=== PATIENT | male | born 1945 | race Caucasian/White ===

== ENCOUNTER → 2023-06-05 14:20 | Outpatient (REF) | payer OTHER, SELFPAY ==
[2023-06-05 16:27] LABS: PSA, Total - Diagnostic 0.14 ng/ml (0.0-4.0)
[2023-06-05 16:28] LABS: Testosterone, Total 5.6 ng/dl (72-623)
== END ==
LOC: REG 14:20
PROVIDERS: ATTENDING PHYSICIAN Radiology Radiation Oncology; FAMILY PHYSICIAN Internal Medicine
DX: C61 Malignant neoplasm of prostate (principal)
CPT/HCPCS: 36415; 84153; 84403

== ENCOUNTER → 2023-06-15 10:54 | Outpatient (REF) | payer OTHER, SELFPAY ==
[2023-06-15 12:05] LABS: % Basophils 0.9 % (0-2); % Eosinophils 5.9 % (0-6); % Immature Granulocytes 0.5 % (0-0.5); % Lymphocytes 8.5 % (20.5-51.1); % Monocytes 7.7 % (1.7-9.3); % Neutrophils 76.5 % (42.2-75.2); Absolute Basophils 0.1 10^3/uL (0-0.2); Absolute Eosinophils 0.5 10^3/uL (0-0.7); Absolute Lymphocytes 0.7 10^3/uL (1.2-3.4); Absolute Monocytes 0.7 10^3/uL (0.1-0.6); Absolute Neutrophils 6.5 10^3/uL (1.4-6.5); Hematocrit 37.1 % (39.0-52.0); Hemoglobin 12.5 g/dL (13.0-18.0); Mean Corp Hgb Conc. 33.7 g/dL (33.0-37.0); Mean Corpuscular Hgb 32.8 pg (27.0-31.0); Mean Corpuscular Volume 97.4 fL (80.0-94.0); Mean Platelet Volume 9.4 fL (7.4-10.4); Nucleated Red Blood Cells % 0 % (-); Platelet Count 207 10^3/uL (130-400); Red Blood Cell Count 3.81 10^6/uL (4.70-6.10); Red Cell Dist. Width 12.4 % (11.5-14.5); White Blood Cell Count 8.5 10^3/uL (4.8-10.8)
[2023-06-15 12:34] LABS: ALT (SGPT) 22 U/L (0-50); AST (SGOT) 25 U/L (17-59); Albumin 3.8 g/dl (3.5-5.0); Alkaline Phosphatase 54 U/L (38-126); Blood Urea Nitrogen 23 mg/dl (9-20); C-Reactive Protein < 5.00 mg/L (0.0-10.00); Calcium 9.4 mg/dl (8.4-10.2); Carbon Dioxide 29 mmol/L (22-30); Chloride 103 mmol/L (98-107); Glucose 101 mg/dl (70-99); HDL Cholesterol 42 mg/dl; LDL Cholesterol, Calculated 109 mg/dl; Potassium 4.2 mmol/L (3.5-5.1); Sodium 138 mmol/L (135-145); Total Bilirubin 0.6 mg/dl (0.2-1.3); Total Cholesterol 181 mg/dl (50-199); Total Protein 6.4 g/dl (6.3-8.2); Triglyceride 150 mg/dl (10-149); Very Low Density Lipoprotein 30 mg/dl (0-30); eGFR > 60.00
[2023-06-15 13:04] LABS: TSH 0.55 uIU/ml (0.47-4.68)
[2023-06-15 13:33] LABS: Erythrocyte Sed Rate 8 mm/hour (0-20)
[2023-06-15 13:55] LABS: Folate 19.6 ng/ml (2.76-20); Vitamin B12 508 pg/ml (239-931)
== END ==
LOC: REG 10:54
PROVIDERS: ATTENDING PHYSICIAN Internal Medicine
DX: R53.83 Other fatigue (principal); I10 Essential (primary) hypertension
CPT/HCPCS: 36415; 80053; 80061; 82607; 82746; 84443; 85025; 85652; 86140

== ENCOUNTER 2023-09-04 13:25 | Emergency (ER) | payer OTHER, SELFPAY ==
[2023-09-04 13:28] VITALS: BP 142/70
[2023-09-04 13:51] LABS: % Basophils 0.6 % (0-2); % Eosinophils 3.9 % (0-6); % Immature Granulocytes 0.5 % (0-0.5); % Lymphocytes 3.5 % (20.5-51.1); % Monocytes 10.4 % (1.7-9.3); % Neutrophils 81.1 % (42.2-75.2); Absolute Basophils 0.1 10^3/uL (0-0.2); Absolute Eosinophils 0.3 10^3/uL (0-0.7); Absolute Lymphocytes 0.3 10^3/uL (1.2-3.4); Absolute Monocytes 0.8 10^3/uL (0.1-0.6); Absolute Neutrophils 6.5 10^3/uL (1.4-6.5); Hematocrit 34.5 % (39.0-52.0); Hemoglobin 11.9 g/dL (13.0-18.0); Mean Corp Hgb Conc. 34.5 g/dL (33.0-37.0); Mean Corpuscular Hgb 33.4 pg (27.0-31.0); Mean Corpuscular Volume 96.9 fL (80.0-94.0); Mean Platelet Volume 8.6 fL (7.4-10.4); Nucleated Red Blood Cells % 0 % (-); Platelet Count 188 10^3/uL (130-400); Red Blood Cell Count 3.56 10^6/uL (4.70-6.10); Red Cell Dist. Width 12.9 % (11.5-14.5)
[2023-09-04 14:17] LABS: ALT (SGPT) 14 U/L (0-50); AST (SGOT) 25 U/L (17-59); Albumin 3.9 g/dl (3.5-5.0); Alkaline Phosphatase 47 U/L (38-126); Blood Urea Nitrogen 16 mg/dl (9-20); Calcium 9.1 mg/dl (8.4-10.2); Carbon Dioxide 22 mmol/L (22-30); Chloride 106 mmol/L (98-107); Glucose 104 mg/dl (70-99); Potassium 3.7 mmol/L (3.5-5.1); Sodium 136 mmol/L (135-145); Total Bilirubin 0.7 mg/dl (0.2-1.3); Total Protein 6.2 g/dl (6.3-8.2); eGFR > 60.00
[2023-09-04 17:49] VITALS: BP 161/56; BMI 20.5
[2023-09-04 18:00] VITALS: BP 174/66
[2023-09-04] MEDS: NSS 250 IV (18:14)
[2023-09-04 18:36] LABS: Troponin I < 0.012 ng/ml
--- NOTE | 2023-09-04 18:41 | ED.GENMED ---
History of Present Illness
General
Chief Complaint: Chest Problem
Source: patient and family
Exam Limitations: none
Time Seen by Provider: 09/04/23 17:47
Travel History
Have you had any contact with someone who has COVID-19?: No
Do you have any symptoms of coronavirus? Fever > 100 degrees, chills, cough, shortness of breath, sore throat, loss of taste or smell, muscle aches, or headache?: No
History of Present Illness
History of Present Illness:
78-year-old male complaining of heart pounding. Has been going on for days. Also episodes of irregular heartbeat. No syncope no chest pain no shortness of breath. Ongoing diarrhea with prostate radiation.
Past History
Past History
ED Past Medical History: CAD, CVA, GERD, HTN, Hypercholesterolemia, [place], Hypothyroidism, Other (angina/pressure, prostatic hypertropy, emphysema), Other (PNA, spontaneous pneumothorax blebs, arthritis, spinal stenosis) and Other (peripheral arterial
disease in lower extremities)
ED Past Surgical History: Cardiac (stenting times 2) and Other (thyroidectomy)
Social History
Tobacco: Former smoker
Alcohol: Occasional
Drug: None
Living: with family
Family History
Family History: Other (Skin cancer)
Review of Systems
Review of Systems
All Other Systems: Not applicable
Constitutional: Denies fever
Respiratory: Denies trouble breathing
Cardiac: Denies chest pain or syncope
Phy Exam
Physical Exam
Physical Exam:
GENERAL: Alert and oriented in no apparent distress
EYE: Orbits normal.
NECK: Supple
CARDIAC: Regular rate and rhythm without any obvious murmurs.
LUNGS: Clear breath sounds,normal
ABDOMEN: Soft, without focal tenderness or distention
NEUROLOGICAL: Alert and oriented , grossly non-focal
SKIN: Warm and dry, no rash or lesion, no discoloration, skin intact.
MUSCULOSKELETAL: No edema,no deformity.Good color
PSYCH: Normal and appropriate interaction.
Course
Orders/Labs/Results
Orders:
Orders
09/04/23 13:34
Electrocardiogram (*1) Urgent
Reason for Study: Palpitations
EKG- Treatment ONCE
09/04/23 13:42
Type+Screen Urgent
CMP [Comprehensive Metabolic Panel] Urgent
Complete Blood Count/With Diff Urgent
09/04/23 18:01
0.9% Sodium Chloride 250 ml [Nss] 250 ml IV BOLUS
CXR2 [CR Chest - 2 Views ] Urgent
Comment:
Reason For Exam: Palpitations/heart racing
09/04/23 18:02
Troponin I Urgent
Abnormal Lab Results
09/04/23
13:42
RBC 3.56 L 10^6/uL
(4.70-6.10)
Hgb 11.9 L g/dL
(13.0-18.0)
Hct 34.5 L %
(39.0-52.0)
MCV 96.9 H fL
(80.0-94.0)
MCH 33.4 H pg
(27.0-31.0)
Absolute Lymphs (auto) 0.3 L 10^3/uL
(1.2-3.4)
Absolute Monos (auto) 0.8 H 10^3/uL
(0.1-0.6)
Neutrophils % 81.1 H %
(42.2-75.2)
Lymphocytes % 3.5 L %
(20.5-51.1)
Monocytes % 10.4 H %
(1.7-9.3)
Glucose 104 H mg/dl
(70-99)
Total Protein 6.2 L g/dl
(6.3-8.2)
09/04/23 13:42
09/04/23 13:42
Vital Signs
Initial and Last Documented VS:
Initial Vital Signs
Temp Pulse Resp BP Pulse Ox
97.8 F 80 18 142/70 97
09/04/23 13:28 09/04/23 13:28 09/04/23 13:28 09/04/23 13:28 09/04/23 13:28
Last Documented Vital Signs
Temp Pulse Resp BP Pulse Ox
98.8 F 83 18 161/56 98
09/04/23 17:49 09/04/23 17:49 09/04/23 17:49 09/04/23 17:49 09/04/23 17:49
MDM/Problems Addressed
Differential Diagnosis Includes:
Patient not describing racing heartbeat or arrhythmia like symptoms more pounding. States his heart rate will go up into the 80s. No syncope no chest pain no shortness of breath. Highly doubt pulmonary emboli. No infectious issues clinically.
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
*Radiology
Radiology exam reviewed: preliminary read by ED provider (Negative)
*Pulse Oximetry
Patient hypoxic: no
*EKG
Interpreted by ED Provider?: Yes
Interpretation: normal
Comparison EKG: no changes
Heart Rate: 80
Rate: normal
Rhythm: sinus
Soldier: normal axis
Interval: normal interval
QRS Pattern: normal QRS
Ischemia: no ischemia
*Tourist Home Keeper Interpretation
Rate: normal
Interpretation: normal
Heart Rate: 80
Rhythm: sinus
*Critical Care Note
Total Time (30-74mins, 75-104mins- exclusive of procedures): Not Applicable
Data Reviewed
Review of Other/Old Records Reveals: Labs, Records and Testing
Update Note
Update Note:
Patient is describing more than sensation been racing heart rate or irregular heart rate. He has no chest pain or shortness of breath. He has no leg pain or leg swelling. He is nontoxic with stable vital signs at rest. I suspect his pounding
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 No other serious explanation found clinically or by testing. Charged to follow-up
ED Attending Note
-
Portions of this chart may have been created with voice recognition software.� Occasional wrong word or��sound alike� substitutions may have occurred due to the inherent limitations of voice recognition software.
Discharge Plan
Departure
Patient Disposition: Home (Routine Discharge)
Date of Disposition: 09/04/23
Time of Disposition: 19:45
Patient with high blood pressure during this ER visit?: Yes
Discharge Problem:
Pounding sensation/palpitations, Radiation induced diarrhea
Instructions: Palpitations ED, Acute Diarrhea, BLOOD PRESSURE
Prescriptions:
No Action
carvedilol phosphate 20 MG capsule, ER multiphase 24 hr
20 mg PO DAILY
lifitegrast [Xiidra] 1 EACH dropperette
1 drp BOTH EYES BID
nitroglycerin 0.4 MG tablet, sublingual
0.4 mg sublingual [id number] PRN (Reason: chest pain) Qty: 25 3RF
acetaminophen [Tylenol Extra Strength] 500 MG tablet
500 mg PO TID
Patient Comments:
WITH 650MG
lorazepam 0.5 MG tablet
0.5 mg PO HSPRN PRN (Reason: sleep)
Patient Comments:
04/06/2020: per pdmp last filled 04/02/2019, 60 tabs for 30 days from [facility]
C,E,zinc,copper [id number] 1 CAP capsule
1 cap PO DAILY@1200
valsartan 80 MG tablet
80 mg PO QPM
levothyroxine 88 MCG tablet
88 mcg PO DAILY
calcium carbonate 600 MG tablet
600 mg PO QPM
cholecalciferol (vitamin D3) 1,000 UNITS tablet
1,800 units PO QPM
L.acidoph, carly,B. lactis 1 EACH capsule
1 ea PO DAILY@1200
aspirin 81 MG tablet,delayed release (DR/EC)
81 mg PO DAILY
acetaminophen [Tylenol Arthritis] 650 MG tablet extended release
650 mg PO TID
Patient Comments:
WITH 500MG
pantoprazole 40 MG tablet,delayed release (DR/EC)
40 mg PO DAILY@1200
furosemide 20 MG tablet
20 mg PO DAILY
clopidogrel 75 MG tablet
75 mg PO QPM
ferrous sulfate [FeroSul] 325 MG tablet
325 mg PO HS 0RF
clopidogrel 75 MG tablet
75 mg PO DAILY Qty: 20 0RF
Referrals:
Christopher Cramer, DO [Family Provider] - Follow up in 2-3 days
Interventions
Interventions:
*Risk Screen - Suicide Last Done: 09/04/23 17:49
*General Assessment Last Done: 09/04/23 17:49
*Neglect/Abuse Screening Last Done: 09/04/23 17:49
ED- Fall Risk Assessment Last Done: 09/04/23 17:49
*ED COVID-19 Vaccine History Last Done: 09/04/23 13:28
ED- Cardiac Assessment Last Done: 09/04/23 17:49
ED- Pulmonary Assessment Last Done: 09/04/23 17:49
Discharge Date and Time
Print Language: TAJIK
== END 2023-09-04 20:18 | disposition home or self-care (01) ==
LOC: EMR 13:25
PROVIDERS: Emergency Medicine; EMERGENCY PHYSICIAN Emergency Medicine; FAMILY PHYSICIAN Internal Medicine
DX: R00.2 Palpitations (principal); K52.0 Gastroenteritis and colitis due to radiation; W88.0XXA Exposure to X-rays, initial encounter; I25.10 Atherosclerotic heart disease of native coronary artery without angina pectoris; I10 Essential (primary) hypertension; K21.9 Gastro-esophageal reflux disease without esophagitis; E78.00 Pure hypercholesterolemia, unspecified; E03.9 Hypothyroidism, unspecified; I25.2 Old myocardial infarction; M48.00 Spinal stenosis, site unspecified; I73.9 Peripheral vascular disease, unspecified; J43.9 Emphysema, unspecified; Z86.73 Personal history of transient ischemic attack (TIA), and cerebral infarction without residual deficits; Z87.891 Personal history of nicotine dependence; Z95.5 Presence of coronary angioplasty implant and graft
CPT/HCPCS: 99283; 71046; 80053; 84484; 85025; 86850; 86900; 86901; 93005

== ENCOUNTER 2023-09-23 15:05 | Emergency (ER) | payer OTHER, SELFPAY ==
[2023-09-23 15:08] VITALS: BP 151/66
--- NOTE | 2023-09-23 17:14 | ED.GENMED ---
History of Present Illness
<Magnolia Vitale PA-C - Last Filed: 09/23/23 20:06>
General
Chief Complaint: Blood Pressure Problem
Source: patient
Exam Limitations: none
Time Seen by Provider: 09/23/23 16:21
Nursing documentation reviewed up to this point in time: agreed with
Travel History
Have you had any contact with someone who has COVID-19?: No
Do you have any symptoms of coronavirus? Fever > 100 degrees, chills, cough, shortness of breath, sore throat, loss of taste or smell, muscle aches, or headache?: No
History of Present Illness
History of Present Illness:
This is a 78 y/o male with a PMH of CAD, HTN, prostate cancer presenting emergency department today with concerns of elevated blood pressure pressure and urinary burning/retention. Patient states that he checks his blood pressure once a day usually
every day or multiple times a day. Patient states that he will go through phases of checking it and then not checking it. Patient states that he was recently told to up his dose frequency of Flomax and patient was concerned this would decrease his
blood pressure and he was concerned that this would cause him to . Because of this year, patient has been checking his blood pressure much more than usual, and he noticed that has been elevated recently. His baseline blood pressure systolically
runs in the 130s to 150s, and he noticed that he got one blood pressure reading that systolically was 200. Patient denies any chest pain, shortness of breath, headaches, abdominal pain, nausea, vomiting. Patient denies any lower extremity swelling
or edema. Patient states that his current urinary symptoms are expected from his recent radiation procedures, and he is working with his oncologist and urologist to find right medications to help his symptoms currently.
Past History
<Magnolia Vitale PA-C - Last Filed: 09/23/23 20:06>
Past History
ED Past Medical History: CAD, CVA, GERD, HTN, Hypercholesterolemia, [place], Hypothyroidism, Other (angina/pressure, prostatic hypertropy, emphysema), Other (PNA, spontaneous pneumothorax blebs, arthritis, spinal stenosis) and Other (peripheral arterial
disease in lower extremities)
ED Past Surgical History: Cardiac (stenting times 2) and Other (thyroidectomy)
Social History
Tobacco: Former smoker
Alcohol: Occasional
Drug: None
Living: with family
Family History
Family History: Other (Skin cancer)
Review of Systems
<Magnolia Vitale PA-C - Last Filed: 09/23/23 20:06>
Review of Systems
All Other Systems: ROS reviewed and negative except as documented in HPI and ROS
Phy Exam
<Magnolia Vitale PA-C - Last Filed: 09/23/23 20:06>
Physical Exam
Physical Exam:
General: Patient is well appearing and in no acute distress; non-toxic
Skin: Warm and dry, no rashes or lesions
Head: Normocephalic, atraumatic
Eyes: Sclera non-icteric. EOMs intact. PERRLA.
Cardiac: Regular rate and rhythm, no murmurs
Peripheral Vascular: No lower extremity swelling or edema
Pulm: Normal respiratory effort, no wheezes, rales,
Abdomen: No abdominal tenderness to palpation
Neuro: CN II-XII intact, no focal neurologic deficits.
Psychiatric: Appropriate mood and affect.
Course
<Magnolia Vitale PA-C - Last Filed: 09/23/23 20:06>
Orders/Labs/Results
Orders:
Orders
09/23/23 16:21
Bladder Scan- Treatment ONCE
09/23/23 17:44
Electrocardiogram (*1) Urgent
Reason for Study: Tachycardia
EKG- Treatment ONCE
Urinalysis Reflex To Culture Urgent
Date Specimen was Collected: 09/23/23
Time Specimen was Collected: 17:41
Vital Signs
Initial and Last Documented VS:
Initial Vital Signs
Temp Pulse Resp BP Pulse Ox
98.3 F 100 16 151/66 96
09/23/23 15:08 09/23/23 15:08 09/23/23 15:08 09/23/23 15:08 09/23/23 15:08
Last Documented Vital Signs
Temp Pulse Resp BP Pulse Ox
98.5 F 99 20 151/65 97
09/23/23 18:50 09/23/23 18:50 09/23/23 18:50 09/23/23 18:50 09/23/23 18:50
<Acosta Martinez DO - Last Filed: 09/23/23 18:11>
Orders/Labs/Results
Orders:
Orders
09/23/23 16:21
Bladder Scan- Treatment ONCE
09/23/23 17:44
Electrocardiogram (*1) Urgent
Reason for Study: Tachycardia
EKG- Treatment ONCE
Urinalysis Reflex To Culture Urgent
Date Specimen was Collected: 09/23/23
Time Specimen was Collected: 17:41
Vital Signs
Initial and Last Documented VS:
Initial Vital Signs
Temp Pulse Resp BP Pulse Ox
98.3 F 100 16 151/66 96
09/23/23 15:08 09/23/23 15:08 09/23/23 15:08 09/23/23 15:08 09/23/23 15:08
Last Documented Vital Signs
Temp Pulse Resp BP Pulse Ox
98.5 F 99 20 151/65 97
09/23/23 18:50 09/23/23 18:50 09/23/23 18:50 09/23/23 18:50 09/23/23 18:50
<Magnolia Vitale PA-C - Last Filed: 09/23/23 20:06>
MDM/Problems Addressed
Differential Diagnosis Includes:
ddx include essential hypertension, white coat syndrome, acute urinary retention, ACS
MDM/Problems Addressed:
Urinary retention, urinary burning, high blood pressure
Chronic conditions affecting care:
Prostate cancer, hypertension, coronary artery
Acute Exacerbation and/or Progression of Chronic Illness:
Prostate cancer
<Magnolia Vitale PA-C - Last Filed: 09/23/23 20:06>
*Critical Care Note
Total Time (30-74mins, 75-104mins- exclusive of procedures): Not Applicable
<Magnolia Vitale PA-C - Last Filed: 09/23/23 20:06>
Patient Management
Escalation/DeEscalation of care consider admission/obs:
This is a 78 y/o male with a PMH of CAD, HTN, prostate cancer presenting emergency department today with concerns of elevated blood pressure pressure and urinary burning/retention. Patient states that he checks his blood pressure once a day usually
every day or multiple times a day. Patient states that he will go through phases of checking it and then not checking it. Patient states that he was recently told to up his dose frequency of Flomax and patient was concerned this would decrease his
blood pressure and he was concerned that this would cause him to . Because of this year, patient has been checking his blood pressure much more than usual.
While here in the emergency department, patient's blood pressure has been at his baseline without intervention. Patient has no evidence of urinary tract infection on his urinalysis. Advised patient to continue his current blood pressure regimen,
follow-up with his urologist and oncologist for his persistent urinary symptoms. No indication for further testing at this time.
ED Attending Note
<Magnolia Vitale PA-C - Last Filed: 09/23/23 20:06>
-
Portions of this chart may have been created with voice recognition software.� Occasional wrong word or��sound alike� substitutions may have occurred due to the inherent limitations of voice recognition software.
<Acosta Martinez DO - Last Filed: 09/23/23 18:11>
ED Attending Note
Patient seen and examined by attending physician: Yes
I performed the substantive portion of visit, reviewed & personally made and approve the management plan that is documented in note by myself or ADEN.: Yes
ED Attending Note:
I have seen and evaluated the patient with a [id number] encounter. I have spoken to the advance practicer provider and involved in the medical history, the physical exam, medical decision making.
Evaluation and management service: agree unless noted differently below.
Results interpretation: agree unless noted differently below.
Focused HPI: 78-year-old male presenting for evaluation of high blood pressure. Patient recently underwent prostate radiation and is having urinary issues. His urologist and oncologist are following him. They want him to start taking 2 Flomax in
the morning and 2 Flomax in the evening. Patient has been having increasing blood pressure. The on-call court monitor told him to take his normal Diovan at night and another dose in the morning moving forward. Patient is worried this could
decrease his blood pressure so he has not started this regimen yet
Physical exam: Sitting bed comfortably. No acute distress. Heart regular rate and rhythm
Medical Decision Making: We discussed following the recommendations that his court monitor put forth. His blood pressure is improving without intervention here. Urinalysis negative for infection
Discharge Plan
Departure
Patient Disposition: Home (Routine Discharge)
Date of Disposition: 09/23/23
Time of Disposition: 18:09
Patient with high blood pressure during this ER visit?: Yes
Condition: Good
Discharge Problem:
Hypertension
Instructions: High Blood Pressure (DC), BLOOD PRESSURE
Prescriptions:
New
tamsulosin [Flomax] 0.4 mg capsule
0.4 mg PO BID Qty: 30 0RF
No Action
carvedilol phosphate 20 MG capsule, ER multiphase 24 hr
20 mg PO DAILY
lifitegrast [Xiidra] 1 EACH dropperette
1 drp BOTH EYES BID
nitroglycerin 0.4 MG tablet, sublingual
0.4 mg sublingual [id number] PRN (Reason: chest pain) Qty: 25 3RF
acetaminophen [Tylenol Extra Strength] 500 MG tablet
500 mg PO TID
Patient Comments:
WITH 650MG
lorazepam 0.5 MG tablet
0.5 mg PO HSPRN PRN (Reason: sleep)
Patient Comments:
04/06/2020: per pdmp last filled 04/02/2019, 60 tabs for [facility] days from [facility] [place] [facility]
C,E,zinc,copper [id number] 1 CAP capsule
1 cap PO DAILY@1200
valsartan 80 MG tablet
80 mg PO QPM
levothyroxine 88 MCG tablet
88 mcg PO DAILY
calcium carbonate 600 MG tablet
600 mg PO QPM
cholecalciferol (vitamin D3) 1,000 UNITS tablet
1,800 units PO QPM
L.acidoph, paracasei,B. lactis 1 EACH capsule
1 ea PO DAILY@1200
aspirin 81 MG tablet,delayed release (DR/EC)
81 mg PO DAILY
acetaminophen [Tylenol Arthritis] 650 MG tablet extended release
650 mg PO TID
Patient Comments:
WITH 500MG
pantoprazole 40 MG tablet,delayed release (DR/EC)
40 mg PO DAILY@1200
furosemide 20 MG tablet
20 mg PO DAILY
clopidogrel 75 MG tablet
75 mg PO QPM
ferrous sulfate [FeroSul] 325 MG tablet
325 mg PO HS 0RF
clopidogrel 75 MG tablet
75 mg PO DAILY Qty: 20 0RF
Referrals:
Christopher Cramer DO [Family Provider] -
Activity Restrictions/Additional Instructions:
Please follow up with your urologist and oncologist.
Please continue to monitor your symptoms.
Please return to the emergency department should you experience chest pain, shortness of breath, abdominal pain, syncopal episodes, intractable vomiting, or any other concerning signs or symptoms.
Interventions
Interventions:
*Risk Screen - Suicide Last Done: 09/23/23 15:08
*General Assessment Last Done: 09/23/23 15:08
*Neglect/Abuse Screening Last Done: 09/23/23 15:08
*Nursing Disposition Last Done: 09/23/23 18:54
ED- Cardiac Assessment Last Done: 09/23/23 16:41
ED- Neurological Assessment Last Done: 09/23/23 16:41
ED- Pulmonary Assessment Last Done: 09/23/23 16:41
Discharge Date and Time
Discharge Date/Time: 09/23/23 18:56
Print Language: ESTONIAN
[2023-09-23 17:51] LABS: Urine Albumin Negative (Neg - Trace); Urine Bilirubin Negative (Negative); Urine Character Clear (Clear); Urine Color Straw; Urine Glucose Negative (Negative); Urine Ketone Negative (Negative); Urine Leukocyte Negative (Negative); Urine Nitrite Negative (Negative); Urine Occult Blood Negative (Negative); Urine Urobilinogen Negative (Neg - 1+)
[2023-09-23 18:50] VITALS: BP 151/65
== END 2023-09-23 18:56 | disposition home or self-care (01) ==
LOC: EMR 15:05
PROVIDERS: Physician Assistant; EMERGENCY PHYSICIAN Student in an Organized Health Care Education/Training Program; FAMILY PHYSICIAN Internal Medicine
DX: I10 Essential (primary) hypertension (principal); R30.9 Painful micturition, unspecified; I25.10 Atherosclerotic heart disease of native coronary artery without angina pectoris; Z87.891 Personal history of nicotine dependence
CPT/HCPCS: 99283; 51798; 81003; 93005

== ENCOUNTER → 2023-10-03 11:47 | Outpatient (REF) | payer OTHER, SELFPAY ==
[2023-10-03 13:54] LABS: Urine Albumin Trace (Neg - Trace); Urine Bilirubin Negative (Negative); Urine Character Clear (Clear); Urine Color Yellow; Urine Glucose Negative (Negative); Urine Ketone Negative (Negative); Urine Leukocyte Negative (Negative); Urine Nitrite Negative (Negative); Urine Occult Blood Negative (Negative); Urine Urobilinogen Negative (Neg - 1+)
== END ==
LOC: REG 11:47
PROVIDERS: ATTENDING PHYSICIAN Nurse Practitioner Family; FAMILY PHYSICIAN Internal Medicine
DX: R35.0 Frequency of micturition (principal)
CPT/HCPCS: 81003

== ENCOUNTER → 2023-11-15 12:45 | Outpatient (REF) | payer OTHER, SELFPAY | LOC: RAD 12:45 | PROVIDERS: ATTENDING PHYSICIAN Surgery Vascular Surgery; FAMILY PHYSICIAN Internal Medicine | DX: I73.9 Peripheral vascular disease, unspecified (principal); I65.23 Occlusion and stenosis of bilateral carotid arteries | CPT/HCPCS: 93880; 93922; 93925 ==

== ENCOUNTER → 2023-11-21 08:59 | Outpatient (REF) | payer OTHER, SELFPAY ==
[2023-11-21 09:57] LABS: % Basophils 1.1 % (0-2); % Eosinophils 5.3 % (0-6); % Immature Granulocytes 0.5 % (0-0.5); % Monocytes 9.1 % (1.7-9.3); Absolute Basophils 0.1 10^3/uL (0-0.2); Absolute Eosinophils 0.4 10^3/uL (0-0.7); Absolute Lymphocytes 0.4 10^3/uL (1.2-3.4); Absolute Monocytes 0.7 10^3/uL (0.1-0.6); Absolute Neutrophils 5.8 10^3/uL (1.4-6.5); Hematocrit 34.1 % (39.0-52.0); Hemoglobin 11.6 g/dL (13.0-18.0); Mean Platelet Volume 9.3 fL (7.4-10.4); Nucleated Red Blood Cells % 0 % (-); Platelet Count 217 10^3/uL (130-400); Red Blood Cell Count 3.41 10^6/uL (4.70-6.10); Red Cell Dist. Width 12.1 % (11.5-14.5); White Blood Cell Count 7.4 10^3/uL (4.8-10.8)
[2023-11-21 10:24] LABS: Glycohemoglobin (HgbA1c) 5.4 % (4.0-5.6)
[2023-11-21 10:34] LABS: Urine Albumin Negative (Neg - Trace); Urine Bilirubin Negative (Negative); Urine Character Clear (Clear); Urine Color Yellow; Urine Glucose Negative (Negative); Urine Ketone Negative (Negative); Urine Leukocyte Negative (Negative); Urine Nitrite Negative (Negative); Urine Occult Blood Negative (Negative); Urine Specific Gravity 1.015 (<1.030); Urine Urobilinogen Negative (Neg - 1+)
[2023-11-21 11:12] LABS: Albumin 4.1 g/dl (3.5-5.0); Blood Urea Nitrogen 28 mg/dl (9-20); Carbon Dioxide 28 mmol/L (22-30); Total Bilirubin 0.6 mg/dl (0.2-1.3); Total Protein 6.1 g/dl (6.3-8.2)
[2023-11-21 11:25] LABS: ALT (SGPT) 13 U/L (0-50); AST (SGOT) 21 U/L (17-59); Alkaline Phosphatase 50 U/L (38-126); Calcium 9.3 mg/dl (8.4-10.2); Chloride 103 mmol/L (98-107); Glucose 100 mg/dl (70-99); HDL Cholesterol 42 mg/dl; LDL Cholesterol, Calculated 107 mg/dl; Potassium 4.2 mmol/L (3.5-5.1); Sodium 136 mmol/L (135-145); Total Cholesterol 186 mg/dl (50-199); Triglyceride 185 mg/dl (10-149); Very Low Density Lipoprotein 37 mg/dl (0-30); eGFR > 60.00
[2023-11-21 11:37] LABS: TSH 0.37 uIU/ml (0.47-4.68)
== END ==
LOC: REG 08:59
PROVIDERS: ATTENDING PHYSICIAN Internal Medicine
DX: N52.9 Male erectile dysfunction, unspecified (principal); I10 Essential (primary) hypertension; E78.2 Mixed hyperlipidemia; Z86.73 Personal history of transient ischemic attack (TIA), and cerebral infarction without residual deficits; R23.8 Other skin changes; R00.2 Palpitations
CPT/HCPCS: 36415; 80053; 80061; 81003; 83036; 84443; 85025

== ENCOUNTER → 2023-11-28 12:29 | Outpatient (REF) | payer OTHER, SELFPAY ==
[2023-11-28 13:12] LABS: % Basophils 0.8 % (0-2); % Eosinophils 4.9 % (0-6); % Immature Granulocytes 0.4 % (0-0.5); % Lymphocytes 5.2 % (20.5-51.1); % Monocytes 8.8 % (1.7-9.3); % Neutrophils 79.9 % (42.2-75.2); Absolute Basophils 0.1 10^3/uL (0-0.2); Absolute Eosinophils 0.4 10^3/uL (0-0.7); Absolute Lymphocytes 0.4 10^3/uL (1.2-3.4); Absolute Monocytes 0.7 10^3/uL (0.1-0.6); Absolute Neutrophils 6.2 10^3/uL (1.4-6.5); Hematocrit 34.7 % (39.0-52.0); Hemoglobin 11.9 g/dL (13.0-18.0); Mean Corp Hgb Conc. 34.3 g/dL (33.0-37.0); Mean Corpuscular Hgb 34.2 pg (27.0-31.0); Mean Corpuscular Volume 99.7 fL (80.0-94.0); Mean Platelet Volume 9.1 fL (7.4-10.4); Nucleated Red Blood Cells % 0 % (-); Platelet Count 227 10^3/uL (130-400); Red Blood Cell Count 3.48 10^6/uL (4.70-6.10); Red Cell Dist. Width 12.3 % (11.5-14.5); White Blood Cell Count 7.7 10^3/uL (4.8-10.8)
[2023-11-28 14:34] LABS: PSA, Total - Diagnostic < 0.06 ng/ml (0.0-4.0)
[2023-11-28 14:53] LABS: Vitamin B12 314 pg/ml (239-931)
[2023-11-28 15:48] LABS: Testosterone, Total < 4.9 ng/dl (72-623)
[2023-11-29 14:36] LABS: Lyme Antibody Screen, EIA Negative (Negative)
== END ==
LOC: REG 12:29
PROVIDERS: ATTENDING PHYSICIAN Nurse Practitioner Family; FAMILY PHYSICIAN Internal Medicine; REFERRING PHYSICIAN Radiology Radiation Oncology
DX: C61 Malignant neoplasm of prostate (principal); S50.862A Insect bite (nonvenomous) of left forearm, initial encounter; W57.XXXA Bitten or stung by nonvenomous insect and other nonvenomous arthropods, initial encounter; R53.83 Other fatigue
CPT/HCPCS: 36415; 82607; 84153; 84403; 85025; 86618

== ENCOUNTER 2024-01-06 23:48 | Inpatient (IN) | payer OTHER, SELFPAY ==
[2024-01-06 20:15] VITALS: BMI 19.2
[2024-01-06 20:21] VITALS: BP 161/66
[2024-01-06 20:38] VITALS: BP 153/60
[2024-01-06 20:49] LABS: % Basophils 1.1 % (0-2); % Eosinophils 5.2 % (0-6); % Immature Granulocytes 0.4 % (0-0.5); % Lymphocytes 7.2 % (20.5-51.1); % Monocytes 13.5 % (1.7-9.3); % Neutrophils 72.6 % (42.2-75.2); Absolute Basophils 0.1 10^3/uL (0-0.2); Absolute Eosinophils 0.4 10^3/uL (0-0.7); Absolute Lymphocytes 0.5 10^3/uL (1.2-3.4); Absolute Neutrophils 5.4 10^3/uL (1.4-6.5); Hematocrit 34.5 % (39.0-52.0); Hemoglobin 11.9 g/dL (13.0-18.0); Mean Corp Hgb Conc. 34.5 g/dL (33.0-37.0); Mean Corpuscular Hgb 33.2 pg (27.0-31.0); Mean Corpuscular Volume 96.4 fL (80.0-94.0); Mean Platelet Volume 9.3 fL (7.4-10.4); Nucleated Red Blood Cells % 0 % (-); Platelet Count 230 10^3/uL (130-400); Red Blood Cell Count 3.58 10^6/uL (4.70-6.10); Red Cell Dist. Width 12.2 % (11.5-14.5); White Blood Cell Count 7.5 10^3/uL (4.8-10.8)
[2024-01-06 21:00] VITALS: BP 151/60
[2024-01-06 21:02] LABS: ALT (SGPT) 38 U/L (0-50); AST (SGOT) 33 U/L (17-59); Albumin 4.5 g/dl (3.5-5.0); Alkaline Phosphatase 56 U/L (38-126); Blood Urea Nitrogen 22 mg/dl (9-20); Calcium 9.5 mg/dl (8.4-10.2); Carbon Dioxide 22 mmol/L (22-30); Chloride 104 mmol/L (98-107); Estimated Creatinine Clearance 42 ml/min; Glucose 103 mg/dl (70-99); Potassium 4.1 mmol/L (3.5-5.1); Sodium 140 mmol/L (135-145); Total Bilirubin 0.5 mg/dl (0.2-1.3); Total Protein 6.5 g/dl (6.3-8.2); eGFR > 60.00
[2024-01-06 21:13] LABS: Troponin I < 0.012 ng/ml
[2024-01-06 22:00] VITALS: BP 160/57
--- NOTE | 2024-01-06 22:35 | ED.GENMED ---
History of Present Illness
General
Chief Complaint: Chest Pain
Time Seen by Provider: 01/06/24 21:04
History of Present Illness
History of Present Illness:
78-year-old male with history of NV and CAD with 6 stents on Plavix, hypertension, history of prostate cancer coming into the emergency department for chest pain. Patient reports prior to arrival he was at home and started to have a discomfort in
the middle of his chest near his throat. He checked his blood pressure, noted that it was elevated. Reports similar symptoms in the past with his cardiac events. Last cardiac event was in 2018. He took 2 nitroglycerin prior to arrival and
reports that his pain has now resolved. Last time he took nitroglycerin was in 2018. Denies any associated shortness of breath. Denies any fever or cough. Denies abdominal pain or GI symptoms. Denies any lower extremity swelling. Denies
additional acute medical complaints
Past History
Past History
ED Past Medical History: CAD, CVA, GERD, HTN, Hypercholesterolemia, NV, Hypothyroidism, Other (angina/pressure, prostatic hypertropy, emphysema), Other (PNA, spontaneous pneumothorax blebs, arthritis, spinal stenosis) and Other (peripheral arterial
disease in lower extremities)
ED Past Surgical History: Cardiac (stenting times 2) and Other (thyroidectomy)
Social History
Tobacco: Former smoker
Alcohol: Occasional
Drug: None
Living: with family
Family History
Family History: Other (Skin cancer)
Phy Exam
Physical Exam
Physical Exam:
General: Well-appearing, no clinical signs of dehydration, nontoxic and in no acute distress
HEENT: protecting airway
Neck: appears supple
CV: Normal heart rate, regular rhythm, no evidence of cyanosis
Resp: No accessory muscle use, no increased work of breathing, lungs clear to auscultation bilaterally
Abd: Soft and non-distended, no tenderness to palpation, normal bowel sounds
Extremities: No deformities, no swelling, no erythema
Neuro: alert, no focal neurologic deficit
: deferred
Rectal: deferred
Psych: Normal affect
Skin: Intact
Scores
Heart Score for Chest Pain Patients
STEMI patient?: No
History: Highly Suspicious
ECG: Normal
Age: >/= 65 years
Risk Factors: >/= 3 Risk Factors or History of CAD
Troponin: </= Normal Limit
Heart Score for Chest Pain Patients: 6
Heart Score Risk: 20.3% MACE over next 6 weeks
Course
Orders/Labs/Results
Orders:
Orders
01/06/24 20:16
Electrocardiogram (*1) Urgent
Reason for Study: Chest Pain
EKG- Treatment ONCE
01/06/24 20:40
Complete Blood Count/With Diff Urgent
Comprehensive Metabolic Panel Urgent
Troponin I Urgent
01/06/24 21:39
Aspirin Chewable [Low Strength Aspirin] 324 mg PO NOW STA
Pharmacy Request to Place See Dose Instructions PO NOW STA
Discontinue all Active Warfarin orders?: Yes
01/06/24 21:[address] Non Medication Order As Directed
Physician Order: PTT 6 hours after initial start of Heparin infusion
01/06/24 21:45
Heparin 51408 Units/250 ml 25,000 units in 250 ml IV PER PROTOCOL
Weight to be used for heparin protocol in kilograms (kg):: 57.4
Protocol:: Cardiac Tx/Acute Coronary
PTT Goal Range to be used:: PTT 73 to 111 seconds
Order type:: Initial
INITIAL Infusion Dose (UNITS/KG/hr) & then follow protocol:: 12 units/kg/hr
Infusion Dose in UNITS/hr & then follow protocol (UNITS/hr):: 700
INFUSION RATE in mL/hr & then follow protocol (mL/hr):: 7
PTT less than or equal to 64 seconds:: Increase rate by 200 units/hr (+ 2 mL/hr)
PTT 64.1 to 72.9 seconds:: Increase rate by 100 units/hr (+ 1 mL/hr)
PTT 73 to 111 seconds:: Target Range. No change in rate.
PTT 111.1 to 130.9 seconds:: Decrease rate by 100 units/hr (- 1 mL/hr)
PTT 131 to 199.9 seconds:: HOLD for 1 hr. Then decrease rate by 200 units/hr (- 2 mL/hr)
PTT greater than or equal to 200 seconds:: HOLD for 2 hrs & Notify Provider. Then decrease by 200 units/hr (-
2 mL/hr)
Lab follow-up:: Each change, PTT q6h until 2 consecutive are therapeutic. Then PTT
daily.
01/06/24 22:[address] See Dose Instructions IV DIRECTED
01/06/24 22:26
PTT Urgent
Comment: Obtain baseline before beginning heparin infusion if not already collected
Abnormal Lab Results
01/06/24
20:40
RBC 3.58 L 10^6/uL
(4.70-6.10)
Hgb 11.9 L g/dL
(13.0-18.0)
Hct 34.5 L %
(39.0-52.0)
MCV 96.4 H fL
(80.0-94.0)
MCH 33.2 H pg
(27.0-31.0)
Absolute Lymphs (auto) 0.5 L 10^3/uL
(1.2-3.4)
Absolute Monos (auto) 1.0 H 10^3/uL
(0.1-0.6)
Lymphocytes % 7.2 L %
(20.5-51.1)
Monocytes % 13.5 H %
(1.7-9.3)
BUN 22 H mg/dl
(9-20)
Glucose 103 H mg/dl
(70-99)
01/06/24 20:40
01/06/24 20:40
Vital Signs
Initial and Last Documented VS:
Initial Vital Signs
Temp Pulse Resp BP Pulse Ox
98.4 F 74 16 161/66 96
01/06/24 20:21 01/06/24 20:21 01/06/24 20:21 01/06/24 20:21 01/06/24 20:21
Last Documented Vital Signs
Temp Pulse Resp BP Pulse Ox
98.4 F 74 16 161/66 96
01/06/24 20:21 01/06/24 20:21 01/06/24 20:21 01/06/24 20:21 01/06/24 20:21
MDM/Problems Addressed
MDM/Problems Addressed:
78-year-old male with history of CAD and NV with 6 stents presenting for chest pain. Patient took nitro prior to arrival with resolution of pain. Vital signs significant for hypertension.
On exam patient is well-appearing, no acute distress or discomfort. EKG obtained, no STEMI criteria. However patient story is very concerning for unstable angina particularly given his risk factors. Plan for laboratory analysis including troponin.
21:40 - Troponin undetectable. In discussion with cardiology, advising aspirin, heparin drip, potential catheterization tomorrow.
*EKG
Interpreted by ED Provider?: Yes
EKG Intrepretation Date: 01/06/24
EKG Intrepretation Time: 22:45
Interpretation: normal
Comparison EKG: no changes (09/23/23)
Heart Rate: 71
Rate: normal
Rhythm: sinus
Yulan: normal axis
Interval: normal interval
QRS Pattern: normal QRS
Ischemia: no ischemia
*Critical Care Note
Total Time (30-74mins, 75-104mins- exclusive of procedures): Not Applicable
ED Attending Note
-
Portions of this chart may have been created with voice recognition software.� Occasional wrong word or��sound alike� substitutions may have occurred due to the inherent limitations of voice recognition software.
Discharge Plan
Departure
Patient Disposition: Admit
Date of Disposition: 01/06/24
Time of Disposition: 22:34
Presentation/result/management discussed w/ accepting MD/DO: Hospitalist
Patient with high blood pressure during this ER visit?: Yes
Discharge Problem:
Unstable angina, Chest pain
Prescriptions:
No Action
carvedilol phosphate 20 MG capsule, ER multiphase 24 hr
20 mg PO DAILY
lifitegrast [Xiidra] 1 EACH dropperette
1 drp BOTH EYES BID
nitroglycerin 0.4 MG tablet, sublingual
0.4 mg sublingual [id number] PRN (Reason: chest pain) Qty: 25 3RF
acetaminophen [Tylenol Extra Strength] 500 MG tablet
500 mg PO TID
Patient Comments:
WITH 650MG
lorazepam 0.5 MG tablet
0.5 mg PO HSPRN PRN (Reason: sleep)
Patient Comments:
04/06/2020: per pdmp last filled 04/02/2019, 60 tabs for 30 days from [facility]
C,E,zinc,copper [id number] 1 CAP capsule
1 cap PO DAILY@1200
valsartan 80 MG tablet
80 mg PO QPM
levothyroxine 88 MCG tablet
88 mcg PO DAILY
calcium carbonate 600 MG tablet
600 mg PO QPM
cholecalciferol (vitamin D3) 1,000 UNITS tablet
1,800 units PO QPM
L.acidoph, paracasei,B. lactis 1 EACH capsule
1 ea PO DAILY@1200
aspirin 81 MG tablet,delayed release (DR/EC)
81 mg PO DAILY
acetaminophen [Tylenol Arthritis] 650 MG tablet extended release
650 mg PO TID
Patient Comments:
WITH 500MG
pantoprazole 40 MG tablet,delayed release (DR/EC)
40 mg PO DAILY@1200
furosemide 20 MG tablet
20 mg PO DAILY
clopidogrel 75 MG tablet
75 mg PO QPM
ferrous sulfate [FeroSul] 325 MG tablet
325 mg PO HS 0RF
clopidogrel 75 MG tablet
75 mg PO DAILY Qty: 20 0RF
tamsulosin [Flomax] 0.4 mg capsule
0.4 mg PO BID Qty: 30 0RF
Referrals:
Christopher Cramer DO [Family Provider] -
Interventions
Interventions:
ED- Fall Risk Assessment Last Done: 01/06/24 20:48
ED- Cardiac Assessment Last Done: 01/06/24 20:48
Discharge Date and Time
Print Language: PAP[place]
[2024-01-06 22:43] LABS: APTT 27.3 Sec (23.4-35.0)
--- NOTE | 2024-01-06 22:44 | HPS.HSE ---
Addendum entered and electronically signed by Too Gregory DO 01/07/24 00:15:
Patient seen and examined independently. Agree with findings and plan as set forth by RADHA Benjamin.
Patient is a 78y M with PMH significant for ASCVD, hypertension, benign thyroid mass and prostate cancer s/p XRT who presents to ED complaining of chest pain / throat pain. Patient states that he developed pain in the lower throat this evening.
He initially stated that discomfort started after taking his Diovan pill, but later states that pain occurred independent of any swallowing. Patient states that the throat discomfort is similar to previous MIs he has had in the past. He took tow
NTG tabs at home and presented to the ED for evaluation. By the time he arrived, his discomfort had resolved.
Patient notes recent issues with elevated BP (was > 200 systolic at home this evening) and with swallowing difficulty. Has remote history of swallow dysfunction and notes that he was evaluated at [facility] a few years ago.
He was supposed to have speech therapy following this evaluation, but he did not follow up.
He had prior removal of a benign thyroid mass in the past in hopes that this would improve his swallow issues.
Patient denies any shortness of breath, diaphoresis, nausea or other associated symptoms this evening.
In the ED he is resting comfortably with no pain at present. EKG is unremarkable. Troponin is undetectable x 1 set thus far.
Ass:
Atypical Chest Pain - ? Odynophagia v Angina
ASCVD (Prior ID, CVA - chronic L facial droop)
Benign Hypertension
GERD / Swallow Dysfunction
Benign Thyroid Mass s/p Excision
Hypothyroidism
Prostate Cancer s/p XRT
COPD without Acute Exacerbation
Anxiety / Depression
Plan:
Admit for further evaluation and treatment.
IV heparin overnight given similarity of current symptoms to prior MIs.
Continue to follow troponin - undetectable thus far.
Cardiology evaluation for additional recommendations / ? cath.
Symptoms seem suspicious for GI origin, esophageal spasm, etc given concurrent swallowing issues.
GI evaluation.
Follow for any new / recurrent symptoms.
Continue BP med regimen and adjust as needed.
Continue Flomax / leuprolide.
Original Note:
Family Physician
-
Family Physician: Christopher Cramer
Chief Complaint
-
Laryngeal pain, odynophagia, dysphagia
History of Present Illness
78-year-old male complaining of laryngeal pain while getting up at 2 AM walking back and forth to his bathroom to void after changing his Lasix dose to 8 PM per his urologist request. This occurred 4 days ago. This evening he reports driving back
from his daughter's house to his home around 6 PM when he was due to take his Diovan and Flomax. He reports laryngeal pain after swallowing Diovan due to elevated blood pressure of 203/96. He took 2 nitroglycerin which resolved his pain. He
states he has been having swallowing issues for the past 5 months difficulty with swallowing his small Lasix pill, soft pretzels, pieces of small soft peas and carrots and microwavable chicken pot pie. He states he has not discussed this with any
of his providers. He denies fever, headache, sore throat, chills, shortness breath, cough, abdominal pain, nausea, vomiting, diarrhea, urinary symptoms. He has past medical history of CAD/ID/6 cardiac stents, HTN, HLD, CVA, emphysema, ex-smoker,
spontaneous pneumothorax, GERD, BPH, prostate cancer, thyroidectomy secondary to benign thyroid growth, anxiety, depression, neuropathy.
Medical History
Past Medical History
Past Medical History: Reports Other
Additional Past Medical History:
CAD, cardiac stents x 6 last in 2017 LAD and circumflex
HTN
HLD
Emphysema
Ex-smoker
Spontaneous pneumothorax
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
GERD
BPH
Prostate cancer
Thyroidectomy secondary to benign thyroid growth
Precancerous cells to mouth removal 2007 follows with ENT
Anxiety
Depression
Neuropathy
Past Surgical History: Reports Other
Additional Past Surgical History:
Thyroidectomy secondary to benign thyroid nodule
Angioplasty times 06/04/1998
Cardiac stents 1998, 2009, 2016 2017
09/26/2016 cardiac stents to LAD and circumflex
Social History
Tobacco: Former Smoker (24-year 1/4 pack/day stopped 2012)
Alcohol: None
Drug: None
Personal: Single
Living: Alone
Employment: Retired
Family History
Family History: Not pertinent
Allergies / Home Medications
Allergies reflects when Allergies were last updated in [email or web address].
Home Medications with original date entered in [email or web address]
Allergy/Medication List:
Allergies
Allergy/AdvReac Type Severity Reaction Status Date / Time
simvastatin [From Zocor] Allergy muscle Verified 01/06/24 20:24
cramps
lorazepam [From Ativan] AdvReac 'MAKES ME Verified 01/06/24 20:24
GO CRAZY'
Home Medications
lifitegrast 5 % eye drops in a dropperette (Xiidra) 1 drp BOTH EYES BID Eye condition 09/26/16
nitroglycerin 0.4 mg sublingual tablet 0.4 mg sublingual [id number] PRN chest pain #25 tabs 09/30/16
acetaminophen 500 mg tablet (Tylenol Extra Strength) 500 mg PO TID Pain 02/09/17
lorazepam 0.5 mg tablet 0.5 mg PO HSPRN PRN sleep 02/09/17
levothyroxine 88 mcg tablet 88 mcg PO DAILY Thyroid 03/27/17
L.acidoph, paracasei,B. lactis 10 billion cell capsule 1 ea PO DAILY@1200 Supplement 08/15/17
cholecalciferol (vitamin D3) 25 mcg (1,000 unit) tablet 2,000 units PO QPM Supplement 08/15/17
acetaminophen 650 mg tablet,extended release (Tylenol Arthritis) 650 mg PO TID Pain 03/22/20
furosemide 20 mg tablet 20 mg PO DAILY Fluid retention/Swelling 03/22/20
pantoprazole 40 mg tablet,delayed release 40 mg PO DAILY@1200 Gastrointestinal issue 03/22/20
clopidogrel 75 mg tablet 75 mg PO QPM Blood clot prevention/tx 04/06/20
ferrous sulfate 325 mg (65 mg iron) tablet (FeroSul) 325 mg PO HS 04/08/20
clopidogrel 75 mg tablet 75 mg PO DAILY #20 tabs 07/19/20
tamsulosin 0.4 mg capsule (Flomax) 0.4 mg PO BID #30 caps 09/23/23
ICaps AREDS2 01/06/24
Kenalog 01/06/24
carvedilol phosphate 20 mg capsule,[id number] multiphase (Coreg CR) 20 mg PO DAILY 01/06/24
clobetasol 0.05 % scalp solution 0.05 topical PRN unk 01/06/24
clobetasol 0.05 % shampoo 0.05 topical PRN k 01/06/24
escitalopram oxalate 5 mg tablet (Lexapro) 5 mg PO DAILY 01/06/24
ferrous sulfate 325 mg (65 mg iron) tablet 325 mg PO DAILY 01/06/24
fluocinonide 0.05 % topical solution 1 applic topical BID PRN unk 01/06/24
furosemide 20 mg tablet (Lasix) 20 mg PO DAILY 01/06/24
leuprolide (3 month) 22.5 mg (3 month) subcutaneous syringe (Eligard) 22.5 mg SC [id number] 01/06/24
valsartan 80 mg tablet (Diovan) 80 mg PO DAILY 01/06/24
vibegron 75 mg tablet (Gemtesa) 75 mg PO DAILY 01/06/24
Review of Systems
-
History Source: Patient and Family (Son at bedside)
A 12 point ROS was completed and negative except as noted: Yes
Constitutional: Denies Fever or Chills
EENT: Reports Other (Prior laryngeal pain relieved with nitroglycerin, odynophagia, dysphagia); Denies Sore Throat or Runny Nose
Respiratory: Denies Cough or Trouble Breathing
Cardiac: Denies Chest Pain, Diaphoresis, Palpitations or Syncope
Abdomen/GI: Denies Abdominal Pain, Nausea, Vomiting, Diarrhea, Constipated, Bloody Stools or Black Stools
: Denies Dysuria, Frequency, Flank Pain, Incontinence, Difficulty Voiding, Urgency or Bleeding
Musculoskeletal: Denies Joint Pain or Edema
Skin: Denies Itching or Rash
Neurological: Denies Dizzy, Headache or Weakness
Endocrine: Reports No Symptoms
Hematologic/Lymphatic: Reports No Symptoms
Psych: Reports Calm
Physical Exam
Vital Signs
Vital Signs
Temp Pulse Resp BP Pulse Ox
98.4 F 74 16 161/66 96
01/06/24 20:21 01/06/24 20:21 01/06/24 20:21 01/06/24 20:21 01/06/24 20:21
Physical Exam
General: Comfortable and Conversant; No Pain, Fever or Chills
HEENT: NormoCephalic, Anicteric, Moist mucous membranes, PERRLA, [place] Conjunctivae, No Ptosis and Neck Nontender; No Pharyngeal Erythema
Respiratory: Clear; No Wheezes, Rales or Rhonchi
Cardiac: S1/S2 and Regular Rhythm; No Murmur, Rub, Gallop or Peripheral Edema
Breast: Deferred by me
GI: Soft, Non Tender, Non Distended, Normal Bowel Sounds and No Hepatosplenomegaly
Rectal: Deferred by Provider
Genito-urinary: Deferred by me
Musculoskeletal: No Clubbing, No Cyanosis and No Edema
Skin: Warm and Dry; No Rash or Jaundice
Neuro: AO x 3, No Motor Deficits, No Sensory Deficits and Facial Droop (Chronic right corner of mouth droop since prior CVAs per son at bedside); No Slurred Speech, Tremors or Sedated
Laboratory Results
-
01/06/24 20:40
01/06/24 20:40
Laboratory Results
Total Bilirubin 0.5 mg/dl (0.2-1.3) 01/06/24 20:40
AST 33 U/L (17-59) 01/06/24 20:40
ALT 38 U/L (0-50) 01/06/24 20:40
Alkaline Phosphatase 56 U/L (38-126) 01/06/24 20:40
Troponin I < 0.012 ng/ml 01/06/24 20:40
Impression/Plan
-
Impression/plan:
Admit to telemetry
#Chest pain concern for ACS
#CAD cardiac stents x 6 most recent 2017 to LAD and CX
-Trend troponins, patiently currently chest pain(laryngeal pain) free post to nitro prior to arrival
-IV heparin drip
-Aspirin 324 mg now then 81 mg daily
-Consult CBC cardiology�Dr. Tammy aware
-Continue Coreg CR 20 mg daily
-Continue Plavix 75 mg daily
EKG: NSR 71 bpm, QTc 402 MS no significant change from September 2023
2D echo 03/15/2023: EF 55 to 60%, small focal area of apical hypokinesis. Mild to moderate aortic regurg
#Odynophagia/dysphagia
-Symptoms x 5 months
-Episode tonight at 6 PM relieved with 2 sublingual nitroglycerin
-Patient reports has been choking having difficulty swallowing small Lasix pill and PEs small soft carrots and microwavable chicken pot pie x 5 months
-Consult GI
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
#Reports has been monitored by ENT in 2013
-Patient follows with ENT
#HTN Benign
-
Continue Coreg CR 20 mg daily
Continue Diovan 80 mg daily at 6 PM
-Hold Lasix 20 mg at 8 PM due to possible cath in a.m.
#HLD
-Check lipid profile
-No reported meds
#Emphysema-no exacerbation
#Ic-nvyisp-dosnazuib uses nicotine lozenges
#Spontaneous pneumothorax hx
#GERD
-Continue PPI
#BPH
#Prostate cancer hx Dx June 2023 with 40 radiation treatments from June to August 2023
[facility]
-Patient on leuprolide 22.5 mg subcu every 3 months
-Continue Flomax 0.4 mg twice daily, Gemtesa 75 mg daily
#Thyroidectomy secondary to benign thyroid growth
-Continue levothyroxine 88 mcg p.o. daily
#Anxiety/depression
-Continue Lexapro 5 mg daily
#Neuropathy
#Insomnia
Continue lorazepam 0.5 mg at bedtime as needed
DVT prophylaxis
IV heparin drip
Full code
[2024-01-06] MEDS: LOW STRENGTH ASPIRIN 324 MG PO (22:55)
[2024-01-06] MEDS: HEPARIN 25000 UNITS/250 ML IV (22:58)
[2024-01-06 23:00] VITALS: BP 179/64
[2024-01-06 23:55] VITALS: BP 171/76
[2024-01-07] VITALS (13 sets, daily range): BP systolic 107–170; BP diastolic 56–79; BMI 19.0
--- NOTE | 2024-01-07 01:28 | PTCARENOTE ---
Received pt from ED @ 0100. Pt AAOx3, VSS, ambulatory in room. Pt denies any chest pain at this time. Heparin gtt infusing. Oriented to room, call bolden and plan of care.
[2024-01-07 01:36] LABS: Troponin I < 0.012 ng/ml
[2024-01-07] MEDS: FLOMAX 0.4 MG PO ×3 (01:44→20:40)
[2024-01-07] MEDS: TYLENOL 650 MG PO ×2 (01:45→17:27)
[2024-01-07] MEDS: ATIVAN 0.5 MG PO ×2 (01:45→22:31)
[2024-01-07 06:13] LABS: % Basophils 1.2 % (0-2); % Eosinophils 6.5 % (0-6); % Immature Granulocytes 0.3 % (0-0.5); % Lymphocytes 11.4 % (20.5-51.1); % Monocytes 11.1 % (1.7-9.3); % Neutrophils 69.5 % (42.2-75.2); Absolute Basophils 0.1 10^3/uL (0-0.2); Absolute Eosinophils 0.5 10^3/uL (0-0.7); Absolute Lymphocytes 0.8 10^3/uL (1.2-3.4); Absolute Monocytes 0.8 10^3/uL (0.1-0.6); Absolute Neutrophils 4.8 10^3/uL (1.4-6.5); Hematocrit 33.4 % (39.0-52.0); Hemoglobin 11.4 g/dL (13.0-18.0); Mean Corp Hgb Conc. 34.1 g/dL (33.0-37.0); Mean Corpuscular Volume 96.8 fL (80.0-94.0); Mean Platelet Volume 9.4 fL (7.4-10.4); Nucleated Red Blood Cells % 0 % (-); Platelet Count 188 10^3/uL (130-400); Red Blood Cell Count 3.45 10^6/uL (4.70-6.10); Red Cell Dist. Width 12.3 % (11.5-14.5); White Blood Cell Count 6.9 10^3/uL (4.8-10.8)
[2024-01-07 06:29] LABS: APTT 62.7 Sec (23.4-35.0)
[2024-01-07 06:39] LABS: Troponin I < 0.012 ng/ml
[2024-01-07 07:27] LABS: ALT (SGPT) 32 U/L (0-50); AST (SGOT) 29 U/L (17-59); Albumin 3.8 g/dl (3.5-5.0); Alkaline Phosphatase 49 U/L (38-126); Blood Urea Nitrogen 22 mg/dl (9-20); Calcium 9.3 mg/dl (8.4-10.2); Chloride 106 mmol/L (98-107); Estimated Creatinine Clearance 41 ml/min; Glucose 100 mg/dl (70-99); HDL Cholesterol 46 mg/dl; LDL Cholesterol, Calculated 90 mg/dl; Potassium 3.7 mmol/L (3.5-5.1); Sodium 141 mmol/L (135-145); Total Bilirubin 0.6 mg/dl (0.2-1.3); Total Cholesterol 161 mg/dl (50-199); Total Protein 5.8 g/dl (6.3-8.2); Triglyceride 125 mg/dl (10-149); Very Low Density Lipoprotein 25 mg/dl (0-30); eGFR > 60.00
--- NOTE | 2024-01-07 07:57 | CON.GI ---
Addendum entered and electronically signed by Bala Sharp DO 01/07/24 11:13:
I saw and examined the patient.
The PRIMARY CARE NURSE PRACTITIONER's note was reviewed and I agree with the note.
Comment: Mr Brito is a 78 y.o male with an extensive medical history as outlined below including HTN, HLD, obstructive CAD (s/p prior stenting), ischemic cardiomyopathy (resolved), carotid artery stenosis, and prostate cancer (s/p XRT and on
hormonal therapy) who presented to the ED with anterior throat discomfort and chest pain. Patient states his symptoms were similar to previous discomfort which was very similar in the past due to his prior MIs. Took Nitro at home with complete
relief of symptoms but given his prior CAD history he came to the ED for evaluation. Additionally, had chest palpitations but no SOB, lightheadedness or other radiating symptoms. He does endorse intermittent dysphagia to pills which has been a long
standing issue over the past several years but denies any acute worsening symptoms. Notes difficulty with his medication (Diovan) which he was able to get down after sips of water. No other worsening reflux, heartburn, globus sensation,
nausea/vomiting or other odynophagia. He does note difficulty with vacuum drier tender foods (including dry/hard meats and bread) but is able to get this down after several sips of water. Reports this has been a chronic, longstanding issue. Denies any prior hx of
food impactions or other worsening reflux. He takes once daily Pantoprazole without other breakthrough symptoms. Last EGD several years ago (unable to recall results of this) in 2012 or 2013. Additionally, notes prior evaluation at [facility] where he was
advised to f/u with speech therapy but never evaluated formally in the past. Etiology appears most suspicious for acute on chronic intermittent dysphagia (pill-induced ?) however given his chest pain which is atypical for reflux and especially given
his extensive cardiac history ACS should be rule out (currently on IV heparin gtt). Agree with Cardiology consultation given concern for possible ACS. Serial troponins remain (-) and without acute ST-elevations. There were discussions about a
potential cardiac catheterization on admission and defer further work-up from a GI standpoint until evaluated by Cardiology. For now, would continue IV PPI if there is an esophageal component to this and defer further imaging at this time pending
Cardiac evaluation. If Cardiac w/u is unremarkable, would consider UGIS / esophagram along with CORPORATE GENERAL MANAGER consultation for his acute on chronic dysphagia.
Recommendations:
- Remains NPO on IV heparin gtt for possible cath
- Okay to continue plavix from GI standpoint
- Trend Hgb with serial CBC
- IV PPI 40 mg BiD
- Cardiology consulted, appreciate recs
- If Cardiac work-up is unremarkable, would consider barium esophagram this admission along with CORPORATE GENERAL MANAGER consult
- No plans for EGD at this time
- Avoidance of all NSAIDs
- Rest of care as outlined below
GI team will continue to follow while inpatient.
Thank you for allowing me to participate in the care of this patient. Please do not hesitate to call for any further questions.
-
Original Note:
Consultation
-
Date/Time Consultation Requested: 01/06/24 4730
Date/Time Consultation Performed: 01/07/24 3278
Requesting Provider: RADHA Benjamin
Performing Provider: Dr. Tejada/RADHA Adams
Reason for Consultation: odynophagia/dysphagia
Medical History
Chief Complaint / HPI
Chief Complaint: Chest pain
History of Present Illness:
78-year-old male with past medical history of CAD, CVA, GERD, hypertension, hyperlipidemia, benign thyroid mass, prostate cancer status post XRT, LA, hypothyroidism, pneumonia, spontaneous pneumothorax, arthritis, spinal stenosis, peripheral artery
disease in lower extremities who presents to the emergency room with chest pain/throat pain, asked to evaluate for the same. The patient states that yesterday he was having episodes of his 'heart pounding' off and on throughout the day. He states
he took his blood pressure and it was significantly elevated greater than 200. He states that his heart would start pounding in his chest but then would go back to normal. He did develop a discomfort at the top of his chest but below his throat
that he could not describe completely. He states it did not feel like acid reflux but it did not feel like a crushing pain either. He took a nitro and this went away. He states this also took down his blood pressure and his symptoms resolved.
Because this was reminiscent of his prior heart issues he came to the emergency room for further evaluation. Currently he is on a heparin drip and awaiting cardiology evaluation. His troponins are negative x 3. He has had no further chest pain
overnight. He remains n.p.o. at this time. Separate of this issue the patient states he has been having intermittent episodes swallowing pills. He states that if he takes a Tylenol or some other small pills he will have to take extra water to get
them down. He can also have a slow sensation with swallowing meats and bread. He states he is also lost some weight which he attributed to prostate cancer treatments. He does have a history of a thyroidectomy in the past. He never had any issues
of forced regurgitation. He denies any fevers, chills, nausea, vomiting, melena, hematochezia, odynophagia, early satiety. His last endoscopy and colonoscopy were in 2016 and 2014. He does have a history of gastroesophageal reflux and takes
pantoprazole daily with no breakthrough symptoms. His daughter says that he has had some increase belching recently however he does not notice this symptom. WBC 6.9, hemoglobin 11.4, hematocrit 33.4, platelets 188, MCV 96.8, MCH 33.0, sodium 141,
potassium 3.7, BUN 22, creatinine 1.2, glucose 100, total bilirubin 0.6, AST 29, ALT 32, alk phos 49, troponins less than 0.012 x 3, albumin 3.8
Past Medical History
Past Medical History: CAD, Cancer (Prostate status post XRT), CVA, GERD, HTN, Hypercholesterolemia and Other (Benign thyroid mass, pneumonia, spontaneous pneumothorax, arthritis, spinal stenosis, peripheral artery disease, anxiety, depression)
Past Surgical History: Cardiac (Cardiac stent) and Other (Thyroidectomy)
Social History
Tobacco: Former Smoker
Alcohol: Occasional
Drug: None
Living: With Family
Family History
Family History: Other (No family history gastrointestinal malignancy, IBD)
Allergies / Home Medications
Allergy/AdvReac Type Severity Reaction Status Date / Time
simvastatin [From Zocor] Allergy muscle Verified 01/06/24 20:24
cramps
lorazepam [From Ativan] AdvReac 'MAKES ME Verified 01/06/24 20:24
GO CRAZY'
�Medication �Instructions �Recorded
lifitegrast 5 % eye drops in a 1 drp BOTH EYES BID Eye condition 09/26/16
dropperette (Xiidra)
nitroglycerin 0.4 mg sublingual 0.4 mg sublingual [id number] PRN 09/30/16
tablet chest pain #25 tabs
acetaminophen 500 mg tablet 500 mg PO TID Pain 02/09/17
(Tylenol Extra Strength)
lorazepam 0.5 mg tablet 0.5 mg PO HSPRN PRN sleep 02/09/17
levothyroxine 88 mcg tablet 88 mcg PO DAILY Thyroid 03/27/17
L.acidoph, paracasei,B. lactis 10 1 ea PO DAILY@1200 Supplement 08/15/17
billion cell capsule
cholecalciferol (vitamin D3) 25 2,000 units PO QPM Supplement 08/15/17
mcg (1,000 unit) tablet
acetaminophen 650 mg 650 mg PO TID Pain 03/22/20
tablet,extended release (Tylenol
Arthritis)
furosemide 20 mg tablet 20 mg PO DAILY Fluid 03/22/20
retention/Swelling
pantoprazole 40 mg tablet,delayed 40 mg PO DAILY@1200 03/22/20
release Gastrointestinal issue
clopidogrel 75 mg tablet 75 mg PO QPM Blood clot 04/06/20
prevention/tx
ferrous sulfate 325 mg (65 mg 325 mg PO HS 04/08/20
iron) tablet (FeroSul)
clopidogrel 75 mg tablet 75 mg PO DAILY #20 tabs 07/19/20
tamsulosin 0.4 mg capsule (Flomax) 0.4 mg PO BID #30 caps 09/23/23
ICaps AREDS2 2XD 01/06/24
Kenalog 01/06/24
carvedilol phosphate 20 mg 20 mg PO DAILY 01/06/24
capsule,[id number] multiphase
(Coreg CR)
clobetasol 0.05 % scalp solution 0.05 topical PRN unk 01/06/24
clobetasol 0.05 % shampoo 0.05 topical PRN k 01/06/24
escitalopram oxalate 5 mg tablet 5 mg PO DAILY 01/06/24
(Lexapro)
ferrous sulfate 325 mg (65 mg 325 mg PO DAILY 01/06/24
iron) tablet
fluocinonide 0.05 % topical 1 applic topical BID PRN k 01/06/24
solution
furosemide 20 mg tablet (Lasix) 20 mg PO DAILY 01/06/24
leuprolide (3 month) 22.5 mg (3 22.5 mg SC [id number] 01/06/24
month) subcutaneous syringe
(Eligard)
valsartan 80 mg tablet (Diovan) 80 mg PO DAILY 01/06/24
vibegron 75 mg tablet (Gemtesa) 75 mg PO DAILY 01/06/24
Review of Systems
-
All other systems: A 12 pt ROS was Negative except as stated above in HPI
Vital Signs
Temp Pulse Resp BP Pulse Ox
97.7 F 73 18 107/69 97
01/07/24 03:15 01/07/24 03:15 01/07/24 03:15 01/07/24 03:15 01/07/24 03:15
Physical Exam
Exam
General: No Apparent Distress
HEENT: Anicteric
Respiratory: Clear
Cardiac: Regular Rhythm
GI: Soft, Non Tender, Non Distended and Normal Bowel Sounds
Musculoskeletal: No Edema
Skin: Warm
Neuro: AO x 3
Psych: Calm
Results
WBC 6.9 10^3/uL (4.8-10.8) 01/07/24 06:02
Hgb 11.4 g/dL (13.0-18.0) L 01/07/24 06:02
Hct 33.4 % (39.0-52.0) L 01/07/24 06:02
MCV 96.8 fL (80.0-94.0) H 01/07/24 06:02
Plt Count 188 10^3/uL (130-400) 01/07/24 06:02
Absolute Neuts (auto) 4.8 10^3/uL (1.4-6.5) 01/07/24 06:02
APTT 62.7 Sec (23.4-35.0) H 01/07/24 06:02
Sodium 141 mmol/L (135-145) 01/07/24 06:02
Potassium 3.7 mmol/L (3.5-5.1) 01/07/24 06:02
Chloride 106 mmol/L (98-107) 01/07/24 06:02
Carbon Dioxide 22 mmol/L (22-30) 01/06/24 20:40
BUN 22 mg/dl (9-20) H 01/07/24 06:02
Creatinine 1.2 mg/dL (0.7-1.3) 01/07/24 06:02
Calcium 9.3 mg/dl (8.4-10.2) 01/07/24 06:02
Total Bilirubin 0.6 mg/dl (0.2-1.3) 01/07/24 06:02
AST 29 U/L (17-59) 01/07/24 06:02
ALT 32 U/L (0-50) 01/07/24 06:02
Alkaline Phosphatase 49 U/L (38-126) 01/07/24 06:02
Diagnostic Image Results:
Chest x-ray: (Pending)
Prior GI Procedures:
EGD: 10/05/2015 ([facility]) - Normal esophagus. Biopsied.
- Z-line regular, 40 cm from the incisors.
- Normal stomach. Biopsied. (neg H Pylori)
- Normal examined duodenum. Biopsied. (neg celiac)
Colonoscopy: 10/21/2014 ([facility]) - One 4 mm polyp in the rectum. Biopsied.
- Mild diverticulosis in the sigmoid colon. (Hyperplastic)
- The examined portion of the ileum was normal.
Assessment / Plan
-
78-year-old male with past medical history of CAD, CVA, GERD, hypertension, hyperlipidemia, benign thyroid mass, prostate cancer status post XRT, LA, hypothyroidism, pneumonia, spontaneous pneumothorax, arthritis, spinal stenosis, peripheral artery
disease in lower extremities who presents to the emergency room with chest pain/throat pain, asked to evaluate for the same. Patient presented with symptoms of heart 'pounding' on and off throughout the day yesterday. With elevated blood pressure.
He developed a discomfort at the top of his chest but below his throat that was relieved with nitro. He states this did not feel like acid reflux but did not feel like a crushing pain either. Since pains were reminiscent of cardiac discomfort in
the past he came to the emergency room. Patient was placed on a nitro drip with no further discomfort. Patient has had intermittent separate issues of difficulty swallowing pills. Both with initiation of swallow of pills also with sensation of
pills like Tylenol getting stuck in his esophagus requiring a second swallow water. He has never required forced regurgitation of food or pills. He has been recommended to have outpatient evaluation in the past after thyroidectomy. Patient
currently on a heparin drip and awaiting cardiac evaluation. He also has weight loss which he attributes to prostate cancer treatments. Also anemia which is new in the past year, macrocytic. No drop in hemoglobin since starting heparin drip. No
signs of active bleeding. He is on Plavix at home as well as pantoprazole.
Impression:
Chest pain
Dysphagia, intermittent-> without need for forced regurgitation
GERD
Anemia
Plan:
-Await Cardiology consultation
-Continue Pantoprazole
-Once patient no longer NPO then CORPORATE GENERAL MANAGER eval
-Recommend barium esophagram to look for spasm/tertiary contractions/strictures
-Patient on Plavix and would not want to hold just yet for EGD unless necessary.
-Check iron studies, B12, folate
-Further recommendations to be forthcoming.
-
-
Thank you for consultation and allowing me to participate in the patient's care. Please call the electronic news gathering editor GI physician during the after hours with any questions or concerns.
--- NOTE | 2024-01-07 08:13 | CON.CAR ---
Addendum entered and electronically signed by Davidson Puente MD 01/07/24 10:57:
I saw and examined the patient.
The CORK CUTTER's note was reviewed and I agree with the note.
Comment: 8-year-old male (known to Dr. Puente, his primary supply chain associate), with coronary artery disease, recovered ischemic cardiomyopathy, hypertension, dyslipidemia with statin intolerance, carotid artery stenosis, anxiety, prostate cancer (s/p
XRT, on hormonal therapy), TIA and former smoker with possible COPD who presented to the emergency department with a chief complaint of throat discomfort.
His throat pain has been anginal equivalent in past and he had an abnormal stress 1 year ago.
- Coronary angiography today
Original Note:
Consultation
Consultation Request
Date/Time Consultation Requested: 01/06/2024 23:00
Date/Time Consultation Performed: 01/07/2024 08:00
Requesting Provider: RADHA Benjamin
Performing Provider: RADHA Yeh for Dr. Puente
Reason for Consultation: Concern for ACS
Medical History
-
Chief Complaint: Throat pain
History of Present Illness:
Jairon Brito is a 78-year-old male (known to Dr. Puente, his primary supply chain associate), with coronary artery disease, recovered ischemic cardiomyopathy, hypertension, dyslipidemia with statin intolerance, carotid artery stenosis, anxiety, prostate
cancer (s/p XRT, on hormonal therapy), TIA and former smoker with possible COPD who presented to the emergency department with a chief complaint of throat discomfort. On Sunday evening, he woke up at 2:00 in the morning to use the bathroom. He
woke up startled and had to hurry to bathroom. At that time he had anterior upper chest/throat discomfort. It felt tight. He did not want to take a nitroglycerin due to 'what time it was' so he laid in bed and fell asleep. Yesterday, he drove
something to his daughter's house, approximately 1 mile from his home. After he arrived back to his home, he was very aware of palpitations in his chest. He checked his blood pressure. Systolic was found to be 200 mmHg. He took his blood
pressure medication. He felt like it got stuck in his throat. He reports worsening dysphagia over the last 6 months particularly with tablets and dry foods. He took a sublingual nitroglycerin. It did not completely resolve his throat discomfort.
He took a second sublingual nitroglycerin. His blood pressure improved to 140 mmHg and his throat discomfort resolved. He presented to the emergency department. His troponin was less than 0.012 on three lab draws. He is not having any throat
discomfort.
Past Medical History
Past Medical History: CAD, Cancer (prostate cancer), HTN, Hypercholesterolemia and Other (BPH)
Social History
Tobacco: Former Smoker
Alcohol: None
Drug: None
Living: Alone
Employment: Retired
Family History
Family History: Reviewed & Not Pertinent
Allergies / Home Medications
Allergy/AdvReac Type Severity Reaction Status Date / Time
simvastatin [From Zocor] Allergy muscle Verified 01/06/24 20:24
cramps
lorazepam [From Ativan] AdvReac 'MAKES ME Verified 01/06/24 20:24
GO CRAZY'
�Medication �Instructions �Recorded �Confirmed �Type
lifitegrast 5 % eye drops in a 1 drp BOTH EYES BID Eye condition 09/26/16 01/06/24 History
dropperette (Xiidra)
nitroglycerin 0.4 mg sublingual 0.4 mg sublingual [id number] PRN 09/30/16 01/06/24 Rx
tablet chest pain #25 tabs
acetaminophen 500 mg tablet 500 mg PO TID Pain 02/09/17 01/06/24 History
(Tylenol Extra Strength)
lorazepam 0.5 mg tablet 0.5 mg PO HSPRN PRN sleep 02/09/17 01/06/24 History
levothyroxine 88 mcg tablet 88 mcg PO DAILY Thyroid 03/27/17 01/06/24 History
L.acidoph, paracasei,B. lactis 10 1 ea PO DAILY@1200 Supplement 08/15/17 01/07/24 History
billion cell capsule
cholecalciferol (vitamin D3) 25 2,000 units PO QPM Supplement 08/15/17 01/07/24 History
mcg (1,000 unit) tablet
acetaminophen 650 mg 650 mg PO TID Pain 03/22/20 01/06/24 History
tablet,extended release (Tylenol
Arthritis)
furosemide 20 mg tablet 20 mg PO DAILY Fluid 03/22/20 01/06/24 History
retention/Swelling
pantoprazole 40 mg tablet,delayed 40 mg PO DAILY@1200 03/22/20 01/06/24 History
release Gastrointestinal issue
clopidogrel 75 mg tablet 75 mg PO QPM Blood clot 04/06/20 01/06/24 History
prevention/tx
ferrous sulfate 325 mg (65 mg 325 mg PO HS 04/08/20 01/06/24 Rx
iron) tablet (FeroSul)
clopidogrel 75 mg tablet 75 mg PO DAILY #20 tabs 07/19/20 01/06/24 Rx
tamsulosin 0.4 mg capsule (Flomax) 0.4 mg PO BID #30 caps 09/23/23 01/06/24 Rx
ICaps AREDS2 2XD 01/06/24 History
Kenalog 01/06/24 History
carvedilol phosphate 20 mg 20 mg PO DAILY 01/06/24 01/06/24 History
capsule,[id number] multiphase
(Coreg CR)
clobetasol 0.05 % scalp solution 0.05 topical PRN unk 01/06/24 History
clobetasol 0.05 % shampoo 0.05 topical PRN unk 01/06/24 History
escitalopram oxalate 5 mg tablet 5 mg PO DAILY 01/06/24 01/06/24 History
(Lexapro)
ferrous sulfate 325 mg (65 mg 325 mg PO DAILY 01/06/24 01/06/24 History
iron) tablet
fluocinonide 0.05 % topical 1 applic topical BID PRN unk 01/06/24 01/06/24 History
solution
furosemide 20 mg tablet (Lasix) 20 mg PO DAILY 01/06/24 01/06/24 History
leuprolide (3 month) 22.5 mg (3 22.5 mg SC [id number] 01/06/24 01/06/24 History
month) subcutaneous syringe
(Eligard)
valsartan 80 mg tablet (Diovan) 80 mg PO DAILY 01/06/24 01/06/24 History
vibegron 75 mg tablet (Gemtesa) 75 mg PO DAILY 01/06/24 01/06/24 History
Review of Systems
-
History Source: Patient
All other systems: Negative unless noted
Constitutional: No Symptoms
EENT: No Symptoms
Respiratory: No Symptoms
Cardiac: No Symptoms
Abdomen/GI: Other (Dysphagia)
: Frequency
Musculoskeletal: No Symptoms
Skin: No Symptoms
Neurological: No Symptoms
Endocrine: No Symptoms
Hematologic/Lymphatic: No Symptoms
Physical Exam
Vital Signs
Temp Pulse Resp BP Pulse Ox
97.7 F 73 18 107/69 97
01/07/24 03:15 01/07/24 03:15 01/07/24 03:15 01/07/24 03:15 01/07/24 03:15
Lab Results
01/07/24 06:02
01/07/24 06:02
Troponin I < 0.012 ng/ml 01/07/24 06:02
Physical Exam
General: Well Developed, Well Nourished, No Apparent Distress and Comfortable
HEENT: Normocephalic, Anicteric and Moist Mucous Membranes
Respiratory: Clear and Non Labored Respirations
Cardiac: S1/S2 and Regular Rhythm; Negative Peripheral Edema
Breast: Deferred by me
GI: Soft, Non Tender, Non Distended and Normal Bowel Sounds
Rectal: Deferred by Provider
Genito-urinary: No Costovertebral Tender
Musculoskeletal: No Clubbing, No Cyanosis and No Edema
Skin: Warm and Dry
Neuro: AO x 3
Hematologic/Lymphatic: No Lymphadenopathy
Psych: Calm
Impression / Plan
-
BACKGROUND: 78M with CAD, ICM (recovered), HTN, HLD, carotid artery stenosis, anxiety, and former smoker with possible COPD who presented with anterior throat discomfort.
Medical Office Worker: Dr. Puente
Throat discomfort
-Troponin < 0.012 x 3
-EKG stable
-Discomfort similar to prior anginal symptoms however with worsening dysphagia
Dysphagia, GI eval
CAD
-Anterior AL 09/2016 -> LAD PCI
-mCx PCI 08/15/2017 with chronically occluded codominant RCA
-He was just approved last week for Leqvio
Carotid artery stenosis
-Greater than 70% R internal carotid artery stenosis
-50-69% L internal carotid artery stenosis
HTN, elevated last evening, improved
ICM, recovered
Mild to moderate aortic regurgitation
Prior TIA (07/2022, [facility]), no residual deficits, on clopidogrel
HLD, statin intolerant, reports intolerance to PCSK9, just approved last week for Leqvio
PAD, R external iliac artery stenosis
Prostate cancer, completed XRT at [facility], planned for 18 months of hormonal therapy, following with Dr. Kay
Data Reviewed
-
EKG: Report Reviewed by me (Sinus rhythm, 71 bpm)
Medical Tests (Nuc Med, Echo etc): Report Reviewed by me (Prior echo and cardiac catheterization as above)
Labs: Labs Reviewed by me
Old Records: Reviewed
[2024-01-07] MEDS: TYLENOL 500 MG PO ×2 (08:29→22:31)
[2024-01-07 08:30] LABS: Carbon Dioxide 19 mmol/L (22-30)
[2024-01-07] MEDS: PLAVIX 75 MG PO (08:30)
[2024-01-07] MEDS: SYNTHROID 88 MCG PO (08:31)
[2024-01-07] MEDS: LEXAPRO PO (08:33)
--- NOTE | 2024-01-07 09:15 | W.PN.HOSP.TC ---
Today's Communication/Plan
-
See bold
Assessment / Plan
Assessment / Plan
HPI: 78y M with PMH significant for ASCVD, hypertension, benign thyroid mass and prostate cancer s/p XRT who presents to ED complaining of chest pain / throat pain. Patient states that he developed pain in the lower throat this evening. He
initially stated that discomfort started after taking his Diovan pill, but later states that pain occurred independent of any swallowing. Patient states that the throat discomfort is similar to previous MIs he has had in the past. He took tow NTG
tabs at home and presented to the ED for evaluation. By the time he arrived, his discomfort had resolved.
Patient notes recent issues with elevated BP (was > 200 systolic at home this evening) and with swallowing difficulty. Has remote history of swallow dysfunction and notes that he was evaluated at [facility] a few years ago.
He was supposed to have speech therapy following this evaluation, but he did not follow up.
He had prior removal of a benign thyroid mass in the past in hopes that this would improve his swallow issues.
#Neck pain as anginal equivalent
Troponins negative
Appreciate cardiology input, for cardiac catheterization today
Continue Plavix
#Odynophagia/dysphagia
Appreciate GI input, recommend barium swallow if cardiac workup negative
Continue PPI twice daily
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
#Reports has been monitored by ENT in 2013
-Patient follows with ENT
#HTN Benign
Continue Coreg CR 20 mg daily
Continue Diovan 80 mg daily at 6 PM
-Hold Lasix 20 mg
#HLD
-No reported meds
-LDL 90
#Emphysema-no exacerbation
#Hv-couyza-nwlgmidcv uses nicotine lozenges
#Spontaneous pneumothorax hx
Nicotine replacement as needed
#GERD
-Continue PPI
#BPH
#Prostate cancer hx Dx June 2023 with 40 radiation treatments from June to August 2023
[facility]
-Patient on leuprolide 22.5 mg subcu every 3 months
-Continue Flomax 0.4 mg twice daily, Gemtesa 75 mg daily
#Thyroidectomy secondary to benign thyroid growth
-Continue levothyroxine 88 mcg p.o. daily
#Anxiety/depression
-Continue Lexapro 5 mg daily
#Neuropathy
#Insomnia
Continue lorazepam 0.5 mg at bedtime as needed
DVT prophylaxis -IV heparin drip
Full code
Updated sister at bedside 01/06
Total time spent to see the patient on the floor, examine the patient, review data and lab results, discuss treatment plan with patient, nursing staff around 50 minutes.
Physical Exam
General: No acute distress
HEENT: Normocephalic, Atraumatic, EOMI, MMM
Respiratory: Clear to Auscultation bilaterally
Cardiac: Normal S1/S2, Regular Rate and Rhythm
GI: Soft, Nontender, Nondistended, Normal Bowel Sounds
Extremities: No Clubbing, Cyanosis, or Edema
Neuro: Nonfocal/Grossly Intact
Psych: Calm, Cooperative
Derm: No Visible lesions
Anticipated Discharge: 24 - 48 hours
Subjective/Interval History
-
Date of Service: January 07, 2024
Patient denies chest pain. His throat pain is resolved. No fever, no vomiting.
Objective Data
-
Labs:
Laboratory Results
01/06/24 01/07/24 01/07/24
22:26 06:02 12:30
WBC 6.9
Hgb 11.4 L
Hct 33.4 L
Plt Count 188
APTT 27.3 62.7 H Pending
Sodium 141
Potassium 3.7
Chloride 106
Carbon Dioxide 19 L
BUN 22 H
Creatinine 1.2
Glucose 100 H
Calcium 9.3
Total Bilirubin 0.6
AST 29
ALT 32
Alkaline Phosphatase 49
Vital Signs:
Vital Signs
Temp Pulse Resp BP Pulse Ox
98.1 F 95 16 135/71 96
01/07/24 07:30 01/07/24 07:30 01/07/24 07:30 01/07/24 07:30 01/07/24 07:30
I&O
01/06/24 01/07/24 01/08/24
06:59 06:59 06:59
Intake Total 100 / 100
Balance 100 / 100
--- NOTE | 2024-01-07 10:25 | CM ---
Patient seen bedside.
IA completed.
Patient lives alone in a 2 story home with 1 step to enter.
Bedroom 2nd floor.
patient with reports of upper leg weakness with stairs and would benefit from PT eval.
Patient has not had VN in the past, no hx skilled/acute rehab.
Patient drives.
PT eval (P).
PCP: Dr Guerrero
Pharmacy: [facility]
Plan;l home with possible VN needs.
--- NOTE | 2024-01-07 10:50 | PTOTSP ---
Patient admitted due to issues with chest pain and/or swallowing. Therapist spoke with the patient, who noted he is independent and has had no changes in his physical functioning. Patient agreeable to PT signing off and is aware our services are
available if needed. PT will sign off at this time.
[2024-01-07] MEDS: PROTONIX 40 MG PO (12:17)
[2024-01-07] MEDS: NON-FORMULARY ITEM 1 UNIT PO ×3 (12:17→22:34)
[2024-01-07 12:52] LABS: APTT 82.6 Sec (23.4-35.0)
[2024-01-07 16:23] LABS: ACT-LR - POC 339 Seconds (116-155)
--- NOTE | 2024-01-07 16:56 | ITS.CL.CATH ---
Consulting Psychologist - Catheterization
Cardiac Catheterization
Procedure Report:
CARDIAC CATHETERIZATION REPORT
Date of Procedure: CARDIAC CATHETERIZATION REPORT
Date of Procedure: 01/07/24
Referring: Dr. Davidson Puente MD
INDICATION: anginal chest pain
PROCEDURE:
1. Left heart catheterization
2. Coronary angiography
ACCESS:
6 Gabonese right radial artery
CATHETERS:
1. 6 [place]onese JR4
2. 6 [place]onese JL3.5
HEMODYNAMIC DATA
LV 173/5 (EDP 15) mmHg
AO 175/72 (mean 113) mmHg
CORONARY ANGIOGRAPHY
Dominance: co dominant
LM: short without focal stenosis
LAD: gives rise to two small caliber diagonal branches and wraps around the apex. There are prior stents in the ostial LAD (appears to be two layers). There is mild ISR in the ostial LAD that is slightly progressed from prior cath in 2018 and
otherwise mild luminal irregularities.
LCx: gives rise to a moderate caliber marginal branch and several LPL branches. There are prior stents in the proximal, mid, and distal LCx. There is mild ISR in the existing proximal stent. There is mild ostial stenosis in the marginal branch.
There is a focal 50% stenosis in the mid-distal LCx between prior stents that has progressed form cath in 2018.
RCA: co-dominant vessel that is ostially occluded and filled via L-R collaterals.
Closure Device: TR band
Radiation (mGy): 251.70
DAP (cm2.Gy): 15.7841
Fluoroscopy time (minutes): 9.8
CONCLUSIONS
1. Multi-vessel coronary artery disease in a co-dominant system. No culprit lesion to explain presentation.
2. Mildly elevated LVEDP and systemic hypertension. No aortic stenosis.
RECOMMENDATIONS:
1. Expectant management after cardiac catheterization via right approach.
2. Aggressive secondary prevention of CAD with goal LDL<55.
3. SAPT with Plavix.
4. Aggressive medical management of anginal chest pain with titration of multi-agent anti-anginal regimen.
Copy to: Davidson Puente MD
Signed: Mohan London MD, PhD
[2024-01-07] MEDS: DIOVAN 80 MG PO (17:32)
--- NOTE | 2024-01-07 17:45 | PTCARENOTE ---
Pt arrived to floor at 1655 with technology lab teacher nurses. PT's RT hand noted to be quite purple/red compared to LT hand. 2 TR bands noted on RT wrist area. Weak radial pulse noted. analytical lab analyst nurse removed approx 2ML of air from distal TR band. RT wrist site
noted with ecchymosis under band. Will continue to monitor.
[2024-01-07] MEDS: TYLENOL PO (18:06)
[2024-01-07] MEDS: VITAMIN D3 (cholecalciferol) 50 MCG PO (18:16)
[2024-01-07] MEDS: COREG 12.5 MG PO (20:39)
[2024-01-07 21:47] LABS: APTT 46.7 Sec (23.4-35.0)
--- NOTE | 2024-01-07 22:41 | W.PN.UPDATE ---
Update Note
Progress Note Update
Cardiology Update Note:
Called by Nurse to assess above pt asking to be seen by a Physician prior to removal of his TR Band
-Pt noted to have TR band x 2 applied to right radial site
-Ecchymosis and swelling noted distal and proximal to application of TR Band, including to the dorsum of hand. Also noted were blisters around the TR Band and a small skin tear
-TR band was removed by me, hemostasis had been achieved
-Area was sterilely cleaned with pressure dressing applied, will keep dressing on overnight until tomorrow morning, Nurse and pt made aware
[2024-01-08 03:40] VITALS: BP 151/64
[2024-01-08 07:00] VITALS: BP 128/47
[2024-01-08] MEDS: NORVASC 2.5 MG PO (07:11)
[2024-01-08] MEDS: PLAVIX 75 MG PO (07:11)
[2024-01-08] MEDS: COREG 12.5 MG PO ×2 (07:11→19:59)
[2024-01-08] MEDS: DETROL LA 4 MG PO (07:11)
[2024-01-08] MEDS: SYNTHROID 88 MCG PO (07:11)
[2024-01-08] MEDS: LEXAPRO 5 MG PO (07:11)
[2024-01-08] MEDS: FLOMAX 0.4 MG PO ×2 (07:11→19:59)
[2024-01-08] MEDS: TYLENOL 500 MG PO ×3 (07:12→21:50)
[2024-01-08 07:20] LABS: Hematocrit 31.1 % (39.0-52.0); Hemoglobin 10.5 g/dL (13.0-18.0); Mean Corp Hgb Conc. 33.8 g/dL (33.0-37.0); Mean Corpuscular Hgb 32.9 pg (27.0-31.0); Mean Corpuscular Volume 97.5 fL (80.0-94.0); Mean Platelet Volume 9.4 fL (7.4-10.4); Platelet Count 178 10^3/uL (130-400); Red Blood Cell Count 3.19 10^6/uL (4.70-6.10); Red Cell Dist. Width 12.2 % (11.5-14.5); White Blood Cell Count 6.3 10^3/uL (4.8-10.8)
--- NOTE | 2024-01-08 07:31 | W.PN.HOSP.TC ---
Today's Communication/Plan
-
For barium swallow tomorrow
Assessment / Plan
Assessment / Plan
HPI: 78y M with PMH significant for ASCVD, hypertension, benign thyroid mass and prostate cancer s/p XRT who presents to ED complaining of chest pain / throat pain. Patient states that he developed pain in the lower throat this evening. He
initially stated that discomfort started after taking his Diovan pill, but later states that pain occurred independent of any swallowing. Patient states that the throat discomfort is similar to previous MIs he has had in the past. He took tow NTG
tabs at home and presented to the ED for evaluation. By the time he arrived, his discomfort had resolved.
Patient notes recent issues with elevated BP (was > 200 systolic at home this evening) and with swallowing difficulty. Has remote history of swallow dysfunction and notes that he was evaluated at [facility] a few years ago.
He was supposed to have speech therapy following this evaluation, but he did not follow up.
He had prior removal of a benign thyroid mass in the past in hopes that this would improve his swallow issues.
#Neck pain as anginal equivalent
Troponins negative
Appreciate cardiology input, 01/06 cardiac catheterization shows stable multivessel coronary artery disease
Cardiology recommends medical management, continue Plavix, valsartan, cardiology increased Coreg
#Odynophagia/dysphagia
Appreciate GI input, recommend barium swallow
Continue PPI twice daily
Cleared by speech pathology for regular diet with thin liquids
For possible VSE
#Posterior neck pain
Continue Tylenol
Add tramadol and oxy as needed
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
#Reports has been monitored by ENT in 2013
-Patient follows with ENT
#HTN Benign
Continue Coreg CR 20 mg daily
Continue Diovan 80 mg daily at 6 PM
Resume Lasix 20 mg
#HLD
-No reported meds
-LDL 90
#Emphysema-no exacerbation
#Rf-ozrkkv-pbyyibisn uses nicotine lozenges
#Spontaneous pneumothorax hx
Nicotine replacement as needed
#GERD
-Continue PPI
#BPH
#Prostate cancer hx Dx June 2023 with 40 radiation treatments from June to August 2023
[facility] [place]
-Patient on leuprolide 22.5 mg subcu every 3 months
-Continue Flomax 0.4 mg twice daily, Gemtesa 75 mg daily
#Thyroidectomy secondary to benign thyroid growth
-Continue levothyroxine 88 mcg p.o. daily
#Anxiety/depression
-Continue Lexapro 5 mg daily
#Neuropathy
#Insomnia
Continue lorazepam 0.5 mg at bedtime as needed
DVT prophylaxis -IV heparin drip
Full code
Updated sister at bedside 01/06
Total time spent to see the patient on the floor, examine the patient, review data and lab results, discuss treatment plan with patient, nursing staff around 40 minutes.
Physical Exam
General: No acute distress
HEENT: Normocephalic, Atraumatic, EOMI, MMM
Respiratory: Clear to Auscultation bilaterally
Cardiac: Normal S1/S2, Regular Rate and Rhythm
GI: Soft, Nontender, Nondistended, Normal Bowel Sounds
Extremities: No Clubbing, Cyanosis, or Edema
Neuro: Nonfocal/Grossly Intact
Anticipated Discharge: 24 - 48 hours
Subjective/Interval History
-
Date of Service: January 08, 2024
Patient complains of posterior neck pain. No anterior neck pain. No chest pain. No fever, no vomiting.
Objective Data
-
Labs:
Laboratory Results
01/07/24 01/08/24
21:30 06:10
WBC 6.3
Hgb 10.5 L
Hct 31.1 L
Plt Count 178
APTT 46.7 H
Sodium Pending
Potassium Pending
Chloride Pending
Carbon Dioxide Pending
BUN Pending
Creatinine Pending
Glucose Pending
Calcium Pending
Vital Signs:
Vital Signs
Temp Pulse Resp BP Pulse Ox
97.7 F 73 16 151/64 96
01/08/24 03:40 01/08/24 03:40 01/08/24 03:40 01/08/24 03:40 01/08/24 03:40
I&O
01/07/24 01/08/24 01/09/24
06:59 06:59 06:59
Intake Total 400 / 400
Output Total 125 / 125
Balance 275 / 275
[2024-01-08 07:43] LABS: Blood Urea Nitrogen 23 mg/dl (9-20); Calcium 9.1 mg/dl (8.4-10.2); Carbon Dioxide 23 mmol/L (22-30); Chloride 103 mmol/L (98-107); Estimated Creatinine Clearance 41 ml/min; Glucose 94 mg/dl (70-99); Iron 48 ug/dl (49-181); Sodium 138 mmol/L (135-145); eGFR > 60.00
[2024-01-08 07:53] LABS: Percent Saturation 23 % (20-50); Total Iron Binding Capacity 203 ug/dl (261-462)
--- NOTE | 2024-01-08 08:11 | W.PN.GI.CBS2 ---
Today's Communication / Plan
-
Unremarkable cardiac cath yesterday evening. Recommend barium esophagram and MOTION GRAPHICS ARTIST consult. See rest of recommendations as outlined in A/P.
Assessment / Plan
-
Mr Brito is a 78 y.o male with an extensive medical history as outlined below including HTN, HLD, obstructive CAD (s/p prior stenting), ischemic cardiomyopathy (resolved), carotid artery stenosis, and prostate cancer (s/p XRT and on hormonal
therapy) who presented to the ED with anterior throat discomfort and chest pain. Patient states his symptoms were similar to previous discomfort which was very similar in the past due to his prior MIs. Took Nitro at home with complete relief of
symptoms but given his prior CAD history he came to the ED for evaluation. Additionally, had chest palpitations but no SOB, lightheadedness or other radiating symptoms. He does endorse intermittent dysphagia to pills which has been a long standing
issue over the past several years but denies any acute worsening symptoms. Notes difficulty with his medication (Diovan) which he was able to get down after sips of water. No other worsening reflux, heartburn, globus sensation, nausea/vomiting or
other odynophagia. He does note difficulty with port drier foods (including dry/hard meats and bread) but is able to get this down after several sips of water. Reports this has been a chronic, longstanding issue. Denies any prior hx of food impactions or
other worsening reflux. He takes once daily Pantoprazole without other breakthrough symptoms. Last EGD several years ago (unable to recall results of this) in 2012 or 2013. Additionally, notes prior evaluation at [facility] where he was advised to f/u
with speech therapy but never evaluated formally in the past. Etiology appears most suspicious for acute on chronic intermittent dysphagia (pill-induced ?) however given his chest pain which is atypical for reflux and especially given his extensive
cardiac history ACS should be rule out (currently on IV heparin gtt).
S/p cardiac catheterization 01/07/24: multivessel disease in a co-dominant system, no culprit lesion identified
#Intermittent, Chronic Dysphagia
#Pill-induced Dysphagia
#Hx of GERD
#Chest Pain w/ #Multivessel CAD
Recommendations:
- NPO pending barium esophagram
- Empiric PPI 40 mg BiD
- Okay to continue plavix as no plans for EGD this admission as patient is not interested in pursuing any further procedures (wants to go home)
- Ordered double contrast Barium Esophagram while inpatient for further evaluation
- Recommend MOTION GRAPHICS ARTIST consultation if possible oropharyngeal component to contributing to his dysphagia as well. He was previously advised to undergo MOTION GRAPHICS ARTIST eval at [facility] as an outpatient
- Avoidance of all NSAIDs
- Will need outpatient GI follow-up with his primary GI
- Rest of care per primary team
Discussed with primary internal medicine team this AM.
GI team will continue to follow while inpatient.
Subjective
Subjective
Date of Service: January 08, 2024
- S/p cardiac catheterization 01/07/24: multivessel disease in a co-dominant system, no culprit lesion identified
- Otherwise, no acute events overnight
Feeling better this AM, anxious and wants to go home. Reports having chicken parmesan for dinner last evening, had mild difficulty where he points in to this throat / upper esophagus where he felt food pass but did not get stuck. No other globus
sensation or reflux/heartburn. Denies any other recurrent chest pain or other nausea/vomiting.
Objective
Data Reviewed
Laboratory Data:
Laboratory Results
01/08/24 06:10
01/08/24 06:10
Laboratory Results
APTT 46.7 Sec (23.4-35.0) H 01/07/24 21:30
Total Bilirubin 0.6 mg/dl (0.2-1.3) 01/07/24 06:02
AST 29 U/L (17-59) 01/07/24 06:02
ALT 32 U/L (0-50) 01/07/24 06:02
Alkaline Phosphatase 49 U/L (38-126) 01/07/24 06:02
Vital Signs and I&O:
Vital Signs
Temp Pulse Resp BP Pulse Ox
97.7 F 73 16 151/64 96
01/08/24 03:40 01/08/24 03:40 01/08/24 03:40 01/08/24 03:40 01/08/24 03:40
I&O
01/07/24 01/08/24 01/09/24
06:59 06:59 06:59
Intake Total 400 / 400
Output Total 125 / 125
Balance 275 / 275
Physical Exam
Physical Exam
HEENT: Anicteric and Moist mucous membranes
Cardiology: Normal Sinus Rhythm
Pulmonary: Other (Normal work of breathing on room air)
GI: Soft, Non Distended and Non Tender
Extremities: No Edema
Neuro: Non Focal
[2024-01-08 08:49] LABS: Folate 13.6 ng/ml (2.76-20); Vitamin B12 371 pg/ml (239-931)
--- NOTE | 2024-01-08 09:31 | W.PN.CD ---
Addendum entered and electronically signed by Davidson Puente MD 01/08/24 13:03:
I saw and examined the patient.
The HEAT TREAT FURNACE OPERATOR's note was reviewed and I agree with the note.
Comment: 78M with CAD, ICM (recovered), HTN, HLD, carotid artery stenosis, anxiety, and former smoker with possible COPD who presented with anterior throat discomfort.
- TRAVON wrap to wrist/arm
- GI workup of throat discomfort
- no new cardiac meds at this time
Original Note:
Today's Communication / Plan
-
TRAVON wrap to right wrist/arm
Impression / Plan
-
BACKGROUND: 78M with CAD, ICM (recovered), HTN, HLD, carotid artery stenosis, anxiety, and former smoker with possible COPD who presented with anterior throat discomfort.
Rapid Outsole Stitcher: Dr. Puente
Throat discomfort
-Troponin < 0.012 x 3
-EKG stable
-Discomfort similar to prior anginal symptoms -> [facility] with stable disease
S/P cardiac catheterization
-Right radial site with ecchymosis
-Cap refill < 3 seconds on all digits
-Palpable radial pulse
-No loss in sensation
-Compression with TRAVON wrap
Dysphagia, GI eval
CAD
-Anterior PR 09/2016 -> LAD PCI
-mCx PCI 08/15/2017 with chronically occluded codominant RCA
-He was just approved last week for Leqvio
Carotid artery stenosis
-Greater than 70% R internal carotid artery stenosis
-50-69% L internal carotid artery stenosis
HTN
ICM, recovered
Mild to moderate aortic regurgitation
Prior TIA (07/2022, [facility]), no residual deficits, on clopidogrel
HLD, statin intolerant, reports intolerance to PCSK9, just approved last week for Leqvio
PAD, R external iliac artery stenosis
Prostate cancer, completed XRT at [facility], planned for 18 months of hormonal therapy, following with Dr. Kay
Physical Exam
Vital Signs/Labs
Vital Signs
Temp Pulse Resp BP Pulse Ox
98.0 F 61 18 128/47 95
01/08/24 07:00 01/08/24 07:00 01/08/24 07:00 01/08/24 07:00 01/08/24 07:00
01/07/24 01/08/24 01/09/24
06:59 06:59 06:59
Actual Weight 56.563 kg
01/08/24 06:10
01/08/24 06:10
APTT 46.7 Sec (23.4-35.0) H 01/07/24 21:30
Triglycerides 125 mg/dl (10-149) 01/07/24 06:02
LDL Cholesterol, Calc 90 mg/dl 01/07/24 06:02
VLDL Cholesterol, Calc 25 mg/dl (0-30) 01/07/24 06:02
HDL Cholesterol 46 mg/dl 01/07/24 06:02
LAB Results
01/06/24 01/07/24 01/07/24
20:40 01:02 06:02
Troponin I < 0.012 < 0.012 < 0.012
Physical Exam
Constitutional: No acute distress and Comfortable
EENT: Anicteric and Moist mucous membranes
Cardiovascular: Rhythm & rate is regular, Pedal edema is absent, S1S2 is normal and Murmur/rub/gallop absent
Respiratory: Respiratory effort normal and Lungs clear to auscul.
GI: Soft, Distention absent, Flat, Non tender and Normal bowel sounds
Neuro/Psych: AO x 3
Other: Skin (warm and dry )
Data Reviewed
-
Date of Service: January 08, 2024
Labs: Labs Reviewed by me
[2024-01-08] MEDS: NON-FORMULARY ITEM 1 UNIT PO ×3 (09:49→20:00)
[2024-01-08] MEDS: TYLENOL 650 MG PO (09:49)
[2024-01-08 11:00] VITALS: BP 119/41
[2024-01-08] MEDS: PROTONIX 40 MG PO (11:22)
--- NOTE | 2024-01-08 11:50 | PTOTSP ---
Dysphagia Evaluation
Patient presents with functional oral stage and unspecified pharyngeal and/or esophageal dysphagia signs. Further objective swallowing assessment warranted via video swallow study. GI following for esophageal dysphagia with plan for esophagram.
Recommend:
1. Regular, Thin Liquids
2. Medications - 1 at a time with water or whole in puree
3. Upright to 90 degrees, pick soft/moist foods, alternate sips/bites, remain upright for 30 minutes after PO intake
4. Oral care 2-3x daily
5. Video swallow study
[2024-01-08 15:00] VITALS: BP 117/74
[2024-01-08] MEDS: DIOVAN 80 MG PO (17:20)
[2024-01-08] MEDS: NON-FORMULARY ITEM BOTH EYES (17:20)
[2024-01-08] MEDS: VITAMIN D3 (cholecalciferol) 50 MCG PO (17:21)
[2024-01-08 19:15] VITALS: BP 143/60
[2024-01-08] MEDS: NON-FORMULARY ITEM 1 APPLIC BOTH EYES (19:59)
[2024-01-08] MEDS: ATIVAN 0.5 MG PO (21:50)
[2024-01-08 23:06] VITALS: BP 153/64
[2024-01-09 03:10] VITALS: BP 128/53
[2024-01-09 07:25] VITALS: BP 124/50
--- NOTE | 2024-01-09 07:59 | W.PN.CD ---
Today's Communication / Plan
-
- Possible discharge home today.
- Ecchymosis will resolve in 4-6 weeks.
- Can remove the wrap bandage and place a routine bandage for discharge.
Impression / Plan
-
BACKGROUND: 78M with CAD, ICM (recovered), HTN, HLD, carotid artery stenosis, anxiety, and former smoker with possible COPD who presented with anterior throat discomfort.
Field Administrator: Dr. Puente
Throat discomfort
-Troponin < 0.012 x 3
-EKG stable
-Discomfort similar to prior anginal symptoms -> [facility] with stable disease
S/P cardiac catheterization
-Right radial site with ecchymosis
-Cap refill < 3 seconds on all digits
-Palpable radial pulse
-No loss in sensation
-Compression with TRAVON wrap - redressed.
-possible extension of the ecchymosis but the radial site looks normal without any ongoing bleeding.
Dysphagia, GI eval
CAD
-Anterior CT 09/2016 -> LAD PCI
-mCx PCI 08/15/2017 with chronically occluded codominant RCA
-He was just approved last week for Leqvio
Carotid artery stenosis
-Greater than 70% R internal carotid artery stenosis
-50-69% L internal carotid artery stenosis
HTN
ICM, recovered
Mild to moderate aortic regurgitation
Prior TIA (07/2022, [facility]), no residual deficits, on clopidogrel
HLD, statin intolerant, reports intolerance to PCSK9, just approved last week for Leqvio
PAD, R external iliac artery stenosis
Prostate cancer, completed XRT at [facility]], planned for 18 months of hormonal therapy, following with Dr. Kay
Physical Exam
Vital Signs/Labs
Vital Signs
Temp Pulse Resp BP Pulse Ox
97.7 F 67 18 128/53 95
01/09/24 03:10 01/09/24 03:10 01/09/24 03:10 01/09/24 03:10 01/09/24 03:10
01/08/24 06:10
APTT 46.7 Sec (23.4-35.0) H 01/07/24 21:30
Triglycerides 125 mg/dl (10-149) 01/07/24 06:02
LDL Cholesterol, Calc 90 mg/dl 01/07/24 06:02
VLDL Cholesterol, Calc 25 mg/dl (0-30) 01/07/24 06:02
HDL Cholesterol 46 mg/dl 01/07/24 06:02
LAB Results
01/06/24 01/07/24 01/07/24
20:40 01:02 06:02
Troponin I < 0.012 < 0.012 < 0.012
Physical Exam
Constitutional: No acute distress and Comfortable
EENT: Anicteric and Moist mucous membranes
Cardiovascular: Rhythm & rate is regular, Pedal edema is absent and JVD pressure is normal
Respiratory: Respiratory effort normal, Lungs clear to auscul. and Rhonchi Absent
GI: Soft, Non tender and Normal bowel sounds
Neuro/Psych: Alert, Oriented and AO x 3
Data Reviewed
-
Date of Service: January 09, 2024
Medical Decision Making: Reviewed Test Results and Independent Historian Assessment
EKG: Tracing Personally Visualized and interpreted
Echo: Report Reviewed by me
Medical Tests (PFT, Pathology etc): Image Personally Visualized and interpreted
Labs: Labs Reviewed by me
Old Records: Reviewed
--- NOTE | 2024-01-09 08:19 | W.PN.GI.CBS2 ---
Today's Communication / Plan
-
For barium esophagram today, will f/u results. Agree with HAND CANDY CUTTER video swallow eval as well. See rest of recommendations as outlined below.
Assessment / Plan
-
Mr Brito is a 78 y.o male with an extensive medical history as outlined below including HTN, HLD, obstructive CAD (s/p prior stenting), ischemic cardiomyopathy (resolved), carotid artery stenosis, and prostate cancer (s/p XRT and on hormonal
therapy) who presented to the ED with anterior throat discomfort and chest pain. Patient states his symptoms were similar to previous discomfort which was very similar in the past due to his prior MIs. Took Nitro at home with complete relief of
symptoms but given his prior CAD history he came to the ED for evaluation. Additionally, had chest palpitations but no SOB, lightheadedness or other radiating symptoms. He does endorse intermittent dysphagia to pills which has been a long standing
issue over the past several years but denies any acute worsening symptoms. Notes difficulty with his medication (Diovan) which he was able to get down after sips of water. No other worsening reflux, heartburn, globus sensation, nausea/vomiting or
other odynophagia. He does note difficulty with pulp drier firer foods (including dry/hard meats and bread) but is able to get this down after several sips of water. Reports this has been a chronic, longstanding issue. Denies any prior hx of food impactions or
other worsening reflux. He takes once daily Pantoprazole without other breakthrough symptoms. Last EGD several years ago (unable to recall results of this) in 2012 or 2013. Additionally, notes prior evaluation at [facility] where he was advised to f/u
with speech therapy but never evaluated formally in the past. Etiology appears most suspicious for acute on chronic intermittent dysphagia (pill-induced ?) however given his chest pain which is atypical for reflux and especially given his extensive
cardiac history ACS should be rule out (currently on IV heparin gtt).
S/p cardiac catheterization 01/07/24: multivessel disease in a co-dominant system, no culprit lesion identified
#Intermittent, Chronic Dysphagia
#Pill-induced Dysphagia
#Throat Discomfort
#Hx of GERD
#Chest Pain w/ #Multivessel CAD
Recommendations:
- NPO pending barium esophagram
- Empiric PPI 40 mg BiD
- Okay to continue plavix as no plans for EGD this admission
- Ordered double contrast Barium Esophagram while inpatient for further evaluation, will f/u results later today
- HAND CANDY CUTTER consulted, considering video swallow study for further evaluation as likely an oropharyngeal component to this as well
- Avoidance of all NSAIDs
- Will arrange outpatient GI f/u after discharge
- Rest of care per primary team
GI team will continue to follow while inpatient.
Subjective
Subjective
Date of Service: January 09, 2024
- No acute events overnight
Resting comfortably, denies any further throat discomfort or dysphagia. Ate salmon for dinner without difficulty. No nausea or vomiting, chest pain or SOB. NPO for planned esophagram today.
Objective
Data Reviewed
Laboratory Data:
Laboratory Results
01/08/24 06:10
Laboratory Results
APTT 46.7 Sec (23.4-35.0) H 01/07/24 21:30
Total Bilirubin 0.6 mg/dl (0.2-1.3) 01/07/24 06:02
AST 29 U/L (17-59) 01/07/24 06:02
ALT 32 U/L (0-50) 01/07/24 06:02
Alkaline Phosphatase 49 U/L (38-126) 01/07/24 06:02
Vital Signs and I&O:
Vital Signs
Temp Pulse Resp BP Pulse Ox
97.7 F 67 18 128/53 95
01/09/24 03:10 01/09/24 03:10 01/09/24 03:10 01/09/24 03:10 01/09/24 03:10
I&O
01/08/24 01/09/24 01/10/24
06:59 06:59 06:59
Intake Total 400 / 400 1440 / 1440
Output Total 125 / 125
Balance 275 / 275 1440 / 1440
Physical Exam
Physical Exam
HEENT: Anicteric and Moist mucous membranes
Cardiology: Normal Sinus Rhythm
Pulmonary: Other (Normal WOB on room air)
GI: Soft, Non Distended, Flat and Non Tender
Extremities: No Edema and Warm
Neuro: Non Focal
[2024-01-09 08:42] LABS: Blood Urea Nitrogen 24 mg/dl (9-20); Carbon Dioxide 22 mmol/L (22-30); Chloride 104 mmol/L (98-107); Estimated Creatinine Clearance 41 ml/min; Glucose 100 mg/dl (70-99); Sodium 138 mmol/L (135-145); eGFR > 60.00
[2024-01-09] MEDS: DETROL LA 4 MG PO (10:26)
[2024-01-09] MEDS: NORVASC 2.5 MG PO (10:26)
[2024-01-09] MEDS: FLOMAX 0.4 MG PO ×2 (10:26→19:34)
[2024-01-09] MEDS: COREG 12.5 MG PO ×2 (10:26→19:33)
[2024-01-09] MEDS: NON-FORMULARY ITEM 1 APPLIC BOTH EYES ×2 (10:27→19:34)
[2024-01-09] MEDS: PLAVIX 75 MG PO (10:27)
[2024-01-09] MEDS: LEXAPRO 5 MG PO (10:27)
[2024-01-09] MEDS: TYLENOL 500 MG PO ×3 (10:27→21:52)
[2024-01-09] MEDS: SYNTHROID 88 MCG PO (10:27)
[2024-01-09] MEDS: NON-FORMULARY ITEM 1 UNIT PO ×4 (10:28→21:54)
[2024-01-09] MEDS: PROTONIX 40 MG PO (11:34)
[2024-01-09] MEDS: TYLENOL 650 MG PO ×2 (11:38→22:56)
[2024-01-09 11:39] VITALS: BP 123/47
--- NOTE | 2024-01-09 12:41 | PTOTSP ---
Video Swallow Study
Summary: Patient presents with functional oral stage and severe pharyngeal dysphagia. Patient had episodes of deep laryngeal penetration with thin and mildly thick liquids and aspiration of residue from prior barium contrast (from esophagram
completed prior to video swallow study) vs residue from current study.
Patient has not had any known respiratory complications from aspiration and indicated he wished to continue to eat/drink understanding risks/complications after education. See patient care note.
Recommend:
1. IDDSI Level 5 Minced/Moist, Thin liquids understanding risks/complications of aspiration
2. Medications - 1 at a time with sips of water; crush large pills
3. Strategies: upright to 90 degrees, small single sips/bites, multiple swallows and/or liquid washes to help clear pharyngeal residue, intermittent cough/swallow to try and clear penetration/aspiration
4. Oral care 3x daily to reduce risk for complications from aspiration
5. Dysphagia therapy warranted at the acute care level and after discharge from acute care. Goals include education, pharyngeal strengthening, and respiratory strength training to target cough strength.
--- NOTE | 2024-01-09 12:56 | W.PN.UPDATE ---
Update Note
Progress Note Update
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 All consistent with oropharyngeal dysphagia with evidence of aspiration on barium swallow. Otherwise, esophagus was normal without any stricture, mass, inflammatory changes or evidence of
abnormal motility. Recommend ongoing f/u with speech therapy as an outpatient. May decrease PPI to his once daily home dose.
Discussed with primary internal medicine team. GI team will sign-off. Please call back with any questions or concerns.
--- NOTE | 2024-01-09 13:12 | CM ---
Patient seen bedside.
ST recommending skilled services.
Outpatient therapy discussed with patient and he would like to f/u closer to home.
[facility] outpatient speech therapy number provided for patient [phone].
Plan: home with outpatient speech therapy.
--- NOTE | 2024-01-09 15:03 | W.PN.HOSP.TC ---
Today's Communication/Plan
-
Trial of minced diet
Monitor today, discharge tomorrow if tolerating
Assessment / Plan
Assessment / Plan
HPI: 78y M with PMH significant for ASCVD, hypertension, benign thyroid mass and prostate cancer s/p XRT who presents to ED complaining of chest pain / throat pain. Patient states that he developed pain in the lower throat this evening. He
initially stated that discomfort started after taking his Diovan pill, but later states that pain occurred independent of any swallowing. Patient states that the throat discomfort is similar to previous MIs he has had in the past. He took tow NTG
tabs at home and presented to the ED for evaluation. By the time he arrived, his discomfort had resolved.
Patient notes recent issues with elevated BP (was > 200 systolic at home this evening) and with swallowing difficulty. Has remote history of swallow dysfunction and notes that he was evaluated at [facility] a few years ago.
He was supposed to have speech therapy following this evaluation, but he did not follow up.
He had prior removal of a benign thyroid mass in the past in hopes that this would improve his swallow issues.
#Neck pain as anginal equivalent
Troponins negative
Appreciate cardiology input, 01/06 cardiac catheterization shows stable multivessel coronary artery disease
Cardiology recommends medical management, continue Plavix, valsartan, cardiology increased Coreg
#Odynophagia/dysphagia
Appreciate GI input, esophagram and VSE shows aspiration
Speech pathologist recommends minced diet with thin liquids
Discussed the risks of aspiration, patient understands and wishes to proceed
GI signed off, patient will need outpatient dysphagia therapy
#Posterior neck pain
Continue Tylenol
Add tramadol and oxy as needed
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
#Reports has been monitored by ENT in 2013
-Patient follows with ENT
#HTN Benign
Continue Coreg CR 20 mg daily
Continue Diovan 80 mg daily at 6 PM
Resume Lasix 20 mg
#HLD
-No reported meds
-LDL 90
#Emphysema-no exacerbation
#Yz-nibldd-gtjrkxwmr uses nicotine lozenges
#Spontaneous pneumothorax hx
Nicotine replacement as needed
#GERD
-Continue PPI
#BPH
#Prostate cancer hx Dx June 2023 with 40 radiation treatments from June to August 2023
[place] [facility]
-Patient on leuprolide 22.5 mg subcu every 3 months
-Continue Flomax 0.4 mg twice daily, Gemtesa 75 mg daily
#Thyroidectomy secondary to benign thyroid growth
-Continue levothyroxine 88 mcg p.o. daily
#Anxiety/depression
-Continue Lexapro 5 mg daily
#Neuropathy
#Insomnia
Continue lorazepam 0.5 mg at bedtime as needed
DVT prophylaxis -subcu Lovenox
Full code
Updated sister at bedside 01/06
Total time spent to see the patient on the floor, examine the patient, review data and lab results, discuss treatment plan with patient, nursing staff around 50 minutes.
Physical Exam
General: No acute distress
HEENT: Normocephalic, Atraumatic, EOMI, MMM
Respiratory: Clear to Auscultation bilaterally
Cardiac: Normal S1/S2, Regular Rate and Rhythm
GI: Soft, Nontender, Nondistended, Normal Bowel Sounds
Extremities: No Clubbing, Cyanosis, or Edema
Neuro: Nonfocal/Grossly Intact
Anticipated Discharge: Within 24 hours
Subjective/Interval History
-
Date of Service: January 09, 2024
Patient denies anterior neck pain currently. No fever, no vomiting.
Objective Data
-
Labs:
Laboratory Results
01/09/24
07:47
Sodium 138
Potassium 4.0
Chloride 104
Carbon Dioxide 22
BUN 24 H
Creatinine 1.2
Glucose 100 H
Calcium 9.0
Vital Signs:
Vital Signs
Temp Pulse Resp BP Pulse Ox
97.9 F 63 14 124/50 96
01/09/24 07:25 01/09/24 07:25 01/09/24 07:25 01/09/24 07:25 01/09/24 07:25
I&O
01/08/24 01/09/24 01/10/24
06:59 06:59 06:59
Intake Total 400 / 400 1440 / 1440
Output Total 125 / 125
Balance 275 / 275 1440 / 1440
[2024-01-09] MEDS: LASIX 20 MG PO (15:15)
[2024-01-09 15:30] VITALS: BP 131/58
[2024-01-09] MEDS: VITAMIN D3 (cholecalciferol) 50 MCG PO (17:12)
[2024-01-09] MEDS: DIOVAN 80 MG PO (17:12)
[2024-01-09] MEDS: MILK OF MAGNESIA 30 ML PO (17:20)
--- NOTE | 2024-01-09 18:20 | PTCARENOTE ---
Pt c/o feeling bloated nad 'constipated' from barium ingested this am for esophagram. Milk of Magnesia 30ml ordered and given.
[2024-01-09] MEDS: ATIVAN 0.5 MG PO (21:52)
[2024-01-09 22:51] VITALS: BP 121/52
[2024-01-10 06:33] LABS: Hematocrit 29.6 % (39.0-52.0); Hemoglobin 10.1 g/dL (13.0-18.0); Mean Corp Hgb Conc. 34.1 g/dL (33.0-37.0); Mean Corpuscular Hgb 33.1 pg (27.0-31.0); Mean Platelet Volume 9.2 fL (7.4-10.4); Platelet Count 181 10^3/uL (130-400); Red Blood Cell Count 3.05 10^6/uL (4.70-6.10); Red Cell Dist. Width 12.3 % (11.5-14.5); White Blood Cell Count 6.3 10^3/uL (4.8-10.8)
[2024-01-10 07:00] VITALS: BP 134/53
[2024-01-10 07:09] LABS: Blood Urea Nitrogen 20 mg/dl (9-20); Calcium 9.1 mg/dl (8.4-10.2); Carbon Dioxide 28 mmol/L (22-30); Chloride 102 mmol/L (98-107); Estimated Creatinine Clearance 45 ml/min; Glucose 103 mg/dl (70-99); Potassium 4.1 mmol/L (3.5-5.1); Sodium 138 mmol/L (135-145); eGFR > 60.00
[2024-01-10] MEDS: NON-FORMULARY ITEM 1 APPLIC BOTH EYES ×2 (07:42→20:15)
[2024-01-10] MEDS: TYLENOL 500 MG PO ×3 (07:42→21:17)
[2024-01-10] MEDS: LEXAPRO 5 MG PO (07:42)
[2024-01-10] MEDS: COREG 12.5 MG PO ×2 (07:42→20:15)
[2024-01-10] MEDS: DETROL LA 4 MG PO (07:43)
[2024-01-10] MEDS: LASIX 20 MG PO (07:43)
[2024-01-10] MEDS: NORVASC 2.5 MG PO (07:43)
[2024-01-10] MEDS: SYNTHROID 88 MCG PO (07:43)
[2024-01-10] MEDS: PLAVIX 75 MG PO (07:43)
[2024-01-10] MEDS: FLOMAX 0.4 MG PO ×2 (07:43→20:15)
--- NOTE | 2024-01-10 08:41 | W.PN.HOSP.TC ---
Today's Communication/Plan
-
discharge tomorrow
Assessment / Plan
Assessment / Plan
HPI: 78y M with PMH significant for ASCVD, hypertension, benign thyroid mass and prostate cancer s/p XRT who presents to ED complaining of chest pain / throat pain. Patient states that he developed pain in the lower throat this evening. He
initially stated that discomfort started after taking his Diovan pill, but later states that pain occurred independent of any swallowing. Patient states that the throat discomfort is similar to previous MIs he has had in the past. He took tow NTG
tabs at home and presented to the ED for evaluation. By the time he arrived, his discomfort had resolved.
Patient notes recent issues with elevated BP (was > 200 systolic at home this evening) and with swallowing difficulty. Has remote history of swallow dysfunction and notes that he was evaluated at [facility] a few years ago.
He was supposed to have speech therapy following this evaluation, but he did not follow up.
He had prior removal of a benign thyroid mass in the past in hopes that this would improve his swallow issues.
#Neck pain as anginal equivalent
Troponins negative
Appreciate cardiology input, 01/06 cardiac catheterization shows stable multivessel coronary artery disease
Cardiology recommends medical management, continue Plavix, valsartan, Coreg (all home meds)
Right radial site with ecchymosis, continue compression with Denny wrap
#Odynophagia/dysphagia
Appreciate GI input, esophagram and VSE shows aspiration
Speech pathologist recommends minced diet with thin liquids
Discussed the risks of aspiration, patient understands and wishes to proceed
GI signed off, patient will need outpatient dysphagia therapy
Updated son, discussed patient's need for help with meal preps as he lives alone
#Posterior neck pain
Continue Tylenol
Added tramadol and oxy as needed
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
#Reports has been monitored by ENT in 2013
-Patient follows with ENT
#HTN Benign
Continue Coreg CR 20 mg daily
Continue Diovan 80 mg daily at 6 PM
Resume Lasix 20 mg
#HLD
-No reported meds
-LDL 90
#Emphysema-no exacerbation
#Yr-bqdman-jrxmjxjke uses nicotine lozenges
#Spontaneous pneumothorax hx
Nicotine replacement as needed
#GERD
-Continue PPI
#BPH
#Prostate cancer hx Dx June 2023 with 40 radiation treatments from June to August 2023
[facility]
-Patient on leuprolide 22.5 mg subcu every 3 months
-Continue Flomax 0.4 mg twice daily, Gemtesa 75 mg daily
#Thyroidectomy secondary to benign thyroid growth
-Continue levothyroxine 88 mcg p.o. daily
#Anxiety/depression
-Continue Lexapro 5 mg daily
#Neuropathy
#Insomnia
Continue lorazepam 0.5 mg at bedtime as needed
DVT prophylaxis -subcu Lovenox
Full code
Updated sister at bedside 01/06
Updated son on phone 01/09
Total time spent to see the patient on the floor, examine the patient, review data and lab results, discuss treatment plan with patient, nursing staff around 53 minutes.
Physical Exam
General: No acute distress
HEENT: Normocephalic, Atraumatic, EOMI, MMM
Respiratory: Clear to Auscultation bilaterally
Cardiac: Normal S1/S2, Regular Rate and Rhythm
GI: Soft, Nontender, Nondistended, Normal Bowel Sounds
Extremities: No Clubbing, Cyanosis, or Edema
Right wrist dressed
Neuro: Nonfocal/Grossly Intact
Anticipated Discharge: Within 24 hours
Subjective/Interval History
-
Date of Service: January 09, 2024
Objective Data
-
Labs:
Laboratory Results
01/09/24
07:47
Sodium 138
Potassium 4.0
Chloride 104
Carbon Dioxide 22
BUN 24 H
Creatinine 1.2
Glucose 100 H
Calcium 9.0
Vital Signs:
Vital Signs
Temp Pulse Resp BP Pulse Ox
97.8 F 65 16 123/47 94
01/09/24 11:39 01/09/24 11:39 01/09/24 11:39 01/09/24 11:39 01/09/24 11:39
I&O
01/08/24 01/09/24 01/10/24
06:59 06:59 06:59
Intake Total 400 / 400 1440 / 1440
Output Total 125 / 125
Balance 275 / 275 1440 / 1440
[2024-01-10 11:00] VITALS: BP 138/69
[2024-01-10] MEDS: PROTONIX 40 MG PO (12:23)
[2024-01-10] MEDS: TYLENOL 650 MG PO ×2 (12:23→20:16)
[2024-01-10] MEDS: NON-FORMULARY ITEM 1 UNIT PO ×3 (12:24→21:18)
--- NOTE | 2024-01-10 14:57 | CM ---
Pt seen at bedside. CM discussed meals on wheels. Pt was informed that they do not cater to special diets.
CM encouraged pt to explore additional meal delivery companies. Pt was provided resource, [employer], that can accommodate his diet.
Pt was encouraged to ask OP for additional resources/support.
Plan: Home with OP speech therapy
[2024-01-10 15:00] VITALS: BP 124/44
[2024-01-10] MEDS: VITAMIN D3 (cholecalciferol) 50 MCG PO (17:41)
[2024-01-10] MEDS: DIOVAN 80 MG PO (17:42)
[2024-01-10] MEDS: ATIVAN 0.5 MG PO (21:17)
[2024-01-10 23:02] VITALS: BP 148/54
[2024-01-11 07:00] VITALS: BP 137/51
[2024-01-11] MEDS: NON-FORMULARY ITEM 1 APPLIC BOTH EYES (07:42)
[2024-01-11] MEDS: LEXAPRO 5 MG PO (07:43)
[2024-01-11] MEDS: PLAVIX 75 MG PO (07:43)
[2024-01-11] MEDS: TYLENOL 500 MG PO (07:43)
[2024-01-11] MEDS: DETROL LA 4 MG PO (07:43)
[2024-01-11] MEDS: NORVASC 2.5 MG PO (07:43)
[2024-01-11] MEDS: SYNTHROID 88 MCG PO (07:43)
[2024-01-11] MEDS: COREG 12.5 MG PO (07:43)
[2024-01-11] MEDS: FLOMAX 0.4 MG PO (07:44)
[2024-01-11] MEDS: LASIX 20 MG PO (07:44)
--- NOTE | 2024-01-11 09:00 | W.PN.HOSP.TC ---
Today's Communication/Plan
-
Discharge today
Assessment / Plan
Assessment / Plan
HPI: 78y M with PMH significant for ASCVD, hypertension, benign thyroid mass and prostate cancer s/p XRT who presents to ED complaining of chest pain / throat pain. Patient states that he developed pain in the lower throat this evening. He
initially stated that discomfort started after taking his Diovan pill, but later states that pain occurred independent of any swallowing. Patient states that the throat discomfort is similar to previous MIs he has had in the past. He took tow NTG
tabs at home and presented to the ED for evaluation. By the time he arrived, his discomfort had resolved.
Patient notes recent issues with elevated BP (was > 200 systolic at home this evening) and with swallowing difficulty. Has remote history of swallow dysfunction and notes that he was evaluated at [facility] a few years ago.
He was supposed to have speech therapy following this evaluation, but he did not follow up.
He had prior removal of a benign thyroid mass in the past in hopes that this would improve his swallow issues.
#Neck pain as anginal equivalent
Troponins negative
Appreciate cardiology input, 01/06 cardiac catheterization shows stable multivessel coronary artery disease
Cardiology recommends medical management, continue Plavix, valsartan, Coreg (all home meds)
Right radial site with ecchymosis, continue compression with Denny wrap
Ecchymosis may take weeks to resolve
#Odynophagia/dysphagia
Appreciate GI input, esophagram and VSE shows aspiration
Speech pathologist recommends minced diet with thin liquids
Discussed the risks of aspiration, patient understands and wishes to proceed
GI signed off, patient will need outpatient dysphagia therapy - Rx provided
Updated son, discussed patient's need for help with meal preps as he lives alone
#Posterior neck pain
Continue Tylenol
Added tramadol and oxy as needed
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
#Reports has been monitored by ENT in 2013
-Patient follows with ENT
#HTN Benign
Continue Coreg CR 20 mg daily
Continue Diovan 80 mg daily at 6 PM
Resumed Lasix 20 mg, cardiology added amlodipine 2.5 mg daily
#HLD
-No reported meds
-LDL 90
#Emphysema-no exacerbation
#Jk-kfmsuu-zxutzysph uses nicotine lozenges
#Spontaneous pneumothorax hx
Nicotine replacement as needed
#GERD
-Continue PPI
#BPH
#Prostate cancer hx Dx June 2023 with 40 radiation treatments from June to August 2023
[place] [facility] [place]
-Patient on leuprolide 22.5 mg subcu every 3 months
-Continue Flomax 0.4 mg twice daily, Gemtesa 75 mg daily
#Thyroidectomy secondary to benign thyroid growth
-Continue levothyroxine 88 mcg p.o. daily
#Anxiety/depression
-Continue Lexapro 5 mg daily
#Neuropathy
#Insomnia
Continue lorazepam 0.5 mg at bedtime as needed
DVT prophylaxis -subcu Lovenox
Full code
Updated sister at bedside 01/06
Updated son on phone 01/09
Physical Exam
General: No acute distress
HEENT: Normocephalic, Atraumatic, EOMI, MMM
Respiratory: Clear to Auscultation bilaterally
Cardiac: Normal S1/S2, Regular Rate and Rhythm
GI: Soft, Nontender, Nondistended, Normal Bowel Sounds
Extremities: No Clubbing, Cyanosis, or Edema
Right wrist dressed
Neuro: Nonfocal/Grossly Intact
Anticipated Discharge: Today
Subjective/Interval History
-
Date of Service: January 11, 2024
Patient is tolerating his modified diet. No fever, no vomiting.
Objective Data
-
Vital Signs:
Vital Signs
Temp Pulse Resp BP Pulse Ox
97.4 F 59 16 137/51 94
01/11/24 07:00 01/11/24 07:00 01/11/24 07:00 01/11/24 07:00 01/11/24 07:00
I&O
01/10/24 01/11/24 01/12/24
06:59 06:59 06:59
Intake Total 810 / 810
Balance 810 / 810
[2024-01-11] MEDS: TYLENOL 650 MG PO (09:59)
--- NOTE | 2024-01-11 10:40 | CM ---
Addendum entered by Dianna Jade 01/11/24 11:35:
Script for OP speech therapy provided to nurse, Jigar, to put in d/c paperwork
Pt's son is a tinter photograph and can assist with meal prep in respect to minced and moist diet.
Original Note:
Pt seen at bedside. Pt is due to d/c home today. He states he wants to see cardio before he leaves.
Pt's daughter will transport home no later than 3:30 pm. IMM reviewed and signed.
CM reviewed d/c re OP speech therapy and resource provided yesterday for meal delivery with respect to his diet.
Pt states he will discuss with his daughters to assist with dinner in accordance with his diet.
Plan: Home with OP speech therapy at [place]
--- NOTE | 2024-01-11 11:20 | W.DCSUMMARY ---
Discharge Summary
Discharge Data
Date of Admission: 01/06/24
Date of Discharge: 01/11/24
-
Pending Results: No
Hospital Course
Discharge diagnosis:
Dysphagia with aspiration
Odynophagia
Neck pain
Prostate cancer status post radiation
History of precancerous cells in the mouth
Coronary artery disease
Benign essential hypertension
Gastroesophageal reflux disease
Emphysema
Former smoker
Anxiety/depression
Insomnia
Consults: Cardiology, GI
Procedures: Cardiac catheterization
CONCLUSIONS
1. Multi-vessel coronary artery disease in a co-dominant system. No culprit lesion to explain presentation.
2. Mildly elevated LVEDP and systemic hypertension. No aortic stenosis.
RECOMMENDATIONS:
1. Expectant management after cardiac catheterization via right approach.
2. Aggressive secondary prevention of CAD with goal LDL<55.
3. SAPT with Plavix.
4. Aggressive medical management of anginal chest pain with titration of multi-agent anti-anginal regimen.
Hospital course:
78-year-old male with a past medical history of prostate cancer status post radiation, precancerous cells in the mouth, coronary artery disease, hypertension, and gastroesophageal reflux disease presented with neck pain. Patient had neck pain in
the past which was considered an anginal equivalent for him. He was seen in conjunction with cardiology, and underwent cardiac catheterization, results are above. Patient's neck pain is not due to his heart this time. Cardiology recommends
continuing his home Coreg, valsartan, Plavix. Cardiology started him on amlodipine 2.5 mg daily. He was approved last week for Leqvio.
Patient was seen in conjunction with GI and speech pathology. VSE and barium esophagram shows aspiration. Patient has oropharyngeal dysphagia with aspiration. Speech pathology recommends a minced/moist diet. He tolerated his modified diet. He
was provided dietary education. His family was informed for his need of help with preparing his meals, as he lives alone.
Patient is medically stable for discharge. He needs to continue outpatient dysphagia therapy, prescription has been provided. He needs to follow-up with his primary care doctor in 1 week, and cardiology in the office as scheduled.
Disposition: Home self-care
Discharge planning: Required 49 minutes
Discharge Plan
-
Patient Disposition: Home (Routine Discharge)
Discharge Diagnosis/Procedures: Dysphagia with aspiration, neck/throat pain, precancerous cells in mouth, prostate cancer, status post cardiac catheterization
Condition: Fair
Diet: 2 Gram Sodium
Additional Diets: Minced/moist diet
Activity: As tolerated
Driving Restrictions: As prior to admission
Other Services: ST
Activity Restrictions/Additional Instructions:
It is very important that you continue dysphagia therapy outpatient. Prescription provided.
Adhere to a minced/moist diet. Handout was provided.
Cardiology recommends you take amlodipine 2.5 mg daily for your blood pressure.
Follow-up with your primary care doctor in 1 week, and cardiology as scheduled.
Stand Alone Forms: DC Instructions- Cath/EP Lab
Referrals:
Argentina Pro CRNP [Specified Professional Personl] - 01/28/24 11:20 am (cardiology followup appointment)
Christopher Cramer DO [Family Provider] - in one week
Prescriptions:
New
amlodipine 2.5 mg Tablet
2.5 mg PO DAILY Qty: 30 0RF
Continued
Xiidra 1 EACH dropperette
1 drp BOTH EYES BID
nitroglycerin 0.4 MG tablet, sublingual
0.4 mg sublingual [id number] PRN (Reason: chest pain) Qty: 25 3RF
acetaminophen [Tylenol Extra Strength] 500 MG tablet
500 mg PO TID
Patient Comments:
WITH 650MG
lorazepam 0.5 MG tablet
0.5 mg PO HSPRN PRN (Reason: sleep)
Patient Comments:
04/06/2020: per pdmp last filled 04/02/2019, 60 tabs for 30 days from [facility]
levothyroxine 88 MCG tablet
88 mcg PO DAILY
cholecalciferol (vitamin D3) 1,000 UNITS tablet
2,000 units PO QPM
L.acidoph, paracasei,B. lactis 1 EACH capsule
1 ea PO DAILY@1200
acetaminophen [Tylenol Arthritis] 650 MG tablet extended release
650 mg PO TID
Patient Comments:
WITH 500MG
pantoprazole 40 MG tablet,delayed release (DR/EC)
40 mg PO DAILY@1200
furosemide 20 MG tablet
20 mg PO DAILY
clopidogrel 75 MG tablet
75 mg PO DAILY Qty: 20 0RF
tamsulosin [Flomax] 0.4 mg capsule
0.4 mg PO BID Qty: 30 0RF
valsartan [Diovan] 80 mg Tablet
80 mg PO QPM
ferrous sulfate 325 mg (65 mg iron) Tablet
325 mg PO DAILY
fluocinonide 0.05 % Solution
1 applic TOPICAL BID PRN (Reason: unk)
Eligard (3 month) 22.5 mg Syringe
22.5 mg SC [id number]
escitalopram oxalate [Lexapro] 5 mg Tablet
5 mg PO DAILY
clobetasol 0.05 % Shampoo
0.05 TOPICAL PRN (Reason: unk)
carvedilol phosphate [Coreg CR] 20 mg Capsule, Er Multiphase 24 Hr
20 mg PO DAILY
Gemtesa 75 mg Tablet
75 mg PO DAILY
ICaps AREDS2
2XD
Kenalog
Rx Instructions:
injection, dosage unk
Discharge Orders:
Discharge Patient (As Directed); Ordered 01/11/24
Ordered By: Tyrone Doran
Discharge Date and Time
Discharge Date/Time: 01/11/24 17:17
Print Language: BELIZEAN
[2024-01-11] MEDS: PROTONIX 40 MG PO (12:45)
[2024-01-11] MEDS: NON-FORMULARY ITEM 1 UNIT PO (13:40)
[2024-01-11 15:15] VITALS: BP 129/49
== END 2024-01-11 17:17 | disposition home or self-care (01) | DRG 287 ==
LOC: 4 WEST ACU 23:48
PROVIDERS: Clinical Nurse Specialist Family Health; Emergency Medicine; Internal Medicine; Nurse Practitioner; Urology; ADMITTING PHYSICIAN Hospitalist; ATTENDING PHYSICIAN Family Medicine; EMERGENCY PHYSICIAN Student in an Organized Health Care Education/Training Program; FAMILY PHYSICIAN Internal Medicine; OTHER PHYSICIAN Internal Medicine Cardiovascular Disease; OTHER PHYSICIAN Student in an Organized Health Care Education/Training Program
PROC: 4A023N7 Measurement of Cardiac Sampling and Pressure, Left Heart, Percutaneous Approach (ICD-10-PCS; 2024-01-07)
PROC: B211YZZ Fluoroscopy of Multiple Coronary Arteries using Other Contrast (ICD-10-PCS; 2024-01-07)
DX: I25.110 Atherosclerotic heart disease of native coronary artery with unstable angina pectoris (principal); I10 Essential (primary) hypertension; I25.2 Old myocardial infarction; E78.00 Pure hypercholesterolemia, unspecified; E89.0 Postprocedural hypothyroidism; D64.9 Anemia, unspecified; J43.9 Emphysema, unspecified; K21.9 Gastro-esophageal reflux disease without esophagitis; F41.9 Anxiety disorder, unspecified; F32.A Depression, unspecified; G62.9 Polyneuropathy, unspecified; I73.9 Peripheral vascular disease, unspecified; I65.23 Occlusion and stenosis of bilateral carotid arteries; R13.12 Dysphagia, oropharyngeal phase; N40.0 Benign prostatic hyperplasia without lower urinary tract symptoms; Z86.73 Personal history of transient ischemic attack (TIA), and cerebral infarction without residual deficits; Z95.5 Presence of coronary angioplasty implant and graft; Z92.3 Personal history of irradiation; Z87.891 Personal history of nicotine dependence; Z85.46 Personal history of malignant neoplasm of prostate; Z88.8 Allergy status to other drugs, medicaments and biological substances; Z79.02 Long term (current) use of antithrombotics/antiplatelets; Z79.890 Hormone replacement therapy; Z79.899 Other long term (current) drug therapy
CPT/HCPCS: 71046; 74221; 74230; 80048; 80053; 80061; 82607; 82728; 82746; 83540; 83550; 84484; 85025; 85027; 85730; 92526; 92610; 92611; 93005; 93458; 93799; 96374; 99285; C1769; C1894; Q9967

== ENCOUNTER → 2024-03-04 12:52 | Outpatient (REF) | payer OTHER, SELFPAY | LOC: RAD 12:52 | PROVIDERS: ATTENDING PHYSICIAN Surgery Vascular Surgery; FAMILY PHYSICIAN Internal Medicine | DX: I73.9 Peripheral vascular disease, unspecified (principal) | CPT/HCPCS: 93922 ==

== ENCOUNTER → 2024-05-19 10:57 | Outpatient (REF) | payer OTHER, SELFPAY ==
[2024-05-19 19:15] LABS: PSA, Total - Diagnostic < 0.06 ng/ml (0.0-4.0)
[2024-05-19 19:17] LABS: Testosterone, Total < 4.9 ng/dl (72-623)
== END ==
LOC: REG 10:57
PROVIDERS: ATTENDING PHYSICIAN Radiology Radiation Oncology; FAMILY PHYSICIAN Internal Medicine
DX: C61 Malignant neoplasm of prostate (principal)
CPT/HCPCS: 36415; 84153; 84403

== ENCOUNTER → 2024-06-12 10:07 | Outpatient (REF) | payer OTHER, SELFPAY ==
[2024-06-12 11:00] LABS: % Basophils 0.8 % (0-2); % Eosinophils 2.5 % (0-6); % Immature Granulocytes 0.4 % (0-0.5); % Lymphocytes 4.6 % (20.5-51.1); % Monocytes 9.6 % (1.7-9.3); % Neutrophils 82.1 % (42.2-75.2); Absolute Basophils 0.1 10^3/uL (0-0.2); Absolute Eosinophils 0.2 10^3/uL (0-0.7); Absolute Lymphocytes 0.4 10^3/uL (1.2-3.4); Absolute Monocytes 0.7 10^3/uL (0.1-0.6); Absolute Neutrophils 6.3 10^3/uL (1.4-6.5); Hematocrit 35.4 % (39.0-52.0); Hemoglobin 11.9 g/dL (13.0-18.0); Mean Corp Hgb Conc. 33.6 g/dL (33.0-37.0); Mean Corpuscular Hgb 34.1 pg (27.0-31.0); Mean Corpuscular Volume 101.4 fL (80.0-94.0); Mean Platelet Volume 8.7 fL (7.4-10.4); Nucleated Red Blood Cells % 0 % (-); Platelet Count 247 10^3/uL (130-400); Red Blood Cell Count 3.49 10^6/uL (4.70-6.10); Red Cell Dist. Width 12.9 % (11.5-14.5); White Blood Cell Count 7.7 10^3/uL (4.8-10.8)
[2024-06-12 11:13] LABS: Urine Albumin 1+ (Neg - Trace); Urine Bilirubin Negative (Negative); Urine Character Clear (Clear); Urine Color Yellow; Urine Glucose Negative (Negative); Urine Ketone Negative (Negative); Urine Leukocyte Negative (Negative); Urine Nitrite Negative (Negative); Urine Occult Blood Negative (Negative); Urine Urobilinogen Negative (Neg - 1+)
[2024-06-12 11:28] LABS: ALT (SGPT) 24 U/L (0-50); AST (SGOT) 22 U/L (17-59); Albumin 4.3 g/dl (3.5-5.0); Alkaline Phosphatase 56 U/L (38-126); Blood Urea Nitrogen 20 mg/dl (9-20); Calcium 9.3 mg/dl (8.4-10.2); Carbon Dioxide 26 mmol/L (22-30); Chloride 93 mmol/L (98-107); Glucose 100 mg/dl (70-99); HDL Cholesterol 56 mg/dl; LDL Cholesterol, Calculated 75 mg/dl; Potassium 4.6 mmol/L (3.5-5.1); Sodium 127 mmol/L (135-145); Total Bilirubin 0.9 mg/dl (0.2-1.3); Total Cholesterol 160 mg/dl (50-199); Total Protein 6.5 g/dl (6.3-8.2); Triglyceride 149 mg/dl (10-149); Very Low Density Lipoprotein 29 mg/dl (0-30); eGFR > 60.00
[2024-06-12 11:51] LABS: TSH 0.47 uIU/ml (0.47-4.68)
[2024-06-12 12:38] LABS: Urine Amorphous Seen; Urine Squamous Cell 0-2 /LPF (Few)
[2024-06-12 12:41] LABS: Urine Red Blood Cell 0-2 /HPF (0-2); Urine White Cell 0-2 /HPF (0-5)
== END ==
LOC: REG 10:07
PROVIDERS: ATTENDING PHYSICIAN Internal Medicine
DX: I25.5 Ischemic cardiomyopathy (principal); I10 Essential (primary) hypertension; E78.2 Mixed hyperlipidemia; F41.1 Generalized anxiety disorder
CPT/HCPCS: 36415; 80053; 80061; 81003; 81015; 84443; 85025

== ENCOUNTER → 2024-06-18 10:11 | Outpatient (REF) | payer OTHER, SELFPAY ==
[2024-06-18 11:16] LABS: Blood Urea Nitrogen 20 mg/dl (9-20); Calcium 9.3 mg/dl (8.4-10.2); Carbon Dioxide 26 mmol/L (22-30); Chloride 100 mmol/L (98-107); Glucose 101 mg/dl (70-99); Potassium 4.8 mmol/L (3.5-5.1); Sodium 132 mmol/L (135-145); eGFR > 60.00
== END ==
LOC: REG 10:11
PROVIDERS: ATTENDING PHYSICIAN Internal Medicine
DX: E87.1 Hypo-osmolality and hyponatremia (principal)
CPT/HCPCS: 36415; 80048

== ENCOUNTER → 2024-08-01 08:49 | Outpatient (REF) | payer OTHER, SELFPAY ==
[2024-08-01 12:12] LABS: ALT (SGPT) 21 U/L (0-50); AST (SGOT) 21 U/L (17-59); Albumin 4.3 g/dl (3.5-5.0); Alkaline Phosphatase 54 U/L (38-126); Blood Urea Nitrogen 22 mg/dl (9-20); Calcium 9.4 mg/dl (8.4-10.2); Carbon Dioxide 27 mmol/L (22-30); Chloride 102 mmol/L (98-107); Glucose 101 mg/dl (70-99); Potassium 4.8 mmol/L (3.5-5.1); Sodium 139 mmol/L (135-145); Total Bilirubin 0.7 mg/dl (0.2-1.3); eGFR > 60.00
== END ==
LOC: REG 08:49
PROVIDERS: ATTENDING PHYSICIAN Internal Medicine
DX: I10 Essential (primary) hypertension (principal); E87.1 Hypo-osmolality and hyponatremia
CPT/HCPCS: 36415; 80053

== ENCOUNTER → 2024-08-27 08:31 | Outpatient (REF) | payer OTHER, SELFPAY ==
[2024-08-27 09:58] LABS: % Basophils 1.1 % (0-2); % Immature Granulocytes 0.4 % (0-0.5); % Lymphocytes 4.7 % (20.5-51.1); % Monocytes 9.6 % (1.7-9.3); % Neutrophils 77.2 % (42.2-75.2); Absolute Basophils 0.1 10^3/uL (0-0.2); Absolute Eosinophils 0.5 10^3/uL (0-0.7); Absolute Lymphocytes 0.4 10^3/uL (1.2-3.4); Absolute Monocytes 0.7 10^3/uL (0.1-0.6); Absolute Neutrophils 5.9 10^3/uL (1.4-6.5); Hematocrit 35.1 % (39.0-52.0); Hemoglobin 11.8 g/dL (13.0-18.0); Mean Corp Hgb Conc. 33.6 g/dL (33.0-37.0); Mean Corpuscular Hgb 34.5 pg (27.0-31.0); Mean Corpuscular Volume 102.6 fL (80.0-94.0); Mean Platelet Volume 9.2 fL (7.4-10.4); Nucleated Red Blood Cells % 0 % (-); Platelet Count 212 10^3/uL (130-400); Red Blood Cell Count 3.42 10^6/uL (4.70-6.10); Red Cell Dist. Width 12.7 % (11.5-14.5); White Blood Cell Count 7.6 10^3/uL (4.8-10.8)
[2024-08-27 10:20] LABS: ALT (SGPT) 20 U/L (0-50); AST (SGOT) 21 U/L (17-59); Alkaline Phosphatase 42 U/L (38-126); Blood Urea Nitrogen 20 mg/dl (9-20); Calcium 9.3 mg/dl (8.4-10.2); Carbon Dioxide 28 mmol/L (22-30); Chloride 102 mmol/L (98-107); Glucose 102 mg/dl (70-99); Potassium 4.8 mmol/L (3.5-5.1); Sodium 135 mmol/L (135-145); Total Bilirubin 0.8 mg/dl (0.2-1.3); Total Protein 6.2 g/dl (6.3-8.2); eGFR > 60.00
[2024-08-27 10:24] LABS: Urine Albumin 1+ (Neg - Trace); Urine Bilirubin Negative (Negative); Urine Character Clear (Clear); Urine Color Yellow; Urine Glucose Negative (Negative); Urine Ketone Negative (Negative); Urine Leukocyte Negative (Negative); Urine Nitrite Negative (Negative); Urine Occult Blood Negative (Negative); Urine Urobilinogen Negative (Neg - 1+)
[2024-08-27 10:29] LABS: NT-proBNP 1690 pg/ml
[2024-08-27 10:50] LABS: TSH Reflex To Free T4 5.42 uIU/ml (0.47-4.68)
[2024-08-27 11:35] LABS: Urine Squamous Cell 0-2 /LPF (Few)
[2024-08-27 11:39] LABS: Urine Bacteria Few (Negative); Urine Red Blood Cell 0-2 /HPF (0-2); Urine White Cell 0-2 /HPF (0-5)
== END ==
LOC: REG 08:31
PROVIDERS: ATTENDING PHYSICIAN Nurse Practitioner Family
DX: R53.83 Other fatigue (principal); F32.A Depression, unspecified; R63.4 Abnormal weight loss; J43.9 Emphysema, unspecified; C61 Malignant neoplasm of prostate; R00.2 Palpitations
CPT/HCPCS: 36415; 71046; 80053; 81003; 81015; 83880; 84439; 84443; 85025

== ENCOUNTER → 2024-09-04 10:15 | Outpatient (REF) | payer OTHER, SELFPAY ==
[2024-09-04 11:33] LABS: C-Reactive Protein < 5.00 mg/L (0.0-10.00)
[2024-09-04 11:38] LABS: Erythrocyte Sed Rate 17 mm/hour (0-20)
== END ==
LOC: REG 10:15
PROVIDERS: ATTENDING PHYSICIAN Nurse Practitioner Family; OTHER PHYSICIAN Internal Medicine Cardiovascular Disease
DX: R53.83 Other fatigue (principal)
CPT/HCPCS: 36415; 85652; 86140; 93005

== ENCOUNTER → 2024-09-11 12:50 | Outpatient (REF) | payer OTHER, SELFPAY ==
[2024-09-11 14:08] LABS: % Basophils 0.8 % (0-2); % Immature Granulocytes 0.5 % (0-0.5); % Lymphocytes 4.2 % (20.5-51.1); % Monocytes 8.3 % (1.7-9.3); % Neutrophils 79.2 % (42.2-75.2); Absolute Basophils 0.1 10^3/uL (0-0.2); Absolute Eosinophils 0.6 10^3/uL (0-0.7); Absolute Lymphocytes 0.4 10^3/uL (1.2-3.4); Absolute Monocytes 0.7 10^3/uL (0.1-0.6); Hematocrit 35.4 % (39.0-52.0); Mean Corp Hgb Conc. 33.9 g/dL (33.0-37.0); Mean Corpuscular Hgb 34.6 pg (27.0-31.0); Mean Platelet Volume 9.1 fL (7.4-10.4); Nucleated Red Blood Cells % 0 % (-); Platelet Count 227 10^3/uL (130-400); Red Blood Cell Count 3.47 10^6/uL (4.70-6.10); Red Cell Dist. Width 12.9 % (11.5-14.5); White Blood Cell Count 8.8 10^3/uL (4.8-10.8)
[2024-09-11 15:32] LABS: Iron 79 ug/dl (49-181)
[2024-09-11 15:41] LABS: Percent Saturation 30 % (20-50); Total Iron Binding Capacity 256 ug/dl (261-462)
[2024-09-11 20:11] LABS: CEA 4.38 ng/ml
== END ==
LOC: REG 12:50
PROVIDERS: ATTENDING PHYSICIAN Nurse Practitioner Family; FAMILY PHYSICIAN Internal Medicine
DX: R63.4 Abnormal weight loss (principal); R19.5 Other fecal abnormalities
CPT/HCPCS: 36415; 82378; 82728; 83540; 83550; 85025

== ENCOUNTER → 2024-11-03 11:32 | Outpatient (REF) | payer OTHER, SELFPAY ==
[2024-11-03 12:18] LABS: Hematocrit 33.0 % (39.0-52.0); Hemoglobin 11.0 g/dL (13.0-18.0); Mean Corp Hgb Conc. 33.3 g/dL (33.0-37.0); Mean Corpuscular Volume 103.4 fL (80.0-94.0); Nucleated Red Blood Cells % 0 % (-); Platelet Count 188 10^3/uL (130-400); Red Cell Dist. Width 12.8 % (11.5-14.5)
[2024-11-03 12:39] LABS: ALT (SGPT) 18 U/L (0-50); AST (SGOT) 21 U/L (17-59); Albumin 4.3 g/dl (3.5-5.0); Alkaline Phosphatase 39 U/L (38-126); Blood Urea Nitrogen 21 mg/dl (9-20); Calcium 9.2 mg/dl (8.4-10.2); Carbon Dioxide 26 mmol/L (22-30); Chloride 100 mmol/L (98-107); Glucose 102 mg/dl (70-99); Potassium 4.6 mmol/L (3.5-5.1); Sodium 133 mmol/L (135-145); Total Protein 6.3 g/dl (6.3-8.2); eGFR > 60.00
== END ==
LOC: REG 11:32
PROVIDERS: ATTENDING PHYSICIAN Internal Medicine
DX: I25.118 Atherosclerotic heart disease of native coronary artery with other forms of angina pectoris (principal)
CPT/HCPCS: 36415; 80053; 85025

== ENCOUNTER → 2024-11-19 11:11 | Outpatient (REF) | payer OTHER, SELFPAY ==
[2024-11-19 13:09] LABS: PSA, Total - Diagnostic < 0.06 ng/ml (0.0-4.0)
== END ==
LOC: REG 11:11
PROVIDERS: ATTENDING PHYSICIAN Radiology Radiation Oncology; FAMILY PHYSICIAN Internal Medicine; OTHER PHYSICIAN Specialist
DX: C61 Malignant neoplasm of prostate (principal)
CPT/HCPCS: 36415; 84153; 84270; 84402; 84403

== ENCOUNTER → 2024-12-13 11:08 | Outpatient (REF) | payer OTHER, SELFPAY ==
[2024-12-13 12:23] LABS: Hematocrit 29.2 % (39.0-52.0); Hemoglobin 9.8 g/dL (13.0-18.0); Mean Corp Hgb Conc. 33.6 g/dL (33.0-37.0); Mean Corpuscular Volume 103.5 fL (80.0-94.0); Platelet Count 183 10^3/uL (130-400); Red Cell Dist. Width 12.8 % (11.5-14.5)
== END ==
LOC: REG 11:08
PROVIDERS: ATTENDING PHYSICIAN Student in an Organized Health Care Education/Training Program; FAMILY PHYSICIAN Internal Medicine
DX: K62.5 Hemorrhage of anus and rectum (principal); D53.9 Nutritional anemia, unspecified
CPT/HCPCS: 36415; 85027

== ENCOUNTER 2025-01-21 23:26 | Inpatient (IN) | payer OTHER, SELFPAY ==
[2025-01-21 17:17] VITALS: BP 128/61
[2025-01-21 17:58] LABS: Hematocrit 29.9 % (39.0-52.0); Hemoglobin 10.0 g/dL (13.0-18.0); Mean Corp Hgb Conc. 33.4 g/dL (33.0-37.0); Mean Corpuscular Volume 103.8 fL (80.0-94.0); Nucleated Red Blood Cells % 0 % (-); Platelet Count 225 10^3/uL (130-400); Red Cell Dist. Width 12.9 % (11.5-14.5)
[2025-01-21 18:12] LABS: ALT (SGPT) 17 U/L (0-50); AST (SGOT) 22 U/L (17-59); Albumin 4.4 g/dl (3.5-5.0); Alkaline Phosphatase 37 U/L (38-126); Blood Urea Nitrogen 24 mg/dl (9-20); Calcium 9.2 mg/dl (8.4-10.2); Carbon Dioxide 28 mmol/L (22-30); Chloride 99 mmol/L (98-107); Glucose 102 mg/dl (70-99); Potassium 4.6 mmol/L (3.5-5.1); Sodium 132 mmol/L (135-145); Total Protein 6.5 g/dl (6.3-8.2); eGFR > 60.00
[2025-01-21 18:20] LABS: Troponin I 0.020 ng/ml
[2025-01-21 20:53] VITALS: BP 171/59
[2025-01-21 20:55] VITALS: BP 170/59
[2025-01-21 21:00] VITALS: BP 162/61
[2025-01-21 21:04] VITALS: BMI 16.5
--- NOTE | 2025-01-21 21:28 | ED.GENMED ---
History of Present Illness
General
Chief Complaint: Chest Pain
Source: patient, records and family
Exam Limitations: none
Time Seen by Provider: 01/21/25 20:52
Nursing documentation reviewed up to this point in time: agreed with
History of Present Illness
History of Present Illness:
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
blockers as opposed to surgery due to him having CAD and a prior stroke
Has had 3 heart attacks, diuretic has been decreased due to low sodium,
Has been having exertional chest pain for few months, relieved with nitroglycerin admitted a few years ago with chest pain had a cath no stents were placed he tells me this chest pain recently similar to his anginal chest pain
He has had intermittent rectal bleeding, family states he is afraid to go undergo anesthesia for colonoscopy
Additionally says shortness of breath, he had a screening low-dose chest CT told that he may have COPD is yet to have PFTs not on any inhalers
Lastly he has had about a 20 pound weight loss
Family request that he be admitted to have all these things evaluated as it is difficult for him to see specialists
Past History
Past History
ED Past Medical History: CAD, CVA, GERD, HTN, Hypercholesterolemia, NE, Hypothyroidism, Other (angina/pressure, prostatic hypertropy, emphysema), Other (PNA, spontaneous pneumothorax blebs, arthritis, spinal stenosis) and Other (peripheral arterial
disease in lower extremities)
ED Past Surgical History: Cardiac (stenting times 2) and Other (thyroidectomy)
Social History
Tobacco: Former smoker
Alcohol: Occasional
Drug: None
Personal:
Living: alone
Employment: Retired
Family History
Family History: Other (Skin cancer)
Review of Systems
Review of Systems
All Other Systems: Not applicable
Constitutional: Reports weight loss and fatigue; Denies fever
EENT: Reports no symptoms
Respiratory: Reports trouble breathing
Cardiac: Reports chest pain
ABD/GI: Reports no symptoms
: Reports no symptoms
Musculoskeletal: Reports no symptoms
Skin: Reports no symptoms
Neurological: Reports weakness
Endocrine: Reports no symptoms
Hematologic/Lymphatic: Reports no symptoms
Psychiatric: Reports no symptoms
Phy Exam
Physical Exam
Physical Exam:
Physical Exam
General: no apparent distress, not acutely ill
Neck: No jaw
Heart: s1/s2 regular rate and rhythm, no murmur. equal radial pulses.
Lungs: no acute respiratory distress. clear bilaterally
Abdomen: Nontender
Neuro: alert and oriented. no focal neurological deficits
Skin: no rash
Psychiatric: well kept. interactive and cooperative
Extremities: no edema.
Scores
Heart Score for Chest Pain Patients
STEMI patient?: No
History: Moderately Suspicious
ECG: Nonspecific Repolarization
Age: >/= 65 years
Risk Factors: >/= 3 Risk Factors or History of CAD
Troponin: </= Normal Limit
Heart Score for Chest Pain Patients: 6
Heart Score Risk: 20.3% MACE over next 6 weeks
Course
Orders/Labs/Results
Orders:
Orders
01/21/25 17:03
Electrocardiogram (*1) Urgent
Reason for Study: Chest Pain
EKG- Treatment ONCE
01/21/25 17:35
Complete Blood Count/With Diff Urgent
Comprehensive Metabolic Panel Urgent
NT-proBNP Urgent
Comment: ADD ON
Troponin I Urgent
01/21/25 21:19
CR Chest - 2 Views Urgent
Comment:
Reason For Exam: sob
01/21/25 21:27
Add On- LAB Urgent
Tests Added?: pBNP
01/21/25 21:51
Troponin I Urgent
01/21/25 23:06
Admit/Transfer Patient As Directed
Co-Sign Provider:
Level of Care: Inpatient admission
Assign to:: Telemetry
Physician / Group: codi
Diagnosis: chest pain
Reason for Telemetry: Arrhythmia
Date to Stop Telemetry: 01/24/25
Time to Stop Telemetry: 11:00
Reason for Hospitalization: chest pain
Expected length of stay greater than two midnights?: Yes
ELOS- Estimated Length of Stay in days: 2
I certify the patient meets the requirements for IP care: Yes
01/21/25 23:07
PRN Pain Medication Management As Directed
May give lesser potent ordered pain med per pt: Yes
preference::
Protocol:: Medication orders for pain may be administered in a
manner that supports deferring to patient preference
when the pt is:
- Requesting an ordered lesser potent pain medication.
Least to most potent pain medications are defined
as: acetaminophen < NSAID < tramadol < opioids
(morphine, oxycodone, hydromorphone).
- Requesting a lesser dose of the same medication IF
ORDERED.
- Requesting a less intrusive route of administration
if both routes are prescribed by the provider (PO <
IV).
01/21/25 23:08
Code Status As Directed
Resuscitation Status: Full Code
01/24/25 11:00
DC Protocol for Telemetry ONCE
Abnormal Lab Results
01/21/25 01/21/25
17:35 21:51
RBC 2.88 L 10^6/uL
(4.70-6.10)
Hgb 10.0 L g/dL
(13.0-18.0)
Hct 29.9 L %
(39.0-52.0)
MCV 103.8 H fL
(80.0-94.0)
MCH 34.7 H pg
(27.0-31.0)
Absolute Lymphs (auto) 0.4 L 10^3/uL
(1.2-3.4)
Absolute Monos (auto) 0.8 H 10^3/uL
(0.1-0.6)
Neutrophils % 76.6 H %
(42.2-75.2)
Lymphocytes % 5.5 L %
(20.5-51.1)
Monocytes % 12.2 H %
(1.7-9.3)
Sodium 132 L mmol/L
(135-145)
BUN 24 H mg/dl
(9-20)
Glucose 102 H mg/dl
(70-99)
Alkaline Phosphatase 37 L U/L
(38-126)
Troponin I 0.046 H* D ng/ml
01/21/25 17:35
01/21/25 17:35
Vital Signs
Initial and Last Documented VS:
Initial Vital Signs
Temp Pulse Resp BP Pulse Ox
98.9 F 85 18 128/61 99
01/21/25 17:17 01/21/25 17:17 01/21/25 17:17 01/21/25 17:17 01/21/25 17:17
Last Documented Vital Signs
Temp Pulse Resp BP Pulse Ox
98.9 F 67 16 162/61 100
01/21/25 17:17 01/21/25 21:45 01/21/25 21:45 01/21/25 21:00 01/21/25 21:45
*Pulse Oximetry
SaO2: 100
Oxygen Mode of Delivery: Room air
Patient hypoxic: no
*EKG
Interpreted by ED Provider?: Yes
Interpretation: abnormal
Heart Rate: 78
Rate: normal
Rhythm: sinus
Ischemia: non-specific ST changes
*Supervisor [employer] Interpretation
Rate: normal
Interpretation: normal
Heart Rate: 78
Rhythm: sinus and other (Lead placement versus change in anterior forces Q waves)
*Critical Care Note
Total Time (30-74mins, 75-104mins- exclusive of procedures): Not Applicable
Data Reviewed
Review of Other/Old Records Reveals: Labs and Discharge Summary
Source: patient
Update Note
Update Note:
10:30 PM troponins trending up, proBNP chest x-ray noted
ED Attending Note
-
Portions of this chart may have been created with voice recognition software.� Occasional wrong word or��sound alike� substitutions may have occurred due to the inherent limitations of voice recognition software.
Discharge Plan
Departure
Patient Disposition: Admit
Date of Disposition: 01/21/25
Time of Disposition: 22:28
Admit to: Telemetry
Presentation/result/management discussed w/ accepting MD/DO: Hospitalist
Patient with high blood pressure during this ER visit?: No
Condition: Good
Discharge Problem:
Acute coronary syndrome
Interventions
Interventions:
*Risk Screen - Suicide Last Done: 01/21/25 17:17
*General Assessment Last Done: 01/21/25 17:17
*ED- Fall Risk Assessment Last Done: 01/21/25 17:17
*ED COVID-19 Vaccine History Last Done: 01/21/25 17:17
*ED Influenza Vaccine History Last Done: 01/21/25 17:17
ED- Cardiac Assessment Last Done: 01/21/25 21:05
[2025-01-21 22:08] VITALS: BP 163/59
[2025-01-21 22:24] LABS: Troponin I 0.046 ng/ml
[2025-01-21 23:00] VITALS: BP 159/59
--- NOTE | 2025-01-21 23:14 | HPS.HSE ---
Family Physician
-
Family Physician: Christopher Cramer
Chief Complaint
-
chest pain
History of Present Illness
79-year-old male past medical history of triple-vessel CAD, PAD, hypertension, benign thyroid mass status post thyroidectomy, prostate cancer status post radiation, odynophagia/dysphagia, precancerous cells in mouth in 2007, hypertension,
hyperlipidemia, COPD, former smoker, history of spontaneous pneumothorax, GERD, BPH, anxiety/depression, neuropathy, insomnia, presenting for multiple complaints.
His main symptom is exertional chest pressure started sometime over the past 2 weeks. It occurred when he showered yesterday and today. Pain does not radiate anywhere. He also has exertional dyspnea ongoing for few weeks. Denies any cough or
fever. He was admitted in 2019 and had cardiac catheterization which showed multivessel coronary artery disease recommended to be managed medically. He has been having shortness of breath and he had screening low-dose chest CT and told that he may
have COPD but has not had PFTs done yet.
He has chronic dysphagia and has been on pur�ed diet for the past year. He has been getting bored of the food and therefore has lost 25 pounds in the past year.
He recently has been having intermittent rectal bleeding described as bright red mixed in with the stool as well as outside of the stool. 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 Sharp a few months ago who states that he did not have hemorrhoids.
Recommended colonoscopy but patient was afraid due to his comorbidities and difficulties with bowel prep in the past when he had colonoscopy 10 years ago.
He has also been having pain in his lower extremity described as cramping whenever he walks. This has been ongoing for the past several months. He previously saw vascular Dr. Rock and had arterial imaging over a year ago. He has chronic numbness
of the big toes.
He has not been able to see specialists because he was being treated with monotherapy for prostate cancer which he completed.
He does not smoke or drink alcohol.
Medical History
Past Medical History
Past Medical History: Reports Other ( triple-vessel CAD, PAD, hypertension, benign thyroid mass status post thyroidectomy, prostate cancer status post radiation, odynophagia/dysphagia, precancerous cells in mouth in 2008, hypertension,
hyperlipidemia, COPD, former smoker, history of spontaneous pneumothorax, GERD, BPH, anxiety/depressi)
Past Surgical History: Reports Other (thyroidcectomy)
Social History
Tobacco: Former Smoker
Alcohol: None
Drug: None
Family History
Family History: Not pertinent
Allergies / Home Medications
Allergies reflects when Allergies were last updated in [employer].
Home Medications with original date entered in [employer]
Allergy/Medication List:
Allergies
Allergy/AdvReac Type Severity Reaction Status Date / Time
lorazepam (From Ativan) Allergy 'MAKES ME Verified 01/21/25 17:17
GO CRAZY'
simvastatin (From Zocor) Allergy muscle Verified 01/21/25 17:17
cramps
triamcinolone (From Kenalog) Allergy Unknown Verified 01/21/25 17:21
Home Medications
lifitegrast 5 % eye drops in a dropperette (Xiidra) 1 drp BOTH EYES BID Eye condition 09/26/16
nitroglycerin 0.4 mg sublingual tablet 0.4 mg sublingual [id number] PRN chest pain #25 tabs 09/30/16
acetaminophen 500 mg tablet (Tylenol Extra Strength) 500 mg PO TID Pain 02/09/17
lorazepam 0.5 mg tablet 0.5 mg PO HSPRN PRN sleep 02/09/17
levothyroxine 88 mcg tablet 88 mcg PO DAILY Thyroid 03/27/17
L.acidoph,paracasei,B.animalis 10 billion cell capsule 1 ea PO DAILY@1200 Supplement 08/15/17
cholecalciferol (vitamin D3) 25 mcg (1,000 unit) tablet 2,000 units PO QPM Supplement 08/15/17
acetaminophen 650 mg tablet,extended release (Tylenol Arthritis) 650 mg PO TID Pain 03/22/20
furosemide 20 mg tablet 20 mg PO DAILY Fluid retention/Swelling 03/22/20
pantoprazole 40 mg tablet,delayed release 40 mg PO DAILY@1200 Gastrointestinal issue 03/22/20
clopidogrel 75 mg tablet 75 mg PO DAILY #20 tabs 07/19/20
tamsulosin 0.4 mg capsule (Flomax) 0.4 mg PO BID #30 caps 09/23/23
ICaps AREDS2 2XD Eye Condition 01/06/24
Kenalog Skin Issues 01/06/24
carvedilol phosphate 20 mg capsule,[id number] multiphase (Coreg CR) 20 mg PO DAILY Heart Failure 01/06/24
clobetasol 0.05 % shampoo 0.05 topical PRN unk 01/06/24
escitalopram oxalate 5 mg tablet (Lexapro) 5 mg PO DAILY Depression 01/06/24
ferrous sulfate 325 mg (65 mg iron) tablet 325 mg PO DAILY Supplement 01/06/24
fluocinonide 0.05 % topical solution 1 applic topical BID PRN unk 01/06/24
leuprolide acetate (3 month) 22.5 mg (3 month) subcutaneous syringe (Eligard) 22.5 mg SC [id number] Hormonal Agent 01/06/24
valsartan 80 mg tablet (Diovan) 80 mg PO QPM Blood Pressure 01/06/24
vibegron 75 mg tablet (Gemtesa) 75 mg PO DAILY Urinary Issue 01/06/24
amlodipine 2.5 mg tablet 2.5 mg PO DAILY #30 tabs 01/11/24
Review of Systems
-
History Source: Patient
A 12 point ROS was completed and negative except as noted: Yes
Constitutional: Reports No Symptoms
EENT: Reports No Symptoms
Respiratory: Reports See HPI
Cardiac: Reports See HPI
Abdomen/GI: Reports See HPI
: Reports No Symptoms
Musculoskeletal: Reports No Symptoms
Skin: Reports No Symptoms
Neurological: Reports No Symptoms
Endocrine: Reports No Symptoms
Hematologic/Lymphatic: Reports No Symptoms
Psych: Reports No Symptoms
Physical Exam
Vital Signs
Vital Signs
Temp Pulse Resp BP Pulse Ox
98.9 F 67 16 162/61 100
01/21/25 17:17 01/21/25 21:45 01/21/25 21:45 01/21/25 21:00 01/21/25 21:45
Physical Exam
General: Well Developed, Well Nourished and No Apparent Distress
HEENT: NormoCephalic, Moist mucous membranes and Atraumatic
Respiratory: Clear
Cardiac: S1/S2 and Regular Rhythm; No Murmur or Rub
GI: Soft, Non Tender, Non Distended and Normal Bowel Sounds; No Organomegaly
Rectal: Deferred by Provider
Musculoskeletal: No Clubbing, No Cyanosis and No Edema
Skin: No Rash
Neuro: Nonfocal/grossly intact
Laboratory Results
-
01/21/25 17:35
01/21/25 17:35
Laboratory Results
Total Bilirubin 0.5 mg/dl (0.2-1.3) 01/21/25 17:35
AST 22 U/L (17-59) 01/21/25 17:35
ALT 17 U/L (0-50) 01/21/25 17:35
Alkaline Phosphatase 37 U/L (38-126) L 01/21/25 17:35
Troponin I 0.046 ng/ml H* D 01/21/25 21:51
Data Reviewed
-
Lab Data: Labs Reviewed by me
Old Records: Reviewed
Impression/Plan
-
IMPRESSION:
PLAN:
# Exertional chest pain concerning for ACS
# History of triple-vessel CAD with multiple MIs
- EKG shows normal sinus rhythm without any significant ischemic changes
-Cardiac BNP 2600
-Chest x-ray pending does not appear to show pulmonary edema, report pending
- Troponin 0.002 increased to 0.046
- Trend troponins
-Nitroglycerin sublingual as needed for pain
-Continue Coreg
-Continue Plavix
-start Heparin drip if recurrent pain or significantly rising troponin
- Cardiology consulted
# Exertional dyspnea secondary to ACS versus underlying COPD
- Outpatient follow-up with pulmonary for PFT
# Intermittent rectal bleeding/weight loss concerning for radiation proctitis versus underlying GI malignancy
-Hemoglobin has been stable
- GI consulted as patient does need eventual colonoscopy which patient cannot arrange as outpatient
# Peripheral arterial disease
- Pulses intact bilaterally
- Check RUTH
- Outpatient follow-up with vascular
Mild to moderate aortic regurgitation
- Continue Lasix
Chronic macrocytic anemia
- Hemoglobin stable at 10
- Check Hemoccult, iron studies, B12
Essential hypertension
- Continue amlodipine
- Continue valsartan
History of thyroid mass status post thyroidectomy
- Continue levothyroxine
Prostate cancer status post radiation
BPH
- Continue tamsulosin
History of odynophagia/dysphagia
History of precancerous cells in mouth in 2007
Hyperlipidemia
Former smoker
History of spontaneous pneumothorax
GERD
- Continue Protonix
Anxiety/depression
- Continue Lexapro
- Continue Ativan
Neuropathy
Insomnia
Full code
DVT prophylaxis�SCDs
Regular diet
[2025-01-22] VITALS (8 sets, daily range): BP systolic 119–163; BP diastolic 52–59; BMI 17.4
[2025-01-22 02:35] LABS: Troponin I 0.036 ng/ml
--- NOTE | 2025-01-22 04:05 | PTCARENOTE ---
Received patient from ED. SR on the monitor, HR in the 60s. No chest pain at this time. VSS on room air. Alert and oriented. Admission assessment completed. Oriented pt to room and plan of care, pt verbalized understanding. No complaints from pt at
this time, call bolden within reach.
[2025-01-22 04:41] LABS: Hematocrit 26.8 % (39.0-52.0); Hemoglobin 9.1 g/dL (13.0-18.0); Mean Corp Hgb Conc. 34.0 g/dL (33.0-37.0); Mean Corpuscular Volume 102.7 fL (80.0-94.0); Nucleated Red Blood Cells % 0 % (-); Platelet Count 175 10^3/uL (130-400); Red Cell Dist. Width 12.6 % (11.5-14.5)
[2025-01-22 04:43] LABS: ALT (SGPT) 16 U/L (0-50); AST (SGOT) 19 U/L (17-59); Albumin 3.8 g/dl (3.5-5.0); Alkaline Phosphatase 47 U/L (38-126); Blood Urea Nitrogen 19 mg/dl (9-20); Calcium 8.9 mg/dl (8.4-10.2); Carbon Dioxide 25 mmol/L (22-30); Chloride 101 mmol/L (98-107); Estimated Creatinine Clearance 47 ml/min; Glucose 95 mg/dl (70-99); Potassium 3.6 mmol/L (3.5-5.1); Sodium 131 mmol/L (135-145); Total Protein 5.8 g/dl (6.3-8.2); eGFR > 60.00
[2025-01-22] MEDS: TYLENOL 1000 MG PO ×3 (06:11→20:09)
[2025-01-22] MEDS: SYNTHROID 88 MCG PO (06:12)
--- NOTE | 2025-01-22 08:37 | CON.GI ---
Addendum entered and electronically signed by Christa Silva MD 01/22/25 15:04:
I saw and examined the patient.
The ROOFING SUBCONTRACTOR or PA's note was reviewed and I agree with the note.
Comment:
This patient is a 78-year-old man with a history of coronary disease, coronary artery stenosis, TIAs and prostate cancer with a history of radiation. He was seen in the office for rectal bleeding and weight loss. CAT scan and eventual scope was
the plan. He is in the hospital because of acute chest pain with an elevation of troponin. Currently does not have chest pain and only complains of constipation. he does have some weight loss
abd: soft, nontender
impression:
hx of rectal bleeding
weight loss
chest pain
plan:
-CT scan ordered for evaluation for underlying malignancy.
- follow hgb
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
- miralax for constipation
Addendum entered and electronically signed by RADHA Garcia 01/22/25 12:11:
reviewed with cardiology. No plan for intervention for now. Will proceed with CT for wt loss. If neg will review timing for colon as will need Plavix wash out. Ok for ASA and Plavix hold per cards if needed to proceed.
Original Note:
Consultation
-
Date/Time Consultation Requested: 01/22/25 0200
Date/Time Consultation Performed: 01/22/25 0830
Requesting Provider: Grace Wan MD
Performing Provider: RADHA Foley, Christa Silva MD
Reason for Consultation: rectal bleeding
Medical History
Chief Complaint / HPI
History of Present Illness:
Pt is a 78 y.o male with an extensive medical history including HTN, HLD, obstructive CAD (s/p prior stenting, on plavix), ischemic cardiomyopathy, PAD, carotid artery stenosis, hx of TIAs (on plavix), possible COPD, oropharyngeal dysphagia with
previous aspiration and prostate cancer (s/p XRT finished 2023 and on hormonal therapy) with recent evaluation in GI office with Dr. Sharp for rectal bleeding and wt loss. He was recommended CT and colonoscopy but was hesitant to proceed with both
due to concern for incontinence with CT contrast and concern for complication with colonoscopy. He was also noted with macrocytic anemia and recommended PCP follow up which he has also not completed. He admits to severe fatigue and depression and
and difficulty with completing work up as outpatient. He now presents with exertional chest pain with rise in troponin with BMP 2600 . Noted over several months for cardiology evaluation.
From GI standpoint he has hx dysphagia diagnosed on prior admission. He was recommended pureed diet last year by speech and never had follow up to advance diet. he admits to 25 lbs wt loss over last few months( about 9 kg since 2023 in
chart). He admits to GERD with belching, diffuse and left sided abdominal pain at time and constipation. He was using glycerine suppositories several times per week then stopped per his oncologist several months ago. He has tried miralax and
prune juice with too loose stools and then began with rectal bleeding. He will see red and dark red stool. Last �EGD (weight loss) 01/05/2016- Impression:�Normal esophagus, biopsied. Z-line regular at 40 cm from the incisors. Normal stomach,
biopsied. Normal examined duodenum, biopsied. Path: mild chronic gastritis with reactive gastropathy, (-) H pylori. Normal duodenal mucosa, esophageal biopsies with benign esophageal type squamous mucosa showing minimal non-specific chronic
inflammation without eosinophils
Colonoscopy (screening, good prep) 10/21/2014- Impression:�One 4 mm polyp in the rectum, removed (path w/ HPP). Mild diverticulosis in sigmoid colon. Normal examined ileum. The examination was otherwise normal. Repeat colonoscopy based on review of
path results.
Past Medical History
Past Medical History: CAD, Cancer (prostate CA with XRT and hormonal therapy ), COPD (possible COPD), CVA (prior TIA), HTN, Hypercholesterolemia, Hypothyroidism, Psychiatric (depression/anxiety, claudication, chest pain syndrome, ischemic optic
neuropathy) and Other (BPH, spinal stenosis , orophyngeal dysphagia with prior aspiration )
Past Surgical History: Cardiac (stenting) and Other (thryoidectomy)
Social History
Tobacco: Former Smoker
Alcohol: None
Drug: None
Living: Alone
Employment: Retired
Family History
Family History: Other (daughter with crohns )
Allergies / Home Medications
Allergy/AdvReac Type Severity Reaction Status Date / Time
lorazepam (From Ativan) Allergy 'MAKES ME Verified 01/21/25 17:17
GO CRAZY'
simvastatin (From Zocor) Allergy muscle Verified 01/21/25 17:17
cramps
triamcinolone (From Kenalog) Allergy Unknown Verified 01/21/25 17:21
�Medication �Instructions �Recorded
lifitegrast 5 % eye drops in a 1 drp BOTH EYES BID Eye condition 09/26/16
dropperette (Xiidra)
nitroglycerin 0.4 mg sublingual 0.4 mg sublingual [id number] PRN 09/30/16
tablet chest pain #25 tabs
lorazepam 0.5 mg tablet 0.5 mg PO 2XD PRN sleep 02/09/17
levothyroxine 88 mcg tablet 88 mcg PO DAILY Thyroid 03/27/17
cholecalciferol (vitamin D3) 25 2,000 units PO QPM Supplement 08/15/17
mcg (1,000 unit) tablet
acetaminophen 650 mg 1,300 mg PO TID Pain 03/22/20
tablet,extended release (Tylenol
Arthritis)
furosemide 20 mg tablet 20 mg PO QMWF Fluid 03/22/20
retention/Swelling
pantoprazole 40 mg tablet,delayed 40 mg PO DAILY@1200 03/22/20
release Gastrointestinal issue
clopidogrel 75 mg tablet 75 mg PO DAILY #20 tabs 07/19/20
tamsulosin 0.4 mg capsule (Flomax) 0.4 mg PO BID #30 caps 09/23/23
ICaps AREDS2 2XD Eye Condition 01/06/24
carvedilol phosphate 20 mg 20 mg PO DAILY Heart Failure 01/06/24
capsule,[id number] multiphase
(Coreg CR)
ferrous sulfate 325 mg (65 mg 325 mg PO DAILY Supplement 01/06/24
iron) tablet
valsartan 80 mg tablet (Diovan) 80 mg PO QPM Blood Pressure 01/06/24
amlodipine 2.5 mg tablet 2.5 mg PO DAILY #30 tabs 01/11/24
simethicone 125 mg tablet 125 mg PO DAILY 01/22/25
Review of Systems
-
History Source: Patient
Constitutional: Reports Weight Loss and Fatigue
EENT: Reports No Symptoms
Respiratory: Reports Trouble Breathing (with exertion )
Cardiac: Reports Chest Pain
Abdomen/GI: Reports Abdominal Pain, Diarrhea, Constipated and Bloody Stools (with some dark red stools)
: Reports Difficulty Voiding
Musculoskeletal: Reports Joint Pain
Skin: Reports No Symptoms
Neurological: Reports Weakness
Endocrine: Reports No Symptoms
Hematologic/Lymphatic: Reports Bleeding
Vital Signs
Temp Pulse Resp BP Pulse Ox
97.9 F 71 16 145/56 97
01/22/25 07:30 01/22/25 07:30 01/22/25 07:30 01/22/25 07:18 01/22/25 07:30
Physical Exam
Exam
General: Other (thin appearing )
HEENT: Normocephalic and Anicteric
Respiratory: Clear
Cardiac: Regular Rhythm
GI: Soft, Non Tender and Non Distended
Musculoskeletal: No Clubbing and No Cyanosis
Skin: Warm and Dry
Neuro: Awake, Alert and AO x 3
Psych: Calm
Results
WBC 6.1 10^3/uL (4.8-10.8) 01/22/25 03:32
Hgb 9.1 g/dL (13.0-18.0) L 01/22/25 03:32
Hct 26.8 % (39.0-52.0) L 01/22/25 03:32
MCV 102.7 fL (80.0-94.0) H 01/22/25 03:32
Plt Count 175 10^3/uL (130-400) D 01/22/25 03:32
Absolute Neuts (auto) 4.5 10^3/uL (1.4-6.5) 01/22/25 03:32
Sodium 131 mmol/L (135-145) L 01/22/25 03:32
Potassium 3.6 mmol/L (3.5-5.1) 01/22/25 03:32
Chloride 101 mmol/L (98-107) 01/22/25 03:32
Carbon Dioxide 25 mmol/L (22-30) 01/22/25 03:32
BUN 19 mg/dl (9-20) 01/22/25 03:32
Creatinine 1.0 mg/dL (0.7-1.3) 01/22/25 03:32
Calcium 8.9 mg/dl (8.4-10.2) 01/22/25 03:32
Total Bilirubin 0.6 mg/dl (0.2-1.3) 01/22/25 03:32
AST 19 U/L (17-59) 01/22/25 03:32
ALT 16 U/L (0-50) 01/22/25 03:32
Alkaline Phosphatase 47 U/L (38-126) 01/22/25 03:32
Diagnostic Image Results:
Pertinent Prior GI Records / Data Review:
Double Contrast Barium Esophagram (Dysphagia) 01/09/2024- Impression:
1). There is moderate-large volume aspirated barium to below the level of the radha. This initially did not precipitate a spontaneous cough and did not clear with a directed cough.
2).A 1/2 inch barium pill initially stuck in the right side of the vallecula and cleared only after multiple swallows of both barium and water with a directed chin tuck.
Subsequently, the thoracic esophagus was evaluated using double contrast technique demonstrating the esophagus to be normal in architecture and motility. There is no evidence of stricture, web, neoplasm, diverticulum, ulceration or inflammatory
change. The pill subsequently pass normally through the thoracic esophagus without significant delay.
Reviewed recent [employer] evaluation along with barium esophagram. All consistent with oropharyngeal dysphagia with evidence of aspiration on barium swallow. Otherwise, esophagus was normal without any stricture, mass, inflammatory changes or evidence of
abnormal motility. Recommend ongoing f/u with speech therapy as an outpatient.
�
EGD (weight loss) 01/05/2016- Impression:�Normal esophagus, biopsied. Z-line regular at 40 cm from the incisors. Normal stomach, biopsied. Normal examined duodenum, biopsied. Path: mild chronic gastritis with reactive gastropathy, (-) H pylori.
Normal duodenal mucosa, esophageal biopsies with benign esophageal type squamous mucosa showing minimal non-specific chronic inflammation without eosinophils
Colonoscopy (screening, good prep) 10/21/2014- Impression:�One 4 mm polyp in the rectum, removed (path w/ HPP). Mild diverticulosis in sigmoid colon. Normal examined ileum. The examination was otherwise normal. Repeat colonoscopy based on review of
path results
�
Assessment / Plan
-
Pt is a 78 y.o male with an extensive medical history including HTN, HLD, obstructive CAD (s/p prior stenting, on plavix), ischemic cardiomyopathy, PAD, carotid artery stenosis, hx of TIAs (on plavix), possible COPD, oropharyngeal dysphagia with
previous aspiration and prostate cancer (s/p XRT finished 2023 and on hormonal therapy) with recent evaluation in GI office with Dr. Sharp for rectal bleeding and wt loss. He was recommended CT and colonoscopy but was hesitant to proceed with both
due to concern for incontinence with CT contrast and concern for complication with colonoscopy. He was also noted with macrocytic anemia and recommended PCP follow up which he has also not completed. He admits to severe fatigue and depression and
and difficulty with completing work up as outpatient. He now presents with exertional chest pain with rise in troponin with BMP 2600 . Noted over several months for cardiology evaluation.
From GI standpoint he has hx dysphagia diagnosed on prior admission. He was recommended pureed diet last year by speech and never had follow up to advance diet. he admits to 25 lbs wt loss over last few months( about 4 kg since 2023 in
chart). He admits to GERD with belching, diffuse and left sided abdominal pain at time and constipation. He was using glycerine suppositories several times per week then stopped per his oncologist several months ago. He has tried miralax and
prune juice with too loose stools and then began with rectal bleeding. He will see red and dark red stool. Last �EGD (weight loss) 01/05/2016- Impression:�Normal esophagus, biopsied. Z-line regular at 40 cm from the incisors. Normal stomach,
biopsied. Normal examined duodenum, biopsied. Path: mild chronic gastritis with reactive gastropathy, (-) H pylori. Normal duodenal mucosa, esophageal biopsies with benign esophageal type squamous mucosa showing minimal non-specific chronic
inflammation without eosinophils
Colonoscopy (screening, good prep) 10/21/2014- Impression:�One 4 mm polyp in the rectum, removed (path w/ HPP). Mild diverticulosis in sigmoid colon. Normal examined ileum. The examination was otherwise normal. Repeat colonoscopy based on review of
path results.
-chest pain on admission with elevated trop and concern for ACS
-painless rectal bleeding
-prostate CA with prior XRT and hormonal therapy
-change in bowel habits
-oropharyngeal dysphagia
-macrocytic anemia
-wt loss - unintentional
other med problems:
HTN, HLD, obstructive CAD (s/p prior stenting, on plavix), ischemic cardiomyopathy, PAD, carotid artery stenosis, hx of TIAs (on plavix), possible COPD, depression
PLAN:
etiology of bleeding related to radiation proctitis vs other
pt also with chronic dysphagia, anemia and change on bowel pattern
await cardiology input with concern for chest pain an ACS
if no plan for current cardiac intervention would proceed with CT Chest/abd/pelvis with wt loss
then will need to review for EGD/colon with dysphagia and rectal bleeding -- currently remains on Plavix -- inpatient vs outpatient (pt report difficulty with prep and OP scheduling)
add iron studies, B12, folate
when diet advance speech eval with hx dysphagia and no follow up and dietary eval
trend hbg
OP follow with trace bird for prostate CA
-
-
Thank you for consultation and allowing me to participate in the patient's care. Please call the library circulation department chief GI physician during the after hours with any questions or concerns.
--- NOTE | 2025-01-22 08:40 | CON.CAR ---
Addendum entered and electronically signed by Teo Nichols MD 01/22/25 15:22:
I saw and evaluated the patient, and I provided the substantive portion of the medical decision making.
I reviewed and agree with the note by Silvia Coleman and it accurately reflects our care.
I personally performed the medical decision making of the this encounter and my assessment and plan is below:
79-year-old gentleman patient of Dr. eL's with a history of CAD status post remote PCI in 2017 and 2018 with a recent catheterization last year showing a chronically occluded dominant RCA, hypertension, CAD S, prior TIA managed on Plavix,
likely COPD, statin intolerance, PCSK9 intolerance, PAD, recovered cardiomyopathy and most recently prostate cancer with a history of radiation presented for evaluation of chest pain. Patient has reported chest pain since the summer. It has been
present with exertion. He thought it was slightly worse Sunday and took a nitroglycerin. With this, it completely resolved. He has not had any rest pain. Additionally, he has noted a 25 pound weight loss over the last year with complaints of
dysphagia. Most importantly, he has been having rectal bleeding and is under the care of GI. We are asked to comment on his chest pain. Currently, he has no complaint. Initial labs show a troponin of 0.046 that already down trended to 0.036.
EKG showed sinus rhythm with poor R wave progression no significant changes. Labs are concerning for hemoglobin of 9.1, on exam he is pleasant in no apparent distress with a regular rate and rhythm with a normal S1-S2 no murmur rubs gallops were
appreciated. Lungs were clear to auscultation bilaterally. No lower extremity edema noted.
last echo 03/15/23 ef 55-60% apical hk. mild to mod ar.
Cath 01/06/2024 multivessel CAD with codominant system, codominant RCA vessel that is ostially occluded filling with [id number] collaterals.
Assessment:
Chest pain, finding consistent with chronic stable angina likely worsened with GI bleeding in a patient with a known occluded RCA. He has not had any unstable symptoms. Would treat GI bleeding and increase OMT and reassess. No indication for
cardiac catheterization especially with GI bleeding concerns. Will add Imdur. Will update echo.
GI bleeding: GI to consult. Okay to transition to aspirin from clopidogrel if needed prior to any investigation. Ultimately would transition back to clopidogrel given history of TIA/PAD.
Hypertension: Chronic, continue to titrate medications as needed. Plenty of room for Imdur.
Hyperlipidemia: Intolerant to statin and PCSK9 inhibitor. Can consider inclisiran as an outpatient.
Mild to moderate AR: On echo will reevaluate with an echo.
Will follow
Original Note:
Consultation
Consultation Request
Date/Time Consultation Requested: 01/22/25207
Date/Time Consultation Performed: 01/22/25840
Requesting Provider: Dr. Wan
Performing Provider: Silvia GARCIA for Dr. Nichols
Reason for Consultation: chest discomfort
Medical History
-
Chief Complaint: chest discomfort
History of Present Illness:
79 y/o male (patient of Dr. Puente) with CAD (PCI to LAD 2017 and mid circ PCI 2018 with chronically occluded dominant RCA), hypertension, carotid artery disease, hx TIA, suspected COPD, dyslipidemia with intolerance to statin and PCSK9I, right
iliac artery stenosis, recovered ICM, and prostate cancer with hx radiation. He is here for evaluation of chest discomfort, which has been present with exertion since early summer, but since Sunday he noted was worse. Yesterday, he took a nitro
because it was more painful than usual. It is a tightness across his chest that he notes particularly with stairs. It goes away with rest, but because it was more painful yesterday, he took a nitro and it went away completely within 2 minutes. It
feels like his previous angina, except that that was more specific to his throat region. He has SOB in the AM prior to getting up. He reports about 25 lb weight loss in the past year, which he attributed to his cancer treatments and dysphagia.
However, he has also been having rectal bleeding and recently saw GI as OP for this. GI consulted here as well. He has no CP at rest and is in no distress at the time of my assessment. Troponin is minimally abnormal. EKG is stable. HGB is decreased
from yesterday.
Past Medical History
Past Medical History: CAD, Cancer, COPD, HTN, Hypercholesterolemia and Other (as above)
Social History
Tobacco: Former Smoker
Family History
Family History: Reviewed & Not Pertinent
Allergies / Home Medications
Allergy/AdvReac Type Severity Reaction Status Date / Time
lorazepam (From Ativan) Allergy 'MAKES ME Verified 01/21/25 17:17
GO CRAZY'
simvastatin (From Zocor) Allergy muscle Verified 01/21/25 17:17
cramps
triamcinolone (From Kenalog) Allergy Unknown Verified 01/21/25 17:21
�Medication �Instructions �Recorded �Confirmed �Type
lifitegrast 5 % eye drops in a 1 drp BOTH EYES BID Eye condition 09/26/16 01/22/25 History
dropperette (Xiidra)
nitroglycerin 0.4 mg sublingual 0.4 mg sublingual [id number] PRN 09/30/16 01/22/25 Rx
tablet chest pain #25 tabs
lorazepam 0.5 mg tablet 0.5 mg PO 2XD PRN sleep 02/09/17 01/22/25 History
levothyroxine 88 mcg tablet 88 mcg PO DAILY Thyroid 03/27/17 01/22/25 History
cholecalciferol (vitamin D3) 25 2,000 units PO QPM Supplement 08/15/17 01/22/25 History
mcg (1,000 unit) tablet
acetaminophen 650 mg 1,300 mg PO TID Pain 03/22/20 01/22/25 History
tablet,extended release (Tylenol
Arthritis)
furosemide 20 mg tablet 20 mg PO QMWF Fluid 03/22/20 01/22/25 History
retention/Swelling
pantoprazole 40 mg tablet,delayed 40 mg PO DAILY@1200 03/22/20 01/22/25 History
release Gastrointestinal issue
clopidogrel 75 mg tablet 75 mg PO DAILY #20 tabs 07/19/20 01/22/25 Rx
tamsulosin 0.4 mg capsule (Flomax) 0.4 mg PO BID #30 caps 09/23/23 01/22/25 Rx
ICaps AREDS2 2XD Eye Condition 01/06/24 History
carvedilol phosphate 20 mg 20 mg PO DAILY Heart Failure 01/06/24 01/22/25 History
capsule,[id number] multiphase
(Coreg CR)
ferrous sulfate 325 mg (65 mg 325 mg PO DAILY Supplement 01/06/24 01/22/25 History
iron) tablet
valsartan 80 mg tablet (Diovan) 80 mg PO QPM Blood Pressure 01/06/24 01/22/25 History
amlodipine 2.5 mg tablet 2.5 mg PO DAILY #30 tabs 01/11/24 01/22/25 Rx
simethicone 125 mg tablet 125 mg PO DAILY 01/22/25 01/22/25 History
Review of Systems
-
History Source: Patient
All other systems: Negative unless noted (as above)
Respiratory: Trouble Breathing
Cardiac: Chest Pain
Abdomen/GI: Other (rectal bleeding)
: Bleeding
Physical Exam
Vital Signs
Temp Pulse Resp BP Pulse Ox
97.9 F 71 16 145/56 97
01/22/25 07:30 01/22/25 07:30 01/22/25 07:30 01/22/25 07:18 01/22/25 07:30
Lab Results
01/22/25 03:32
01/22/25 03:32
Troponin I Cancelled 01/22/25 07:31
Foi-W-Jhseoymwhzm Pept Cancelled 01/21/25 21:19
Physical Exam
General: No Apparent Distress
HEENT: Normocephalic and Anicteric
Respiratory: Clear and Non Labored Respirations
Cardiac: Regular Rhythm
Musculoskeletal: No Edema
Skin: Warm and Dry
Neuro: AO x 3
Psych: Calm
Impression / Plan
-
Chest discomfort: currently CP free
-It is still only noted with exertion, but has become more intense. He has known significant CAD (as detailed below). Can intensify antianginal regimen and monitor.
-would check echo
Abnormal troponin:
-suspect acute, non-ischemic myocardial injury in setting of anemia.
-checking echo
CAD with hx stenting:
-Cardiac cath 01/07/24: LAD: gives rise to two small caliber diagonal branches and wraps around the apex. There are prior stents in the ostial LAD (appears to be two layers). There is mild ISR in the ostial LAD that is slightly progressed from prior
cath in 2018 and otherwise mild luminal irregularities. LCx: gives rise to a moderate caliber marginal branch and several LPL branches. There are prior stents in the proximal, mid, and distal LCx. There is mild ISR in the existing proximal stent.
There is mild ostial stenosis in the marginal branch. There is a focal 50% stenosis in the mid-distal LCx between prior stents that has progressed form cath in 2018. RCA: co-dominant vessel that is ostially occluded and filled via L-R collaterals.
-if needs to be off Plavix for GI procedure, can switch to aspirin during that time
-continue amlodipine and Coreg
-per previous notes, statin intolerant and PCSK9i intolerant
Rectal bleeding/anemia:
-GI is on the case- planning for CT scan and likely eventual colonoscopy
-if hemoglobin continues to drop, may benefit from PRBC transfusion with his known CAD
Resolved ICM:
-Echo 03/15/23: Normal left ventricular size, wall thickness and systolic function. LV ejection fraction is 55-60%. Possible small/focal area of apical hypokinesis. Mild to moderate aortic regurgitation.
-update echo
PAD: follows with vascular
-on plavix
Hx TIA:
-on plavix as noted
HTN:
-monitor with med adjustments
Data Reviewed
-
EKG: Tracing Personally Visualized and interpreted (NSR 64 BPM)
Radiology: Report Reviewed by me (Hyperinflated lungs compatible with COPD/emphysema. The lungs appear radiographically clear.)
Medical Tests (Nuc Med, Echo etc): Report Reviewed by me (echo and cath as noted)
Labs: Labs Reviewed by me
[2025-01-22] MEDS: MYLICON 120 MG PO (09:24)
[2025-01-22] MEDS: COREG 6.25 MG PO ×2 (09:24→20:09)
[2025-01-22] MEDS: FLOMAX 0.4 MG PO ×2 (09:25→20:09)
[2025-01-22] MEDS: PLAVIX 75 MG PO (09:25)
[2025-01-22] MEDS: NORVASC 2.5 MG PO (09:25)
[2025-01-22] MEDS: LASIX PO (09:36)
[2025-01-22 10:00] LABS: Iron 42 ug/dl (49-181)
[2025-01-22 10:10] LABS: Total Iron Binding Capacity 256 ug/dl (261-462)
[2025-01-22 10:37] LABS: Ferritin 132.0 ng/ml (17.9-464.0)
--- NOTE | 2025-01-22 10:56 | PTCARENOTE ---
I assessed the patient's skin during the Prevalence study. His BL heels and sacrum were blanchable red. I applied foam dressings to said areas and encouraged the patient to frequently turn to prevent pressure wounds.
[2025-01-22 11:08] LABS: Folate > 20.0 ng/ml (2.76-20); Vitamin B12 479 pg/ml (239-931)
--- NOTE | 2025-01-22 11:09 | CM ---
Chart reviewed. Patient is independent of ADLS, lives alone in a 2 [address], 1 [facility], 0 DME. Plan is for the patient to return home. CM to follow
--- NOTE | 2025-01-22 11:23 | W.PN.HOSP.TC ---
Today's Communication/Plan
-
medical management for now
trend HGB
PT/OT
does need a lot of work but GI issues chronic
Assessment / Plan
Assessment / Plan
pt is a 79 year old male
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
nitrates? Imdur?--cont coreg, plavix--proBNP 2600--check ECHO--reviewed EKG--no acute changes
Exertional dyspnea secondary to acute coronary syndrome versus underlying COPD (most likely--lungs very hyperinflated on CXR)--not hypoxic--consider pulm consult--BUT needs outpt followup--says he put that off
Intermittent rectal bleeding/weight loss concerning for radiation proctitis versus underlying GI malignancy--Hemoglobin has been stable-- GI consulted as patient does need eventual colonoscopy can be done as an outpt but pt admits he has put off
follow up
Peripheral arterial disease-- Outpatient follow-up with vascular
Mild to moderate aortic regurgitation- Continue Lasix--check ECHO
anemia--likely chronic disease pt pt is c/o rectal bleeding intermittently--trend HGB
Essential hypertension- Continue amlodipine- Continue valsartan
History of thyroid mass status post thyroidectomy- Continue levothyroxine
BPH with Prostate cancer status post radiation- Continue tamsulosin
History of odynophagia/dysphagia
History of precancerous cells in mouth in 2007
Hyperlipidemia--does not appear to be on statin med
History of spontaneous pneumothorax
GERD- Continue Protonix
Anxiety/depression- Continue Lexapro- Continue Ativan
DVT proph
code status--Full code
Anticipated Discharge: > 48 hours
Subjective/Interval History
-
Date of Service: January 22, 2025
pt c/o chest tightness with exertion, nonradiating also with rectal bleeding, dysphagia etc
Objective Data
-
Labs:
Laboratory Results
01/22/25
03:32
WBC 6.1
Hgb 9.1 L
Hct 26.8 L
Plt Count 175 D
Sodium 131 L
Potassium 3.6
Chloride 101
Carbon Dioxide 25
BUN 19
Creatinine 1.0
Glucose 95
Calcium 8.9
Total Bilirubin 0.6
AST 19
ALT 16
Alkaline Phosphatase 47
Vital Signs:
max temp for 24 hours
01/21/25
17:17
Temp 98.9 F
Vital Signs
Temp Pulse Resp BP Pulse Ox
97.9 F 71 16 145/56 97
01/22/25 07:30 01/22/25 07:30 01/22/25 07:30 01/22/25 07:18 01/22/25 07:30
Review of Systems
-
All other systems: Reviewed and negative
Constitutional: Reports Weight Loss
Cardiac: Reports Chest Pain
Abdomen/GI: Reports Bloody Stools and Other (dysphagia)
Physical Exam
-
General: Appears Chronically Ill and Cachectic
HEENT: Normocephalic and Atraumatic
Respiratory: Decreased Breath Sounds (all lung beltran)
Cardiac: Regular Rhythm and S1/S2; Negative Murmur
GI: Soft, Nontender, Nondistended and Normal Bowel Sounds
Musculoskeletal: No Clubbing, No Cyanosis and No Edema
Neuro: Awake
Psych: Calm
[2025-01-22] MEDS: OMNIPAQUE 960 ML PO (12:40)
[2025-01-22] MEDS: PROTONIX 40 MG PO (12:55)
[2025-01-22] MEDS: IMDUR (EXTENDED RELEASE) 30 MG PO (13:00)
--- NOTE | 2025-01-22 13:18 | PTCARENOTE ---
Assumed care of the pt @ 0700. Pt is AAOx3 SB/SR on the monitor vss denies cp. POC discussed with pt verbalized understanding. Pt is NPO for CT Scan of the abd. Call bolden within reach.
--- NOTE | 2025-01-22 14:41 | PN.CDI ---
CDI
- -
CDI:
Physician Documentation Request
Admit Date: 01/21/25 23:26
Dear Doctor Chelle,
Please review the following and provide your response in the progress notes.
Clinical Indicators:
Laboratory Tests
01/21/25 01/22/25
17:35 03:32
Sodium 132 L 131 L
Based on the above, please clarify in the progress notes, the appropriate diagnosis, if significant, that supports the above abnormalities and additional evaluation, monitoring and/or treatment rendered:
Hyponatremia
Abnormal lab value, clinically insignificant
Other(please specify)
Use of terms such as suspected, likely, concern for, or probable (associated with a specific diagnosis that is being evaluated, monitored, or treated as if it exists) are acceptable and can be coded in the inpatient setting, when documented at the
time of discharge.
Thank you,
Rafia Delacruz RN BSN CCDS
CDI Specialist
Please contact via tiger text
Please use your independent medical judgment in providing your response.
[2025-01-22] MEDS: ATIVAN 0.5 MG PO ×2 (16:05→20:09)
[2025-01-22] MEDS: DIOVAN 80 MG PO (17:07)
[2025-01-22] MEDS: NON-FORMULARY ITEM 2 MG BUCCAL (20:12)
[2025-01-22] MEDS: REFRESH EYE DROPS (PF) 1 DROPS OPHTH (20:29)
[2025-01-22] MEDS: NON-FORMULARY ITEM 1 DROP BOTH EYES (20:29)
[2025-01-23 03:35] VITALS: BP 134/59; BMI 17.5
[2025-01-23 04:12] LABS: Hematocrit 26.3 % (39.0-52.0); Hemoglobin 9.2 g/dL (13.0-18.0); Mean Corp Hgb Conc. 35.0 g/dL (33.0-37.0); Mean Corpuscular Volume 100.8 fL (80.0-94.0); Platelet Count 186 10^3/uL (130-400); Red Cell Dist. Width 12.6 % (11.5-14.5)
[2025-01-23 04:30] LABS: ALT (SGPT) 16 U/L (0-50); AST (SGOT) 23 U/L (17-59); Albumin 3.7 g/dl (3.5-5.0); Alkaline Phosphatase 41 U/L (38-126); Blood Urea Nitrogen 18 mg/dl (9-20); Calcium 8.8 mg/dl (8.4-10.2); Carbon Dioxide 22 mmol/L (22-30); Chloride 98 mmol/L (98-107); Estimated Creatinine Clearance 45 ml/min; Glucose 90 mg/dl (70-99); Magnesium 2.1 mg/dl (1.6-2.3); Potassium 4.4 mmol/L (3.5-5.1); Sodium 127 mmol/L (135-145); Total Protein 5.6 g/dl (6.3-8.2); eGFR > 60.00
--- NOTE | 2025-01-23 05:40 | PTCARENOTE ---
Pt NSR on monitor, VSS. Pt denies any pain or discomfort. Independent in the room. Call bolden within reach
[2025-01-23] MEDS: SYNTHROID 88 MCG PO (06:42)
[2025-01-23] MEDS: MYLICON 120 MG PO (07:44)
[2025-01-23] MEDS: PLAVIX 75 MG PO (07:45)
[2025-01-23] MEDS: NORVASC 2.5 MG PO (07:45)
[2025-01-23] MEDS: FEOSOL 325 MG PO (07:46)
[2025-01-23] MEDS: COREG 6.25 MG PO (07:46)
[2025-01-23] MEDS: IMDUR (EXTENDED RELEASE) 30 MG PO (07:46)
[2025-01-23 07:47] VITALS: BP 147/57
[2025-01-23] MEDS: FLOMAX 0.4 MG PO ×2 (07:50→20:00)
--- NOTE | 2025-01-23 07:57 | W.PN.CD ---
Today's Communication / Plan
-
Increase coreg to 12.5 mg bid
Imdur increase to 60 mg
If Hgb < 9 consider pRBCs
Impression / Plan
-
Chest discomfort: currently CP free
-It is still only noted with exertion, but has become more intense. He has known significant CAD (as detailed below). Can intensify antianginal regimen and monitor.
-would check echo
Abnormal troponin:
-suspect acute, non-ischemic myocardial injury in setting of anemia.
-checking echo
CAD with hx stenting:
-Cardiac cath 01/07/24: LAD: gives rise to two small caliber diagonal branches and wraps around the apex. There are prior stents in the ostial LAD (appears to be two layers). There is mild ISR in the ostial LAD that is slightly progressed from prior
cath in 2018 and otherwise mild luminal irregularities. LCx: gives rise to a moderate caliber marginal branch and several LPL branches. There are prior stents in the proximal, mid, and distal LCx. There is mild ISR in the existing proximal stent.
There is mild ostial stenosis in the marginal branch. There is a focal 50% stenosis in the mid-distal LCx between prior stents that has progressed form cath in 2018. RCA: co-dominant vessel that is ostially occluded and filled via L-R collaterals.
-if needs to be off Plavix for GI procedure, can switch to aspirin during that time
-continue amlodipine; increase coreg to 12.5 mg bid
-per previous notes, statin intolerant and PCSK9i intolerant
Rectal bleeding/anemia:
-GI is on the case- planning for CT scan and likely eventual colonoscopy
-if hemoglobin continues to drop, may benefit from PRBC transfusion with his known CAD
- if Hgb drops below 9 would recommend a unit of pRBCs
HFrEF EF ~45% ICM:
-echo below
- increase coreg to 12.5 mg bid
- pricing [id number] and Entresto
- on valsartan
- consider MRA likely as outpt
PAD: follows with vascular
-on plavix
Hx TIA:
-on plavix as noted
HTN:
-monitor with med adjustments
Echo Jan 2025: SUMMARY
1. Left ventricular ejection fraction is mildly reduced with an ejection fraction of 45 % by Travis's biplane method of discs. Global hypokinesis.
2. Right ventricular size and systolic function are within normal limits.
3. Stage I diastolic dysfunction suggestive of abnormal relaxation.
4. Mild to moderate aortic regurgitation.
5. Compared to the prior study on 03/15/2023, LVEF has decreased from 55 to 60% with apical hypokinesis to 45% with global hypokinesis.
Physical Exam
Vital Signs/Labs
Vital Signs
Temp Pulse Resp BP Pulse Ox
97.6 F 79 17 134/59 97
01/23/25 03:33 01/23/25 03:35 01/23/25 03:33 01/23/25 03:35 01/23/25 03:35
01/22/25 01/23/25 01/24/25
06:59 06:59 06:59
Actual Weight 114 lb 10.246 oz 115 lb 4.828 oz
01/23/25 03:37
01/23/25 03:37
Magnesium 2.1 mg/dl (1.6-2.3) 01/23/25 03:37
01/21/25 01/21/25
17:35 21:19
[id number]-V-[id number] Pept 2600 Cancelled
LAB Results
01/21/25 01/21/25 01/22/25
17:35 21:51 01:37
Troponin I 0.020 0.046 H* D 0.036 H*
01/22/25 01/22/25
07:31 13:31
Troponin I Cancelled Cancelled
Physical Exam
Constitutional: No acute distress
EENT: Anicteric
Cardiovascular: Rhythm & rate is regular and Pedal edema is absent
Respiratory: Respiratory effort normal and Lungs clear to auscul.
GI: Soft
Neuro/Psych: AO x 3
Data Reviewed
-
Date of Service: January 23, 2025
EKG: Tracing Personally Visualized and interpreted (sr)
Echo: Report Reviewed by me
Labs: Labs Reviewed by me
[2025-01-23] MEDS: LASIX 20 MG PO (08:00)
[2025-01-23] MEDS: NON-FORMULARY ITEM 1 DROP BOTH EYES ×2 (08:01→20:01)
[2025-01-23] MEDS: REFRESH EYE DROPS (PF) 1 DROPS OPHTH ×2 (09:25→20:01)
--- NOTE | 2025-01-23 09:32 | CM ---
Pricing on Entresto 24/26 mg bid and 49/51 mg bid is not covered under the brand name, the generic Sacubritril/Valsartan is covered at a $0 copay
Farxiga and Jardiance are both covered at a $0 copay
Patient has [employer] PP ID# [id number]
--- NOTE | 2025-01-23 09:46 | CON.HOSP ---
Addendum entered and electronically signed by Jermaine Collins MD 01/23/25 13:59:
I agree with the resident's note with the following addition
This is a 79-year-old gentleman with coronary disease on antiplatelet agents, hypertension on a multidrug regimen which is typically stable as well as hypothyroidism controlled with Synthroid. He presented with exertional chest pressure and dyspnea
over several weeks. There is also report of bloody stools. He says that hyponatremia was noticed recently on blood work and as a result his daily Lasix was reduced to 3 times weekly. On admission his creatinine was normal at 1.0 but sodium was
noted to be 132. Over the course of this hospitalization had dropped to 127 and we are asked to assist with management of the hyponatremia
Patient is awake alert oriented and in no distress. Mood and affect were pleasant, insight and judgment were good. Pupils are equal round and reactive to light, extraocular movements are intact, sclera were anicteric. Hearing was normal, ears and
nose are intact. Oropharynx was clear. Neck was supple with trachea midline and no thyromegaly. Heart was regular rate and rhythm without rubs. There was a 3 out of 6 systolic murmur at the base. Lower extremities without edema. Lungs were clear
to auscultation bilaterally and with normal excursion. Abdomen was soft, nontender, with normal active bowel sounds, and no hepatosplenomegaly. There was an abdominal bruit. Skin was without rash and with normal turgor.
Labs and order labs were reviewed in the system.
Chest x-ray on January 21, 2025 by my reading shows hyperinflation consistent with COPD
CT of the chest abdomen and pelvis with IV contrast on January 22, 2025 shows no renal abnormalities, no hydronephrosis or mass
Echocardiogram on 01/22/2025 shows ejection fraction 45% with moderate AR
EKG on 01/21/2025 by my read shows normal sinus rhythm with anterior Q
IMPRESSION:
Stable angina
Exertional dysnea
Lower GI bleed
Hyponatremia
COPD
CAD
PAD
Macrocytic anemia
radiation proctitis
Essential hypertension
Abdominal bruit
PLAN:
Check urine Na, Osm, creatinine
I suspect that he will benefit from increase of oral Lasix back to daily dosing at least
check renal artery doppler
follow BMP
Original Note:
Consultation
-
Date/Time Consultation Requested: 01/23/2025, 07:19
Date/Time Consultation Performed: 01/23/2025, 09:00
Requesting Provider: Rafia Corbett MD
Performing Provider: Jermaine Collins MD
Reason for Consultation: Hyponatremia
Family Physician
-
Family Physician: Christopher Cramer
Chief Complaint
-
Exertional chest pain and dyspnea
History of Present Illness
79 val old male with history of triple vessel CAD managed medically, PAD, hx of TIAs, BPH, anx/depression, hx of spontaneous pneumothorax, radiation proctitis who presents with intermittent exertional chest pressure and dyspnea over the past few
weeks.
He also complains of intermittent blood in stool, and crampy pain in lower extremities and ;is known to vascular surgery Dr Rock. He denies any history of kidney disease. A few months ago, he had hyponatremia on outpatient labs and PCP reduced
lasix dosing from 20mg daily to MWF schedule.
On arrival to [facility], vitals were stable, hgb 10.0, sodium 132, cr 1.0, proBNP 2600
Nephrology has been consulted to assess/treat worsening hyponatremia.
Medical History
Past Medical History
Past Medical History: Reports CAD (triple vessel), Cancer (prostate cancer s/p radiation and hormone therapy), COPD, GERD, HTN, Hypercholesterolemia, Psychiatric (anxiety/depression) and Other (PAD, hx of TIA, dysphagia, hx of precancerous oral
lesion, former smoker, hx of spontaneous pneumothorax, BPH, radiation proctitis)
Past Surgical History: Reports Other (thyroidectomy)
Social History
Tobacco: Former Smoker
Alcohol: None
Drug: None
Family History
Family History: Reviewed & Not Pertinent
Allergies / Home Medications
Allergies reflects when Allergies were last updated in [facility].
Home Medications with original date entered in [facility]
Allergy/Medication List:
Allergies
Allergy/AdvReac Type Severity Reaction Status Date / Time
lorazepam (From Ativan) Allergy 'MAKES ME Verified 01/21/25 17:17
GO CRAZY'
simvastatin (From Zocor) Allergy muscle Verified 01/21/25 17:17
cramps
triamcinolone (From Kenalog) Allergy palpitation Verified 01/22/25 16:23
s
Home Medications
lifitegrast 5 % eye drops in a dropperette (Xiidra) 1 drp BOTH EYES BID Eye condition 09/26/16
nitroglycerin 0.4 mg sublingual tablet 0.4 mg sublingual [id number] PRN chest pain #25 tabs 09/30/16
lorazepam 0.5 mg tablet 0.5 mg PO 2XD PRN sleep 02/09/17
levothyroxine 88 mcg tablet 88 mcg PO DAILY Thyroid 03/27/17
cholecalciferol (vitamin D3) 25 mcg (1,000 unit) tablet 2,000 units PO QPM Supplement 08/15/17
acetaminophen 650 mg tablet,extended release (Tylenol Arthritis) 1,300 mg PO TID Pain 03/22/20
furosemide 20 mg tablet 20 mg PO QMWF Fluid retention/Swelling 03/22/20
pantoprazole 40 mg tablet,delayed release 40 mg PO DAILY@1200 Gastrointestinal issue 03/22/20
clopidogrel 75 mg tablet 75 mg PO DAILY #20 tabs 07/19/20
tamsulosin 0.4 mg capsule (Flomax) 0.4 mg PO BID #30 caps 09/23/23
ICaps AREDS2 2XD Eye Condition 01/06/24
carvedilol phosphate 20 mg capsule,[id number] multiphase (Coreg CR) 20 mg PO DAILY Heart Failure 01/06/24
ferrous sulfate 325 mg (65 mg iron) tablet 325 mg PO DAILY Supplement 01/06/24
valsartan 80 mg tablet (Diovan) 80 mg PO QPM Blood Pressure 01/06/24
amlodipine 2.5 mg tablet 2.5 mg PO DAILY #30 tabs 01/11/24
nicotine (polacrilex) 2 mg buccal lozenge (Nicorette) 2 mg buccal Q4H PRN To quit smoking 01/22/25
simethicone 125 mg tablet 125 mg PO DAILY 01/22/25
Review of Systems
-
Constitutional: Reports Fatigue
Respiratory: Denies Trouble Breathing
Cardiac: Denies Chest Pain
Abdomen/GI: Reports Bloody Stools; Denies Nausea
: Reports Other (reduced urine output)
Physical Exam
Vital Signs
Vital Signs
Temp Pulse Resp BP Pulse Ox
97.5 F 79 20 134/59 97
01/23/25 08:05 01/23/25 03:35 01/23/25 08:05 01/23/25 03:35 01/23/25 08:05
Physical Exam
General: No Apparent Distress and Other (appears chronically ill)
HEENT: Normocephalic, Anicteric and Moist Mucous Membranes
Respiratory: Clear and Non Labored Respirations; Negative Wheezes, Rales or Rhonchi
Cardiac: S1/S2, Regular Rhythm, Murmur, Carotid Pulses (bruits bilaterally) and Other (left renal artery bruit)
GI: Soft, Non Tender, Non Distended and Normal Bowel Sounds
Musculoskeletal: No Clubbing, No Cyanosis and No Edema
Skin: Warm and Dry
Neuro: Awake, Alert and Oriented
Psych: Calm
Laboratory Results
-
Laboratory Results
01/23/25 03:37
01/23/25 03:37
Total Bilirubin 0.8 mg/dl (0.2-1.3) 01/23/25 03:37
AST 23 U/L (17-59) 01/23/25 03:37
ALT 16 U/L (0-50) 01/23/25 03:37
Alkaline Phosphatase 41 U/L (38-126) 01/23/25 03:37
Troponin I Cancelled 01/22/25 13:31
Impression / Plan
-
IMPRESSION:
Stable angina
Exertional dysnea
Lower GI bleed
Hyponatremia
COPD
CAD
PAD
Macrocytic anemia
radiation proctitis
Essential hypertension
PLAN:
- Check urine Na, Osm, creatinine
- Given renal artery bruit, check renal artery doppler
- follow BMP
- Continue amlodipine, valsartan
[2025-01-23 11:09] VITALS: BP 116/50
[2025-01-23] MEDS: NON-FORMULARY ITEM 2 MG BUCCAL ×3 (11:25→20:44)
[2025-01-23] MEDS: PROTONIX 40 MG PO (11:28)
--- NOTE | 2025-01-23 11:31 | CM ---
Chart reviewed. Patient was lying in bed, daughter at bedside. Patient is independent of ADLS, lives alone in a [address], 1 [address], 0 DME. Patient is not current with VN, but is interested. Referral sent to [facility]. Plan is for the patient to return
home with [facility]. CM to follow
--- NOTE | 2025-01-23 13:50 | W.PN.HOSP.TC ---
Addendum entered and electronically signed by Brandon Saleh MD 01/23/25 17:04:
Stable angina with known history of triple-vessel CAD
Likely multifactorial with known history of CAD along with acute on chronic microcytic anemia with associated rectal bleeding
Cardiology increased Coreg to 12.5 mg twice daily
Cardiology started Imdur
Cardiology also states can hold Plavix and start aspirin if plans for scope by GI
Transfuse if hemoglobin less than 9 per cardiology
Hyponatremia, euvolemic
Check urine sodium awesome creatinine
Renal artery Doppler
Follow BMP
Per nephrology increase oral Lasix to daily
HFrEF, compensated, 45%, NYHA class II-IV
Increase Coreg
SGLT2 inhibitor and Entresto
Valsartan
Consider MRA as an outpatient
Hypertension
Continue antihypertensive
PAD
Holding Plavix, start aspirin for scope by GI
Follow-up outpatient vascular surgery
Depression�MDD
Prescribed Lexapro by PCP however did not take it as he was concerned it would interact with Plavix
Will need continued outpatient follow-up
Likely would benefit from psychotherapy with psychiatry as outpatient
Daughter at bedside and fully updated
I personally reviewed and evaluated this patient with the resident. I agree with above unless if otherwise stated below.
I personally reviewed labs and imaging business consultant notes case management note
Original Note:
Today's Communication/Plan
-
Check urine sodium, osmolality, creatinine
Check renal artery Doppler
Transfuse blood if hemoglobin less than 9
Continue to monitor CBC and BMP
Assessment / Plan
Assessment / Plan
pt is a 79 year old male, with past medical history of coronary artery disease, history of triple-vessel disease, s/p PCI in 2017 and 2018, currently on medical therapy. Prior history of TIA managed on Plavix, likely COPD, history of statin and
PCSK9 intolerance, history of prostate cancer, s/p radiation, peripheral arterial disease presented with chest pain
Exertional chest pain in setting of chronic stable angina/anemia
Has an extensive cardiac history including triple-vessel disease, multiple MIs
Cards recommendations appreciated-currently being managed with medical therapy, Coreg dose was increased to 12.5 mg twice daily, remains on Plavix, losartan and Imdur
troponin 0.02, 0.046, 0.036, proBNP 2600
Echocardiogram-left ventricular ejection fraction 45% with global hypokinesis, normal right ventricular size and function, stage I diastolic dysfunction, mild to moderate MR, left ventricular ejection fraction has decreased as compared to echo of
03/08
Exertional dyspnea COPD/ACS
Chest [id number] lungs with emphysematous changes
Outpatient follow-up with pulmonology
Currently breathing on room air, maintaining sats
Intermittent rectal bleeding/weight loss concerning for radiation proctitis versus underlying GI malignancy
Hemoglobin has been stable
GI recommendations appreciated-CT abdomen does not reveal any mass- colonoscopy on outpatient basis
Hyponatremia
Nephrology recommendations appreciated-check urine sodium and creatinine and osmolality
Renal artery bruit-check renal artery Doppler
Continue to monitor
Mild depression
Appears upset about his condition
Denies any suicidal/homicidal thoughts
Other stable medical conditions
Peripheral arterial disease-- Outpatient follow-up with vascular
Mild to moderate aortic regurgitation- Continue Lasix--check ECHO
anemia--likely chronic disease pt pt is c/o rectal bleeding intermittently--trend HGB
Essential hypertension- Continue amlodipine- Continue valsartan
History of thyroid mass status post thyroidectomy- Continue levothyroxine
BPH with Prostate cancer status post radiation- Continue tamsulosin
History of odynophagia/dysphagia
History of precancerous cells in mouth in 2007
Hyperlipidemia--does not appear to be on statin med
History of spontaneous pneumothorax
GERD- Continue Protonix
Anxiety/depression- Continue Lexapro- Continue Ativan
DVT proph
code status--Full code
Anticipated Discharge: 24 - 48 hours
Subjective/Interval History
-
Date of Service: January 23, 2025
Patient seen and examined at bedside
Reports having rectal bleeding bright red in color
Feels very tired and weak and depressed about his condition
No further chest pain
Objective Data
-
Labs:
Laboratory Results
01/23/25
03:37
WBC 8.4
Hgb 9.2 L
Hct 26.3 L
Plt Count 186
Sodium 127 L
Potassium 4.4
Chloride 98
Carbon Dioxide 22
BUN 18
Creatinine 1.0
Glucose 90
Calcium 8.8
Total Bilirubin 0.8
AST 23
ALT 16
Alkaline Phosphatase 41
Vital Signs:
Vital Signs
Temp Pulse Resp BP Pulse Ox
98.2 F 71 20 116/50 96
01/23/25 11:09 01/23/25 11:15 01/23/25 11:09 01/23/25 11:09 01/23/25 11:09
I&O
01/22/25 01/23/25 01/24/25
06:59 06:59 06:59
Intake Total 200 / 200
Balance 200 / 200
Review of Systems
-
All other systems: Reviewed and negative
Physical Exam
-
General: No Apparent Distress, Comfortable and Conversant
HEENT: Moist Mucous Membranes, Anicteric and [place] Conjunctivae
Respiratory: Clear to Auscultation and Non Labored Respirations
Cardiac: Regular Rhythm and S1/S2; Negative Murmur or Rub
GI: Soft, Nontender and Normal Bowel Sounds
Musculoskeletal: No Clubbing, No Cyanosis and No Edema
Skin: Warm and Dry
Neuro: Awake, AO x 3 and Nonfocal/Grossly Intact
Psych: Calm
--- NOTE | 2025-01-23 14:13 | W.PN.GI.CBS2 ---
Today's Communication / Plan
-
continue to monitor Hb
If rectal bleeding persists will recommend holding Plavix/colonoscopy next week after Plavix washout
Assessment / Plan
-
Pt is a 78 y.o male with an extensive medical history including HTN, HLD, obstructive CAD (s/p prior stenting, on plavix), ischemic cardiomyopathy, PAD, carotid artery stenosis, hx of TIAs (on plavix), possible COPD, oropharyngeal dysphagia with
previous aspiration and prostate cancer (s/p XRT finished 2023 and on hormonal therapy) with recent evaluation in GI office with Dr. Sharp for rectal bleeding and wt loss. He was recommended CT and colonoscopy but was hesitant to proceed with both
due to concern for incontinence with CT contrast and concern for complication with colonoscopy. He was also noted with macrocytic anemia and recommended PCP follow up which he has also not completed. He admits to severe fatigue and depression and
and difficulty with completing work up as outpatient. He now presents with exertional chest pain with rise in troponin with BMP 2600 . Noted over several months for cardiology evaluation.
From GI standpoint he has hx dysphagia diagnosed on prior admission. He was recommended pureed diet last year by speech and never had follow up to advance diet. he admits to 25 lbs wt loss over last few months( about 4 kg since 2023 in
chart). He admits to GERD with belching, diffuse and left sided abdominal pain at time and constipation. He was using glycerine suppositories several times per week then stopped per his oncologist several months ago. He has tried miralax and
prune juice with too loose stools and then began with rectal bleeding. He will see red and dark red stool. Last �EGD (weight loss) 01/05/2016- Impression:�Normal esophagus, biopsied. Z-line regular at 40 cm from the incisors. Normal stomach,
biopsied. Normal examined duodenum, biopsied. Path: mild chronic gastritis with reactive gastropathy, (-) H pylori. Normal duodenal mucosa, esophageal biopsies with benign esophageal type squamous mucosa showing minimal non-specific chronic
inflammation without eosinophils
Colonoscopy (screening, good prep) 10/21/2014- Impression:�One 4 mm polyp in the rectum, removed (path w/ HPP). Mild diverticulosis in sigmoid colon. Normal examined ileum. The examination was otherwise normal. Repeat colonoscopy based on review of
path results.
-chest pain on admission with elevated trop and concern for ACS
-painless rectal bleeding
-prostate CA with prior XRT and hormonal therapy
-change in bowel habits
-oropharyngeal dysphagia
-macrocytic anemia
-wt loss - unintentional
other med problems:
HTN, HLD, obstructive CAD (s/p prior stenting, on plavix), ischemic cardiomyopathy, PAD, carotid artery stenosis, hx of TIAs (on plavix), possible COPD, depression
PLAN:
CT abdomen/pelvis/chest 01/22/2025�no significant abnormality identified
Patient continues to have rectal bleeding. Hb this a.m. was 9.2�relatively stable. Patient continues to take Plavix as per nursing
Would recommend holding Plavix if patient continues to have rectal bleeding - if ok with cardiology / medical team
If rectal bleeding persists will plan on colonoscopy after Plavix washout next week
Total Time Spent with Patient (in minutes): 35
Subjective
Subjective
Date of Service: January 23, 2025
Patient noticed to have rectal bleeding-2 episodes this a.m. as per nursing
Objective
Data Reviewed
Laboratory Data:
Laboratory Results
01/23/25 03:37
01/23/25 03:37
Laboratory Results
Magnesium 2.1 mg/dl (1.6-2.3) 01/23/25 03:37
Total Bilirubin 0.8 mg/dl (0.2-1.3) 01/23/25 03:37
AST 23 U/L (17-59) 01/23/25 03:37
ALT 16 U/L (0-50) 01/23/25 03:37
Alkaline Phosphatase 41 U/L (38-126) 01/23/25 03:37
Vital Signs and I&O:
Vital Signs
Temp Pulse Resp BP Pulse Ox
98.2 F 71 20 116/50 96
01/23/25 11:09 01/23/25 11:15 01/23/25 11:09 01/23/25 11:09 01/23/25 11:09
I&O
01/22/25 01/23/25 01/24/25
06:59 06:59 06:59
Intake Total 200 / 200
Balance 200 / 200
Physical Exam
Physical Exam
GI: Soft, Non Distended and Non Tender
[2025-01-23] MEDS: TYLENOL 1000 MG PO ×2 (14:40→22:31)
[2025-01-23 15:18] VITALS: BP 137/69
[2025-01-23] MEDS: DIOVAN 80 MG PO (17:20)
--- NOTE | 2025-01-23 18:00 | PTCARENOTE ---
Pt received this am with no c/o of any pain or sob. OOB independently to the BR, gait steady. Pt had 2 stools today, 1 in the toilet, small soft and bloody. The second stool was collected in the hat and was greenish, soft and hem positive. GI
notified of stool. Plavix on hold. Pt denies any abd pain.
[2025-01-23 18:31] VITALS: BP 142/58
[2025-01-23] MEDS: COREG 12.5 MG PO (19:59)
[2025-01-23] MEDS: ATIVAN 0.5 MG PO (20:00)
[2025-01-23] MEDS: NON-FORMULARY ITEM 1 UNIT PO (20:00)
[2025-01-23 22:30] VITALS: BP 109/48
[2025-01-24] VITALS (9 sets, daily range): BP systolic 100–138; BP diastolic 38–67; BMI 17.4
[2025-01-24 05:05] LABS: Blood Urea Nitrogen 31 mg/dl (9-20); Calcium 8.3 mg/dl (8.4-10.2); Carbon Dioxide 26 mmol/L (22-30); Chloride 96 mmol/L (98-107); Estimated Creatinine Clearance 38 ml/min; Glucose 92 mg/dl (70-99); Potassium 4.2 mmol/L (3.5-5.1); Sodium 127 mmol/L (135-145); eGFR > 60.00
[2025-01-24] MEDS: SYNTHROID 88 MCG PO (07:25)
[2025-01-24] MEDS: TYLENOL 1000 MG PO ×3 (07:45→21:13)
[2025-01-24] MEDS: IMDUR (EXTENDED RELEASE) 60 MG PO (07:46)
[2025-01-24] MEDS: MYLICON 120 MG PO (07:47)
[2025-01-24] MEDS: FLOMAX 0.4 MG PO ×2 (07:48→19:52)
[2025-01-24] MEDS: COREG 12.5 MG PO ×2 (07:49→19:52)
[2025-01-24] MEDS: NORVASC 2.5 MG PO (07:49)
[2025-01-24] MEDS: ASPIRIN 325 MG PO (07:52)
[2025-01-24] MEDS: FEOSOL 325 MG PO (07:53)
[2025-01-24] MEDS: NON-FORMULARY ITEM 1 UNIT PO ×2 (07:55→19:52)
[2025-01-24] MEDS: NON-FORMULARY ITEM 1 DROP BOTH EYES ×2 (08:43→19:52)
[2025-01-24] MEDS: REFRESH EYE DROPS (PF) 1 DROPS OPHTH ×2 (08:48→19:58)
--- NOTE | 2025-01-24 08:53 | W.PN.HOSP.TC ---
Today's Communication/Plan
-
plavix to asa--consider scope as outpt
no further chest pain--cont Imdur
Assessment / Plan
Assessment / Plan
pt is a 79 year old male, with past medical history of coronary artery disease, history of triple-vessel disease, s/p PCI in 2017 and 2018, currently on medical therapy. Prior history of TIA managed on Plavix, likely COPD, history of statin and
PCSK9 intolerance, history of prostate cancer, s/p radiation, peripheral arterial disease presented with chest pain
Exertional chest pain in setting of chronic stable angina/anemia (Has an extensive cardiac history including triple-vessel disease, multiple MIs)-apprec cards--medical management--coreg dose increased--Imdur added--plavix on hold and substitued for
asa in case GI procedures needed--Echocardiogram-left ventricular ejection fraction 45% with global hypokinesis, normal right ventricular size and function, stage I diastolic dysfunction, mild to moderate MR, left ventricular ejection fraction has
decreased as compared to echo of 03/08
Exertional dyspnea COPD/ACS--Chest [id number]-[id number] lungs with emphysematous changes--Outpatient follow-up with pulmonology
Intermittent rectal bleeding/weight loss concerning for radiation proctitis versus underlying GI malignancy--CT scan unremarkable--will need colonoscopy--plavix changed to asa--can likely do as outpt?--Hemoglobin has been stable
Hyponatremia--apprec renal--urine sodium, creatinine and osmolality resulted--no serum osmolality checked--likely volume overload with cut back in lasix dosing as outpt--consider restarting on daily basis
Essential hypertension- Continue amlodipine- Continue valsartan--Renal artery bruit--renal artery Doppler with left renal artery stenosis of 60-99%, right 0-59%--will defer next steps to renal
Mild depression--Appears upset about his condition--Denies any suicidal/homicidal thoughts--lexapro/ativan as directed
Peripheral arterial disease-- Outpatient follow-up with vascular
Mild to moderate aortic regurgitation- Continue Lasix--ECHO with decreased EF to 45% and global hypokinesis
anemia--likely chronic disease pt pt is c/o rectal bleeding intermittently--trend HGB
History of thyroid mass status post thyroidectomy- Continue levothyroxine
BPH with Prostate cancer status post radiation--Continue tamsulosin
History of odynophagia/dysphagia
History of precancerous cells in mouth in 2007
Hyperlipidemia--does not appear to be on statin
History of spontaneous pneumothorax
GERD- Continue Protonix
DVT proph
code status--Full code
Anticipated Discharge: 24 - 48 hours
Subjective/Interval History
-
Date of Service: January 24, 2025
pt feeling weak and tired
Objective Data
-
Labs:
Laboratory Results
01/24/25
04:15
Sodium 127 L
Potassium 4.2
Chloride 96 L
Carbon Dioxide 26
BUN 31 H
Creatinine 1.2
Glucose 92
Calcium 8.3 L
Vital Signs:
max temp for 24 hours
01/23/25
22:30
Temp 98.8 F
Vital Signs
Temp Pulse Resp BP Pulse Ox
97.4 F 82 18 124/47 96
01/24/25 08:27 01/24/25 06:45 01/24/25 08:27 01/24/25 04:09 01/24/25 08:27
I&O
01/23/25 01/24/25 01/25/25
06:59 06:59 06:59
Intake Total 200 / 200 200 / 200
Balance 200 / 200 200 / 200
Review of Systems
-
All other systems: Reviewed and negative
Physical Exam
-
General: Appears Chronically Ill and Cachectic
HEENT: Normocephalic and Atraumatic
Respiratory: Clear to Auscultation; Negative Wheezes or Rhonchi
Cardiac: Regular Rhythm and S1/S2; Negative Murmur
GI: Nontender, Nondistended and Normal Bowel Sounds
Musculoskeletal: No Clubbing, No Cyanosis and No Edema
Psych: Depressed (very flat affect--appears depressed to me)
[2025-01-24] MEDS: NON-FORMULARY ITEM 2 MG BUCCAL ×3 (11:02→19:54)
--- NOTE | 2025-01-24 11:25 | W.PN.CD ---
Today's Communication / Plan
-
angina improved, HTN stable
continue current medicaitons
op addition of GDMT once rectal bleeding and hyponatremia resolved
continue aspirin, transition back to clopidogrel when ok with GI
I will sign off
Impression / Plan
-
Chest discomfort: currently CP free
-It is still only noted with exertion, but has become more intense. He has known significant CAD (as detailed below).
-Improved with intensification of antianginals.
Abnormal troponin:
-suspect acute, non-ischemic myocardial injury in setting of anemia.
-echo with lower ef, but global not regional to suggest ischemic etiology
CAD with hx stenting:
-Cardiac cath 01/07/24: LAD: gives rise to two small caliber diagonal branches and wraps around the apex. There are prior stents in the ostial LAD (appears to be two layers). There is mild ISR in the ostial LAD that is slightly progressed from prior
cath in 2018 and otherwise mild luminal irregularities. LCx: gives rise to a moderate caliber marginal branch and several LPL branches. There are prior stents in the proximal, mid, and distal LCx. There is mild ISR in the existing proximal stent.
There is mild ostial stenosis in the marginal branch. There is a focal 50% stenosis in the mid-distal LCx between prior stents that has progressed form cath in 2018. RCA: co-dominant vessel that is ostially occluded and filled via L-R collaterals.
-given ongoing bleeding, transitioned plavix to aspirin in prep for probably cscope
-continue amlodipine; increase coreg to 12.5 mg bid, increased IMDUR
-per previous notes, statin intolerant and PCSK9i intolerant
Rectal bleeding/anemia:
-GI is on the case
-if hemoglobin continues to drop, may benefit from PRBC transfusion with his known CAD
- if Hgb drops below 9 would recommend a unit of pRBCs
HFrEF EF ~45% ICM:
-echo below
- increase coreg to 12.5 mg bid
- pricing sglt2i and Entresto--bother $0 given hyponatremia would consider as op.
- on valsartan
- consider MRA likely as outpt
PAD: follows with vascular
-on plavix
Hx TIA:
-on plavix as noted
HTN:
-monitor with med adjustments
Echo Jan 2025: SUMMARY
1. Left ventricular ejection fraction is mildly reduced with an ejection fraction of 45 % by Travis's biplane method of discs. Global hypokinesis.
2. Right ventricular size and systolic function are within normal limits.
3. Stage I diastolic dysfunction suggestive of abnormal relaxation.
4. Mild to moderate aortic regurgitation.
5. Compared to the prior study on 03/15/2023, LVEF has decreased from 55 to 60% with apical hypokinesis to 45% with global hypokinesis.
Physical Exam
Vital Signs/Labs
Vital Signs
Temp Pulse Resp BP Pulse Ox
97.4 F 82 18 124/47 96
01/24/25 08:27 01/24/25 06:45 01/24/25 08:27 01/24/25 04:09 01/24/25 08:27
01/23/25 01/24/25 01/25/25
06:59 06:59 06:59
Actual Weight 115 lb 4.828 oz 114 lb 3.191 oz
01/23/25 03:37
01/24/25 04:15
Magnesium 2.1 mg/dl (1.6-2.3) 01/23/25 03:37
01/21/25 01/21/25
17:35 21:19
Ucs-Y-Shlryfmetcg Pept 2600 Cancelled
LAB Results
01/21/25 01/21/25 01/22/25
17:35 21:51 01:37
Troponin I 0.020 0.046 H* D 0.036 H*
01/22/25 01/22/25
07:31 13:31
Troponin I Cancelled Cancelled
Physical Exam
Constitutional: No acute distress
Cardiovascular: Rhythm & rate is regular, Pedal edema is absent, JVD pressure is normal and Systolic murmur present (william)
Respiratory: Respiratory effort normal, Lungs clear to auscul., Wheeze Absent, Crackles Absent and Rhonchi Absent
Neuro/Psych: AO x 3
Data Reviewed
-
Date of Service: January 24, 2025
Medical Decision Making: Review of Case with other Provider (Dr Corbett continue current medications, will sign off )
EKG: Other (pSVT overnight, brief )
[2025-01-24] MEDS: PROTONIX 40 MG PO (12:11)
--- NOTE | 2025-01-24 12:32 | W.PN.NEPH.PH ---
Today's Communication / Plan
-
increase lasix
Assessment/Plan
-
IMPRESSION:
Stable angina
Exertional dysnea
Lower GI bleed
Hyponatremia
COPD
CAD
PAD
Macrocytic anemia
radiation proctitis
Essential hypertension
Abdominal bruit-left JEROMY
PLAN:
increase lasix to daily
follow BMP
follow Left JEROMY conservatively given symmetric sizes and normal Cr and stable BP, normal K
-
-
Date of Service: January 24, 2025
CC / HPI / ROS
-
Chief Complaint:
hyponatremia
History of Present Illness:
Na stable at 127
BP stable
hgb stable 9.2
Review of Systems:
no CP/SOB
Labs
-
Labs:
WBC 8.4 10^3/uL (4.8-10.8) 01/23/25 03:37
RBC 2.61 10^6/uL (4.70-6.10) L 01/23/25 03:37
Hgb 9.2 g/dL (13.0-18.0) L 01/23/25 03:37
Hct 26.3 % (39.0-52.0) L 01/23/25 03:37
Plt Count 186 10^3/uL (130-400) 01/23/25 03:37
Sodium 127 mmol/L (135-145) L 01/24/25 04:15
Potassium 4.2 mmol/L (3.5-5.1) 01/24/25 04:15
Chloride 96 mmol/L (98-107) L 01/24/25 04:15
Carbon Dioxide 26 mmol/L (22-30) 01/24/25 04:15
BUN 31 mg/dl (9-20) H 01/24/25 04:15
Creatinine 1.2 mg/dL (0.7-1.3) 01/24/25 04:15
eGFR > 60.00 01/24/25 04:15
Glucose 92 mg/dl (70-99) 01/24/25 04:15
Calcium 8.3 mg/dl (8.4-10.2) L 01/24/25 04:15
Rui-S-Lzditwavvfm Pept Cancelled 01/21/25 21:19
Albumin 3.7 g/dl (3.5-5.0) 01/23/25 03:37
Physical Exam
-
Vital Signs:
Vital Signs
Temp Pulse Resp BP Pulse Ox
97.6 F 67 16 124/47 94
01/24/25 12:11 01/24/25 12:11 01/24/25 12:11 01/24/25 04:09 01/24/25 12:11
--- NOTE | 2025-01-24 13:46 | W.PN.GI.CBS2 ---
Today's Communication / Plan
-
continue monitor H/H
colonoscopy after plavix wash out next week -outpatient was inpatient depends on clinical course
Assessment / Plan
-
Pt is a 78 y.o male with an extensive medical history including HTN, HLD, obstructive CAD (s/p prior stenting, on plavix), ischemic cardiomyopathy, PAD, carotid artery stenosis, hx of TIAs (on plavix), possible COPD, oropharyngeal dysphagia with
previous aspiration and prostate cancer (s/p XRT finished 2023 and on hormonal therapy) with recent evaluation in GI office with Dr. Sharp for rectal bleeding and wt loss. He was recommended CT and colonoscopy but was hesitant to proceed with both
due to concern for incontinence with CT contrast and concern for complication with colonoscopy. He was also noted with macrocytic anemia and recommended PCP follow up which he has also not completed. He admits to severe fatigue and depression and
and difficulty with completing work up as outpatient. He now presents with exertional chest pain with rise in troponin with BMP 2600 . Noted over several months for cardiology evaluation.
From GI standpoint he has hx dysphagia diagnosed on prior admission. He was recommended pureed diet last year by speech and never had follow up to advance diet. he admits to 25 lbs wt loss over last few months( about 4 kg since 2023 in
chart). He admits to GERD with belching, diffuse and left sided abdominal pain at time and constipation. He was using glycerine suppositories several times per week then stopped per his oncologist several months ago. He has tried miralax and
prune juice with too loose stools and then began with rectal bleeding. He will see red and dark red stool. Last �EGD (weight loss) 01/05/2016- Impression:�Normal esophagus, biopsied. Z-line regular at 40 cm from the incisors. Normal stomach,
biopsied. Normal examined duodenum, biopsied. Path: mild chronic gastritis with reactive gastropathy, (-) H pylori. Normal duodenal mucosa, esophageal biopsies with benign esophageal type squamous mucosa showing minimal non-specific chronic
inflammation without eosinophils
Colonoscopy (screening, good prep) 10/21/2014- Impression:�One 4 mm polyp in the rectum, removed (path w/ HPP). Mild diverticulosis in sigmoid colon. Normal examined ileum. The examination was otherwise normal. Repeat colonoscopy based on review of
path results.
-chest pain on admission with elevated trop and concern for ACS
-painless rectal bleeding
-prostate CA with prior XRT and hormonal therapy
-change in bowel habits
-oropharyngeal dysphagia
-macrocytic anemia
-wt loss - unintentional
other med problems:
HTN, HLD, obstructive CAD (s/p prior stenting, on plavix), ischemic cardiomyopathy, PAD, carotid artery stenosis, hx of TIAs (on plavix), possible COPD, depression
PLAN:
CT abdomen/pelvis/chest 01/22/2025�no significant abnormality identified
No rectal bleeding this am . Hb relatively stable yesterday. monitor H/H
Plavix on hold. Last dose 01/23
If rectal bleeding persists will plan on colonoscopy after Plavix washout next week-outpatient versus inpatient
Continue current management as per medical team
Total Time Spent with Patient (in minutes): 35
Subjective
Subjective
Date of Service: January 24, 2025
Denies any rectal bleeding today. Last dose of Plavix 01/23 as per nursing
Objective
Data Reviewed
Laboratory Data:
Laboratory Results
01/23/25 03:37
01/24/25 04:15
Laboratory Results
Magnesium 2.1 mg/dl (1.6-2.3) 01/23/25 03:37
Total Bilirubin 0.8 mg/dl (0.2-1.3) 01/23/25 03:37
AST 23 U/L (17-59) 01/23/25 03:37
ALT 16 U/L (0-50) 01/23/25 03:37
Alkaline Phosphatase 41 U/L (38-126) 01/23/25 03:37
Vital Signs and I&O:
Vital Signs
Temp Pulse Resp BP Pulse Ox
97.6 F 69 16 105/47 94
01/24/25 12:11 01/24/25 13:00 01/24/25 12:11 01/24/25 12:45 01/24/25 12:11
I&O
01/23/25 01/24/25 01/25/25
06:59 06:59 06:59
Intake Total 200 / 200 200 / 200
Balance 200 / 200 200 / 200
Physical Exam
Physical Exam
GI: Soft, Non Distended and Non Tender
--- NOTE | 2025-01-24 14:20 | PTCARENOTE ---
Pt c/o bilat neck pain this morning, med with Extra strength tylenol 1000mg po as ordered with relief noted.
[2025-01-24] MEDS: DIOVAN 80 MG PO (18:02)
[2025-01-24] MEDS: ATIVAN 0.5 MG PO (21:13)
--- NOTE | 2025-01-24 23:37 | PTCARENOTE ---
Received pt @ change of shift. AAOx3, VSS-- NSR w/ PACs on monitor. OOB in chair. Denies chest pain @ this time. C/O neck pain (not new)-- 610 pain. Given Tylenol-- see JUN. C/o itchy back-- RN applied lotion and discussed importance of getting
OOB, moving around room, sitting in chair, etc. Discussed plan of care for evening. Pt verbalizes understanding. Call bolden within reach.
[2025-01-25] VITALS (8 sets, daily range): BP systolic 107–136; BP diastolic 44–53; BMI 17.9
[2025-01-25 05:03] LABS: Hematocrit 24.9 % (39.0-52.0); Hemoglobin 8.6 g/dL (13.0-18.0); Mean Corp Hgb Conc. 34.5 g/dL (33.0-37.0); Mean Corpuscular Volume 101.2 fL (80.0-94.0); Platelet Count 186 10^3/uL (130-400); Red Cell Dist. Width 12.8 % (11.5-14.5)
[2025-01-25 05:29] LABS: Blood Urea Nitrogen 52 mg/dl (9-20); Calcium 8.5 mg/dl (8.4-10.2); Carbon Dioxide 25 mmol/L (22-30); Chloride 94 mmol/L (98-107); Estimated Creatinine Clearance 34 ml/min; Glucose 91 mg/dl (70-99); Magnesium 2.1 mg/dl (1.6-2.3); Potassium 4.5 mmol/L (3.5-5.1); Sodium 125 mmol/L (135-145); eGFR 56.23
[2025-01-25] MEDS: SYNTHROID 88 MCG PO (06:40)
[2025-01-25] MEDS: MYLICON 120 MG PO (09:01)
[2025-01-25] MEDS: FEOSOL 325 MG PO (09:02)
[2025-01-25] MEDS: COREG 12.5 MG PO ×2 (09:02→19:57)
[2025-01-25] MEDS: IMDUR (EXTENDED RELEASE) 60 MG PO (09:02)
[2025-01-25] MEDS: NON-FORMULARY ITEM 1 UNIT PO ×2 (09:03→19:58)
[2025-01-25] MEDS: FLOMAX 0.4 MG PO ×2 (09:03→19:57)
[2025-01-25] MEDS: NORVASC 2.5 MG PO (09:03)
[2025-01-25] MEDS: LOW STRENGTH ASPIRIN 81 MG PO (09:04)
[2025-01-25] MEDS: TYLENOL 1000 MG PO ×2 (09:23→21:08)
[2025-01-25] MEDS: NON-FORMULARY ITEM 2 MG BUCCAL ×3 (09:26→19:58)
--- NOTE | 2025-01-25 09:27 | W.PN.HOSP.TC ---
Today's Communication/Plan
-
downgrade to med surg
await GI input
Assessment / Plan
Assessment / Plan
pt is a 79 year old male, with past medical history of coronary artery disease, history of triple-vessel disease, s/p PCI in 2017 and 2018, currently on medical therapy. Prior history of TIA managed on Plavix, likely COPD, history of statin and
PCSK9 intolerance, history of prostate cancer, s/p radiation, peripheral arterial disease presented with chest pain
Exertional chest pain in setting of chronic stable angina/anemia (Has an extensive cardiac history including triple-vessel disease, multiple MIs)-apprec cards--medical management--coreg dose increased--Imdur added--plavix on hold and substituted for
asa in case GI procedures needed--Echocardiogram-left ventricular ejection fraction 45% with global hypokinesis, normal right ventricular size and function, stage I diastolic dysfunction, mild to moderate MR, left ventricular ejection fraction has
decreased as compared to echo of 03/08--cards signed off
Exertional dyspnea COPD/ACS--Chest k-ogg-qdyoqqumqzfma lungs with emphysematous changes--Outpatient follow-up with pulmonology
Intermittent rectal bleeding/weight loss concerning for radiation proctitis versus underlying GI malignancy--CT scan unremarkable--will need colonoscopy--plavix changed to asa--can likely do as outpt?--will defer to GI
Hyponatremia--apprec renal--worsening to 125--likely volume overload with cut back in lasix dosing as outpt--lasix now back to daily dosing
Essential hypertension- Continue amlodipine- Continue valsartan--Renal artery bruit--renal artery Doppler with left renal artery stenosis of 60-99%, right 0-59%--will defer next steps to renal
Mild depression--Appears upset about his condition--Denies any suicidal/homicidal thoughts--lexapro/ativan as directed
Peripheral arterial disease-- Outpatient follow-up with vascular
Mild to moderate aortic regurgitation- Continue Lasix--ECHO with decreased EF to 45% and global hypokinesis--not pursuing cath
anemia--likely chronic disease pt pt is c/o rectal bleeding intermittently--trend HGB
History of thyroid mass status post thyroidectomy- Continue levothyroxine
BPH with Prostate cancer status post radiation--Continue tamsulosin
History of odynophagia/dysphagia
History of precancerous cells in mouth in 2007
Hyperlipidemia--does not appear to be on statin
History of spontaneous pneumothorax
GERD- Continue Protonix
DVT proph
code status--Full code
Anticipated Discharge: 24 - 48 hours
Subjective/Interval History
-
Date of Service: January 25, 2025
pt walking around his room--has questions for his nurse about his AM meds
Objective Data
-
Labs:
Laboratory Results
01/25/25
04:16
WBC 7.3
Hgb 8.6 L
Hct 24.9 L
Plt Count 186
Sodium 125 L
Potassium 4.5
Chloride 94 L
Carbon Dioxide 25
BUN 52 H
Creatinine 1.3
Glucose 91
Calcium 8.5
Vital Signs:
max temp for 24 hours
01/24/25
22:23
Temp 98.5 F
Vital Signs
Temp Pulse Resp BP Pulse Ox
97.5 F 64 20 111/44 94
01/25/25 07:00 01/25/25 08:45 01/25/25 07:00 01/25/25 07:00 01/25/25 07:00
I&O
01/24/25 01/25/25 01/26/25
06:59 06:59 06:59
Intake Total 200 / 200 960 / 960
Output Total 800 / 800
Balance 200 / 200 160 / 160
Review of Systems
-
All other systems: Reviewed and negative
Physical Exam
-
General: Appears Chronically Ill and Cachectic
HEENT: Normocephalic and Atraumatic; Negative Oxygen
Respiratory: Clear to Auscultation; Negative Wheezes or Rhonchi
Cardiac: Regular Rhythm and S1/S2; Negative Murmur
GI: Soft, Nontender, Nondistended and Normal Bowel Sounds
Musculoskeletal: No Clubbing, No Cyanosis and No Edema
Neuro: Awake
Psych: Depressed (appears depressed)
[2025-01-25] MEDS: REFRESH EYE DROPS (PF) 1 DROPS OPHTH ×2 (09:37→19:57)
[2025-01-25] MEDS: NON-FORMULARY ITEM 1 DROP BOTH EYES ×2 (09:38→19:58)
[2025-01-25] MEDS: PROTONIX 40 MG PO (12:28)
--- NOTE | 2025-01-25 14:15 | W.PN.NEPH.PH ---
Today's Communication / Plan
-
samsca
Assessment/Plan
-
IMPRESSION:
Stable angina
Exertional dysnea
Lower GI bleed
Hyponatremia
COPD
CAD
PAD
Macrocytic anemia
radiation proctitis
Essential hypertension
Abdominal bruit-left JEROMY
PLAN:
increase lasix to daily
samsca today
follow BMP
follow Left JEROMY conservatively given symmetric sizes and normal Cr and stable BP, normal K
-
-
Date of Service: January 25, 2025
CC / HPI / ROS
-
Chief Complaint:
hyponatremia
History of Present Illness:
Na lower at 125
BP stable
hgb down to 8.6
Review of Systems:
no CP/SOB
he is concerned about changing rooms
Labs
-
Labs:
WBC 7.3 10^3/uL (4.8-10.8) 01/25/25 04:16
RBC 2.46 10^6/uL (4.70-6.10) L 01/25/25 04:16
Hgb 8.6 g/dL (13.0-18.0) L 01/25/25 04:16
Hct 24.9 % (39.0-52.0) L 01/25/25 04:16
Plt Count 186 10^3/uL (130-400) 01/25/25 04:16
Sodium 125 mmol/L (135-145) L 01/25/25 04:16
Potassium 4.5 mmol/L (3.5-5.1) 01/25/25 04:16
Chloride 94 mmol/L (98-107) L 01/25/25 04:16
Carbon Dioxide 25 mmol/L (22-30) 01/25/25 04:16
BUN 52 mg/dl (9-20) H 01/25/25 04:16
Creatinine 1.3 mg/dL (0.7-1.3) 01/25/25 04:16
eGFR 56.23 01/25/25 04:16
Glucose 91 mg/dl (70-99) 01/25/25 04:16
Calcium 8.5 mg/dl (8.4-10.2) 01/25/25 04:16
Xpj-Z-Yzcwuypqyxd Pept Cancelled 01/21/25 21:19
Albumin 3.7 g/dl (3.5-5.0) 01/23/25 03:37
Physical Exam
-
Vital Signs:
Vital Signs
Temp Pulse Resp BP Pulse Ox
97.5 F 64 20 111/44 94
01/25/25 07:00 01/25/25 08:45 01/25/25 07:00 01/25/25 07:00 01/25/25 07:00
Cardiovascular:: Regular rate and rhythm
Respiratory:: Bilateral: Coarse
Lung Excursion:: Normal
Abdomen:: Nontender and Soft
Bowel Sounds:: Normal
Extremity Edema:: None: Bilateral:
[2025-01-25] MEDS: SAMSCA 7.5 MG PO (14:56)
--- NOTE | 2025-01-25 15:48 | PTCARENOTE ---
Pt ambulating in room, c/o neck and back pain, med with tylenol 1000 mg as ordered with relief. Pt's meds are no longer in pharmacy. Last package of xidril was sent to [facility] today and is on med cart in Pt room. Pt signed pharmacy form declaring that
his meds were returned to him. Pt has small blanchable red area on sacrum, new foam dsg applied. Pt also has bilat heel foam dsgs in place.
[2025-01-25] MEDS: DIOVAN 80 MG PO (17:43)
[2025-01-25] MEDS: ATIVAN 0.5 MG PO (19:57)
[2025-01-26] VITALS (13 sets, daily range): BP systolic 90–130; BP diastolic 38–52; PULSE 71–72; O2SAT 95–96
--- NOTE | 2025-01-26 00:39 | PTCARENOTE ---
Received pt @ change of shift. AAOx3, VSS-- not on monitor due to med surg status. Discussed plan of care. Pt verbalizes understanding. Call bolden within reach.
[2025-01-26 03:25] LABS: Hematocrit 25.2 % (39.0-52.0); Hemoglobin 8.4 g/dL (13.0-18.0); Mean Corp Hgb Conc. 33.3 g/dL (33.0-37.0); Mean Corpuscular Volume 100.4 fL (80.0-94.0); Platelet Count 186 10^3/uL (130-400); Red Cell Dist. Width 13.1 % (11.5-14.5)
[2025-01-26 03:47] LABS: Blood Urea Nitrogen 51 mg/dl (9-20); Calcium 8.9 mg/dl (8.4-10.2); Carbon Dioxide 27 mmol/L (22-30); Chloride 98 mmol/L (98-107); Estimated Creatinine Clearance 38 ml/min; Glucose 89 mg/dl (70-99); Magnesium 2.3 mg/dl (1.6-2.3); Potassium 4.9 mmol/L (3.5-5.1); Sodium 130 mmol/L (135-145); eGFR > 60.00
[2025-01-26] MEDS: TYLENOL 1000 MG PO ×3 (05:44→20:50)
[2025-01-26] MEDS: SYNTHROID 88 MCG PO (05:44)
--- NOTE | 2025-01-26 07:58 | W.PN.HOSP.TC ---
Today's Communication/Plan
-
diet, bowel prep as per GI, tentative plan for EGD/colonoscopy Sun
patient monitor
Assessment / Plan
Assessment / Plan
Physical Exam
General: Appears Chronically Ill and Cachectic
HEENT: Normocephalic and Atraumatic; Negative Oxygen
Respiratory: Clear to Auscultation; Negative Wheezes or Rhonchi
Cardiac: Regular Rhythm and S1/S2; Negative Murmur
GI: Soft, Nontender, Nondistended and Normal Bowel Sounds
Musculoskeletal: No Clubbing, No Cyanosis and No Edema
Neuro: AOx3 conversant coherent
Psych: Calm
pt is a 79 year old male, with past medical history of coronary artery disease, history of triple-vessel disease, s/p PCI in 2017 and 2018, currently on medical therapy. Prior history of TIA managed on Plavix, likely COPD, history of statin and
PCSK9 intolerance, history of prostate cancer, s/p radiation, peripheral arterial disease presented with chest pain
Exertional chest pain in setting of chronic stable angina/anemia (Has an extensive cardiac history including triple-vessel disease, multiple MIs)-apprec cards--medical management--coreg dose increased--Imdur added--plavix on hold and substituted for
asa in case GI procedures needed--Echocardiogram-left ventricular ejection fraction 45% with global hypokinesis, normal right ventricular size and function, stage I diastolic dysfunction, mild to moderate MR, left ventricular ejection fraction has
decreased as compared to echo of 03/08--cards signed off
Exertional dyspnea COPD/ACS--Chest n-[id number]-efjeozexpfjbk lungs with emphysematous changes--Outpatient follow-up with pulmonology
Intermittent rectal bleeding/weight loss concerning for radiation proctitis versus underlying GI malignancy--CT scan unremarkable--will need colonoscopy--plavix changed to asa-- GI eval appreciated tentatively planned for EGD colonoscopy 01/28,
diet bowel prep as per GI
Hyponatremia--apprec renal--worsening to 125--likely volume overload with cut back in lasix dosing as outpt--lasix now back to daily dosing
Essential hypertension- Continue amlodipine- Continue valsartan--Renal artery bruit--renal artery Doppler with left renal artery stenosis of 60-99%, right 0-59%--will defer next steps to renal
Mild depression--Appears upset about his condition--Denies any suicidal/homicidal thoughts--lexapro/ativan as directed
Peripheral arterial disease-- Outpatient follow-up with vascular
Mild to moderate aortic regurgitation- Continue Lasix--ECHO with decreased EF to 45% and global hypokinesis--not pursuing cath
anemia--likely chronic disease pt pt is c/o rectal bleeding intermittently--trend HGB
History of thyroid mass status post thyroidectomy- Continue levothyroxine
BPH with Prostate cancer status post radiation--Continue tamsulosin
History of odynophagia/dysphagia
History of precancerous cells in mouth in 2007
Reported Hx Hyperlipidemia-- follow up lipid panel, low bodyweight/cachexia would hold off on statin at this time
History of spontaneous pneumothorax
GERD- Continue Protonix
DVT proph
code status--Full code
Discussed with patient and patient's sister Emi
I spent a total of 45 minutes with the patient or on the floor. More than 50% of this time involved counseling and coordination of care.
Anticipated Discharge: > 48 hours
Subjective/Interval History
-
Date of Service: January 26, 2025
No acute distress, sitting up comfortably in bed. Report transient episode of chest pain gaming associate with physical exertion (frequent use of toilet last night following samsca).
Objective Data
-
Labs:
Laboratory Results
01/26/25
02:21
WBC 7.8
Hgb 8.4 L
Hct 25.2 L
Plt Count 186
Sodium 130 L
Potassium 4.9
Chloride 98
Carbon Dioxide 27
BUN 51 H
Creatinine 1.2
Glucose 89
Calcium 8.9
Vital Signs:
Vital Signs
Temp Pulse Resp BP Pulse Ox
97.6 F 65 16 107/45 98
01/26/25 07:41 01/26/25 02:23 01/26/25 07:41 01/25/25 22:52 01/26/25 07:41
I&O
01/25/25 01/26/25 01/27/25
06:59 06:59 06:59
Intake Total 960 / 960 480 / 480
Output Total 800 / 800 2250 / 2250
Balance 160 / 160 -1770 / -1770
[2025-01-26] MEDS: IMDUR (EXTENDED RELEASE) 60 MG PO (08:43)
[2025-01-26] MEDS: MYLICON 120 MG PO (08:43)
[2025-01-26] MEDS: COREG 12.5 MG PO ×2 (08:44→19:24)
[2025-01-26] MEDS: FEOSOL 325 MG PO (08:44)
[2025-01-26] MEDS: FLOMAX 0.4 MG PO ×2 (08:46→19:24)
[2025-01-26] MEDS: REFRESH EYE DROPS (PF) 1 DROPS OPHTH ×2 (08:50→19:34)
[2025-01-26] MEDS: NON-FORMULARY ITEM 1 DROP BOTH EYES (08:52)
[2025-01-26] MEDS: LASIX 20 MG PO (08:52)
[2025-01-26] MEDS: NON-FORMULARY ITEM 1 UNIT PO ×2 (08:55→19:27)
[2025-01-26] MEDS: NON-FORMULARY ITEM 2 MG BUCCAL ×3 (09:19→19:36)
[2025-01-26] MEDS: LOW STRENGTH ASPIRIN 81 MG PO (09:23)
[2025-01-26] MEDS: PROTONIX 40 MG PO ×2 (11:25→20:19)
--- NOTE | 2025-01-26 11:52 | W.PN.NEPH.PH ---
Today's Communication / Plan
-
Continue fluid restriction
Assessment/Plan
-
IMPRESSION:
Stable angina
Exertional dysnea
Lower GI bleed
Hyponatremia
COPD
CAD
PAD
Macrocytic anemia
radiation proctitis
Essential hypertension
Abdominal bruit-left JEROMY
PLAN:
Continue lasix to daily
samsca 01/25 minimal improvement to 130
follow BMP
follow Left JEROMY conservatively given symmetric sizes and normal Cr and stable BP, normal K
48 ounce fluid restriction
Pending colonoscopy
Discussed with daughter at bedside
-
-
Date of Service: January 26, 2025
CC / HPI / ROS
-
Chief Complaint:
hyponatremia
History of Present Illness:
Na lower at 125
BP stable
hgb down to 8.6
Review of Systems:
no CP/SOB
he is concerned about changing rooms
Labs
-
Labs:
WBC 7.8 10^3/uL (4.8-10.8) 01/26/25 02:21
RBC 2.51 10^6/uL (4.70-6.10) L 01/26/25 02:21
Hgb 8.4 g/dL (13.0-18.0) L 01/26/25 02:21
Hct 25.2 % (39.0-52.0) L 01/26/25 02:21
Plt Count 186 10^3/uL (130-400) 01/26/25 02:21
Sodium 130 mmol/L (135-145) L 01/26/25 02:21
Potassium 4.9 mmol/L (3.5-5.1) 01/26/25 02:21
Chloride 98 mmol/L (98-107) 01/26/25 02:21
Carbon Dioxide 27 mmol/L (22-30) 01/26/25 02:21
BUN 51 mg/dl (9-20) H 01/26/25 02:21
Creatinine 1.2 mg/dL (0.7-1.3) 01/26/25 02:21
eGFR > 60.00 01/26/25 02:21
Glucose 89 mg/dl (70-99) 01/26/25 02:21
Calcium 8.9 mg/dl (8.4-10.2) 01/26/25 02:21
Nfm-O-Ksdbjohoizy Pept Cancelled 01/21/25 21:19
Albumin 3.7 g/dl (3.5-5.0) 01/23/25 03:37
Physical Exam
-
Vital Signs:
Vital Signs
Temp Pulse Resp BP Pulse Ox
98.0 F 72 16 96/40 95
01/26/25 11:29 01/26/25 11:29 01/26/25 11:29 01/26/25 11:29 01/26/25 11:29
Cardiovascular:: Regular rate and rhythm
Respiratory:: Bilateral: Coarse
Lung Excursion:: Normal
Abdomen:: Nontender and Soft
Bowel Sounds:: Normal
Extremity Edema:: None: Bilateral:
[2025-01-26] MEDS: ATIVAN 0.5 MG PO ×2 (13:22→20:50)
[2025-01-26] MEDS: MIRALAX 17 GRAMS PO (13:41)
--- NOTE | 2025-01-26 14:21 | W.PN.GI.CBS2 ---
Today's Communication / Plan
-
Will give a dose of MiraLAX today
Clear liquid diet tomorrow
Bowel prep tomorrow
EGD /Colonoscopy on 01/28 ( 5 days after plavix wash out )
Assessment / Plan
-
Pt is a 78 y.o male with an extensive medical history including HTN, HLD, obstructive CAD (s/p prior stenting, on plavix), ischemic cardiomyopathy, PAD, carotid artery stenosis, hx of TIAs (on plavix), possible COPD, oropharyngeal dysphagia with
previous aspiration and prostate cancer (s/p XRT finished 2023 and on hormonal therapy) with recent evaluation in GI office with Dr. Sharp for rectal bleeding and wt loss. He was recommended CT and colonoscopy but was hesitant to proceed with both
due to concern for incontinence with CT contrast and concern for complication with colonoscopy. He was also noted with macrocytic anemia and recommended PCP follow up which he has also not completed. He admits to severe fatigue and depression and
and difficulty with completing work up as outpatient. He now presents with exertional chest pain with rise in troponin with BMP 2600 . Noted over several months for cardiology evaluation.
From GI standpoint he has hx dysphagia diagnosed on prior admission. He was recommended pureed diet last year by speech and never had follow up to advance diet. he admits to 25 lbs wt loss over last few months( about 4 kg since 2023 in
chart). He admits to GERD with belching, diffuse and left sided abdominal pain at time and constipation. He was using glycerine suppositories several times per week then stopped per his oncologist several months ago. He has tried miralax and
prune juice with too loose stools and then began with rectal bleeding. He will see red and dark red stool. Last �EGD (weight loss) 01/05/2016- Impression:�Normal esophagus, biopsied. Z-line regular at 40 cm from the incisors. Normal stomach,
biopsied. Normal examined duodenum, biopsied. Path: mild chronic gastritis with reactive gastropathy, (-) H pylori. Normal duodenal mucosa, esophageal biopsies with benign esophageal type squamous mucosa showing minimal non-specific chronic
inflammation without eosinophils
Colonoscopy (screening, good prep) 10/21/2014- Impression:�One 4 mm polyp in the rectum, removed (path w/ HPP). Mild diverticulosis in sigmoid colon. Normal examined ileum. The examination was otherwise normal. Repeat colonoscopy based on review of
path results.
-chest pain on admission with elevated trop and concern for ACS
-painless rectal bleeding
-prostate CA with prior XRT and hormonal therapy
-change in bowel habits
-oropharyngeal dysphagia
-macrocytic anemia
-wt loss - unintentional
other med problems:
HTN, HLD, obstructive CAD (s/p prior stenting, on plavix), ischemic cardiomyopathy, PAD, carotid artery stenosis, hx of TIAs (on plavix), possible COPD, depression
PLAN:
CT abdomen/pelvis/chest 01/22/2025�no significant abnormality identified
Patient continues to have blood tinge stool. Hb this a.m. 8.4. Gradually trending down
Plavix on hold. Last dose 01/23
Case discussed with patient hospitalist/Dr. Sharp-patient will benefit having colonoscopy as inpatient considering his medical comorbidities. Will also include EGD with oropharyngeal dysphagia/weight loss
I had a long discussion with patient/patient daughter about benefits and risk of EGD/colonoscopy. They verbalized understanding and is agreeable for the procedure. Patient will talk to manager case about getting private room while doing bowel prep
Will give a dose of MiraLAX today
Clear liquid diet tomorrow
Bowel prep tomorrow
EGD /Colonoscopy on 01/28 ( 5 days after plavix wash out )
Total Time Spent with Patient (in minutes): 35
Subjective
Subjective
Date of Service: January 26, 2025
Reports bowel [id number]
Objective
Data Reviewed
Laboratory Data:
Laboratory Results
01/26/25 02:21
01/26/25 02:21
Laboratory Results
Magnesium 2.3 mg/dl (1.6-2.3) 01/26/25 02:21
Total Bilirubin 0.8 mg/dl (0.2-1.3) 01/23/25 03:37
AST 23 U/L (17-59) 01/23/25 03:37
ALT 16 U/L (0-50) 01/23/25 03:37
Alkaline Phosphatase 41 U/L (38-126) 01/23/25 03:37
Vital Signs and I&O:
Vital Signs
Temp Pulse Resp BP Pulse Ox
98.0 F 72 16 101/40 94
01/26/25 11:29 01/26/25 11:29 01/26/25 11:29 01/26/25 12:39 01/26/25 11:30
I&O
01/25/25 01/26/25 01/27/25
06:59 06:59 06:59
Intake Total 960 / 960 480 / 480 240 / 240
Output Total 800 / 800 2250 / 2250 545 / 545
Balance 160 / 160 -1770 / -1770 -305 / -305
Physical Exam
Physical Exam
GI: Soft, Non Distended and Non Tender
[2025-01-26] MEDS: DIOVAN 80 MG PO (17:14)
--- NOTE | 2025-01-26 18:19 | PTCARENOTE ---
Pt waiting for tele floor bed; liquids after midnight and prep in the evening on 01/27
[2025-01-26] MEDS: NON-FORMULARY ITEM 2 DROP BOTH EYES (19:26)
[2025-01-26] MEDS: MAALOX 30 ML PO (20:19)
--- NOTE | 2025-01-26 21:52 | PTCARENOTE ---
Pt c/o chest pain with exertion while up to the bathroom. Pt returned back to bed, states pain is relieved. EKG performed, notified DIRECTOR BUSINESS SYSTEMS, DIRECTOR BUSINESS SYSTEMS ordered maalox and pantoprozole. Chest pain due to anemia, no further intervention. Pt very anxious regarding
procedure and prep, education provided and gave prn ativan to help calm nerves.
[2025-01-27] VITALS (15 sets, daily range): BP systolic 86–139; BP diastolic 33–54; PULSE 64; O2SAT 95; BMI 17.5
--- NOTE | 2025-01-27 03:00 | W.PN.UPDATE ---
Update Note
Progress Note Update
Had episode of CP with exertion (similar to previous) has known significant CAD with stents. Cards notes cp may be related to his anemia. He is 9 yecenia for HGB. I gave him Protonix anyway and maalox. CBC BMP added for am.
[2025-01-27] MEDS: SYNTHROID 88 MCG PO (04:17)
[2025-01-27] MEDS: TYLENOL 1000 MG PO ×3 (04:17→21:46)
[2025-01-27 04:39] LABS: Hematocrit 25.4 % (39.0-52.0); Hemoglobin 8.2 g/dL (13.0-18.0); Mean Corp Hgb Conc. 32.3 g/dL (33.0-37.0); Mean Corpuscular Volume 103.7 fL (80.0-94.0); Platelet Count 192 10^3/uL (130-400); Red Cell Dist. Width 13.2 % (11.5-14.5)
--- NOTE | 2025-01-27 04:48 | PTCARENOTE ---
Pt. had 2 blood tinged BM's so far this shift, VSS, NSR on the monitor. Orders for AM lab work obtained and drawn; H&H stable at 8.2 & 25.4.
[2025-01-27 04:56] LABS: Blood Urea Nitrogen 56 mg/dl (9-20); Calcium 8.7 mg/dl (8.4-10.2); Carbon Dioxide 29 mmol/L (22-30); Chloride 102 mmol/L (98-107); Estimated Creatinine Clearance 37 ml/min; Glucose 95 mg/dl (70-99); HDL Cholesterol 48 mg/dl; LDL Cholesterol, Calculated 64 mg/dl; Magnesium 2.5 mg/dl (1.6-2.3); Potassium 4.9 mmol/L (3.5-5.1); Sodium 134 mmol/L (135-145); Very Low Density Lipoprotein 14 mg/dl (0-30); eGFR > 60.00
--- NOTE | 2025-01-27 07:48 | W.PN.HOSP.TC ---
Today's Communication/Plan
-
see a/p
Assessment / Plan
Assessment / Plan
Physical Exam
General: Appears Chronically Ill and Cachectic
HEENT: Normocephalic and Atraumatic; Negative Oxygen
Respiratory: Clear to Auscultation; Negative Wheezes or Rhonchi
Cardiac: Regular Rhythm and S1/S2; Negative Murmur
GI: Soft, Nontender, Nondistended and Normal Bowel Sounds
Musculoskeletal: No Clubbing, No Cyanosis and No Edema
Neuro: AOx3 conversant coherent
Psych: Calm
pt is a 79 year old male, with past medical history of coronary artery disease, history of triple-vessel disease, s/p PCI in 2017 and 2018, currently on medical therapy. Prior history of TIA managed on Plavix, likely COPD, history of statin and
PCSK9 intolerance, history of prostate cancer, s/p radiation, peripheral arterial disease presented with chest pain
Exertional chest pain in setting of chronic stable angina/anemia (Has an extensive cardiac history including triple-vessel disease, multiple MIs)-apprec cards--medical management--coreg dose increased--Imdur added--plavix on hold and substituted for
asa in case GI procedures needed--Echocardiogram-left ventricular ejection fraction 45% with global hypokinesis, normal right ventricular size and function, stage I diastolic dysfunction, mild to moderate MR, left ventricular ejection fraction has
decreased as compared to echo of 03/08
Exertional dyspnea COPD/ACS--Chest y-jfy-lbrimwuckjpim lungs with emphysematous changes--Outpatient follow-up with pulmonology
Intermittent rectal bleeding/weight loss concerning for radiation proctitis versus underlying GI malignancy--CT scan unremarkable-- Plavix changed to asa pending EGD/colonoscopy-- GI eval appreciated tentatively planned for EGD colonoscopy 01/28
Wed, diet bowel prep as per GI
Hyponatremia--apprec renal--worsening to 125--likely volume overload with cut back in lasix dosing as outpt--lasix now back to daily dosing
Essential hypertension
Symptomatic Orthostatic Hypotension
Amlodipine discontinued
Valsartan dose reduced
Coreg dose reduced
Lasix on hold while NPO or on clear liquid diet as per cardio
Renal artery bruit--renal artery Doppler with left renal artery stenosis of 60-99%, right 0-59%-- conservative mgmt as per nephro
Mild depression--Appears upset about his condition--Denies any suicidal/homicidal thoughts--lexapro/ativan as directed
Peripheral arterial disease-- Outpatient follow-up with vascular
Mild to moderate aortic regurgitation- Continue Lasix--ECHO with decreased EF to 45% and global hypokinesis--not pursuing cath
anemia--likely chronic disease pt pt is c/o rectal bleeding intermittently--trend HGB
History of thyroid mass status post thyroidectomy- Continue levothyroxine
BPH with Prostate cancer status post radiation--Continue tamsulosin
History of odynophagia/dysphagia
History of precancerous cells in mouth in 2007
Reported Hx Hyperlipidemia-- lipid panel wnl, low bodyweight/cachexia, statin unnecessary at this time
History of spontaneous pneumothorax
GERD- Continue Protonix
DVT proph
code status--Full code
I spent a total of 45 minutes with the patient or on the floor. More than 50% of this time involved counseling and coordination of care.
Anticipated Discharge: 24 - 48 hours
Subjective/Interval History
-
Date of Service: January 27, 2025
No acute distress sitting up comfortably in bed. Exertional chest discomfort persists. No issues at rest. Later in the day patient had significant bradycardia likely symptomatic orthostatic hypotension when working with PT, resolved with bed rest.
Objective Data
-
Labs:
Laboratory Results
01/27/25 01/27/25
00:13 04:14
WBC Cancelled 6.8
Hgb Cancelled 8.2 L
Hct Cancelled 25.4 L
Plt Count Cancelled 192
Sodium Cancelled 134 L
Potassium Cancelled 4.9
Chloride Cancelled 102
Carbon Dioxide Cancelled 29
BUN Cancelled 56 H
Creatinine Cancelled 1.2
Glucose Cancelled 95
Calcium Cancelled 8.7
Vital Signs:
Vital Signs
Temp Pulse Resp BP Pulse Ox
98.3 F 67 16 123/51 98
01/27/25 04:07 01/27/25 04:07 01/27/25 04:07 01/27/25 04:07 01/27/25 04:07
I&O
01/26/25 01/27/25 01/28/25
06:59 06:59 06:59
Intake Total 480 / 480 480 / 480
Output Total 2250 / 2250 1170 / 1170
Balance -1770 / -1770 -690 / -690
[2025-01-27] MEDS: IMDUR (EXTENDED RELEASE) 60 MG PO (08:14)
[2025-01-27] MEDS: FEOSOL 325 MG PO (08:14)
[2025-01-27] MEDS: LOW STRENGTH ASPIRIN 81 MG PO (08:14)
[2025-01-27] MEDS: FLOMAX 0.4 MG PO ×2 (08:14→20:40)
[2025-01-27] MEDS: MIRALAX 17 GRAMS PO (08:15)
[2025-01-27] MEDS: COREG 12.5 MG PO (08:15)
[2025-01-27] MEDS: MYLICON 120 MG PO (08:15)
[2025-01-27] MEDS: NON-FORMULARY ITEM 1 UNIT PO ×2 (08:17→20:41)
[2025-01-27] MEDS: NON-FORMULARY ITEM 1 DROP BOTH EYES ×2 (08:17→20:40)
[2025-01-27] MEDS: LASIX 20 MG PO (08:23)
[2025-01-27] MEDS: NON-FORMULARY ITEM 2 MG BUCCAL ×3 (09:10→21:48)
--- NOTE | 2025-01-27 10:38 | W.PN.CD ---
Addendum entered and electronically signed by Luciano Serrano MD 01/27/25 12:52:
I reviewed and agree with the note by RADHA and it accurately reflects our care.
I saw and evaluated the patient, and I provided the substantive portion of the medical decision making. My assessment and plan is below:
79-year-old man with medically managed CAD (PCI to LAD 2017 and mid circ PCI 2018 with chronically occluded dominant RCA), ischemic cardiomyopathy (EF 45%), chronic dysphagia, and rectal bleeding who initially presented with intermittent chest pain
thought to be due to chronic stable angina worsened in the setting of GI bleeding. Imdur was added this admission. He is being worked up for GI bleeding and colonoscopy is planned for tomorrow. Cardiology was called for reevaluation today in the
setting of dizziness/lightheadedness at rest with hypotension and bradycardia into the 40s. Received some IV fluids and is now back to baseline. Was on clear liquid diet starting today for colonoscopy tomorrow. Also got Lasix this AM. Chest pain
is stable. BP has been downtrending over the course of his admission. Review of telemetry reveals sinus rhythm with heart rate mostly in the 50s�60s but down to 40s around 10 AM this morning when he became dizzy.
Physical exam: Regular rate and rhythm, no murmurs, no lower extremity edema, clear lungs
Presyncope: Sounds like he had a vagal event with bradycardia and hypotension, possibly triggered by dehydration and uptitration of his medical therapy. Decrease carvedilol to 6.25 mg twice daily and valsartan to 40 mg daily. Hold Lasix while he
is on liquid diet/n.p.o. for colonoscopy. Continue to monitor telemetry.
CAD: Continue aspirin. Resume Plavix once safe from a GI standpoint. Continue BB, ARB, and nitrate.
ICM: GDMT as above. Uptitration currently limited by hypotension.
Rectal bleeding: Colonoscopy tomorrow.
Remainder as per RADHA note. We will follow along.
Original Note:
Today's Communication / Plan
-
Called back to evaluate patient at request of primary service.
Episode of bradycardia with associated hypotension symptomatic with lightheadedness/dizziness while working with PT.
Decrease valsartan and carvedilol.
Impression / Plan
-
I/P: 79M with CAD (PCI to LAD 2017 and mid circ PCI 2018 with chronically occluded dominant RCA), hypertension, carotid artery disease, hx TIA, suspected COPD, dyslipidemia with intolerance to statin and PCSK9I, right iliac artery stenosis,
recovered ICM, and prostate cancer with hx radiation presented with exertional chest discomfort, chronic dysphagia with weight loss, and intermittent rectal bleeding.
Primary dot net architect: Dr. Puente
Presyncope
- Episode of bradycardia with associated hypotension symptomatic with lightheadedness/dizziness while working with PT
- Likely in the setting of hypovolemia, he had a bowel movement after the episode so there may have been a vagal element
Rectal bleeding/anemia:
- Clopidogrel on hold, bowel prep completed, scope per GI
Chest discomfort, resolved
- 06/23 in severity, stable and unchanged over the last 6 months
- Improved with intensification of antianginals.
CAD
- Cardiac catheterization 2023 as below.
- Given ongoing bleeding, transitioned clopidogrel to ASA for GI evaluation
- On isosorbide mononitrate, he has chronic stable angina which remains unchanged
- He is intolerant to statin and PCSK9i
HFrEF (EF ~45%), chronic
Ischemic cardiomyopathy
- He does not appear volume overloaded
- GDMT as tolerated:
-TRAVON/ARB/ARNI: Valsartan 80 mg, lowered to 40 mg, sacubitril�losartan co-pay is $0
-SGLT2 inhibitor: Hold with hyponatremia, can consider if okay with Nephrology, in the future co-pay is $0
-Aldosterone agonist: Can consider as an outpatient
-Beta diego: Carvedilol increased this hospitalization (01/23/2025), decrease to 6.25 mg twice daily
-Isosorbide/Hydralazine:�Isosorbide mononitrate 60 mg
-ICD: Not currently indicated
- Trend daily weight, I/O
- Heart failure education
Hyponatremia, being managed by nephrology
Abnormal troponin, non-ischemic myocardial injury in setting of anemia
- Peak troponin 0.046, TTE with global hypokinesis
Mixed hyperlipidemia, LDL near goal, statin intolerant and PCSK9i intolerant
PAD, chronic, stable, managed by vascular surgery, clopidogrel on hold as above
Prior TIA, clopidogrel on hold as above
DATA:
Transthoracic echocardiogram, Jan 2025:
SUMMARY
1. Left ventricular ejection fraction is mildly reduced with an ejection fraction of 45 % by Travis's biplane method of discs. Global hypokinesis.
2. Right ventricular size and systolic function are within normal limits.
3. Stage I diastolic dysfunction suggestive of abnormal relaxation.
4. Mild to moderate aortic regurgitation.
5. Compared to the prior study on 03/15/2023, LVEF has decreased from 55 to 60% with apical hypokinesis to 45% with global hypokinesis.
Cardiac catheterization, 01/07/2024:
CONCLUSIONS
1. Multi-vessel coronary artery disease in a co-dominant system. No culprit lesion to explain presentation.
2. Mildly elevated LVEDP and systemic hypertension. No aortic stenosis.
Physical Exam
Vital Signs/Labs
Vital Signs
Temp Pulse Resp BP Pulse Ox
97.7 F 65 16 123/51 96
01/27/25 07:53 01/27/25 07:53 01/27/25 07:53 01/27/25 04:07 01/27/25 07:53
01/26/25 01/27/25 01/28/25
06:59 06:59 06:59
Actual Weight 53.4 kg 52.2 kg
01/27/25 04:14
Magnesium 2.5 mg/dl (1.6-2.3) H 01/27/25 04:14
Triglycerides 73 mg/dl (10-149) 01/27/25 04:14
LDL Cholesterol, Calc 64 mg/dl 01/27/25 04:14
VLDL Cholesterol, Calc 14 mg/dl (0-30) 01/27/25 04:14
HDL Cholesterol 48 mg/dl 01/27/25 04:14
01/21/25 01/21/25
17:35 21:19
Ock-C-Znwqsbzjyta Pept 2600 Cancelled
Physical Exam
Constitutional: No acute distress and Comfortable
EENT: Anicteric and Moist mucous membranes
Cardiovascular: Rhythm & rate is regular, Pedal edema is absent and S1S2 is normal
Respiratory: Respiratory effort normal and Lungs clear to auscul.
GI: Soft, Distention absent, Flat and Normal bowel sounds
Neuro/Psych: Alert and Oriented
Other: Skin (Warm and dry)
Data Reviewed
-
Date of Service: January 27, 2025
Labs: Labs Reviewed by me
[2025-01-27 10:48] LABS: Hematocrit 25.4 % (39.0-52.0); Hemoglobin 8.3 g/dL (13.0-18.0)
[2025-01-27] MEDS: NSS 250 IV (10:58)
[2025-01-27 11:06] LABS: ALT (SGPT) 18 U/L (0-50); AST (SGOT) 22 U/L (17-59); Albumin 3.4 g/dl (3.5-5.0); Alkaline Phosphatase 40 U/L (38-126); Total Protein 5.4 g/dl (6.3-8.2)
[2025-01-27] MEDS: PROTONIX 40 MG PO (11:43)
[2025-01-27] MEDS: ATIVAN 0.5 MG PO ×2 (12:16→21:46)
--- NOTE | 2025-01-27 12:26 | SUR.OPER ---
Pt received this am with no c/o of any pain or sob. Pt stated that he sometimes feels chest pressure after exertion. Room air sat 95%. Physical therapy started working with the pt and pt became dizzy after standing. Bp 86/40 in the right arm then
95/43 in the left arm. Pt stated he felt better after lying back down and started eating his clear liquid breakfast. Pt later called while eating and stated he felt dizzy again. Bp syst in the 80's/90's. Hospitalist notified. 250ml NSS bolus
administered for 1/2 hr. BP 115/44. Pt now sitting out in the chair and denies any dizziness. SB in the 40's to 50's while feeling dizzy.
--- NOTE | 2025-01-27 12:34 | W.PN.NEPH.PH ---
Today's Communication / Plan
-
Continue fluid restriction
Assessment/Plan
-
IMPRESSION:
Stable angina
Exertional dysnea
Lower GI bleed
Hyponatremia
COPD
CAD
PAD
Macrocytic anemia
radiation proctitis
Essential hypertension
Abdominal bruit-left JEROMY
PLAN:
Continue lasix to daily
samsca 01/25 minimal improvement to 130. Currently 134
follow BMP
follow Left JEROMY conservatively given symmetric sizes and normal Cr and stable BP, normal K
48 ounce fluid restriction
Pending colonoscopy
Discussed with daughter at bedside
-
-
Date of Service: January 27, 2025
CC / HPI / ROS
-
Chief Complaint:
hyponatremia
History of Present Illness:
Na improved
BP stable
hgb down to 8.6
Review of Systems:
no CP/SOB
he is concerned about changing rooms
Labs
-
Labs:
WBC 6.8 10^3/uL (4.8-10.8) 01/27/25 04:14
RBC 2.45 10^6/uL (4.70-6.10) L 01/27/25 04:14
Hgb 8.3 g/dL (13.0-18.0) L 01/27/25 10:31
Hct 25.4 % (39.0-52.0) L 01/27/25 10:31
Plt Count 192 10^3/uL (130-400) 01/27/25 04:14
Sodium 134 mmol/L (135-145) L 01/27/25 04:14
Potassium 4.9 mmol/L (3.5-5.1) 01/27/25 04:14
Chloride 102 mmol/L (98-107) 01/27/25 04:14
Carbon Dioxide 29 mmol/L (22-30) 01/27/25 04:14
BUN 56 mg/dl (9-20) H 01/27/25 04:14
Creatinine 1.2 mg/dL (0.7-1.3) 01/27/25 04:14
eGFR > 60.00 01/27/25 04:14
Glucose 95 mg/dl (70-99) 01/27/25 04:14
Calcium 8.7 mg/dl (8.4-10.2) 01/27/25 04:14
Phosphorus 3.8 mg/dl (2.5-4.5) 01/27/25 04:14
Hkx-V-Ixohkyslqvw Pept Cancelled 01/21/25 21:19
Albumin 3.4 g/dl (3.5-5.0) L 01/27/25 04:14
Physical Exam
-
Vital Signs:
Vital Signs
Temp Pulse Resp BP Pulse Ox
97.7 F 52 16 115/44 94
01/27/25 07:53 01/27/25 10:15 01/27/25 07:53 01/27/25 10:15 01/27/25 09:45
Cardiovascular:: Regular rate and rhythm
Respiratory:: Bilateral: Coarse
Lung Excursion:: Normal
Abdomen:: Nontender and Soft
Bowel Sounds:: Normal
Extremity Edema:: None: Bilateral:
--- NOTE | 2025-01-27 15:02 | W.PN.GI.CBS2 ---
Addendum entered and electronically signed by Whit Reynolds MD 01/27/25 17:06:
I saw and examined the patient.
The FACT CHECKER or PA's note was reviewed and I agree with the note.
Comment: No events overnight, Hgb stable at 8.3
No evidence of overt GI bleeding
Given dysphagia, anemia, intermittent rectal bleeding with history of radiation for prostate cancer, will do upper endoscopy and colonoscopy tomorrow
Esophageal x-ray in 2023 showed moderate large volume aspiration barium to below the level of the radha, no evidence of stricture, web, neoplasm or diverticulum. Normal motility and architecture of the thoracic esophagus. Half-inch barium
initially stuck in the right side of the vallecula and cleared only after multiple swallows of both barium water with a chin tuck.
Will follow-up with procedures
Original Note:
Today's Communication / Plan
-
EGD/colonoscopy tomorrow
Assessment / Plan
-
Pt is a 78 y.o male with an extensive medical history including HTN, HLD, obstructive CAD (s/p prior stenting, on plavix), ischemic cardiomyopathy, PAD, carotid artery stenosis, hx of TIAs (on plavix), possible COPD, oropharyngeal dysphagia with
previous aspiration and prostate cancer (s/p XRT finished 2023 and on hormonal therapy) with recent evaluation in GI office with Dr. Sharp for rectal bleeding and wt loss. He was recommended CT and colonoscopy but was hesitant to proceed with both
due to concern for incontinence with CT contrast and concern for complication with colonoscopy. He was also noted with macrocytic anemia and recommended PCP follow up which he has also not completed. He admits to severe fatigue and depression and
and difficulty with completing work up as outpatient. He now presents with exertional chest pain with rise in troponin with BMP 2600 . Noted over several months for cardiology evaluation.
From GI standpoint he has hx dysphagia diagnosed on prior admission. He was recommended pureed diet last year by speech and never had follow up to advance diet. he admits to 25 lbs wt loss over last few months( about 4 kg since 2023 in
chart). He admits to GERD with belching, diffuse and left sided abdominal pain at time and constipation. He was using glycerine suppositories several times per week then stopped per his oncologist several months ago. He has tried miralax and
prune juice with too loose stools and then began with rectal bleeding. He will see red and dark red stool. Last �EGD (weight loss) 01/05/2016- Impression:�Normal esophagus, biopsied. Z-line regular at 40 cm from the incisors. Normal stomach,
biopsied. Normal examined duodenum, biopsied. Path: mild chronic gastritis with reactive gastropathy, (-) H pylori. Normal duodenal mucosa, esophageal biopsies with benign esophageal type squamous mucosa showing minimal non-specific chronic
inflammation without eosinophils
Colonoscopy (screening, good prep) 10/21/2014- Impression:�One 4 mm polyp in the rectum, removed (path w/ HPP). Mild diverticulosis in sigmoid colon. Normal examined ileum. The examination was otherwise normal. Repeat colonoscopy based on review of
path results.
-chest pain on admission with elevated trop and concern for ACS-> patient seen by cardiology nonischemic myocardial injury in the setting of anemia, history of angina
-painless rectal bleeding
-prostate CA with prior XRT and hormonal therapy
-change in bowel habits
-oropharyngeal dysphagia
-macrocytic anemia
-wt loss - unintentional
-Presyncope, patient evaluated and seen by cardiology, medications adjusted
other med problems:
HTN, HLD, obstructive CAD (s/p prior stenting, on plavix), ischemic cardiomyopathy, PAD, carotid artery stenosis, hx of TIAs (on plavix), possible COPD, depression
PLAN:
CT abdomen/pelvis/chest 01/22/2025�no significant abnormality identified
Hemoglobin stable currently 8.3
Plavix on hold. Last dose 01/23
Case discussed with patient hospitalist/Dr. Sharp-patient will benefit having colonoscopy as inpatient considering his medical comorbidities. Will also include EGD with oropharyngeal dysphagia/weight loss
Dr. Braden had a long discussion with patient/patient daughter about benefits and risk of EGD/colonoscopy. They verbalized understanding and is agreeable for the procedure.
Clear liquid diet, no red. N.p.o. after midnight except meds
Bowel prep, GoLytely today
EGD /Colonoscopy on 01/28 ( 5 days after plavix wash out )
Subjective
Subjective
Date of Service: January 27, 2025
Patient with complaints of oropharyngeal dysphagia. Tolerating clear liquids. Awaiting Plavix washout for EGD colonoscopy tomorrow. Patient had an episode of dizziness and lightheadedness last evening associated with hypotension and bradycardia
while working with PT. Was given IV fluids. Was seen by cardiology and they feel he had a vagal event with bradycardia. His carvedilol was decreased to 6.25 mg twice a day and valsartan to 40 mg daily. They are holding Lasix while he is on clear
liquid diet and n.p.o. for colonoscopy. We were given the okay to proceed with EGD/colonoscopy.
Objective
Data Reviewed
Laboratory Data:
Laboratory Results
01/27/25 10:31
01/27/25 04:14
Laboratory Results
Phosphorus 3.8 mg/dl (2.5-4.5) 01/27/25 04:14
Magnesium 2.5 mg/dl (1.6-2.3) H 01/27/25 04:14
Total Bilirubin 0.3 mg/dl (0.2-1.3) 01/27/25 04:14
AST 22 U/L (17-59) 01/27/25 04:14
ALT 18 U/L (0-50) 01/27/25 04:14
Alkaline Phosphatase 40 U/L (38-126) 01/27/25 04:14
Vital Signs and I&O:
Vital Signs
Temp Pulse Resp BP Pulse Ox
97.2 F 69 18 115/44 94
01/27/25 12:46 01/27/25 12:46 01/27/25 12:46 01/27/25 10:15 01/27/25 09:45
I&O
01/26/25 01/27/25 01/28/25
06:59 06:59 06:59
Intake Total 480 / 480 480 / 480
Output Total 2250 / 2250 1170 / 1170
Balance -1770 / -1770 -690 / -690
Physical Exam
Physical Exam
HEENT: Anicteric
Cardiology: Normal Sinus Rhythm
Pulmonary: Clear (Anterior)
GI: Soft, Non Distended, Non Tender and Normal Bowel Sounds
Neuro: Non Focal
[2025-01-27] MEDS: NULYTELY SOLUTION 4 LITERS PO (16:55)
[2025-01-27] MEDS: DIOVAN 40 MG PO (17:00)
--- NOTE | 2025-01-27 18:00 | PTCARENOTE ---
Pt with no further c/o of any dizziness. OOB to the chair and the BR with assist. Tolerating Colonoscopy prep without issues. Stool remains brown/green.
[2025-01-27] MEDS: COREG 6.25 MG PO (20:39)
[2025-01-27] MEDS: REFRESH EYE DROPS (PF) 1 DROPS OPHTH (20:40)
[2025-01-28] VITALS (40 sets, daily range): BP systolic 97–159; BP diastolic 42–71
--- NOTE | 2025-01-28 01:07 | W.PN.UPDATE ---
Update Note
Progress Note Update
Patient c/o chest pain, mid sternal, non radiating, rates at 8 out of 10. Patient denies dizziness lightheadedness, nausea or headache. Gave total of 3 sublinqual nitro, EKG completed, shows changes.EKG preliminary read shows NSR, anterior infarct,
age undetermined, marked ST abnormality, possible inferior subendocardial injury.
Ordered Troponin and AM labs be drawn now. TT to on-call Credit Clerk, Dr. Baez, updated on events. If pt still having chest pain, start Nitro gtt. If troponin elevated, consider heparin gtt, but do not start as patient is having GI bleeding. If
Hgb < 8, transfuse.�Hgb 9.0 on am labs. Patient with no further chest pain, nitro gtt not started.
[2025-01-28] MEDS: NITROSTAT (SUBLINGUAL) 0.4 MG SL ×3 (01:10→01:38)
--- NOTE | 2025-01-28 01:11 | PTCARENOTE ---
Pt c/o chest pain 11/23, achy. ANALYSIS TESTER Aileen notified and EKG performed, morning labs sent in addition to troponin. Nitroglycin SL given
[2025-01-28 01:26] LABS: Hematocrit 27.4 % (39.0-52.0); Hemoglobin 9.0 g/dL (13.0-18.0); Mean Corp Hgb Conc. 32.8 g/dL (33.0-37.0); Mean Corpuscular Volume 103.0 fL (80.0-94.0); Platelet Count 197 10^3/uL (130-400); Red Cell Dist. Width 13.2 % (11.5-14.5)
[2025-01-28 02:00] LABS: Troponin I < 0.012 ng/ml
[2025-01-28 02:03] LABS: Blood Urea Nitrogen 42 mg/dl (9-20); Calcium 8.6 mg/dl (8.4-10.2); Carbon Dioxide 26 mmol/L (22-30); Chloride 102 mmol/L (98-107); Estimated Creatinine Clearance 37 ml/min; Glucose 104 mg/dl (70-99); Magnesium 2.3 mg/dl (1.6-2.3); Potassium 4.3 mmol/L (3.5-5.1); Sodium 133 mmol/L (135-145); eGFR > 60.00
--- NOTE | 2025-01-28 03:05 | PTCARENOTE ---
Pt took nitro x3 for chest pain, pain subsiding originally. Pain then creeping back up to 6/10, AUTO POLISHER notified of EKG results and pain rating. VSS.
[2025-01-28] MEDS: MAALOX 30 ML PO (03:58)
--- NOTE | 2025-01-28 04:20 | PTCARENOTE ---
Pt.'s chest pain settled down to a level 5/6 then completely dissipated with belching and sitting straight up. Maalox ordered by hospitalist RADHA Gallaghre and given. Nitro gtt also ordered; instructed to only start if chest pain reoccurs. Also
notified Aileen of ST changes/depression on EKG (leads II & V). Per Aileen cardiology saw EKG. Pt. currently resting quietly, remains CP free.
--- NOTE | 2025-01-28 04:30 | PTCARENOTE ---
On a positive note, pt. drank all 4 liters of Nulytely prep - and had very frequent liquid stools at beginning of shift - the last couple clear yellow without solid matter.
[2025-01-28] MEDS: SYNTHROID 88 MCG PO (05:58)
[2025-01-28] MEDS: MIRALAX PO (08:22)
[2025-01-28 08:27] LABS: Troponin I 1.670 ng/ml
--- NOTE | 2025-01-28 08:54 | W.PN.CD ---
Today's Communication / Plan
-
LHC today
Start heparin for NSTEMI
Monitor for recurrent bleeding.
Impression / Plan
-
I/P: 79M with CAD (PCI to LAD 2017 and mid circ PCI 2018 with chronically occluded dominant RCA), hypertension, carotid artery disease, hx TIA, suspected COPD, dyslipidemia with intolerance to statin and PCSK9I, right iliac artery stenosis,
recovered ICM, and prostate cancer with hx radiation presented with exertional chest discomfort, chronic dysphagia with weight loss, and intermittent rectal bleeding.
Primary lap grinder: Dr. Puente
NSTEMI
- Overnight he had an episode of chest pain at rest with dynamic ECG changes and troponin is now elevated. Cardiac catheterization 2023 as below.
- He is currently chest pain-free
- We will plan for cardiac catheterization today.
- Start heparin drip for medical management. He is already on aspirin.
Rectal bleeding/anemia:
- Clopidogrel on hold, bowel prep completed, scope per GI
- He was supposed to have endoscopy/colonoscopy today but this is now on hold due to NSTEMI overnight
- Trend hemoglobin on heparin drip
Presyncope
- On 01/27, had an episode of bradycardia with associated hypotension symptomatic with lightheadedness/dizziness while working with PT
- Likely in the setting of hypovolemia and uptitration of medical therapy
- Valsartan and carvedilol have been reduced
- Continue to monitor on telemetry
- Hold Lasix while n.p.o.
CAD
- Concern for NSTEMI as above
- Continue medical therapy with BB, ARB, and nitrate. Continue aspirin.
- He is intolerant to statin and PCSK9i
HFrEF (EF ~45%), chronic
Ischemic cardiomyopathy
- He does not appear volume overloaded
- GDMT as tolerated:
-TRAVON/ARB/ARNI: Valsartan 80 mg, lowered to 40 mg, sacubitril�losartan co-pay is $0
-SGLT2 inhibitor: Hold with hyponatremia, can consider if okay with Nephrology, in the future co-pay is $0
-Aldosterone agonist: Can consider as an outpatient
-Beta diego: Carvedilol increased this hospitalization (01/23/2025), decrease to 6.25 mg twice daily
-Isosorbide/Hydralazine:�Isosorbide mononitrate 60 mg
-ICD: Not currently indicated
- Trend daily weight, I/O
- Heart failure education
Hyponatremia, being managed by nephrology
Mixed hyperlipidemia, LDL near goal, statin intolerant and PCSK9i intolerant
PAD, chronic, stable, managed by vascular surgery, clopidogrel on hold as above
Prior TIA, clopidogrel on hold as above
Subjective: Overnight he had an episode of chest pain at rest. ECG showed dynamic T wave inversions and ST depressions in the inferolateral leads. He was given 3 sublingual nitroglycerin and pain resolved. He is now chest pain-free. Completed
bowel prep yesterday with no blood. Unsure when his last bloody bowel movement was.
DATA:
Transthoracic echocardiogram, Jan 2025:
SUMMARY
1. Left ventricular ejection fraction is mildly reduced with an ejection fraction of 45 % by Travis's biplane method of discs. Global hypokinesis.
2. Right ventricular size and systolic function are within normal limits.
3. Stage I diastolic dysfunction suggestive of abnormal relaxation.
4. Mild to moderate aortic regurgitation.
5. Compared to the prior study on 03/15/2023, LVEF has decreased from 55 to 60% with apical hypokinesis to 45% with global hypokinesis.
Cardiac catheterization, 01/07/2024:
CONCLUSIONS
1. Multi-vessel coronary artery disease in a co-dominant system. No culprit lesion to explain presentation.
2. Mildly elevated LVEDP and systemic hypertension. No aortic stenosis.
Physical Exam
Vital Signs/Labs
Vital Signs
Temp Pulse Resp BP Pulse Ox
97.9 F 73 20 125/56 94
10/15/25 07:30 01/28/25 08:00 01/28/25 07:30 01/28/25 07:29 01/28/25 07:30
01/27/25 01/28/25 01/29/25
06:59 06:59 06:59
Actual Weight 115 lb 1.301 oz
01/28/25 01:13
01/28/25 01:13
Magnesium 2.3 mg/dl (1.6-2.3) 01/28/25 01:13
Triglycerides 73 mg/dl (10-149) 01/27/25 04:14
LDL Cholesterol, Calc 64 mg/dl 01/27/25 04:14
VLDL Cholesterol, Calc 14 mg/dl (0-30) 01/27/25 04:14
HDL Cholesterol 48 mg/dl 01/27/25 04:14
01/21/25 01/21/25
17:35 21:19
Xir-B-Qihgjpbigww Pept 2600 Cancelled
LAB Results
01/28/25 01/28/25
01:13 07:41
Troponin I < 0.012 1.670 H* D
Physical Exam
Constitutional: No acute distress and Comfortable
Cardiovascular: Rhythm & rate is regular, Pedal edema is absent, Systolic murmur present and S1S2 is normal
Respiratory: Respiratory effort normal and Lungs clear to auscul.
Neuro/Psych: AO x 3
Data Reviewed
-
Date of Service: January 28, 2025
Medical Decision Making: Reviewed Test Results, Test Interpretation and Review of Case with other Provider
EKG: Tracing Personally Visualized and interpreted
Echo: Report Reviewed by me
Labs: Labs Reviewed by me
--- NOTE | 2025-01-28 09:00 | W.PN.HOSP.TC ---
Today's Communication/Plan
-
see a/p
Assessment / Plan
Assessment / Plan
Physical Exam
General: Appears Chronically Ill and Cachectic
HEENT: Normocephalic and Atraumatic; Negative Oxygen
Respiratory: Clear to Auscultation; Negative Wheezes or Rhonchi
Cardiac: Regular Rhythm and S1/S2; Negative Murmur
GI: Soft, Nontender, Nondistended and Normal Bowel Sounds
Musculoskeletal: No Clubbing, No Cyanosis and No Edema
Neuro: AOx3 conversant coherent
Psych: Calm
pt is a 79 year old male, with past medical history of coronary artery disease, history of triple-vessel disease, s/p PCI in 2016 and 2018, currently on medical therapy. Prior history of TIA managed on Plavix, likely COPD, history of statin and
PCSK9 intolerance, history of prostate cancer, s/p radiation, peripheral arterial disease presented with chest pain
Exertional chest pain in setting of chronic stable angina/anemia (Has an extensive cardiac history including triple-vessel disease, multiple MIs)-apprec cards--medical management--coreg dose increased--Imdur added--plavix on hold and substituted for
asa for EGD/colonoscopy as below--Echocardiogram-left ventricular ejection fraction 45% with global hypokinesis, normal right ventricular size and function, stage I diastolic dysfunction, mild to moderate MR, left ventricular ejection fraction has
decreased as compared to echo of 03/08
01/28 New onset Chest Pain w/ EKG changes Troponin elevation
NSTEMI
Cath noted multivessel dz
Cardiac surgery eval appreciated not a candidate for surgical revascularization, given his multiple co-morbidities and unknown source of bleeding
Cardio eval appreciated Hep gtt started 01/28 transfuse for goal Hgb >10
GI eval appreciated
If patient develops chest pain in the next couple of days, he will have coronary revascularization/DAPT, with plan of postponing the GI procedures for at least a month after.
If he does not have any chest pain and if the troponin trends down, plan for colonoscopy 02/02/2025.
Exertional dyspnea COPD/ACS--Chest a-mdo-ganmqrjutltyy lungs with emphysematous changes--Outpatient follow-up with pulmonology
Intermittent rectal bleeding/weight loss concerning for radiation proctitis versus underlying GI malignancy--CT scan unremarkable-- Plavix changed to asa pending EGD/colonoscopy-- GI eval appreciated tentatively planned for EGD colonoscopy 01/28
postponed d/t NSTEMI as above, diet as per GI
Hyponatremia--appreciate renal--worsening to 125 since improved with fluid restriction and Lasix. Lasix on hold as below
Essential hypertension
Symptomatic Orthostatic Hypotension
Amlodipine discontinued
Valsartan dose reduced
Coreg dose reduced
Lasix on hold while NPO or on clear liquid diet as per cardio
Renal artery bruit--renal artery Doppler with left renal artery stenosis of 60-99%, right 0-59%-- conservative mgmt as per nephro
Mild depression--Appears upset about his condition--Denies any suicidal/homicidal thoughts--lexapro/ativan as directed
Peripheral arterial disease-- Outpatient follow-up with vascular
Mild to moderate aortic regurgitation- Lasix on hold as above--ECHO with decreased EF to 45% and global hypokinesis
History of thyroid mass status post thyroidectomy- Continue levothyroxine
BPH with Prostate cancer status post radiation--Continue tamsulosin
History of odynophagia/dysphagia
History of precancerous cells in mouth in 2007
Reported Hx Hyperlipidemia-- lipid panel wnl, low bodyweight/cachexia, statin unnecessary at this time
History of spontaneous pneumothorax
GERD- Continue Protonix
DVT proph hep gtt
code status--Full code
I spent a total of 50 minutes with the patient or on the floor. More than 50% of this time involved counseling and coordination of care.
Anticipated Discharge: > 48 hours
Subjective/Interval History
-
Date of Service: January 28, 2025
Chest pain overnight requiring multiple doses of SL nitro. Pain at rest since resolved this morning. Exertional chest pain persists.
Objective Data
-
Labs:
Laboratory Results
01/28/25
01:13
WBC 8.1
Hgb 9.0 L
Hct 27.4 L
Plt Count 197
Sodium 133 L
Potassium 4.3
Chloride 102
Carbon Dioxide 26
BUN 42 H
Creatinine 1.2
Glucose 104 H
Calcium 8.6
Vital Signs:
Vital Signs
Temp Pulse Resp BP Pulse Ox
97.9 F 73 20 125/56 94
01/28/25 07:30 01/28/25 08:00 01/28/25 07:30 01/28/25 07:29 01/28/25 07:30
I&O
01/27/25 01/28/25 01/29/25
06:59 06:59 06:59
Intake Total 480 / 480 4500 / 4500
Output Total 1170 / 1170 500 / 500
Balance -690 / -690 4000 / 4000
[2025-01-28] MEDS: FEOSOL 325 MG PO (09:45)
[2025-01-28] MEDS: FLOMAX 0.4 MG PO ×2 (09:45→20:21)
[2025-01-28] MEDS: COREG 6.25 MG PO (09:45)
[2025-01-28] MEDS: IMDUR (EXTENDED RELEASE) 60 MG PO (09:45)
[2025-01-28] MEDS: LOW STRENGTH ASPIRIN 81 MG PO (09:45)
[2025-01-28] MEDS: MYLICON 120 MG PO (09:45)
[2025-01-28] MEDS: NON-FORMULARY ITEM 1 DROP BOTH EYES ×2 (09:46→20:21)
[2025-01-28] MEDS: NON-FORMULARY ITEM 1 UNIT PO ×2 (09:48→20:26)
[2025-01-28] MEDS: REFRESH EYE DROPS (PF) 1 DROPS OPHTH ×2 (09:49→20:30)
[2025-01-28 11:45] LABS: Hematocrit 25.8 % (39.0-52.0); Hematocrit 25.9 % (39.0-52.0); Hemoglobin 8.5 g/dL (13.0-18.0); Hemoglobin 8.6 g/dL (13.0-18.0); Mean Corp Hgb Conc. 32.9 g/dL (33.0-37.0); Mean Corpuscular Volume 102.0 fL (80.0-94.0); Platelet Count 195 10^3/uL (130-400); Red Cell Dist. Width 13.3 % (11.5-14.5)
[2025-01-28 12:00] LABS: APTT 26.8 Sec (23.4-35.0)
[2025-01-28] MEDS: HEPARIN 25000 UNITS/250 ML IV ×2 (12:17→20:13)
[2025-01-28 12:22] LABS: Troponin I 3.350 ng/ml
--- NOTE | 2025-01-28 12:36 | PTCARENOTE ---
Pt left for label stitcher. Heparin gtt infusing per orders. Report given to label stitcher RN. Daughter at bedside.
[2025-01-28] MEDS: PROTONIX PO (12:46)
--- NOTE | 2025-01-28 12:55 | W.PN.NEPH.PH ---
Today's Communication / Plan
-
follow labs on lasix
Assessment/Plan
-
IMPRESSION:
Stable angina
Exertional dysnea
Lower GI bleed
Hyponatremia
COPD
CAD
PAD
Macrocytic anemia
radiation proctitis
Essential hypertension
Abdominal bruit-left JEROMY
PLAN:
hyponatremia stable on lasix
for LHC today for NSTEMI
follow Left JEROMY conservatively given symmetric sizes and normal Cr and stable BP
48 ounce fluid restriction
Pending GI w/u
Discussed with pt
-
-
Date of Service: January 28, 2025
CC / HPI / ROS
-
Chief Complaint:
hyponatremia
History of Present Illness:
Na stable at 133
BP stable, troponin high , cp last night and EKG changes
hgb down to 8.6
Review of Systems:
no CP/SOB currently
no fever
Labs
-
Labs:
WBC 7.1 10^3/uL (4.8-10.8) 01/28/25 11:36
RBC 2.53 10^6/uL (4.70-6.10) L 01/28/25 11:36
Hgb 8.5 g/dL (13.0-18.0) L 01/28/25 11:36
Hgb 8.6 g/dL (13.0-18.0) L 01/28/25 11:36
Hct 25.8 % (39.0-52.0) L 01/28/25 11:36
Hct 25.9 % (39.0-52.0) L 01/28/25 11:36
Plt Count 195 10^3/uL (130-400) 01/28/25 11:36
Sodium 133 mmol/L (135-145) L 01/28/25 01:13
Potassium 4.3 mmol/L (3.5-5.1) 01/28/25 01:13
Chloride 102 mmol/L (98-107) 01/28/25 01:13
Carbon Dioxide 26 mmol/L (22-30) 01/28/25 01:13
BUN 42 mg/dl (9-20) H 01/28/25 01:13
Creatinine 1.2 mg/dL (0.7-1.3) 01/28/25 01:13
eGFR > 60.00 01/28/25 01:13
Glucose 104 mg/dl (70-99) H 01/28/25 01:13
Calcium 8.6 mg/dl (8.4-10.2) 01/28/25 01:13
Phosphorus 3.2 mg/dl (2.5-4.5) 01/28/25 01:13
Kyp-I-Gmkjymauuiw Pept Cancelled 01/21/25 21:19
Albumin 3.4 g/dl (3.5-5.0) L 01/27/25 04:14
Physical Exam
-
Vital Signs:
Vital Signs
Temp Pulse Resp BP Pulse Ox
98.1 F 71 16 145/66 95
01/28/25 11:20 01/28/25 12:00 01/28/25 11:20 01/28/25 09:45 01/28/25 11:20
Cardiovascular:: Regular rate and rhythm
Respiratory:: Bilateral: CTA
Lung Excursion:: Normal
Abdomen:: Nontender and Soft
Bowel Sounds:: Normal
Extremity Edema:: None: Bilateral:
Rock Catheter: No
[2025-01-28 13:46] LABS: ACT-LR - POC 107 Seconds (116-155)
--- NOTE | 2025-01-28 14:03 | ITS.CL.CATH ---
[facility] - Catheterization
Cardiac Catheterization
Procedure Report:
CARDIAC CATHETERIZATION REPORT
Date of Procedure: 01/28/2025
Referring: Luciano Serrano M.D.
INDICATION: Non-ST elevation myocardial infarction.
PROCEDURE:
1. Left heart catheterization.
2. Coronary angiography.
A total of 36 minutes of procedural/moderate sedation was utilized. An independent medical management specialist was present to assist with and help manage the patient's level of consciousness and physiologic status.
ACCESS:
1. 6 [place] right common femoral artery using a modified Seldinger technique with a micropuncture kit under ultrasound.
CATHETERS:
1. 5 [place] JR4.
2. 5 [place] JL 4.
HEMODYNAMIC DATA
Weight (kg): 52.2
AO (s/d/x, mmHg): 147/55/92
LV (s/x mmHg): 149/20 (A wave to 32 mmHg)
AV gradient (x, mmHg): None.
LEFT VENTRICULOGRAPHY: Not performed.
CORONARY ANGIOGRAPHY
Dominance: Codominant.
Left Main: Short, bifurcating vessel.
LAD: Normal size vessel giving rise to several small diagonals. A patent stent is present in the proximal vessel. There is a 60-70% lesion in the proximal/ostial margin of the vessel leading into the stented segment.
Ramus: Congenitally absent.
Circumflex: Large size, codominant vessel giving rise to 3 obtuse marginals before terminating as a partial LPDA. Patent stents are visible in the proximal circumflex spanning the origin of the tiny first obtuse marginal and the large second
obtuse marginal. There is an 80% in-stent restenosis lesion in the proximal margin of the stent and a 70% in-stent restenosis lesion in the distal margin of the stent. There is a patent stent in the distal circumflex with no evidence of in-stent
restenosis. There is a stable, 50% lesion in the distal circumflex in between the 2 stented segments, unchanged from prior angiogram. There is likely some ostial stenosis of the large second obtuse marginal, though this is not easily observed.
RCA: Medium sized, codominant vessel. The vessel is chronically totally occluded in its proximal margin but fills via epicardial collaterals from the apical LAD as well as collaterals from the distal circumflex and bridging collaterals
from the proximal RCA.
INTERVENTION(S)
None.
Closure Device: Manual pressure.
Radiation (mGy): 165
DAP (cm2.Gy): 8.98
Fluoroscopy time (minutes): 2.7
CONCLUSIONS
1. Codominant circulation with a short, bifurcating left main with a 60-70% lesion in the proximal/ostial margin of the LAD leading into a previous LAD stent, and 80% culprit ISR lesion in the proximal margin of the proximal circumflex stent, a 70%
ISR lesion in the distal margin of the proximal circumflex stent and chronic total occlusion of the proximal RCA filled via collaterals from all 3 epicardial vessels.
2. Moderately elevated filling pressures (LVEDP = 20 mmHg at 52.2 kg) with evidence of diastolic dysfunction (A wave to 32 mmHg).
RECOMMENDATIONS:
1. Expectant management after cardiac catheterization via right common femoral approach.
2. Limited weight bearing on the right wrist for one week.
3. Maintain antianginal therapy for the time being.
4. The patient will require heart team discussion with interventional cardiology and CT surgery weighing in regarding optimal revascularization strategy given multivessel coronary disease in the context of bleeding diathesis.
Copy to: Luciano Serrano M.D., Christopher Cramer DFareed.
Logan Edgar DO, FACC, FACP
--- NOTE | 2025-01-28 14:25 | CONSULT.CT ---
Consultation
-
Date/Time Consultation Requested: 01/28/2025
Requesting Provider: Herve
Performing Provider: Carleen Zavala PA-C for Felix Anthony MD
Reason for Consultation: cabg consult
Patient History
History of Present Illness
79 y/o male (patient of Dr. Puente) with known CAD (PCI to LAD 2017 and mid circ PCI 2018 with chronically occluded dominant RCA), hypertension, carotid artery disease, hx TIA, suspected COPD, dyslipidemia with intolerance to statin and PCSK9I,
right iliac artery stenosis, recovered ICM, and prostate cancer with hx radiation, who presented to ED one week ago complaining of exertional CP and SOB. He reports chest discomfort with exertion since early summer, typically relieved with
sublingual NTG, but the intensity had been getting worse. He also reports a 25 pound weight loss in the past year, which he attributed to his recent treatment for prostate cancer (in Spring) and diagnosis of dysphagia, for which he has been eating a
Dysphagia II diet (pureed foods). He complains of painless rectal bleeding, sometimes bright red blood and sometimes dark red blood, and constipation. He was using suppositories to help with the constipation and was instructed to stop by his
physician.
In ED, initial troponin negative, but subsequently peaked at 0.046. He was admitted for evaluation and treatment of his chest pain and rectal bleeding, and was found to have hyponatremia (lowest = 125mmol/L) and anemia (Hgb 8.2). The plan had been
for the patient to undergo EGD and colonoscopy on 01/28. Pt started the prep on 01/27, states he completed it, but in the middle of the night began to have chest pain at rest. ECG showed old anterior infarct and troponin elevated to 3.350 with next
draw still pending. He had left heart cath today, which showed multi-vessel CAD with in-stent restenosis. EGD and colonoscopy currently on hold.
Past Medical History
- known CAD (PCI to LAD 2017 and mid circ PCI 2018 with chronically occluded dominant RCA)
- hypertension
- carotid artery disease
- hx TIA
- COPD
- dyslipidemia with intolerance to statin and PCSK9I
- right iliac artery stenosis
- recovered ICM
- prostate cancer with hx radiation (40 treatments)
Family History
Family Medical History: Other (no family history CAD)
Social History
Tobacco: Former Smoker
Allergies
Allergy/AdvReac Type Severity Reaction Status Date / Time
lorazepam (From Ativan) Allergy 'MAKES ME Verified 01/21/25 17:17
GO CRAZY'
simvastatin (From Zocor) Allergy muscle Verified 01/21/25 17:17
cramps
triamcinolone (From Kenalog) Allergy palpitation Verified 01/22/25 16:23
s
Home Medications
�Medication �Instructions �Recorded �Confirmed �Type
lifitegrast 5 % eye drops in a 1 drp BOTH EYES BID Eye condition 09/26/16 01/22/25 History
dropperette (Xiidra)
nitroglycerin 0.4 mg sublingual 0.4 mg sublingual [id number] PRN 09/30/16 01/22/25 Rx
tablet chest pain #25 tabs
lorazepam 0.5 mg tablet 0.5 mg PO 2XD PRN sleep 02/09/17 01/22/25 History
levothyroxine 88 mcg tablet 88 mcg PO DAILY Thyroid 03/27/17 01/22/25 History
cholecalciferol (vitamin D3) 25 2,000 units PO QPM Supplement 08/15/17 01/22/25 History
mcg (1,000 unit) tablet
acetaminophen 650 mg 1,300 mg PO TID Pain 03/22/20 01/22/25 History
tablet,extended release (Tylenol
Arthritis)
furosemide 20 mg tablet 20 mg PO QMWF Fluid 03/22/20 01/22/25 History
retention/Swelling
pantoprazole 40 mg tablet,delayed 40 mg PO DAILY@1200 03/22/20 01/22/25 History
release Gastrointestinal issue
clopidogrel 75 mg tablet 75 mg PO DAILY #20 tabs 07/19/20 01/22/25 Rx
tamsulosin 0.4 mg capsule (Flomax) 0.4 mg PO BID #30 caps 09/23/23 01/22/25 Rx
ICaps AREDS2 1 cap PO BID Eye Condition 01/06/24 01/23/25 History
carvedilol phosphate 20 mg 20 mg PO DAILY Heart Failure 01/06/24 01/22/25 History
capsule,[id number] multiphase
(Coreg CR)
ferrous sulfate 325 mg (65 mg 325 mg PO DAILY Supplement 01/06/24 01/22/25 History
iron) tablet
valsartan 80 mg tablet (Diovan) 80 mg PO QPM Blood Pressure 01/06/24 01/22/25 History
amlodipine 2.5 mg tablet 2.5 mg PO DAILY #30 tabs 01/11/24 01/22/25 Rx
nicotine (polacrilex) 2 mg buccal 2 mg buccal Q4H PRN To quit smoking 01/22/25 01/22/25 History
lozenge (Nicorette)
simethicone 125 mg tablet 125 mg PO DAILY 01/22/25 01/22/25 History
Physical Exam
Vital Signs
Temp 98.1 F 01/28/25 11:20
Temp route: Oral 01/28/25 11:20
Pulse 71 01/28/25 12:00
Rhythm: Normal sinus rhythm 01/28/25 09:40
With- Sinus tachycardia 01/28/25 09:40
Resp Rate 16 01/28/25 11:20
Blood pressure 145/66 01/28/25 09:45
Blood pressure extremity used: Right upper arm 01/28/25 11:20
Position: Lying 01/28/25 11:20
MAP (cuff-Ilana Monitor) 91 01/28/25 09:45
Calculated MAP (manual cuff) 94 01/28/25 02:48
SaO2 95 01/28/25 11:20
Oxygen Mode of Delivery Room air 01/28/25 11:20
Pulse Ox at Rest 95 01/27/25 10:13
Can the patient verbally communicate their pain? Yes 01/28/25 09:40
Pain scale ratin 01/28/25 01:43
Actual Weight 115 lb 1.301 oz 01/27/25 04:36
Body Mass Index (BMI) 17.5 01/27/25 04:36
Supine- Blood Pressure 86/40 01/27/25 10:13
Supine- Pulse 64 01/27/25 10:13
Sitting- Blood Pressure 88/33 01/27/25 10:13
Sitting- Pulse 64 01/27/25 10:13
Heart rate after activity 66 01/27/25 10:13
Blood pressure after activity 95/43 01/27/25 10:13
Oxygen Saturation with Activity 95 01/27/25 10:13
Labs
01/28/25 11:36
01/28/25 01:13
APTT 26.8 Sec (23.4-35.0) 01/28/25 11:36
Troponin I 3.350 ng/ml H* D 01/28/25 11:36
Dse-O-Bimtejusolf Pept Cancelled 01/21/25 21:19
Diagnostic Studies
CORONARY ANGIOGRAPHY
Dominance: Codominant.
Left Main: Short, bifurcating vessel.
LAD: Normal size vessel giving rise to several small diagonals. A patent stent is present in the proximal vessel. There is a 60-70% lesion in the proximal/ostial margin of the vessel leading into the stented segment.
Ramus: Congenitally absent.
Circumflex: Large size, codominant vessel giving rise to 3 obtuse marginals before terminating as a partial LPDA. Patent stents are visible in the proximal circumflex spanning the origin of the tiny first obtuse marginal and the large second
obtuse marginal. There is an 80% in-stent restenosis lesion in the proximal margin of the stent and a 70% in-stent restenosis lesion in the distal margin of the stent. There is a patent stent in the distal circumflex with no evidence of in-stent
restenosis. There is a stable, 50% lesion in the distal circumflex in between the 2 stented segments, unchanged from prior angiogram. There is likely some ostial stenosis of the large second obtuse marginal, though this is not easily observed.
RCA: Medium sized, codominant vessel. The vessel is chronically totally occluded in its proximal margin but fills via epicardial collaterals from the apical LAD as well as collaterals from the distal circumflex and bridging collaterals
from the proximal RCA.
Moderately elevated filling pressures (LVEDP = 20 mmHg at 52.2 kg) with evidence of diastolic dysfunction (A wave to 32 mmHg)
Exam
General: No Apparent Distress
HEENT: Normocephalic and PERRLA
Neck: Negative JVD or Carotid Bruit
Respiratory: Clear; Negative Wheezes
Cardiac: Regular Rhythm; Negative Murmur
GI: Soft and Non Tender
Skin: Warm and Dry
Neuro: AO x 3
Extremities: Negative Lower Level Edema, Lower Level Cyanosis or Lower Level Clubbing
Assessment / Plan
-
79 year old male with multiple co-morbidities including known CAD with history of PCI, history of prostate cancer s/p radiation, recent weight loss, anemia, rectal bleeding, hyponatremia, COPD now presents with NSTEMI and multivessel CAD with
in-stent restenosis.
- Surgeon met with patient and daughter following catheterization. He is not a candidate for surgical revascularization, given his multiple co-morbidities and unknown source of bleeding
- Cardiology is aware and will discuss further options with the patient: PCI vs medical management
[2025-01-28] MEDS: NON-FORMULARY ITEM 2 MG BUCCAL ×2 (14:28→20:26)
--- NOTE | 2025-01-28 14:31 | PTCARENOTE ---
received pt back from catholic priest. IVF infusing per orders. Pt educated on restrictions and expected OOB time. Daughter at bedside. Call bolden within reach.
--- NOTE | 2025-01-28 16:58 | W.PN.UPDATE ---
Update Note
Progress Note Update
The patient underwent cardiac catheterization today with clarification of coronary anatomy. This demonstrated an 80% ISR lesion in the proximal margin of the proximal circumflex stent, followed by a 70% lesion in the distal margin of the proximal
circumflex stent as well as a 60-70% lesion in the ostial/proximal LAD leading into the proximal LAD stent. PCI was deferred in light of the patient's persistent anemia and bright red blood per rectum. The decision was made to terminate the
procedure and have a heart team discussion, involving GI as well as the patient and patient's family.
GI joined me at the bedside for a thoughtful and thorough discussion regarding the patient's current clinical scenario. We reviewed the various risks and benefits of invasive as well as noninvasive cardiovascular procedures, the impact that would
have on invasive endoscopic procedures as well as the risk of delaying therapy and treatment. Ultimately, we elected to proceed cautiously by increasing carvedilol, increasing isosorbide mononitrate and maintaining the patient on a heparin drip to
monitor for any recurrent GI bleeding. We will transfuse the patient with a goal hemoglobin of >10.
Ideally, we would like to manage the patient medically for the next few days with a view to inpatient colonoscopy given the difficulty the patient had with his bowel prep as well as his persistent blood loss at home. If the patient has persistent
bleeding, this will prompt colonoscopy sooner. If the patient has recurrent chest pain, this may prompt repeat revascularization and a brief course of dual antiplatelet therapy with transfusions as needed.
I broached the subject of palliative care/hospice should the patient decide that he no longer wishes to undergo invasive testing or procedures. The patient was appreciative of this perspective but is not yet ready to pursue end-of-life care.
Approximately 60 minutes was spent in consultation with gastroenterology as well as at the bedside with the patient reviewing therapeutic options.
[2025-01-28] MEDS: TYLENOL 1000 MG PO ×2 (17:12→23:31)
[2025-01-28] MEDS: IMDUR (EXTENDED RELEASE) 30 MG PO (17:12)
[2025-01-28] MEDS: DIOVAN 40 MG PO (17:13)
--- NOTE | 2025-01-28 17:24 | RESPNOTE ---
Respiratory: Herod Text from Dr. Edgar Bedside PFT not needed.
[2025-01-28 19:12] LABS: Troponin I 5.960 ng/ml
--- NOTE | 2025-01-28 19:16 | W.PN.GI.CBS2 ---
Today's Communication / Plan
-
PLAN:
Patient was supposed to have upper endoscopy and colonoscopy today for anemia, rectal bleeding but procedure canceled as patient had chest pain and elevated troponin, subsequent cardiac catheterization demonstrated 80% lesion in the proximal
circumflex , 60 to 70% lesion in the proximal LAD, PCI was held due to patient's anemia and rectal bleeding.
Dr. Espinoza and I had very long conversation with patient, patient's daughter and nephew. Discussed regarding different scenarios on how to approach his cardiac issues in the setting of anemia and GI bleeding.
At this time, given recent mild GA with chest pain and elevated troponin, cardiac catheterization findings -hold off on urgent endoscopy/colonoscopy.
Patient is going to be on IV heparin, medical management with beta-blockers, calcium channel blockers and nitroglycerin, will monitor hemoglobin and also any evidence of further bleeding.
If patient develops chest pain in the next couple of days, he will have coronary revascularization/DAPT, with plan of postponing the GI procedures for at least a month after.
If he does not have any chest pain and if the troponin trends down, we will plan for colonoscopy 02/02/2025. Patient and family understand that this is a high risk procedure and the goal is to rule out colonic lesion. He does have history of
radiation for his prostate cancer, bright blood could be related to radiation proctitis but he also reports dark maroon stool.
Okay for full liquid diet for now. Will follow
Assessment / Plan
-
Pt is a 78 y.o male with an extensive medical history including HTN, HLD, obstructive CAD (s/p prior stenting, on plavix), ischemic cardiomyopathy, PAD, carotid artery stenosis, hx of TIAs (on plavix), possible COPD, oropharyngeal dysphagia with
previous aspiration and prostate cancer (s/p XRT finished 2023 and on hormonal therapy) with recent evaluation in GI office with Dr. Sharp for rectal bleeding and wt loss. He was recommended CT and colonoscopy but was hesitant to proceed with both
due to concern for incontinence with CT contrast and concern for complication with colonoscopy. He was also noted with macrocytic anemia and recommended PCP follow up which he has also not completed. He admits to severe fatigue and depression and
and difficulty with completing work up as outpatient. He now presents with exertional chest pain with rise in troponin with BMP 2600 . Noted over several months for cardiology evaluation.
From GI standpoint he has hx dysphagia diagnosed on prior admission. He was recommended pureed diet last year by speech and never had follow up to advance diet. he admits to 25 lbs wt loss over last few months( about 4 kg since 2023 in
chart). He admits to GERD with belching, diffuse and left sided abdominal pain at time and constipation. He was using glycerine suppositories several times per week then stopped per his oncologist several months ago. He has tried miralax and
prune juice with too loose stools and then began with rectal bleeding. He will see red and dark red stool. Last �EGD (weight loss) 01/05/2016- Impression:�Normal esophagus, biopsied. Z-line regular at 40 cm from the incisors. Normal stomach,
biopsied. Normal examined duodenum, biopsied. Path: mild chronic gastritis with reactive gastropathy, (-) H pylori. Normal duodenal mucosa, esophageal biopsies with benign esophageal type squamous mucosa showing minimal non-specific chronic
inflammation without eosinophils
Colonoscopy (screening, good prep) 10/21/2014- Impression:�One 4 mm polyp in the rectum, removed (path w/ HPP). Mild diverticulosis in sigmoid colon. Normal examined ileum. The examination was otherwise normal. Repeat colonoscopy based on review of
path results.
-chest pain on admission with elevated trop and concern for ACS-> patient seen by cardiology nonischemic myocardial injury in the setting of anemia, history of angina
-painless rectal bleeding
-prostate CA with prior XRT and hormonal therapy
-change in bowel habits
-oropharyngeal dysphagia
-macrocytic anemia
-wt loss - unintentional
-Presyncope, patient evaluated and seen by cardiology, medications adjusted
other med problems:
HTN, HLD, obstructive CAD (s/p prior stenting, on plavix), ischemic cardiomyopathy, PAD, carotid artery stenosis, hx of TIAs (on plavix), possible COPD, depression
PLAN:
Patient was supposed to have upper endoscopy and colonoscopy today for anemia, rectal bleeding but procedure canceled as patient had chest pain and elevated troponin, subsequent cardiac catheterization demonstrated 80% lesion in the proximal
circumflex , 60 to 70% lesion in the proximal LAD, PCI was held due to patient's anemia and rectal bleeding.
Dr. Espinoza and I had very long conversation with patient, patient's daughter and nephew. Discussed regarding different scenarios on how to approach his cardiac issues in the setting of anemia and GI bleeding.
At this time, given recent mild GA with chest pain and elevated troponin, cardiac catheterization findings -hold off on urgent endoscopy/colonoscopy.
Patient is going to be on IV heparin, medical management with beta-blockers, calcium channel blockers and nitroglycerin, will monitor hemoglobin and also any evidence of further bleeding.
If patient develops chest pain in the next couple of days, he will have coronary revascularization/DAPT, with plan of postponing the GI procedures for at least a month after.
If he does not have any chest pain and if the troponin trends down, we will plan for colonoscopy 02/02/2025. Patient and family understand that this is a high risk procedure and the goal is to rule out colonic lesion. He does have history of
radiation for his prostate cancer, bright blood could be related to radiation proctitis but he also reports dark maroon stool.
Okay for full liquid diet for now. Will follow
Subjective
Subjective
Date of Service: January 28, 2025
Patient had chest pain overnight and underwent cardiac catheterization, had some mild left lower quadrant abdominal discomfort today
Objective
Data Reviewed
Laboratory Data:
Laboratory Results
01/28/25 20:00
01/28/25 01:13
Laboratory Results
APTT 26.8 Sec (23.4-35.0) 01/28/25 11:36
Phosphorus 3.2 mg/dl (2.5-4.5) 01/28/25 01:13
Magnesium 2.3 mg/dl (1.6-2.3) 01/28/25 01:13
Total Bilirubin 0.3 mg/dl (0.2-1.3) 01/27/25 04:14
AST 22 U/L (17-59) 01/27/25 04:14
ALT 18 U/L (0-50) 01/27/25 04:14
Alkaline Phosphatase 40 U/L (38-126) 01/27/25 04:14
Vital Signs and I&O:
Vital Signs
Temp Pulse Resp BP Pulse Ox
97.6 F 77 16 128/51 97
01/28/25 18:58 01/28/25 18:58 01/28/25 18:58 01/28/25 17:13 01/28/25 18:58
I&O
01/27/25 01/28/25 01/29/25
06:59 06:59 06:59
Intake Total 480 / 480 4500 / 4500
Output Total 1170 / 1170 500 / 500
Balance -690 / -690 4000 / 4000
Physical Exam
Physical Exam
GI: Soft, Non Distended and Non Tender
[2025-01-28] MEDS: COREG 12.5 MG PO (20:21)
[2025-01-28] MEDS: ATIVAN 0.5 MG PO (23:31)
[2025-01-29] VITALS (20 sets, daily range): BP systolic 106–159; BP diastolic 43–62; BMI 17.5
[2025-01-29] MEDS: PEPCID 20 MG IV ×2 (00:16→21:22)
--- NOTE | 2025-01-29 00:26 | PTCARENOTE ---
assumed care of patient at the change of shift. AAOx3. anxious. denies any cp/sob. SR on tele 60s-70s. bp stable. R groin site CDI. heparin gtt started per order, at approx 2030. consent for blood completed by Fela otto [employer] OPERATOR. x1 PRBCs
infused with no issues.
at approx 2345- patient rang for RN complaining of an upset stomach. 'i feel like im going to have diarrhea.' ambulated patient to the bathroom. once patient was done, the PCT assisted patient and returned to bed. per patient and PCT, patient had
liquid blood, 'red', diarrhea. patient complaining of upset stomach. updated Tsilina CV PA on bloody stool. heparin gtt stopped per PA at approx 0001. IV Pepcid ordered and given, see jun.
[2025-01-29] MEDS: NON-FORMULARY ITEM 2 MG BUCCAL ×4 (01:58→19:55)
[2025-01-29 04:08] LABS: Hematocrit 26.7 % (39.0-52.0); Hemoglobin 9.0 g/dL (13.0-18.0); Mean Corp Hgb Conc. 33.7 g/dL (33.0-37.0); Mean Corpuscular Volume 101.1 fL (80.0-94.0); Platelet Count 164 10^3/uL (130-400); Red Cell Dist. Width 15.9 % (11.5-14.5)
[2025-01-29 04:22] LABS: APTT 28.6 Sec (23.4-35.0)
[2025-01-29 04:29] LABS: Blood Urea Nitrogen 31 mg/dl (9-20); Calcium 8.4 mg/dl (8.4-10.2); Carbon Dioxide 25 mmol/L (22-30); Chloride 103 mmol/L (98-107); Estimated Creatinine Clearance 37 ml/min; Glucose 89 mg/dl (70-99); Potassium 4.5 mmol/L (3.5-5.1); Sodium 133 mmol/L (135-145); eGFR > 60.00
[2025-01-29 05:01] LABS: Troponin I 3.970 ng/ml
[2025-01-29] MEDS: SYNTHROID 88 MCG PO (06:24)
--- NOTE | 2025-01-29 07:36 | PTCARENOTE ---
Blood transfusion completed. VSS, assisted to the bathroom.
[2025-01-29] MEDS: IMDUR (EXTENDED RELEASE) 90 MG PO (07:38)
[2025-01-29] MEDS: FLOMAX 0.4 MG PO ×2 (07:38→19:54)
[2025-01-29] MEDS: FEOSOL 325 MG PO (07:38)
[2025-01-29] MEDS: MYLICON 120 MG PO (07:40)
--- NOTE | 2025-01-29 07:44 | W.PN.CD ---
Today's Communication / Plan
-
Transfuse 1 unit of PRBC.
Maintain current medical therapy.
Monitor for further blood loss/chest pain.
Impression / Plan
-
Impression/Plan: 79M with CAD (PCI to LAD 2017 and mid circ PCI 2018 with chronically occluded dominant RCA), hypertension, carotid artery disease, hx TIA, suspected COPD, dyslipidemia with intolerance to statin and PCSK9I, right iliac artery
stenosis, recovered ICM, and prostate cancer with hx radiation presented with exertional chest discomfort, chronic dysphagia with weight loss, and intermittent rectal bleeding.
Primary closing machine operator: Dr. Puente
#NSTEMI
-Acute on chronic.
-Troponin peaked at 5.960.
-Cardiac catheterization revealed moderately elevated filling pressures with diastolic dysfunction, an 80% ISR lesion in the proximal margin in the proximal LCx stent followed by a 70% lesion in the distal aspect of the proximal LCx stent, likely
the culprit. There is a 60-70% lesion in the ostial/proximal LAD leading into a pLAD stent.
-PCI is deferred in light of rectal bleeding.
-Thorough and thoughtful conversation with patient and GI yesterday regarding options, weight the risks/benefits of revascularization with bleeding/inability to biopsy on colonoscopy as well as medical management with a view towards high risk
colonoscopy to clarify bleeding source, biopsy/coagulate/dessicate if needed.
-Ultimately, the decision was made to medically manage with heparin gtt, increased beta diego, increased isosorbide mononitrate and transfusion.
-Carvedilol increased to 12.5 mg BID and isosorbide increased to 90 mg daily.
-Transfused one unit of PRBC's. Hbg up to 9. Goal is > 10. Plan to transfuse again today.
-If chest pain recurs on maximum medical therapy, PCI will then be indicated and we will use transfusions as needed to bridge through an obligatory period of DAPT.
#Rectal bleeding/anemia:
-Acute.
-Patient had persistent bleeding and anemia. Denies any with bowel prep.
-DDx includes radiation proctitis, GI malignancy, diverticulosis, hemorroids, AVM's, etc.
-Colonoscopy is indicated, but is obviously high risk due to proximity to cardiovascular event. Tentatively planned for 02/02/2025.
-If bleeding worsens, this may compel endoscopy sooner.
#Presyncope
-On 01/27, had an episode of bradycardia with associated hypotension symptomatic with lightheadedness/dizziness while working with PT.
-Likely in the setting of hypovolemia and uptitration of medical therapy.
-Valsartan reduced. Carvedilol increased to 12.5 mg BID for improved beta blockade for management of NSTEMI.
-Continue to monitor on telemetry.
#HFmrEF/Ischemic cardiomyopathy
-Acute on chronic.
-LVEF 45%.
-LVEDP = 20 mmHg with A wave to 32 mmHg, indicative of diastolic dysfunction.
-GDMT as tolerated:
-Diuretics:
-Beta diego: Carvedilol 12.5 mg twice daily.
-TRAVON/ARB/ARNI: Valsartan 40 mg, sacubitril�losartan co-pay is $0.
-SGLT2 inhibitor: Hold with hyponatremia, can consider if okay with Nephrology, in the future co-pay is $0.
-Aldosterone agonist: Can consider as an outpatient. Not started due to titration of other blood pressure medications.
-Isosorbide/Hydralazine:� Isosorbide mononitrate 90 mg daily.
-ICD: Not currently indicated.
-Trend daily weight, I/O.
-Heart failure education.
#Hyponatremia
-Managed by nephrology.
#Mixed hyperlipidemia
-Chronic, stable.
-Statin/PCSK9i intolerant.
-Total cholesterol = 126, LDL = 64, HDL = 48, Triglycerides = 73.
-Outpatient inclisiran referral.
#PAD
-Chronic, stable.
-Managed by vascular surgery.
-Clopidogrel on hold as above.
#Prior TIA
-Remote.
-Clopidogrel on hold as above.
Subjective/Interval History:
The patient underwent cardiac catheterization yesterday. This revealed an 80% proximal LCx stent ISR that is the likely culprit. PCI deferred in light of rectal bleeding/anemia.
Thorough and thoughtful conversation with patient and GI yesterday regarding options, weight the risks/benefits of revascularization with bleeding/inability to biopsy on colonoscopy as well as medical management with a view towards high risk
colonoscopy to clarify bleeding source, biopsy/coagulate/dessicate if needed.
Ultimately, the decision was made to medically manage with heparin gtt, increased beta diego, increased isosorbide mononitrate and transfusion.
Patient reports bloody BM yesterday afternoon.
DATA:
Transthoracic echocardiogram, 01/22/2025:
SUMMARY
1. Left ventricular ejection fraction is mildly reduced with an ejection fraction of 45 % by Travis's biplane method of discs. Global hypokinesis.
2. Right ventricular size and systolic function are within normal limits.
3. Stage I diastolic dysfunction suggestive of abnormal relaxation.
4. Mild to moderate aortic regurgitation.
5. Compared to the prior study on 03/15/2023, LVEF has decreased from 55 to 60% with apical hypokinesis to 45% with global hypokinesis.
Cardiac Catheterization, 01/28/2025:
CONCLUSIONS
1. Codominant circulation with a short, bifurcating left main with a 60-70% lesion in the proximal/ostial margin of the LAD leading into a previous LAD stent, and 80% culprit ISR lesion in the proximal margin of the proximal circumflex stent, a 70%
ISR lesion in the distal margin of the proximal circumflex stent and chronic total occlusion of the proximal RCA filled via collaterals from all 3 epicardial vessels.
2. Moderately elevated filling pressures (LVEDP = 20 mmHg at 52.2 kg) with evidence of diastolic dysfunction (A wave to 32 mmHg).
Physical Exam
Vital Signs/Labs
Vital Signs
Temp Pulse Resp BP Pulse Ox
36.8 C 62 15 147/59 98
01/29/25 07:30 01/29/25 07:30 01/29/25 07:30 01/29/25 07:30 01/29/25 07:28
01/27/25 01/28/25 01/29/25
11:59 11:59 11:59
Actual Weight 52.2 kg
01/29/25 03:55
01/29/25 03:55
APTT 28.6 Sec (23.4-35.0) 01/29/25 03:55
Magnesium 2.3 mg/dl (1.6-2.3) 01/28/25 01:13
Triglycerides 73 mg/dl (10-149) 01/27/25 04:14
LDL Cholesterol, Calc 64 mg/dl 01/27/25 04:14
VLDL Cholesterol, Calc 14 mg/dl (0-30) 01/27/25 04:14
HDL Cholesterol 48 mg/dl 01/27/25 04:14
01/21/25 01/21/25
17:35 21:19
Kko-O-Cjxzoykcrlg Pept 2600 Cancelled
LAB Results
01/28/25 01/28/25 01/28/25
01:13 07:41 11:36
Troponin I < 0.012 1.670 H* D 3.350 H* D
01/28/25 01/29/25
18:37 03:55
Troponin I 5.960 H* D 3.970 H*
Physical Exam
Constitutional: No acute distress and Comfortable
EENT: Anicteric and Moist mucous membranes
Cardiovascular: Rhythm & rate is regular, Pedal edema is absent, JVD pressure is normal, S1S2 is normal and Murmur/rub/gallop absent
Respiratory: Respiratory effort normal, Lungs clear to auscul., Wheeze Absent, Crackles Absent and Rhonchi Absent
GI: Soft, Distention absent, Flat, Non tender and Normal bowel sounds
Neuro/Psych: AO x 3
Other: Cath Site (Right common femoral access site is C/D/I.)
Data Reviewed
-
Date of Service: January 29, 2025
Medical Decision Making: Reviewed Test Results, Independent Historian Assessment and Test Interpretation
EKG: Tracing Personally Visualized and interpreted and Report Reviewed by me
Echo: Tracing Personally Visualized and interpreted and Report Reviewed by me
X-Ray/CT/US/MRI/NUC/PET: Image Personally Visualized and interpreted and Report Reviewed by me
Medical Tests (PFT, Pathology etc): Image Personally Visualized and interpreted and Report Reviewed by me
Labs: Labs Reviewed by me
Old Records: Reviewed
[2025-01-29] MEDS: COREG 12.5 MG PO ×2 (07:46→19:53)
[2025-01-29] MEDS: LOW STRENGTH ASPIRIN 81 MG PO (07:47)
[2025-01-29] MEDS: NON-FORMULARY ITEM 1 UNIT PO ×2 (07:48→19:55)
[2025-01-29] MEDS: NON-FORMULARY ITEM 1 DROP BOTH EYES ×2 (07:49→19:55)
[2025-01-29] MEDS: REFRESH EYE DROPS (PF) 1 DROPS OPHTH ×2 (07:50→19:54)
[2025-01-29] MEDS: MIRALAX PO (07:50)
--- NOTE | 2025-01-29 08:03 | W.PN.HOSP.TC ---
Today's Communication/Plan
-
hep gtt, monitor H&H
transfuse for goal Hgb >10
Diet as per GI
Assessment / Plan
Assessment / Plan
Physical Exam
General: Appears Chronically Ill and Cachectic
HEENT: Normocephalic and Atraumatic; Negative Oxygen
Respiratory: Clear to Auscultation; Negative Wheezes or Rhonchi
Cardiac: Regular Rhythm and S1/S2; Negative Murmur
GI: Soft, Nontender, Nondistended and Normal Bowel Sounds
Musculoskeletal: No Clubbing, No Cyanosis and No Edema
Neuro: AOx3 conversant coherent
Psych: Calm
pt is a 79 year old male, with past medical history of coronary artery disease, history of triple-vessel disease, s/p PCI in 2017 and 2018, currently on medical therapy. Prior history of TIA managed on Plavix, likely COPD, history of statin and
PCSK9 intolerance, history of prostate cancer, s/p radiation, peripheral arterial disease presented with chest pain
Exertional chest pain in setting of chronic stable angina/anemia (Has an extensive cardiac history including triple-vessel disease, multiple MIs)-apprec cards--medical management--coreg dose increased--Imdur added--plavix on hold and substituted for
asa for EGD/colonoscopy as below--Echocardiogram-left ventricular ejection fraction 45% with global hypokinesis, normal right ventricular size and function, stage I diastolic dysfunction, mild to moderate MR, left ventricular ejection fraction has
decreased as compared to echo of 03/08
01/28 New onset Chest Pain w/ EKG changes Troponin elevation
NSTEMI
Cath noted multivessel dz
Cardiac surgery eval appreciated not a candidate for surgical revascularization, given his multiple co-morbidities and unknown source of bleeding
Cardio eval appreciated Hep gtt started 01/28 transfuse for goal Hgb >10
GI eval appreciated
If patient develops chest pain in the next couple of days, he will have coronary revascularization/DAPT, with plan of postponing the GI procedures for at least a month after.
If he does not have any chest pain and if the troponin trends down, plan for colonoscopy 02/02/2025.
Exertional dyspnea COPD/ACS--Chest v-ctv-whimntthxovev lungs with emphysematous changes--Outpatient follow-up with pulmonology
Intermittent rectal bleeding/weight loss concerning for radiation proctitis versus underlying GI malignancy--CT scan unremarkable-- Plavix changed to asa pending EGD/colonoscopy-- GI eval appreciated tentatively planned for EGD colonoscopy 01/28
postponed d/t NSTEMI as above, diet as per GI
Hyponatremia--appreciate renal--worsening to 125 since improved with fluid restriction and Lasix. Lasix on hold as below
Essential hypertension
Symptomatic Orthostatic Hypotension
Amlodipine discontinued
Valsartan dose reduced
Coreg dose reduced
Lasix resumed as per Nephro
Renal artery bruit--renal artery Doppler with left renal artery stenosis of 60-99%, right 0-59%-- conservative mgmt as per nephro
Mild depression--Appears upset about his condition--Denies any suicidal/homicidal thoughts--lexapro/ativan as directed
Peripheral arterial disease-- Outpatient follow-up with vascular
Mild to moderate aortic regurgitation- Lasix on hold as above--ECHO with decreased EF to 45% and global hypokinesis
History of thyroid mass status post thyroidectomy- Continue levothyroxine
BPH with Prostate cancer status post radiation--Continue tamsulosin
History of odynophagia/dysphagia
pureed low residue diet w/ TID Ensure supplementation as per GI
History of precancerous cells in mouth in 2007
Reported Hx Hyperlipidemia-- lipid panel wnl, low bodyweight/cachexia, statin unnecessary at this time
History of spontaneous pneumothorax
GERD- Continue Protonix
DVT proph hep gtt
code status--Full code
I spent a total of 50 minutes with the patient or on the floor. More than 50% of this time involved counseling and coordination of care.
Anticipated Discharge: > 48 hours
Subjective/Interval History
-
Date of Service: January 29, 2025
No acute distress, sitting up comfortably in bed. Denies chest pain. Episode maroon stools overnight since resolved.
Objective Data
-
Labs:
Laboratory Results
01/29/25
03:55
WBC 6.8
Hgb 9.0 L
Hct 26.7 L
Plt Count 164
APTT 28.6
Sodium 133 L
Potassium 4.5
Chloride 103
Carbon Dioxide 25
BUN 31 H
Creatinine 1.2
Glucose 89
Calcium 8.4
Vital Signs:
Vital Signs
Temp Pulse Resp BP Pulse Ox
98.2 F 65 15 147/59 98
01/29/25 07:30 01/29/25 07:46 01/29/25 07:30 01/29/25 07:46 01/29/25 07:30
I&O
01/28/25 01/29/25 01/30/25
06:59 06:59 06:59
Intake Total 4500 / 4500 250 / 250 250 / 250
Output Total 500 / 500
Balance 4000 / 4000 250 / 250 250 / 250
--- NOTE | 2025-01-29 10:46 | W.PN.NEPH.PH ---
Today's Communication / Plan
-
resume lasix and follow labs
Assessment/Plan
-
IMPRESSION:
Stable angina
Exertional dysnea
Lower GI bleed
Hyponatremia
COPD
CAD
PAD
Macrocytic anemia
radiation proctitis
Essential hypertension
Abdominal bruit-left JEROMY
PLAN:
hyponatremia stable on lasix
s/p LHC 01/28 for NSTEMI noted Lcx and LAD stenosis
with concern of GIB, anemia- PCI held
follow Left JEROMY conservatively given symmetric sizes and normal Cr and stable BP
48 ounce fluid restriction
resume lasix
follow labs
-
-
Date of Service: January 29, 2025
CC / HPI / ROS
-
Chief Complaint:
hyponatremia
History of Present Illness:
Na stable at 133, cr stable at 1.2
BP stable,
hgb stable at 9
Review of Systems:
no CP/SOB currently
no fever
Labs
-
Labs:
WBC 6.8 10^3/uL (4.8-10.8) 01/29/25 03:55
RBC 2.64 10^6/uL (4.70-6.10) L 01/29/25 03:55
Plt Count 164 10^3/uL (130-400) 01/29/25 03:55
Sodium 133 mmol/L (135-145) L 01/29/25 03:55
Potassium 4.5 mmol/L (3.5-5.1) 01/29/25 03:55
Chloride 103 mmol/L (98-107) 01/29/25 03:55
Carbon Dioxide 25 mmol/L (22-30) 01/29/25 03:55
BUN 31 mg/dl (9-20) H 01/29/25 03:55
Creatinine 1.2 mg/dL (0.7-1.3) 01/29/25 03:55
eGFR > 60.00 01/29/25 03:55
Glucose 89 mg/dl (70-99) 01/29/25 03:55
Calcium 8.4 mg/dl (8.4-10.2) 01/29/25 03:55
Phosphorus 3.2 mg/dl (2.5-4.5) 01/28/25 01:13
Hxy-Q-Gwawyxrwdxg Pept Cancelled 01/21/25 21:19
Albumin 3.4 g/dl (3.5-5.0) L 01/27/25 04:14
Physical Exam
-
Vital Signs:
Vital Signs
Temp Pulse Resp BP Pulse Ox
98.2 F 65 15 147/59 98
01/29/25 07:30 01/29/25 07:46 01/29/25 07:30 01/29/25 07:46 01/29/25 07:30
Cardiovascular:: Regular rate and rhythm
Respiratory:: Bilateral: CTA
Lung Excursion:: Normal
Abdomen:: Nontender and Soft
Bowel Sounds:: Normal
Extremity Edema:: None: Bilateral:
Rock Catheter: No
[2025-01-29] MEDS: PROTONIX 40 MG PO (12:10)
[2025-01-29 12:39] LABS: APTT 27.0 Sec (23.4-35.0)
[2025-01-29] MEDS: HEPARIN 25000 UNITS/250 ML IV (13:06)
--- NOTE | 2025-01-29 13:41 | PTCARENOTE ---
Patient tolerating full liquids. No bowel movement today. 1 unit of blood infused. Heparin gtt restarted per Sr. Sheu
[2025-01-29] MEDS: TYLENOL 1000 MG PO ×2 (15:26→21:22)
--- NOTE | 2025-01-29 16:37 | W.PN.GI.CBS2 ---
Addendum entered and electronically signed by Whit Reynolds MD 01/29/25 20:08:
I saw and examined the patient.
The [employer] or PA's note was reviewed and I agree with the note.
Comment: Patient did not report any further chest pains at this time, on full liquid diet, reports gurgling in the abdomen without any pain. Had burgundy bowel movements overnight
Hemoglobin seems to be stable. Troponin trending down
Currently on heparin drip, continue to monitor H&H and transfuse if needed.
Okay to try low residue pur�ed diet
Plan well summarized below by Nisa Acosta NP.
'If patient develops chest pain in the next couple of days, he will have coronary revascularization/DAPT, with plan of postponing the GI procedures for at least a month after.
If he does not have any chest pain and if the troponin trends down, we will plan for colonoscopy 02/02/2025. Patient and family understand that this is a high risk procedure and the goal is to rule out colonic lesion.'
Will follow
Original Note:
Today's Communication / Plan
-
s/p event 01/28 as noted with chest pain with prep then cath completed
s/p CT as noted with wt loss
now on heparin gtt with medical management with some bleeding overnight less this afternoon
plavix remains on hold
ok to continue ASA
hbg stable total 3 units given during admission
If patient develops chest pain in the next couple of days, he will have coronary revascularization/DAPT, with plan of postponing the GI procedures for at least a month after.
If he does not have any chest pain and if the troponin trends down, we will plan for colonoscopy 02/02/2025. Patient and family understand that this is a high risk procedure and the goal is to rule out colonic lesion. He does have history of
radiation for his prostate cancer, bright blood could be related to radiation proctitis, IBD with family history but he also reports dark maroon stool.
remains on oral iron but will hold as still try to do colon next week
cont Protonix daily
cont miralax daily
will allow pureed/low residue diet with supplement TID
Pt was lost in follow up for speech therapy with pureed diet-- will consult for AM
family updated at bedside
also discussed goals of care and Dr. Espinoza also reviewed for palliative care option 01/28 if pt wishes to not proceed with aggressive care
Assessment / Plan
-
Pt is a 78 y.o male with an extensive medical history including HTN, HLD, obstructive CAD (s/p prior stenting, on plavix), ischemic cardiomyopathy, PAD, carotid artery stenosis, hx of TIAs (on plavix), possible COPD, oropharyngeal dysphagia with
previous aspiration and prostate cancer (s/p XRT finished 2023 and on hormonal therapy) with recent evaluation in GI office with Dr. Sharp for rectal bleeding and wt loss. He was recommended CT and colonoscopy but was hesitant to proceed with both
due to concern for incontinence with CT contrast and concern for complication with colonoscopy. He was also noted with macrocytic anemia and recommended PCP follow up which he has also not completed. He admits to severe fatigue and depression and
and difficulty with completing work up as outpatient. He now presents with exertional chest pain with rise in troponin with BMP 2600
From GI standpoint he has hx dysphagia diagnosed on prior admission. He was recommended pureed diet last year by speech and never had follow up to advance diet. he admits to 25 lbs wt loss over last few months( about 4 kg since 2023 in
chart). He admits to GERD with belching, diffuse and left sided abdominal pain at time and constipation. He was using glycerine suppositories several times per week then stopped per his oncologist several months ago. He has tried miralax and
prune juice with too loose stools and then began with rectal bleeding. He will see red and dark red stool. Last �EGD (weight loss) 01/05/2016- Impression:�Normal esophagus, biopsied. Z-line regular at 40 cm from the incisors. Normal stomach,
biopsied. Normal examined duodenum, biopsied. Path: mild chronic gastritis with reactive gastropathy, (-) H pylori. Normal duodenal mucosa, esophageal biopsies with benign esophageal type squamous mucosa showing minimal non-specific chronic
inflammation without eosinophils
Colonoscopy (screening, good prep) 10/21/2014- Impression:�One 4 mm polyp in the rectum, removed (path w/ HPP). Mild diverticulosis in sigmoid colon. Normal examined ileum. The examination was otherwise normal. Repeat colonoscopy based on review of
path results.
01/28 During admission pt noted with recurrence chest pain with prepping for colonoscopy and rise in trop s/p cath 01/28 as noted - PCI deferred with rectal bleeding s/p CT surg eval not candidate for revasculization
-chest pain on admission with elevated trop and concern for ACS-s/p cath 01/28
-painless rectal bleeding
-prostate CA with prior XRT and hormonal therapy
-change in bowel habits
-oropharyngeal dysphagia on pureed diet
-macrocytic anemia
-wt loss - unintentional
-Presyncope
-renal artery bruit
other med problems:
HTN, HLD, obstructive CAD (s/p prior stenting, on plavix), ischemic cardiomyopathy, PAD, carotid artery stenosis, hx of TIAs (on plavix), possible COPD, depression
PLAN:
s/p event 01/28 as noted with chest pain with prep then cath completed
s/p CT as noted with wt loss
now on heparin gtt with medical management with some bleeding overnight less this afternoon
plavix remains on hold
ok to continue ASA
hbg stable total 3 units given during admission
If patient develops chest pain in the next couple of days, he will have coronary revascularization/DAPT, with plan of postponing the GI procedures for at least a month after.
If he does not have any chest pain and if the troponin trends down, we will plan for colonoscopy 02/02/2025. Patient and family understand that this is a high risk procedure and the goal is to rule out colonic lesion. He does have history of
radiation for his prostate cancer, bright blood could be related to radiation proctitis, IBD with family history but he also reports dark maroon stool.
remains on oral iron but will hold as still try to do colon next week
cont Protonix daily
cont miralax daily
will allow pureed/low residue diet with supplement TID
Pt was lost in follow up for speech therapy with pureed diet-- will consult for AM
family updated at bedside
also discussed goals of care and Dr. Espinoza also reviewed for palliative care option 01/28 if pt wishes to not proceed with aggressive care
Subjective
Subjective
Date of Service: January 29, 2025
01/29 2 -burgundy stools overnight, on full liquid diet hbg 8-9 range-- total 3 units given during admission feeling a little better no further abdominal pain
Objective
Data Reviewed
Laboratory Data:
Laboratory Results
01/29/25 03:55
Laboratory Results
APTT 27.0 Sec (23.4-35.0) 01/29/25 12:18
Phosphorus 3.2 mg/dl (2.5-4.5) 01/28/25 01:13
Magnesium 2.3 mg/dl (1.6-2.3) 01/28/25 01:13
Total Bilirubin 0.3 mg/dl (0.2-1.3) 01/27/25 04:14
AST 22 U/L (17-59) 01/27/25 04:14
ALT 18 U/L (0-50) 01/27/25 04:14
Alkaline Phosphatase 40 U/L (38-126) 01/27/25 04:14
Vital Signs and I&O:
Vital Signs
Temp Pulse Resp BP Pulse Ox
97.8 F 65 24 139/61 95
01/29/25 15:08 01/29/25 13:05 01/29/25 15:08 01/29/25 13:05 01/29/25 15:08
I&O
01/28/25 01/29/25 01/30/25
06:59 06:59 06:59
Intake Total 4500 / 4500 250 / 250 1240 / 1240
Output Total 500 / 500
Balance 4000 / 4000 250 / 250 1240 / 1240
Physical Exam
Physical Exam
HEENT: Anicteric and Moist mucous membranes
Cardiology: Normal Sinus Rhythm
GI: Soft, Non Distended and Non Tender
Extremities: No Edema
Neuro: Non Focal
[2025-01-29] MEDS: DIOVAN 40 MG PO (18:11)
[2025-01-29 19:40] LABS: Hematocrit 34.6 % (39.0-52.0); Hemoglobin 11.8 g/dL (13.0-18.0)
[2025-01-29 19:44] LABS: APTT 46.1 Sec (23.4-35.0)
[2025-01-29] MEDS: ATIVAN 0.5 MG PO (21:23)
[2025-01-30] VITALS (9 sets, daily range): BP systolic 107–148; BP diastolic 48–57; PULSE 71–91; O2SAT 95; BMI 17.9
--- NOTE | 2025-01-30 01:05 | PTCARENOTE ---
Received pt @ change of shift. AAOx3, VSS-- NSR on monitor. Right femoral site clean, dry, and intact. No swelling, no ecchymosis, soft to touch. Denies chest pain @ this time. Discussed plan of care. Pt verbalizes understanding. Call bolden within
reach.
[2025-01-30 03:29] LABS: Hematocrit 33.5 % (39.0-52.0); Hemoglobin 11.5 g/dL (13.0-18.0); Mean Corp Hgb Conc. 34.3 g/dL (33.0-37.0); Mean Corpuscular Volume 93.6 fL (80.0-94.0); Platelet Count 148 10^3/uL (130-400); Red Cell Dist. Width 17.1 % (11.5-14.5)
[2025-01-30 03:42] LABS: APTT 75.3 Sec (23.4-35.0)
[2025-01-30 03:54] LABS: Blood Urea Nitrogen 27 mg/dl (9-20); Calcium 8.3 mg/dl (8.4-10.2); Carbon Dioxide 22 mmol/L (22-30); Chloride 103 mmol/L (98-107); Estimated Creatinine Clearance 41 ml/min; Glucose 89 mg/dl (70-99); Magnesium 2.5 mg/dl (1.6-2.3); Potassium 4.3 mmol/L (3.5-5.1); Sodium 131 mmol/L (135-145); eGFR > 60.00
[2025-01-30] MEDS: TYLENOL 1000 MG PO ×3 (06:21→22:07)
[2025-01-30] MEDS: REFRESH EYE DROPS (PF) 1 DROPS OPHTH ×2 (06:22→20:50)
[2025-01-30] MEDS: SYNTHROID 88 MCG PO (06:22)
--- NOTE | 2025-01-30 07:58 | W.PN.HOSP.TC ---
Today's Communication/Plan
-
cont hep gtt
monitor H&H w/ daily labs
tranfuse if Hgb<10
Diet as per GI
Assessment / Plan
Assessment / Plan
Physical Exam
General: Appears Chronically Ill and Cachectic
HEENT: Normocephalic and Atraumatic; Negative Oxygen
Respiratory: Clear to Auscultation; Negative Wheezes or Rhonchi
Cardiac: Regular Rhythm and S1/S2; Negative Murmur
GI: Soft, Nontender, Nondistended and Normal Bowel Sounds
Musculoskeletal: No Clubbing, No Cyanosis and No Edema
Neuro: AOx3 conversant coherent
Psych: Calm
pt is a 79 year old male, with past medical history of coronary artery disease, history of triple-vessel disease, s/p PCI in 2017 and 2018, currently on medical therapy. Prior history of TIA managed on Plavix, likely COPD, history of statin and
PCSK9 intolerance, history of prostate cancer, s/p radiation, peripheral arterial disease presented with chest pain
Exertional chest pain in setting of chronic stable angina/anemia (Has an extensive cardiac history including triple-vessel disease, multiple MIs)-apprec cards--medical management--coreg dose increased--Imdur added--plavix on hold and substituted for
asa for EGD/colonoscopy as below--Echocardiogram-left ventricular ejection fraction 45% with global hypokinesis, normal right ventricular size and function, stage I diastolic dysfunction, mild to moderate MR, left ventricular ejection fraction has
decreased as compared to echo of 03/08
01/28 New onset Chest Pain w/ EKG changes Troponin elevation
NSTEMI
Cath noted multivessel dz
Cardiac surgery eval appreciated not a candidate for surgical revascularization, given his multiple co-morbidities and unknown source of bleeding
Cardio eval appreciated Hep gtt started 01/28 transfuse for goal Hgb >10
GI eval appreciated
If patient develops chest pain in the next couple of days, he will have coronary revascularization/DAPT, with plan of postponing the GI procedures for at least a month after.
If he does not have any chest pain and if the troponin trends down, plan for colonoscopy 02/02/2025.
Exertional dyspnea COPD/ACS--Chest y-ajw-bijoiwdbikrxt lungs with emphysematous changes--Outpatient follow-up with pulmonology
Intermittent rectal bleeding/weight loss concerning for radiation proctitis versus underlying GI malignancy--CT scan unremarkable-- Plavix changed to asa pending EGD/colonoscopy-- GI eval appreciated tentatively planned for EGD colonoscopy 01/28
postponed d/t NSTEMI as above, diet as per GI
Hyponatremia--appreciate renal--worsening to 125 since improved with fluid restriction and Lasix. Lasix on hold as below
Essential hypertension
Symptomatic Orthostatic Hypotension
Amlodipine discontinued
Valsartan dose reduced
Coreg dose reduced
Lasix resumed as per Nephro
Renal artery bruit--renal artery Doppler with left renal artery stenosis of 60-99%, right 0-59%-- conservative mgmt as per nephro
Mild depression--Appears upset about his condition--Denies any suicidal/homicidal thoughts--lexapro/ativan as directed
Peripheral arterial disease-- Outpatient follow-up with vascular
Mild to moderate aortic regurgitation- Lasix on hold as above--ECHO with decreased EF to 45% and global hypokinesis
History of thyroid mass status post thyroidectomy- Continue levothyroxine
BPH with Prostate cancer status post radiation--Continue tamsulosin
History of odynophagia/dysphagia
pureed low residue diet w/ TID Ensure supplementation as per GI
History of precancerous cells in mouth in 2007
Reported Hx Hyperlipidemia-- lipid panel wnl, low bodyweight/cachexia, statin unnecessary at this time
History of spontaneous pneumothorax
GERD- Continue Protonix
DVT proph hep gtt
code status--Full code
I spent a total of 40 minutes with the patient or on the floor. More than 50% of this time involved counseling and coordination of care.
Anticipated Discharge: > 48 hours
Subjective/Interval History
-
Date of Service: January 30, 2025
No acute distress, sitting up comfortably in bed, denies chest pain.
Objective Data
-
Labs:
Laboratory Results
01/30/25 01/30/25 01/30/25
02:47 02:48 06:00
WBC 7.1 Pending
Hgb 11.5 L Pending
Hct 33.5 L Pending
Plt Count 148 Pending
APTT 75.3 H
Sodium 131 L Pending
Potassium 4.3 Pending
Chloride 103 Pending
Carbon Dioxide 22 Pending
BUN 27 H Pending
Creatinine 1.1 Pending
Glucose 89 Pending
Calcium 8.3 L Pending
01/30/25 01/30/25
08:45 18:00
WBC
Hgb Pending
Hct Pending
Plt Count
APTT Pending
Sodium
Potassium
Chloride
Carbon Dioxide
BUN
Creatinine
Glucose
Calcium
Vital Signs:
Vital Signs
Temp Pulse Resp BP Pulse Ox
98.2 F 62 18 148/52 95
01/30/25 02:42 01/30/25 04:00 01/30/25 02:42 01/30/25 02:42 01/30/25 02:42
I&O
01/29/25 01/30/25 01/31/25
06:59 06:59 06:59
Intake Total 250 / 250 1720 / 1720
Balance 250 / 250 1720 / 1720
--- NOTE | 2025-01-30 08:33 | W.PN.CD ---
Today's Communication / Plan
-
Maintain status quo.
Anticipate colonoscopy on 02/02/2025.
Impression / Plan
-
Impression/Plan: 79M with CAD (PCI to LAD 2017 and mid circ PCI 2018 with chronically occluded dominant RCA), hypertension, carotid artery disease, hx TIA, suspected COPD, dyslipidemia with intolerance to statin and PCSK9I, right iliac artery
stenosis, recovered ICM, and prostate cancer with hx radiation presented with exertional chest discomfort, chronic dysphagia with weight loss, and intermittent rectal bleeding.
Primary electrical engineer: Dr. Puente
#NSTEMI
-Acute on chronic.
-Troponin peaked at 5.960.
-Cardiac catheterization revealed moderately elevated filling pressures with diastolic dysfunction, an 80% ISR lesion in the proximal margin in the proximal LCx stent followed by a 70% lesion in the distal aspect of the proximal LCx stent, likely
the culprit. There is a 60-70% lesion in the ostial/proximal LAD leading into a pLAD stent.
-PCI is deferred in light of rectal bleeding.
-Thorough and thoughtful conversation with patient and GI yesterday regarding options, weight the risks/benefits of revascularization with bleeding/inability to biopsy on colonoscopy as well as medical management with a view towards high risk
colonoscopy to clarify bleeding source, biopsy/coagulate/dessicate if needed.
-Ultimately, the decision was made to medically manage with heparin gtt, increased beta diego, increased isosorbide mononitrate and transfusion.
-Carvedilol increased to 12.5 mg BID and isosorbide increased to 90 mg daily.
-If chest pain recurs on maximum medical therapy, PCI will then be indicated and we will use transfusions as needed to bridge through an obligatory period of DAPT.
-Hbg now 11.5.
#Rectal bleeding/anemia:
-Acute.
-Patient had persistent bleeding and anemia. Denies any with bowel prep.
-DDx includes radiation proctitis, GI malignancy, diverticulosis, hemorroids, AVM's, etc.
-Colonoscopy is indicated, but is obviously high risk due to proximity to cardiovascular event. Tentatively planned for 02/02/2025.
-If bleeding worsens, this may compel endoscopy sooner.
#Presyncope
-On 01/27, had an episode of bradycardia with associated hypotension symptomatic with lightheadedness/dizziness while working with PT.
-Likely in the setting of hypovolemia and uptitration of medical therapy.
-Valsartan reduced. Carvedilol increased to 12.5 mg BID for improved beta blockade for management of NSTEMI.
-Continue to monitor on telemetry.
#HFmrEF/Ischemic cardiomyopathy
-Acute on chronic.
-LVEF 45%.
-LVEDP = 20 mmHg with A wave to 32 mmHg, indicative of diastolic dysfunction.
-GDMT as tolerated:
-Diuretics: Furosemide restarted by nephrology.
-Beta diego: Carvedilol 12.5 mg twice daily.
-TRAVON/ARB/ARNI: Valsartan 40 mg, sacubitril�losartan co-pay is $0.
-SGLT2 inhibitor: Hold with hyponatremia, can consider if okay with Nephrology, in the future co-pay is $0.
-Aldosterone agonist: Can consider as an outpatient. Not started due to titration of other blood pressure medications.
-Isosorbide/Hydralazine:� Isosorbide mononitrate 90 mg daily.
-ICD: Not currently indicated.
-Trend daily weight, I/O.
-Heart failure education.
#Hyponatremia
-Managed by nephrology.
#Mixed hyperlipidemia
-Chronic, stable.
-Statin/PCSK9i intolerant.
-Total cholesterol = 126, LDL = 64, HDL = 48, Triglycerides = 73.
-Outpatient inclisiran referral.
#PAD
-Chronic, stable.
-Managed by vascular surgery.
-Clopidogrel on hold as above.
#Prior TIA
-Remote.
-Clopidogrel on hold as above.
Subjective/Interval History:
Transfused an additional unit of PRBC's yesterday. Hbg up to 11.5.
No chest pain.
DATA:
Transthoracic echocardiogram, 01/22/2025:
SUMMARY
1. Left ventricular ejection fraction is mildly reduced with an ejection fraction of 45 % by Travis's biplane method of discs. Global hypokinesis.
2. Right ventricular size and systolic function are within normal limits.
3. Stage I diastolic dysfunction suggestive of abnormal relaxation.
4. Mild to moderate aortic regurgitation.
5. Compared to the prior study on 03/15/2023, LVEF has decreased from 55 to 60% with apical hypokinesis to 45% with global hypokinesis.
Cardiac Catheterization, 01/28/2025:
CONCLUSIONS
1. Codominant circulation with a short, bifurcating left main with a 60-70% lesion in the proximal/ostial margin of the LAD leading into a previous LAD stent, and 80% culprit ISR lesion in the proximal margin of the proximal circumflex stent, a 70%
ISR lesion in the distal margin of the proximal circumflex stent and chronic total occlusion of the proximal RCA filled via collaterals from all 3 epicardial vessels.
2. Moderately elevated filling pressures (LVEDP = 20 mmHg at 52.2 kg) with evidence of diastolic dysfunction (A wave to 32 mmHg).
Physical Exam
Vital Signs/Labs
Vital Signs
Temp Pulse Resp BP Pulse Ox
36.8 C 62 18 148/52 95
01/30/25 02:42 01/30/25 04:00 01/30/25 02:42 01/30/25 02:42 01/30/25 02:42
01/28/25 01/29/25 01/30/25
11:59 11:59 11:59
Actual Weight 52.3 kg
APTT 75.3 Sec (23.4-35.0) H 01/30/25 02:48
Magnesium 2.5 mg/dl (1.6-2.3) H 01/30/25 02:48
Triglycerides 73 mg/dl (10-149) 01/27/25 04:14
LDL Cholesterol, Calc 64 mg/dl 01/27/25 04:14
VLDL Cholesterol, Calc 14 mg/dl (0-30) 01/27/25 04:14
HDL Cholesterol 48 mg/dl 01/27/25 04:14
01/21/25 01/21/25
17:35 21:19
Jyr-B-Lhkoioynmfm Pept 2600 Cancelled
LAB Results
01/28/25 01/28/25 01/28/25
01:13 07:41 11:36
Troponin I < 0.012 1.670 H* D 3.350 H* D
01/28/25 01/29/25
18:37 03:55
Troponin I 5.960 H* D 3.970 H*
Physical Exam
Constitutional: No acute distress and Comfortable
EENT: Anicteric and Moist mucous membranes
Cardiovascular: Rhythm & rate is regular, Pedal edema is absent, JVD pressure is normal, S1S2 is normal and Murmur/rub/gallop absent
Respiratory: Respiratory effort normal, Lungs clear to auscul., Wheeze Absent, Crackles Absent and Rhonchi Absent
GI: Soft, Distention absent, Flat, Non tender and Normal bowel sounds
Neuro/Psych: AO x 3
Other: Cath Site (Right femoral access site is C/D/I.)
Data Reviewed
-
Date of Service: January 30, 2025
Medical Decision Making: Reviewed Test Results, Independent Historian Assessment and Test Interpretation
EKG: Tracing Personally Visualized and interpreted and Report Reviewed by me
Echo: Tracing Personally Visualized and interpreted and Report Reviewed by me
X-Ray/CT/US/MRI/NUC/PET: Image Personally Visualized and interpreted and Report Reviewed by me
Medical Tests (PFT, Pathology etc): Image Personally Visualized and interpreted and Report Reviewed by me
Labs: Labs Reviewed by me
Old Records: Reviewed
--- NOTE | 2025-01-30 08:49 | W.PN.GI.CBS2 ---
Addendum entered and electronically signed by Tammy Vidal, 01/30/25 09:37:
The patient was seen and examined by me independently in collaboration with the nurse practitioner.
Past medical history/social history/medications/allergies/family history reviewed.
Lab data and imaging data reviewed.
No chest pain overnight. Black stool reported on 01/29, previously red/maroon colored stool. Current plan is to proceed with colonoscopy on Sunday, as long as patient is not having signs of unstable angina. He knows that he needs to alert us
immediately if he is experiencing recurrence of chest pain. He has also been experiencing chronic dysphagia for the last year, has been on a modified pureed diet, no workup for this.
A/P:
Speech evaluation today
plavix on hold, last dose 01/23, currently on heparin gtt
c/w protonix
troponin downtrending, cardiology following, if recurrence of chest pain, will plan for LHC, not a candidate for CABG per CT surgery
Complex medical situation, but plan is to prep slowly over the weekend and proceed with colonoscopy on Sunday, to rule out colonic lesion, if evidence of radiation proctitis, which is high on the DDx, will plan to treat at that time. If he remains
hemodynamically stable throughout colonoscopy, will then plan to perform EGD while he is still sedated for evaluation of his dysphagia.
Discussed above plan at length with patient this morning who is in agreement
Original Note:
Today's Communication / Plan
-
with concern for NV during admission plan for EGD/colon 02/02 if patient remains chest pain free and slow prep over weekend
no chest pain overnight, last stool 01/29 black
now on heparin gtt with medical management with some bleeding overnight less this afternoon
plavix remains on hold last dose 01/23
ok to continue ASA
hbg stable total 3 units given during admission
If patient develops chest pain in the next couple of days, he will have coronary revascularization/DAPT, with plan of postponing the GI procedures for at least a month after.
troponin with down trend If he does not have any chest pain we will plan for EGD with dysphagia and colonoscopy 02/02/2025.
Patient and family understand that this is a high risk procedure and the goal is to rule out colonic lesion. He does have history of radiation for his prostate cancer, bright blood could be related to radiation proctitis, IBD with family history
but he also reports dark maroon stool.
cont to hold iron with plan for prep
cont Protonix daily
cont miralax daily will increased dosing tomorrow if no chest pain overnight
cont pureed/low residue diet with supplement TID
for speech eval with chronic dysphagia
goal of care discussed 01/28 and family updated 01/28 and 01/29
Assessment / Plan
-
Pt is a 78 y.o male with an extensive medical history including HTN, HLD, obstructive CAD (s/p prior stenting, on plavix), ischemic cardiomyopathy, PAD, carotid artery stenosis, hx of TIAs (on plavix), possible COPD, oropharyngeal dysphagia with
previous aspiration and prostate cancer (s/p XRT finished 2023 and on hormonal therapy) with recent evaluation in GI office with Dr. Sharp for rectal bleeding and wt loss. He was recommended CT and colonoscopy but was hesitant to proceed with both
due to concern for incontinence with CT contrast and concern for complication with colonoscopy. He was also noted with macrocytic anemia and recommended PCP follow up which he has also not completed. He admits to severe fatigue and depression and
and difficulty with completing work up as outpatient. He now presents with exertional chest pain with rise in troponin with BMP 2600
From GI standpoint he has hx dysphagia diagnosed on prior admission. He was recommended pureed diet last year by speech and never had follow up to advance diet. he admits to 25 lbs wt loss over last few months( about 4 kg since 2023 in
chart). He admits to GERD with belching, diffuse and left sided abdominal pain at time and constipation. He was using glycerine suppositories several times per week then stopped per his oncologist several months ago. He has tried miralax and
prune juice with too loose stools and then began with rectal bleeding. He will see red and dark red stool. [facility] admission noted complete CT noted negative and plan for EGD/colon but concern for chest pain and increased troponin with cath completed
01/28-
�EGD (weight loss) 01/05/2016- Impression:�Normal esophagus, biopsied. Z-line regular at 40 cm from the incisors. Normal stomach, biopsied. Normal examined duodenum, biopsied. Path: mild chronic gastritis with reactive gastropathy, (-) H pylori.
Normal duodenal mucosa, esophageal biopsies with benign esophageal type squamous mucosa showing minimal non-specific chronic inflammation without eosinophils
Colonoscopy (screening, good prep) 10/21/2014- Impression:�One 4 mm polyp in the rectum, removed (path w/ HPP). Mild diverticulosis in sigmoid colon. Normal examined ileum. The examination was otherwise normal. Repeat colonoscopy based on review of
path results.
01/28 During admission pt noted with recurrence chest pain with prepping for colonoscopy and rise in trop s/p cath 01/28 as noted - PCI deferred with rectal bleeding s/p CT surg eval not candidate for revasculization
01/22/25- Ct Chest/abd/pelvis 1. No significant abnormality identified in the chest, abdomen or pelvis to explain the patient's weight loss, as described above.
-chest pain on admission with elevated trop and concern for ACS-s/p cath 01/28
-painless rectal bleeding
-prostate CA with prior XRT and hormonal therapy
-change in bowel habits
-oropharyngeal dysphagia on pureed diet
-macrocytic anemia
-wt loss - unintentional
-Presyncope
-renal artery bruit
other med problems:
HTN, HLD, obstructive CAD (s/p prior stenting, on plavix), ischemic cardiomyopathy, PAD, carotid artery stenosis, hx of TIAs (on plavix), possible COPD, depression
PLAN:
with concern for NV during admission plan for EGD/colon 02/02 if patient remains chest pain free and slow prep over weekend
no chest pain overnight, last stool 01/29 black
now on heparin gtt with medical management with some bleeding overnight less this afternoon
plavix remains on hold last dose 01/23
ok to continue ASA
hbg stable total 3 units given during admission
If patient develops chest pain in the next couple of days, he will have coronary revascularization/DAPT, with plan of postponing the GI procedures for at least a month after.
troponin with down trend If he does not have any chest pain we will plan for EGD with dysphagia and colonoscopy 02/02/2025.
Patient and family understand that this is a high risk procedure and the goal is to rule out colonic lesion. He does have history of radiation for his prostate cancer, bright blood could be related to radiation proctitis, IBD with family history
but he also reports dark maroon stool.
cont to hold iron with plan for prep
cont Protonix daily
cont miralax daily will increased dosing tomorrow if no chest pain overnight
cont pureed/low residue diet with supplement TID
for speech eval with chronic dysphagia
goal of care discussed 01/28 and family updated 01/28 and 01/29
Subjective
Subjective
Date of Service: January 30, 2025
01/29 black tarry stool, on low residue/pureed diet
Objective
Data Reviewed
Laboratory Data:
Laboratory Results
APTT 75.3 Sec (23.4-35.0) H 01/30/25 02:48
Phosphorus 3.7 mg/dl (2.5-4.5) 01/30/25 02:48
Magnesium 2.5 mg/dl (1.6-2.3) H 01/30/25 02:48
Total Bilirubin 0.3 mg/dl (0.2-1.3) 01/27/25 04:14
AST 22 U/L (17-59) 01/27/25 04:14
ALT 18 U/L (0-50) 01/27/25 04:14
Alkaline Phosphatase 40 U/L (38-126) 01/27/25 04:14
Vital Signs and I&O:
Vital Signs
Temp Pulse Resp BP Pulse Ox
98.2 F 61 16 148/52 96
01/30/25 08:43 01/30/25 08:43 01/30/25 08:43 01/30/25 02:42 01/30/25 08:43
I&O
01/29/25 01/30/25 01/31/25
06:59 06:59 06:59
Intake Total 250 / 250 1720 / 1720
Balance 250 / 250 1720 / 1720
Physical Exam
Physical Exam
HEENT: Anicteric, Moist mucous membranes and Other (pale appearing )
Cardiology: Normal Sinus Rhythm
Pulmonary: Clear
GI: Soft, Non Distended and Non Tender
Extremities: No Edema
Neuro: Non Focal
[2025-01-30] MEDS: IMDUR (EXTENDED RELEASE) 90 MG PO (09:07)
[2025-01-30] MEDS: LASIX 20 MG PO (09:07)
[2025-01-30] MEDS: LOW STRENGTH ASPIRIN 81 MG PO (09:08)
[2025-01-30] MEDS: MYLICON 120 MG PO (09:08)
[2025-01-30] MEDS: FLOMAX 0.4 MG PO ×2 (09:08→20:49)
[2025-01-30] MEDS: PROTONIX 40 MG PO (09:08)
[2025-01-30] MEDS: COREG 12.5 MG PO ×2 (09:08→20:49)
[2025-01-30] MEDS: NON-FORMULARY ITEM 1 DROP BOTH EYES ×2 (09:09→21:00)
[2025-01-30] MEDS: MIRALAX PO ×2 (09:09→09:12)
[2025-01-30] MEDS: NON-FORMULARY ITEM 1 UNIT PO ×2 (09:10→20:50)
[2025-01-30 09:23] LABS: Hematocrit 36.4 % (39.0-52.0); Hemoglobin 12.1 g/dL (13.0-18.0); Mean Corp Hgb Conc. 33.2 g/dL (33.0-37.0); Mean Corpuscular Volume 94.3 fL (80.0-94.0); Platelet Count 143 10^3/uL (130-400); Red Cell Dist. Width 17.0 % (11.5-14.5)
[2025-01-30 09:25] LABS: APTT 98.3 Sec (23.4-35.0)
[2025-01-30] MEDS: MIRALAX 17 GRAMS PO (09:44)
[2025-01-30 10:26] LABS: Blood Urea Nitrogen 25 mg/dl (9-20); Calcium 8.6 mg/dl (8.4-10.2); Carbon Dioxide 23 mmol/L (22-30); Chloride 104 mmol/L (98-107); Estimated Creatinine Clearance 41 ml/min; Glucose 99 mg/dl (70-99); Magnesium 2.6 mg/dl (1.6-2.3); Potassium 4.4 mmol/L (3.5-5.1); Sodium 131 mmol/L (135-145); eGFR > 60.00
[2025-01-30] MEDS: NON-FORMULARY ITEM 2 MG BUCCAL ×3 (11:06→20:51)
--- NOTE | 2025-01-30 11:45 | PTOTSP ---
Speech Language Pathology
Pt seen for clinical bedside swallow evaluation. Known to [employer] at with previous VSE completed 01/09/24 with severe pharyngeal dysphagia. Pt chose to accept risks of aspiration and eat/drink. IDDSI Level 5/thin liquids was initiated. Previous
VSE completed at [place] per pt report in 2019 with recommendations for alternating solids and liquids and utilizing chin tuck. Since last VSE, pt stated he has been consuming pureed solids/thin liquids at home. He does not feel he has been
getting adequate nutrition. Family purees same foods for him for lunch/dinner each day. Reviewed results/recommendations from VSE and high aspiration risk. Pt denied any PNA hx, and CXR on admission showed clear lungs. Discussed recommendation
for outpatient therapy. He stated he contacted [facility], but they said he would need to attend 4x/week. He stated he was unable to commit to this, so he has not had any outpatient dysphagia tx.
This date, P.O. trials of puree and thin liquids provided. Adequate oral phase noted with limited consistencies trialed. Pt frequently taking consecutive sips of liquids. Discussed increased risk with consecutive sips vs single sips. No overt
coughing. However, pt not sensate to pharyngeal residue or aspiration on imaging last year, so aspiration highly likely this date.
Long discussion with pt regarding [employer] plan moving forward. Pt not admitted for dysphagia or PNA. Offered repeat VSE at this time with initiation of dysphagia tx vs considering as outpatient once acute issues more under control. Pt opting for
second option and not addressing at this time. Daughter arrived at end of evaluation and discussed above with her. Also discussed Mom's Meals and premade pureed foods to add more variety to pt's diet.
Pt to continue baseline diet of IDDSI Level 4 (Puree) and Thin liquids, accepting risks of aspiration. Consider outpatient VSE and dysphagia tx. Please reconsult as indicated.
--- NOTE | 2025-01-30 12:08 | W.PN.NEPH.PH ---
Today's Communication / Plan
-
Continue Lasix
Assessment/Plan
-
IMPRESSION:
Stable angina
Exertional dysnea
Lower GI bleed
Hyponatremia
COPD
CAD
PAD
Macrocytic anemia
radiation proctitis
Essential hypertension
Abdominal bruit-left JEROMY
PLAN:
hyponatremia stable on lasix
s/p LHC 01/28 for NSTEMI noted Lcx and LAD stenosis
with concern of GIB, anemia- PCI held /colonoscopy Sunday if remains stable
follow Left JEROMY conservatively given symmetric sizes and normal Cr and stable BP
48 ounce fluid restriction
Continue Lasix
follow labs
-
-
Date of Service: January 30, 2025
CC / HPI / ROS
-
Chief Complaint:
hyponatremia
History of Present Illness:
Na stable at 133, cr stable at 1.2
BP stable,
hgb stable at 9
Review of Systems:
no CP/SOB currently
no fever
Labs
-
Labs:
WBC 8.1 10^3/uL (4.8-10.8) 01/30/25 08:54
RBC 3.86 10^6/uL (4.70-6.10) L 01/30/25 08:54
Hgb Cancelled 01/30/25 18:00
Hct Cancelled 01/30/25 18:00
Plt Count 143 10^3/uL (130-400) 01/30/25 08:54
Sodium 131 mmol/L (135-145) L 01/30/25 08:54
Potassium 4.4 mmol/L (3.5-5.1) 01/30/25 08:54
Chloride 104 mmol/L (98-107) 01/30/25 08:54
Carbon Dioxide 23 mmol/L (22-30) 01/30/25 08:54
BUN 25 mg/dl (9-20) H 01/30/25 08:54
Creatinine 1.1 mg/dL (0.7-1.3) 01/30/25 08:54
eGFR > 60.00 01/30/25 08:54
Glucose 99 mg/dl (70-99) 01/30/25 08:54
Calcium 8.6 mg/dl (8.4-10.2) 01/30/25 08:54
Phosphorus 3.5 mg/dl (2.5-4.5) 01/30/25 08:54
Jwc-B-Nueiphnozht Pept Cancelled 01/21/25 21:19
Albumin 3.4 g/dl (3.5-5.0) L 01/27/25 04:14
Physical Exam
-
Vital Signs:
Vital Signs
Temp Pulse Resp BP Pulse Ox
97.7 F 65 16 143/57 94
01/30/25 11:45 01/30/25 11:45 01/30/25 11:45 01/30/25 09:08 01/30/25 11:45
Cardiovascular:: Regular rate and rhythm
Respiratory:: Bilateral: CTA
Lung Excursion:: Normal
Abdomen:: Nontender and Soft
Bowel Sounds:: Normal
Extremity Edema:: None: Bilateral:
Rock Catheter: No
[2025-01-30] MEDS: ATIVAN 0.5 MG PO ×2 (14:57→20:49)
--- NOTE | 2025-01-30 16:59 | PTCARENOTE ---
Assumed care of the pt @ 0700. Pt is AAOx3 SR on the monitor denies cp Heparin gtt infusing @ 850 units/Hr. VSS . Pt had x1 tarry stool this am. Pt concerned about rt eye feeling irritated md aware. Pt given home eye drops. Call bolden within reach.
[2025-01-30] MEDS: DIOVAN 40 MG PO (17:16)
[2025-01-30] MEDS: PEPCID 20 MG IV (22:08)
[2025-01-30] MEDS: HEPARIN 25000 UNITS/250 ML IV (22:08)
[2025-01-31] VITALS (7 sets, daily range): BP systolic 103–148; BP diastolic 50–65; BMI 18.0
[2025-01-31 03:05] LABS: Hematocrit 33.8 % (39.0-52.0); Hemoglobin 11.4 g/dL (13.0-18.0); Mean Corp Hgb Conc. 33.7 g/dL (33.0-37.0); Mean Corpuscular Volume 94.7 fL (80.0-94.0); Platelet Count 154 10^3/uL (130-400); Red Cell Dist. Width 16.4 % (11.5-14.5)
[2025-01-31 03:13] LABS: APTT 125.3 Sec (23.4-35.0)
[2025-01-31 04:01] LABS: Blood Urea Nitrogen 33 mg/dl (9-20); Calcium 8.5 mg/dl (8.4-10.2); Carbon Dioxide 22 mmol/L (22-30); Chloride 105 mmol/L (98-107); Estimated Creatinine Clearance 39 ml/min; Glucose 92 mg/dl (70-99); Magnesium 2.4 mg/dl (1.6-2.3); Potassium 4.6 mmol/L (3.5-5.1); Sodium 130 mmol/L (135-145); eGFR > 60.00
--- NOTE | 2025-01-31 05:21 | PTCARENOTE ---
Pt NSR on monitor. VSS Pt c/o neck/back pain, Tylenol PRN given. Heparin gtt per order. Pt ambulates with x 1 assist. Call bolden with in reach
--- NOTE | 2025-01-31 07:46 | W.PN.HOSP.TC ---
Today's Communication/Plan
-
cont asa hep gtt
monitor H&H, transfuse if Hgb<10
diet bowel prep as per GI
start Polytrim eye drop for possible rt eye conjunctivitis
Assessment / Plan
Assessment / Plan
Physical Exam
General: Appears Chronically Ill and Cachectic
HEENT: Normocephalic and Atraumatic; Negative Oxygen
Respiratory: Clear to Auscultation; Negative Wheezes or Rhonchi
Cardiac: Regular Rhythm and S1/S2; Negative Murmur
GI: Soft, Nontender, Nondistended and Normal Bowel Sounds
Musculoskeletal: No Clubbing, No Cyanosis and No Edema
Neuro: AOx3 conversant coherent
Psych: Calm
pt is a 79 year old male, with past medical history of coronary artery disease, history of triple-vessel disease, s/p PCI in 2017 and 2018, currently on medical therapy. Prior history of TIA managed on Plavix, likely COPD, history of statin and
PCSK9 intolerance, history of prostate cancer, s/p radiation, peripheral arterial disease presented with chest pain
Exertional chest pain in setting of chronic stable angina/anemia
Has an extensive cardiac history including triple-vessel disease, multiple MIs
apprec cards--medical management--coreg dose increased--Imdur added
plavix on hold and substituted w/ asa for EGD/colonoscopy as below
Echocardiogram-left ventricular ejection fraction 45% with global hypokinesis, normal right ventricular size and function, stage I diastolic dysfunction, mild to moderate MR, left ventricular ejection fraction has decreased as compared to echo of
03/08
01/28 New onset Chest Pain w/ EKG changes Troponin elevation
NSTEMI
Cath noted multivessel dz
Cardiac surgery eval appreciated not a candidate for surgical revascularization, given his multiple co-morbidities and unknown source of bleeding
Cardio eval appreciated Hep gtt started 01/28 transfuse for goal Hgb >10
GI eval appreciated
If patient develops repeat chest pain, he will have coronary revascularization/DAPT, with plan of postponing the GI procedures for at least a month after.
Troponin trended down, no new episode chest pain, tentatively planned for colonoscopy 02/02/2025 possible EGD will be done as well depending on how colonoscopy goes.
Exertional dyspnea COPD/ACS
Chest [id number] lungs with emphysematous changes
Outpatient follow-up with pulmonology
Intermittent rectal bleeding/weight loss concerning for radiation proctitis versus underlying GI malignancy
CT scan unremarkable
Plavix changed to asa pending EGD/colonoscopy
GI eval appreciated tentatively planned for EGD colonoscopy 01/28 Wed postponed d/t NSTEMI as above, no planned for 02/02/25
Hyponatremia
appreciate renal
Na 125 since improved with fluid restriction and Lasix. Lasix on hold as below
Essential hypertension
Symptomatic Orthostatic Hypotension
Amlodipine discontinued
Valsartan dose reduced
Coreg dose reduced
Lasix resumed as per Nephro
Renal artery bruit
renal artery Doppler with left renal artery stenosis of 60-99%, right 0-59%
conservative mgmt as per nephro
Anxiety
Ativan prn
Peripheral arterial disease
Outpatient follow-up with vascular
Mild to moderate aortic regurgitation
ECHO with decreased EF to 45% and global hypokinesis
History of thyroid mass status post thyroidectomy
Continue levothyroxine
BPH with Prostate cancer status post radiation
Continue tamsulosin
History of odynophagia/dysphagia
pureed low residue diet w/ TID Ensure supplementation as per GI, clear liquid diet for Sunday, then NPO after midnight for scope Mon as above
Reported Hx Hyperlipidemia
lipid panel wnl
low bodyweight/cachexia
statin unnecessary at this time
Right Eye pain/irritation
hx Dry eyes
-Polytrim Eye drop started for possible conjunctivitis 01/31
-cont artificial tears prn
-cont home Xiidra patient's own med
GERD- Continue Protonix
DVT proph hep gtt
code status--Full code
I spent a total of 40 minutes with the patient or on the floor. More than 50% of this time involved counseling and coordination of care.
Anticipated Discharge: > 48 hours
Subjective/Interval History
-
Date of Service: January 31, 2025
No acute distress, sitting up comfortably in bed. Denies chest pain. Reports diarrhea non-bloody (expected with laxative use prepping for Colonoscopy Sunday). Also reports right eye pain/irritation.
Objective Data
-
Labs:
Laboratory Results
01/31/25 01/31/25
02:50 10:00
WBC 7.8
Hgb 11.4 L
Hct 33.8 L
Plt Count 154
APTT 125.3 H Pending
Sodium 130 L
Potassium 4.6
Chloride 105
Carbon Dioxide 22
BUN 33 H
Creatinine 1.2
Glucose 92
Calcium 8.5
Vital Signs:
Vital Signs
Temp Pulse Resp BP Pulse Ox
97.7 F 58 17 142/54 94
01/31/25 02:47 01/31/25 06:00 01/31/25 02:47 01/31/25 02:44 01/31/25 02:47
I&O
01/30/25 01/31/25 02/01/25
06:59 06:59 06:59
Intake Total 1720 / 1720 97 / 97
Balance 1720 / 1720 97 / 97
[2025-01-31] MEDS: LASIX 20 MG PO (08:09)
[2025-01-31] MEDS: COREG 12.5 MG PO ×2 (08:09→20:40)
[2025-01-31] MEDS: IMDUR (EXTENDED RELEASE) 90 MG PO (08:10)
[2025-01-31] MEDS: PROTONIX 40 MG PO (08:10)
[2025-01-31] MEDS: SYNTHROID 88 MCG PO (08:10)
[2025-01-31] MEDS: MYLICON 120 MG PO (08:10)
[2025-01-31] MEDS: FLOMAX 0.4 MG PO ×2 (08:10→20:40)
[2025-01-31] MEDS: LOW STRENGTH ASPIRIN 81 MG PO (08:11)
[2025-01-31] MEDS: MIRALAX 17 GRAMS PO ×2 (08:11→15:59)
[2025-01-31] MEDS: NON-FORMULARY ITEM 1 DROP BOTH EYES (08:11)
[2025-01-31] MEDS: NON-FORMULARY ITEM 1 UNIT PO ×2 (08:12→20:42)
[2025-01-31] MEDS: TYLENOL 1000 MG PO ×2 (08:32→22:21)
--- NOTE | 2025-01-31 09:09 | W.PN.GI.CBS2 ---
Today's Communication / Plan
-
No bleeding or Chest pain overnight. Plan for colonoscopy +/- EGD on sunday. Slow prep over the weekend.
Assessment / Plan
-
Pt is a 78 y.o male with an extensive medical history including HTN, HLD, obstructive CAD (s/p prior stenting, on plavix), ischemic cardiomyopathy, PAD, carotid artery stenosis, hx of TIAs (on plavix), possible COPD, oropharyngeal dysphagia with
previous aspiration and prostate cancer (s/p XRT finished 2023 and on hormonal therapy) with recent evaluation in GI office with Dr. Sharp for rectal bleeding and wt loss. He was recommended CT and colonoscopy but was hesitant to proceed with both
due to concern for incontinence with CT contrast and concern for complication with colonoscopy. He was also noted with macrocytic anemia and recommended PCP follow up which he has also not completed. He admits to severe fatigue and depression and
and difficulty with completing work up as outpatient. He now presents with exertional chest pain with rise in troponin with BMP 2600
From GI standpoint he has hx dysphagia diagnosed on prior admission. He was recommended pureed diet last year by speech and never had follow up to advance diet. he admits to 25 lbs wt loss over last few months( about 4 kg since 2023 in
chart). He admits to GERD with belching, diffuse and left sided abdominal pain at time and constipation. He was using glycerine suppositories several times per week then stopped per his oncologist several months ago. He has tried miralax and
prune juice with too loose stools and then began with rectal bleeding. He will see red and dark red stool. [facility] [place] admission noted complete CT noted negative and plan for EGD/colon but concern for chest pain and increased troponin with cath completed
01/28-
�EGD (weight loss) 01/05/2016- Impression:�Normal esophagus, biopsied. Z-line regular at 40 cm from the incisors. Normal stomach, biopsied. Normal examined duodenum, biopsied. Path: mild chronic gastritis with reactive gastropathy, (-) H pylori.
Normal duodenal mucosa, esophageal biopsies with benign esophageal type squamous mucosa showing minimal non-specific chronic inflammation without eosinophils
Colonoscopy (screening, good prep) 10/21/2014- Impression:�One 4 mm polyp in the rectum, removed (path w/ HPP). Mild diverticulosis in sigmoid colon. Normal examined ileum. The examination was otherwise normal. Repeat colonoscopy based on review of
path results.
01/28 During admission pt noted with recurrence chest pain with prepping for colonoscopy and rise in trop s/p cath 01/28 as noted - PCI deferred with rectal bleeding s/p CT surg eval not candidate for revasculization
01/22/25- Ct Chest/abd/pelvis 1. No significant abnormality identified in the chest, abdomen or pelvis to explain the patient's weight loss, as described above.
-chest pain on admission with elevated trop and concern for ACS-s/p cath 01/28
-painless rectal bleeding
-prostate CA with prior XRT and hormonal therapy
-change in bowel habits
-oropharyngeal dysphagia on pureed diet
-macrocytic anemia
-wt loss - unintentional
-Presyncope
-renal artery bruit
other med problems:
A/P: Anemia, recurrent rectal bleeding
-Hgb stable, last melenic stool 01/29; transfused with 3 units of PRBC during admission
-continue heparin gtt
-continue ASA
-Speech evaluation 01/30-- prior workup with VSE on 01/09/24 with severe pharyngeal dysphagia. Prior eval at [facility] in 2019 with recommendations for alternating solids and liquids and utilizing chin tuck. Recommendations from CVICU RN were made--
offered speech therapy and repeat VSE. Patient declined, accepting aspiration risk and does not want to address right now due to more acute issues, desires to remain on modified pureed diet now
-plavix on hold, last dose 01/23, currently on heparin gtt
-c/w protonix
-troponin downtrending, cardiology following, if recurrence of chest pain, will plan for LHC, not a candidate for CABG per CT surgery
-Complex medical situation, but plan is to prep slowly over the weekend and proceed with colonoscopy on Sunday, to rule out colonic lesion, if evidence of radiation proctitis, which is high on the DDx, will plan to treat at that time. If he remains
hemodynamically stable throughout colonoscopy, will then plan to perform EGD while he is still sedated for evaluation of his dysphagia.
Discussed above plan at length with patient this morning who is in agreement. GOC discussed 01/28 and family updated 01/28 and 01/29.
Subjective
Subjective
Date of Service: January 31, 2025
Patient seen in follow-up. He offers no complaints this morning. Hemoglobin stable. No bleeding or chest pain overnight.
Objective
Data Reviewed
Laboratory Data:
Laboratory Results
01/31/25 02:50
01/31/25 02:50
Laboratory Results
APTT 125.3 Sec (23.4-35.0) H 01/31/25 02:50
Phosphorus 3.9 mg/dl (2.5-4.5) 01/31/25 02:50
Magnesium 2.4 mg/dl (1.6-2.3) H 01/31/25 02:50
Total Bilirubin 0.3 mg/dl (0.2-1.3) 01/27/25 04:14
AST 22 U/L (17-59) 01/27/25 04:14
ALT 18 U/L (0-50) 01/27/25 04:14
Alkaline Phosphatase 40 U/L (38-126) 01/27/25 04:14
Vital Signs and I&O:
Vital Signs
Temp Pulse Resp BP Pulse Ox
97.6 F 60 16 145/65 94
01/31/25 07:25 01/31/25 08:00 01/31/25 07:25 01/31/25 07:23 01/31/25 07:25
I&O
01/30/25 01/31/25 02/01/25
06:59 06:59 06:59
Intake Total 1720 / 1720 97 / 97
Balance 1720 / 1720 97 / 97
Physical Exam
Physical Exam
HEENT: Anicteric, Moist mucous membranes and Other (pale appearing )
Cardiology: Normal Sinus Rhythm
Pulmonary: Clear
GI: Soft, Non Distended and Non Tender
Extremities: No Edema
Neuro: Non Focal
--- NOTE | 2025-01-31 10:09 | W.PN.CD ---
Today's Communication / Plan
-
ASA 81mg, heparin drip
colonoscopy on Sunday
Impression / Plan
-
Impression/Plan: 79M with CAD (PCI to LAD 2017 and mid circ PCI 2018 with chronically occluded dominant RCA), hypertension, carotid artery disease, hx TIA, suspected COPD, dyslipidemia with intolerance to statin and PCSK9I, right iliac artery
stenosis, recovered ICM, and prostate cancer with hx radiation presented with exertional chest discomfort, chronic dysphagia with weight loss, and intermittent rectal bleeding.
Primary skidway man: Dr. Puente
#NSTEMI
-Acute on chronic. Threat to life.
-Troponin peaked at 5.960.
-Cardiac catheterization revealed moderately elevated filling pressures with diastolic dysfunction, an 80% ISR lesion in the proximal margin in the proximal LCx stent followed by a 70% lesion in the distal aspect of the proximal LCx stent, likely
the culprit. There is a 60-70% lesion in the ostial/proximal LAD leading into a pLAD stent.
-PCI is deferred in light of rectal bleeding.
-Thorough and thoughtful conversation with patient and GI yesterday regarding options, weight the risks/benefits of revascularization with bleeding/inability to biopsy on colonoscopy as well as medical management with a view towards high risk
colonoscopy to clarify bleeding source, biopsy/coagulate/dessicate if needed.
-Ultimately, the decision was made to medically manage with heparin gtt, ASA 81mg, increased beta diego, increased isosorbide mononitrate and transfusion.
-Carvedilol increased to 12.5 mg BID and isosorbide increased to 90 mg daily.
-monitor Hgb while on heparin gtt
-If chest pain recurs on maximum medical therapy, PCI will then be indicated and we will use transfusions as needed to bridge through an obligatory period of DAPT.
-Hbg now 11.5.
#Rectal bleeding/anemia:
-Acute.
-Patient had persistent bleeding and anemia. Denies any with bowel prep.
-DDx includes radiation proctitis, GI malignancy, diverticulosis, hemorroids, AVM's, etc.
-Colonoscopy is indicated, but is obviously high risk due to proximity to cardiovascular event. Tentatively planned for 02/02/2025.
-If bleeding worsens, this may compel endoscopy sooner.
#Presyncope
-On 01/27, had an episode of bradycardia with associated hypotension symptomatic with lightheadedness/dizziness while working with PT.
-Likely in the setting of hypovolemia and uptitration of medical therapy.
-Valsartan reduced. Carvedilol increased to 12.5 mg BID for improved beta blockade for management of NSTEMI.
-Continue to monitor on telemetry.
#HFmrEF/Ischemic cardiomyopathy
-Acute on chronic.
-LVEF 45%.
-LVEDP = 20 mmHg with A wave to 32 mmHg, indicative of diastolic dysfunction.
-GDMT as tolerated:
-Diuretics: Furosemide restarted by nephrology.
-Beta diego: Carvedilol 12.5 mg twice daily.
-TRAVON/ARB/ARNI: Valsartan 40 mg, sacubitril�losartan co-pay is $0.
-SGLT2 inhibitor: Hold with hyponatremia, can consider if okay with Nephrology, in the future co-pay is $0.
-Aldosterone agonist: Can consider as an outpatient. Not started due to titration of other blood pressure medications.
-Isosorbide/Hydralazine:� Isosorbide mononitrate 90 mg daily.
-ICD: Not currently indicated.
-Trend daily weight, I/O.
-Heart failure education.
#Hyponatremia
-Managed by nephrology.
#Mixed hyperlipidemia
-Chronic, stable.
-Statin/PCSK9i intolerant.
-Total cholesterol = 126, LDL = 64, HDL = 48, Triglycerides = 73.
-Outpatient inclisiran referral.
#PAD
-Chronic, stable.
-Managed by vascular surgery.
-Clopidogrel on hold as above.
#Prior TIA
-Remote.
-Clopidogrel on hold as above.
DATA:
Transthoracic echocardiogram, 01/22/2025:
SUMMARY
1. Left ventricular ejection fraction is mildly reduced with an ejection fraction of 45 % by Travis's biplane method of discs. Global hypokinesis.
2. Right ventricular size and systolic function are within normal limits.
3. Stage I diastolic dysfunction suggestive of abnormal relaxation.
4. Mild to moderate aortic regurgitation.
5. Compared to the prior study on 03/15/2023, LVEF has decreased from 55 to 60% with apical hypokinesis to 45% with global hypokinesis.
Cardiac Catheterization, 01/28/2025:
CONCLUSIONS
1. Codominant circulation with a short, bifurcating left main with a 60-70% lesion in the proximal/ostial margin of the LAD leading into a previous LAD stent, and 80% culprit ISR lesion in the proximal margin of the proximal circumflex stent, a 70%
ISR lesion in the distal margin of the proximal circumflex stent and chronic total occlusion of the proximal RCA filled via collaterals from all 3 epicardial vessels.
2. Moderately elevated filling pressures (LVEDP = 20 mmHg at 52.2 kg) with evidence of diastolic dysfunction (A wave to 32 mmHg).
Physical Exam
Vital Signs/Labs
Vital Signs
Temp Pulse Resp BP Pulse Ox
97.6 F 60 16 145/65 94
01/31/25 07:25 01/31/25 08:00 01/31/25 07:25 01/31/25 07:23 01/31/25 07:25
01/30/25 01/31/25 02/01/25
06:59 06:59 06:59
Actual Weight 53.7 kg
01/31/25 02:50
01/31/25 02:50
APTT 125.3 Sec (23.4-35.0) H 01/31/25 02:50
Magnesium 2.4 mg/dl (1.6-2.3) H 01/31/25 02:50
Triglycerides 73 mg/dl (10-149) 01/27/25 04:14
LDL Cholesterol, Calc 64 mg/dl 01/27/25 04:14
VLDL Cholesterol, Calc 14 mg/dl (0-30) 01/27/25 04:14
HDL Cholesterol 48 mg/dl 01/27/25 04:14
01/21/25 01/21/25
17:35 21:19
Wci-Q-Awtyifjpsvy Pept 2600 Cancelled
LAB Results
01/28/25 01/28/25 01/29/25
11:36 18:37 03:55
Troponin I 3.350 H* D 5.960 H* D 3.970 H*
Physical Exam
Constitutional: No acute distress and Comfortable
EENT: Moist mucous membranes
Cardiovascular: Rhythm & rate is regular, Pedal edema is absent, JVD pressure is normal and Systolic murmur absent
Respiratory: Respiratory effort normal and Lungs clear to auscul.
Neuro/Psych: AO x 3
Data Reviewed
-
Date of Service: January 31, 2025
EKG: Other (Tele: NSR, PAC's)
Labs: Labs Reviewed by me
[2025-01-31 10:17] LABS: APTT 107.1 Sec (23.4-35.0)
--- NOTE | 2025-01-31 11:04 | W.PN.NEPH.PH ---
Today's Communication / Plan
-
Signed off
Continue fluid restriction and Lasix
Assessment/Plan
-
IMPRESSION:
Stable angina
Exertional dysnea
Lower GI bleed
Hyponatremia
COPD
CAD
PAD
Macrocytic anemia
radiation proctitis
Essential hypertension
Abdominal bruit-left JEROMY
PLAN:
hyponatremia stable on lasix
s/p LHC 01/28 for NSTEMI noted Lcx and LAD stenosis
with concern of GIB, anemia- PCI held /colonoscopy Sunday if remains stable
follow Left JEROMY conservatively given symmetric sizes and normal Cr and stable BP
48 ounce fluid restriction
Continue Lasix
Will sign off please call if needed
follow labs
-
-
Date of Service: January 31, 2025
CC / HPI / ROS
-
Chief Complaint:
hyponatremia
History of Present Illness:
Na stable at 133, cr stable at 1.2
BP stable,
hgb stable at 9
Review of Systems:
no CP/SOB currently
no fever
Labs
-
Labs:
WBC 7.8 10^3/uL (4.8-10.8) 01/31/25 02:50
RBC 3.57 10^6/uL (4.70-6.10) L 01/31/25 02:50
Hgb 11.4 g/dL (13.0-18.0) L 01/31/25 02:50
Hct 33.8 % (39.0-52.0) L 01/31/25 02:50
Plt Count 154 10^3/uL (130-400) 01/31/25 02:50
Sodium 130 mmol/L (135-145) L 01/31/25 02:50
Potassium 4.6 mmol/L (3.5-5.1) 01/31/25 02:50
Chloride 105 mmol/L (98-107) 01/31/25 02:50
Carbon Dioxide 22 mmol/L (22-30) 01/31/25 02:50
BUN 33 mg/dl (9-20) H 01/31/25 02:50
Creatinine 1.2 mg/dL (0.7-1.3) 01/31/25 02:50
eGFR > 60.00 01/31/25 02:50
Glucose 92 mg/dl (70-99) 01/31/25 02:50
Calcium 8.5 mg/dl (8.4-10.2) 01/31/25 02:50
Phosphorus 3.9 mg/dl (2.5-4.5) 01/31/25 02:50
Hri-K-Kejcxzsrizp Pept Cancelled 01/21/25 21:19
Albumin 3.4 g/dl (3.5-5.0) L 01/27/25 04:14
Physical Exam
-
Vital Signs:
Vital Signs
Temp Pulse Resp BP Pulse Ox
97.7 F 60 20 145/65 95
01/31/25 10:51 01/31/25 08:00 01/31/25 10:51 01/31/25 07:23 01/31/25 10:51
Cardiovascular:: Regular rate and rhythm
Respiratory:: Bilateral: CTA
Lung Excursion:: Normal
Abdomen:: Nontender and Soft
Bowel Sounds:: Normal
Extremity Edema:: None: Bilateral:
Rock Catheter: No
[2025-01-31] MEDS: NON-FORMULARY ITEM 2 MG BUCCAL ×3 (11:47→20:45)
[2025-01-31] MEDS: ATIVAN 0.5 MG PO ×2 (11:49→20:53)
[2025-01-31] MEDS: POLYTRIM OPHTHALMIC SOLUTION 1 DROP RIGHT EYE ×3 (13:25→22:21)
--- NOTE | 2025-01-31 14:47 | PTCARENOTE ---
Assumed care of the pt @0700. Pt is AAOx3 SR/SB on the monitor denies cp Heparin gtt infusing @ 950 units/HR. POC discussed with pt. Pt c/o right eye irritation eye drops ordered. Pt ambulated to bathroom and back without difficulty. Call bolden
within reach.
[2025-01-31 16:58] LABS: APTT 96.1 Sec (23.4-35.0)
[2025-01-31] MEDS: DIOVAN 40 MG PO (17:06)
[2025-01-31] MEDS: NON-FORMULARY ITEM BOTH EYES (20:43)
[2025-01-31] MEDS: REFRESH EYE DROPS (PF) 1 DROPS OPHTH (21:08)
[2025-01-31] MEDS: PEPCID 20 MG IV (22:21)
[2025-02-01] VITALS (9 sets, daily range): BP systolic 103–171; BP diastolic 41–64; BMI 17.6
--- NOTE | 2025-02-01 00:51 | PTCARENOTE ---
Received pt at change of shift resting in bed. SR on tele, HR 60's-70's. Downloaded VS from , 1700 on. pt denies any CP or SOB at this time. Right groin site C/D/I. No bleeding or hematoma noted at this time. pt c/o neck and back pain, PRN
Tylenol administered per pt request--see JUN. Informed pt of diet change to clear liquids in AM, pt verbalizes understanding. Encouraged pt to call RN with any questions/concerns. Call bolden within reach.
[2025-02-01 04:15] LABS: Hematocrit 34.1 % (39.0-52.0); Hemoglobin 11.6 g/dL (13.0-18.0); Mean Corp Hgb Conc. 34.0 g/dL (33.0-37.0); Mean Corpuscular Volume 96.6 fL (80.0-94.0); Platelet Count 148 10^3/uL (130-400); Red Cell Dist. Width 15.9 % (11.5-14.5)
[2025-02-01 04:24] LABS: Blood Urea Nitrogen 31 mg/dl (9-20); Calcium 8.6 mg/dl (8.4-10.2); Carbon Dioxide 24 mmol/L (22-30); Chloride 104 mmol/L (98-107); Estimated Creatinine Clearance 39 ml/min; Glucose 84 mg/dl (70-99); Magnesium 2.4 mg/dl (1.6-2.3); Potassium 4.1 mmol/L (3.5-5.1); Sodium 131 mmol/L (135-145); eGFR > 60.00
[2025-02-01 04:27] LABS: APTT 116.7 Sec (23.4-35.0)
[2025-02-01] MEDS: SYNTHROID 88 MCG PO (05:23)
[2025-02-01] MEDS: HEPARIN 25000 UNITS/250 ML IV (05:41)
[2025-02-01] MEDS: TYLENOL 1000 MG PO ×3 (05:45→21:43)
--- NOTE | 2025-02-01 07:07 | W.PN.HOSP.TC ---
Today's Communication/Plan
-
bowel prep/diet as per GI
NPO after midnight for colonoscopy +/- EGD
cont hep gtt ASA
monitor H&H
transfuse prn Hgb<10
Assessment / Plan
Assessment / Plan
Physical Exam
General: Appears Chronically Ill and Cachectic
HEENT: Normocephalic and Atraumatic; Negative Oxygen
Respiratory: Clear to Auscultation; Negative Wheezes or Rhonchi
Cardiac: Regular Rhythm and S1/S2; Negative Murmur
GI: Soft, Nontender, Nondistended and Normal Bowel Sounds
Musculoskeletal: No Clubbing, No Cyanosis and No Edema
Neuro: AOx3 conversant coherent
Psych: Calm
pt is a 79 year old male, with past medical history of coronary artery disease, history of triple-vessel disease, s/p PCI in 2017 and 2018, currently on medical therapy. Prior history of TIA managed on Plavix, likely COPD, history of statin and
PCSK9 intolerance, history of prostate cancer, s/p radiation, peripheral arterial disease presented with chest pain
Exertional chest pain in setting of chronic stable angina/anemia
Has an extensive cardiac history including triple-vessel disease, multiple MIs
apprec cards--medical management--coreg dose increased--Imdur added
plavix on hold and substituted w/ asa for EGD/colonoscopy as below
Echocardiogram-left ventricular ejection fraction 45% with global hypokinesis, normal right ventricular size and function, stage I diastolic dysfunction, mild to moderate MR, left ventricular ejection fraction has decreased as compared to echo of
03/08
01/28 New onset Chest Pain w/ EKG changes Troponin elevation
NSTEMI
Cath noted multivessel dz
Cardiac surgery eval appreciated not a candidate for surgical revascularization, given his multiple co-morbidities and unknown source of bleeding
Cardio eval appreciated Hep gtt started 01/28 transfuse for goal Hgb >10
GI eval appreciated
If patient develops repeat chest pain, he will have coronary revascularization/DAPT, with plan of postponing the GI procedures for at least a month after.
Troponin trended down, no new episode chest pain, tentatively planned for colonoscopy 02/02/2025 possible EGD will be done as well depending on how colonoscopy goes.
Exertional dyspnea COPD/ACS
Chest x-qrs-fzyhtwcmmtlqk lungs with emphysematous changes
Outpatient follow-up with pulmonology
Intermittent rectal bleeding/weight loss concerning for radiation proctitis versus underlying GI malignancy
CT scan unremarkable
Plavix changed to asa pending EGD/colonoscopy
GI eval appreciated tentatively planned for EGD colonoscopy 01/28 Wed postponed d/t NSTEMI as above, no planned for 02/02/25
Hyponatremia
appreciate renal
Na 125 since improved with fluid restriction and Lasix. Lasix on hold as below
Essential hypertension
Symptomatic Orthostatic Hypotension
Amlodipine discontinued
Valsartan dose reduced
Coreg dose reduced
Lasix resumed as per Nephro
Renal artery bruit
renal artery Doppler with left renal artery stenosis of 60-99%, right 0-59%
conservative mgmt as per nephro
Anxiety
Ativan prn
Peripheral arterial disease
Outpatient follow-up with vascular
Mild to moderate aortic regurgitation
ECHO with decreased EF to 45% and global hypokinesis
History of thyroid mass status post thyroidectomy
Continue levothyroxine
BPH with Prostate cancer status post radiation
Continue tamsulosin
History of odynophagia/dysphagia
pureed low residue diet w/ TID Ensure supplementation as per GI, clear liquid diet for Sunday, then NPO after midnight for scope Mon as above
Reported Hx Hyperlipidemia
lipid panel wnl
low bodyweight/cachexia
statin unnecessary at this time
Right Eye pain/irritation
hx Dry eyes
-Polytrim Eye drop started for possible conjunctivitis, planned for 7 days tx 01/31-02/06
-cont artificial tears prn
-cont home Xiidra patient's own med
GERD- Continue Protonix
DVT proph hep gtt
code status--Full code
I spent a total of 39 minutes with the patient or on the floor. More than 50% of this time involved counseling and coordination of care.
Anticipated Discharge: 24 - 48 hours
Subjective/Interval History
-
Date of Service: February 01, 2025
No acute distress, appears comfortable at this time, sitting up in bed. Notes some improvement right eye discomfort following start Polytrim eye drop.
Objective Data
-
Labs:
Laboratory Results
02/01/25 02/01/25
03:55 10:35
WBC 6.9
Hgb 11.6 L
Hct 34.1 L
Plt Count 148
APTT 116.7 H Pending
Sodium 131 L
Potassium 4.1
Chloride 104
Carbon Dioxide 24
BUN 31 H
Creatinine 1.2
Glucose 84
Calcium 8.6
Vital Signs:
Vital Signs
Temp Pulse Resp BP Pulse Ox
97.3 F 62 16 138/56 94
02/01/25 03:47 02/01/25 06:00 02/01/25 03:47 02/01/25 03:47 02/01/25 03:47
I&O
01/31/25 02/01/25 02/02/25
06:59 06:59 06:59
Intake Total 97 / 97 360 / 360
Balance 97 / 97 360 / 360
[2025-02-01] MEDS: MIRALAX PO (08:43)
[2025-02-01] MEDS: COREG 12.5 MG PO ×2 (08:44→21:03)
[2025-02-01] MEDS: IMDUR (EXTENDED RELEASE) 90 MG PO (08:44)
[2025-02-01] MEDS: MYLICON 120 MG PO (08:44)
[2025-02-01] MEDS: LASIX 20 MG PO (08:44)
[2025-02-01] MEDS: LOW STRENGTH ASPIRIN 81 MG PO (08:45)
[2025-02-01] MEDS: PROTONIX 40 MG PO (08:45)
[2025-02-01] MEDS: FLOMAX 0.4 MG PO ×2 (08:45→21:05)
[2025-02-01] MEDS: NON-FORMULARY ITEM 1 UNIT PO ×2 (08:45→21:06)
[2025-02-01] MEDS: POLYTRIM OPHTHALMIC SOLUTION 1 DROP RIGHT EYE ×4 (08:46→21:52)
--- NOTE | 2025-02-01 08:47 | W.PN.CD ---
Today's Communication / Plan
-
colonoscopy tomorrow
ASA, heparin drip
Impression / Plan
-
Impression/Plan: 79M with CAD (PCI to LAD 2017 and mid circ PCI 2018 with chronically occluded dominant RCA), hypertension, carotid artery disease, hx TIA, suspected COPD, dyslipidemia with intolerance to statin and PCSK9I, right iliac artery
stenosis, recovered ICM, and prostate cancer with hx radiation presented with exertional chest discomfort, chronic dysphagia with weight loss, and intermittent rectal bleeding.
Primary pad machine operator: Dr. Puente
#NSTEMI
-Acute on chronic. Threat to life.
-Troponin peaked at 5.960.
-Cardiac catheterization revealed moderately elevated filling pressures with diastolic dysfunction, an 80% ISR lesion in the proximal margin in the proximal LCx stent followed by a 70% lesion in the distal aspect of the proximal LCx stent, likely
the culprit. There is a 60-70% lesion in the ostial/proximal LAD leading into a pLAD stent.
-PCI is deferred in light of rectal bleeding.
-Thorough and thoughtful conversation with patient and GI yesterday regarding options, weight the risks/benefits of revascularization with bleeding/inability to biopsy on colonoscopy as well as medical management with a view towards high risk
colonoscopy to clarify bleeding source, biopsy/coagulate/dessicate if needed.
-Ultimately, the decision was made to medically manage with heparin gtt, ASA 81mg, increased beta diego, increased isosorbide mononitrate and transfusion.
-Carvedilol increased to 12.5 mg BID and isosorbide increased to 90 mg daily.
-monitor Hgb while on heparin gtt
-If chest pain recurs on maximum medical therapy, PCI will then be indicated and we will use transfusions as needed to bridge through an obligatory period of DAPT.
-Hbg now 11.5.
#Rectal bleeding/anemia:
-Acute.
-Patient had persistent bleeding and anemia. Denies any with bowel prep.
-DDx includes radiation proctitis, GI malignancy, diverticulosis, hemorroids, AVM's, etc.
-Colonoscopy is indicated, but is obviously high risk due to proximity to cardiovascular event. Tentatively planned for 02/02/2025.
-If bleeding worsens, this may compel endoscopy sooner.
#Presyncope
-On 01/27, had an episode of bradycardia with associated hypotension symptomatic with lightheadedness/dizziness while working with PT.
-Likely in the setting of hypovolemia and uptitration of medical therapy.
-Valsartan reduced. Carvedilol increased to 12.5 mg BID for improved beta blockade for management of NSTEMI.
-Continue to monitor on telemetry.
#HFmrEF/Ischemic cardiomyopathy
-Acute on chronic.
-LVEF 45%.
-LVEDP = 20 mmHg with A wave to 32 mmHg, indicative of diastolic dysfunction.
-GDMT as tolerated:
-Diuretics: Furosemide restarted by nephrology.
-Beta diego: Carvedilol 12.5 mg twice daily.
-TRAVON/ARB/ARNI: Valsartan 40 mg, sacubitril�losartan co-pay is $0.
-SGLT2 inhibitor: Hold with hyponatremia, can consider if okay with Nephrology, in the future co-pay is $0.
-Aldosterone agonist: Can consider as an outpatient. Not started due to titration of other blood pressure medications.
-Isosorbide/Hydralazine:� Isosorbide mononitrate 90 mg daily.
-ICD: Not currently indicated.
-Trend daily weight, I/O.
-Heart failure education.
#Hyponatremia
-Managed by nephrology.
#Mixed hyperlipidemia
-Chronic, stable.
-Statin/PCSK9i intolerant.
-Total cholesterol = 126, LDL = 64, HDL = 48, Triglycerides = 73.
-Outpatient inclisiran referral.
#PAD
-Chronic, stable.
-Managed by vascular surgery.
-Clopidogrel on hold as above.
#Prior TIA
-Remote.
-Clopidogrel on hold as above.
DATA:
Transthoracic echocardiogram, 01/22/2025:
SUMMARY
1. Left ventricular ejection fraction is mildly reduced with an ejection fraction of 45 % by Travis's biplane method of discs. Global hypokinesis.
2. Right ventricular size and systolic function are within normal limits.
3. Stage I diastolic dysfunction suggestive of abnormal relaxation.
4. Mild to moderate aortic regurgitation.
5. Compared to the prior study on 03/15/2023, LVEF has decreased from 55 to 60% with apical hypokinesis to 45% with global hypokinesis.
Cardiac Catheterization, 01/28/2025:
CONCLUSIONS
1. Codominant circulation with a short, bifurcating left main with a 60-70% lesion in the proximal/ostial margin of the LAD leading into a previous LAD stent, and 80% culprit ISR lesion in the proximal margin of the proximal circumflex stent, a 70%
ISR lesion in the distal margin of the proximal circumflex stent and chronic total occlusion of the proximal RCA filled via collaterals from all 3 epicardial vessels.
2. Moderately elevated filling pressures (LVEDP = 20 mmHg at 52.2 kg) with evidence of diastolic dysfunction (A wave to 32 mmHg).
Physical Exam
Vital Signs/Labs
Vital Signs
Temp Pulse Resp BP Pulse Ox
97.8 F 59 16 153/64 97
02/01/25 07:15 02/01/25 07:16 02/01/25 07:15 02/01/25 07:16 02/01/25 07:15
01/31/25 02/01/25 02/02/25
06:59 06:59 06:59
Actual Weight 53.7 kg 52.4 kg
02/01/25 03:55
02/01/25 03:55
APTT 116.7 Sec (23.4-35.0) H 02/01/25 03:55
Magnesium 2.4 mg/dl (1.6-2.3) H 02/01/25 03:55
Triglycerides 73 mg/dl (10-149) 01/27/25 04:14
LDL Cholesterol, Calc 64 mg/dl 01/27/25 04:14
VLDL Cholesterol, Calc 14 mg/dl (0-30) 01/27/25 04:14
HDL Cholesterol 48 mg/dl 01/27/25 04:14
01/21/25 01/21/25
17:35 21:19
Mkq-[id number]-Jjvvvdyagdb Pept 2600 Cancelled
Physical Exam
Constitutional: No acute distress and Comfortable
EENT: Moist mucous membranes
Cardiovascular: Rhythm & rate is regular, Pedal edema is absent, JVD pressure is normal and Systolic murmur absent
Respiratory: Respiratory effort normal and Lungs clear to auscul.
Neuro/Psych: AO x 3
Data Reviewed
-
Date of Service: February 01, 2025
EKG: Other (Tele: SR 60s)
Labs: Labs Reviewed by me
[2025-02-01] MEDS: REFRESH EYE DROPS (PF) 1 DROPS OPHTH ×2 (08:52→21:42)
--- NOTE | 2025-02-01 09:00 | W.PN.GI.CBS2 ---
Today's Communication / Plan
-
Clear liquids today, NPO after midnight. Hold heparin gtt 4 hours prior to colonoscopy +/- EGD. If any chest pain occurs, will not proceed with colonoscopy.
Assessment / Plan
-
Pt is a 78 y.o male with an extensive medical history including HTN, HLD, obstructive CAD (s/p prior stenting, on plavix), ischemic cardiomyopathy, PAD, carotid artery stenosis, hx of TIAs (on plavix), possible COPD, oropharyngeal dysphagia with
previous aspiration and prostate cancer (s/p XRT finished 2023 and on hormonal therapy) with recent evaluation in GI office with Dr. Sharp for rectal bleeding and wt loss. He was recommended CT and colonoscopy but was hesitant to proceed with both
due to concern for incontinence with CT contrast and concern for complication with colonoscopy. He was also noted with macrocytic anemia and recommended PCP follow up which he has also not completed. He admits to severe fatigue and depression and
and difficulty with completing work up as outpatient. He now presents with exertional chest pain with rise in troponin with BMP 2600
From GI standpoint he has hx dysphagia diagnosed on prior admission. He was recommended pureed diet last year by speech and never had follow up to advance diet. he admits to 25 lbs wt loss over last few months( about 4 kg since 2023 in
chart). He admits to GERD with belching, diffuse and left sided abdominal pain at time and constipation. He was using glycerine suppositories several times per week then stopped per his oncologist several months ago. He has tried miralax and
prune juice with too loose stools and then began with rectal bleeding. He will see red and dark red stool. [facility] admission noted complete CT noted negative and plan for EGD/colon but concern for chest pain and increased troponin with cath completed
01/28-
�EGD (weight loss) 01/05/2016- Impression:�Normal esophagus, biopsied. Z-line regular at 40 cm from the incisors. Normal stomach, biopsied. Normal examined duodenum, biopsied. Path: mild chronic gastritis with reactive gastropathy, (-) H pylori.
Normal duodenal mucosa, esophageal biopsies with benign esophageal type squamous mucosa showing minimal non-specific chronic inflammation without eosinophils
Colonoscopy (screening, good prep) 10/21/2014- Impression:�One 4 mm polyp in the rectum, removed (path w/ HPP). Mild diverticulosis in sigmoid colon. Normal examined ileum. The examination was otherwise normal. Repeat colonoscopy based on review of
path results.
01/28 During admission pt noted with recurrence chest pain with prepping for colonoscopy and rise in trop s/p cath 01/28 as noted - PCI deferred with rectal bleeding s/p CT surg eval not candidate for revasculization
01/22/25- Ct Chest/abd/pelvis 1. No significant abnormality identified in the chest, abdomen or pelvis to explain the patient's weight loss, as described above.
-chest pain on admission with elevated trop and concern for ACS-s/p cath 01/28
-painless rectal bleeding
-prostate CA with prior XRT and hormonal therapy
-change in bowel habits
-oropharyngeal dysphagia on pureed diet
-macrocytic anemia
-wt loss - unintentional
-Presyncope
-renal artery bruit
other med problems:
A/P: Anemia, recurrent rectal bleeding
-Hgb stable, last melenic stool 01/29; transfused with 3 units of PRBC during admission
-continue heparin gtt
-continue ASA
-Speech evaluation 01/30-- prior workup with VSE on 01/09/24 with severe pharyngeal dysphagia. Prior eval at [facility] in 2019 with recommendations for alternating solids and liquids and utilizing chin tuck. Recommendations from [employer] were made--
offered speech therapy and repeat VSE. Patient declined, accepting aspiration risk and does not want to address right now due to more acute issues, desires to remain on modified pureed diet now
-plavix on hold, last dose 01/23, currently on heparin gtt, will hold 4 hours prior to colonoscopy
-c/w protonix
-troponin downtrending, cardiology following, if recurrence of chest pain, will plan for LHC, not a candidate for CABG per CT surgery
-Complex medical situation, but plan is to proceed with bowel prep today and perform colonoscopy tomorrow to rule out colonic lesion, if evidence of radiation proctitis, which is high on the DDx, will plan to treat at that time. Possible EGD
depending on how procedure goes due to his chronic dysphagia (though, assessed as pharyngeal dysphagia)
Discussed above plan at length with patient this morning who is in agreement. GOC discussed 01/28 and family updated 01/28 and 01/29.
Subjective
Subjective
Date of Service: February 01, 2025
Patient seen in follow-up. No overnight events. On heparin gtt, hemoglobin remains stable. He had a formed, brown BM yesterday.
Objective
Data Reviewed
Laboratory Data:
Laboratory Results
02/01/25 03:55
02/01/25 03:55
Laboratory Results
APTT 116.7 Sec (23.4-35.0) H 02/01/25 03:55
Phosphorus 4.2 mg/dl (2.5-4.5) 02/01/25 03:55
Magnesium 2.4 mg/dl (1.6-2.3) H 02/01/25 03:55
Total Bilirubin 0.3 mg/dl (0.2-1.3) 01/27/25 04:14
AST 22 U/L (17-59) 01/27/25 04:14
ALT 18 U/L (0-50) 01/27/25 04:14
Alkaline Phosphatase 40 U/L (38-126) 01/27/25 04:14
Vital Signs and I&O:
Vital Signs
Temp Pulse Resp BP Pulse Ox
97.8 F 60 16 152/60 97
02/01/25 07:15 02/01/25 08:44 02/01/25 07:15 02/01/25 08:44 02/01/25 07:15
I&O
01/31/25 02/01/25 02/02/25
06:59 06:59 06:59
Intake Total 97 / 97 360 / 360
Balance
Physical Exam
Physical Exam
HEENT: Anicteric and Moist mucous membranes
Cardiology: Normal Sinus Rhythm
Pulmonary: Clear
GI: Soft, Non Distended and Non Tender
Extremities: No Edema
Neuro: Non Focal
[2025-02-01] MEDS: NON-FORMULARY ITEM BOTH EYES ×2 (09:04→21:11)
[2025-02-01] MEDS: NON-FORMULARY ITEM 2 MG BUCCAL ×3 (10:31→19:37)
--- NOTE | 2025-02-01 10:54 | PTCARENOTE ---
Pt is AOx3, no complaints of pain or discomfort. Assist x1 OOB with IV pole. On clear liquid diet, will start colonoscopy prep this afternoon. Heparin gtt infusing per protocol. Call bolden within reach.
[2025-02-01 11:03] LABS: APTT 84.6 Sec (23.4-35.0)
[2025-02-01] MEDS: NULYTELY SOLUTION 4 LITERS PO (12:15)
[2025-02-01] MEDS: ATIVAN 0.5 MG PO (12:20)
[2025-02-01] MEDS: DIOVAN 40 MG PO (17:55)
[2025-02-01 18:26] LABS: APTT 72.9 Sec (23.4-35.0)
[2025-02-01] MEDS: PEPCID 20 MG IV (21:43)
[2025-02-01] MEDS: NSS (PRESERVATIVE FREE) 8 ML IV (21:43)
[2025-02-02] VITALS (15 sets, daily range): BP systolic 121–159; BP diastolic 44–64
[2025-02-02 02:18] LABS: Hematocrit 35.2 % (39.0-52.0); Hemoglobin 11.3 g/dL (13.0-18.0); Mean Corp Hgb Conc. 32.1 g/dL (33.0-37.0); Mean Corpuscular Volume 99.4 fL (80.0-94.0); Platelet Count 158 10^3/uL (130-400); Red Cell Dist. Width 15.8 % (11.5-14.5)
[2025-02-02 02:25] LABS: APTT 98.2 Sec (23.4-35.0)
[2025-02-02 02:30] LABS: Blood Urea Nitrogen 24 mg/dl (9-20); Calcium 8.3 mg/dl (8.4-10.2); Carbon Dioxide 23 mmol/L (22-30); Chloride 105 mmol/L (98-107); Estimated Creatinine Clearance 41 ml/min; Glucose 89 mg/dl (70-99); Magnesium 2.1 mg/dl (1.6-2.3); Potassium 4.0 mmol/L (3.5-5.1); Sodium 132 mmol/L (135-145); eGFR > 60.00
[2025-02-02] MEDS: SYNTHROID 88 MCG PO (06:38)
--- NOTE | 2025-02-02 08:52 | W.PN.HOSP.TC ---
Today's Communication/Plan
-
NPO for colonoscopy +/- EGD today
Assessment / Plan
Assessment / Plan
Physical Exam
General: Appears Chronically Ill and Cachectic
HEENT: Normocephalic and Atraumatic; Negative Oxygen
Respiratory: Clear to Auscultation; Negative Wheezes or Rhonchi
Cardiac: Regular Rhythm and S1/S2; Negative Murmur
GI: Soft, Nontender, Nondistended and Normal Bowel Sounds
Musculoskeletal: No Clubbing, No Cyanosis and No Edema
Neuro: AOx3 conversant coherent
Psych: Calm
pt is a 79 year old male, with past medical history of coronary artery disease, history of triple-vessel disease, s/p PCI in 2016 and 2018, currently on medical therapy. Prior history of TIA managed on Plavix, likely COPD, history of statin and
PCSK9 intolerance, history of prostate cancer, s/p radiation, peripheral arterial disease presented with chest pain
Exertional chest pain in setting of chronic stable angina/anemia
Has an extensive cardiac history including triple-vessel disease, multiple MIs
apprec cards--medical management--coreg dose increased--Imdur added
plavix on hold and substituted w/ asa for EGD/colonoscopy as below
Echocardiogram-left ventricular ejection fraction 45% with global hypokinesis, normal right ventricular size and function, stage I diastolic dysfunction, mild to moderate MR, left ventricular ejection fraction has decreased as compared to echo of
03/08
01/28 New onset Chest Pain w/ EKG changes Troponin elevation
NSTEMI
Cath noted multivessel dz
Cardiac surgery eval appreciated not a candidate for surgical revascularization, given his multiple co-morbidities and unknown source of bleeding
Cardio eval appreciated Hep gtt started 01/28 transfuse for goal Hgb >10
GI eval appreciated
If patient develops repeat chest pain, he will have coronary revascularization/DAPT, with plan of postponing the GI procedures for at least a month after.
Troponin trended down, no new episode chest pain, tentatively planned for colonoscopy 02/02/2025 possible EGD will be done as well depending on how colonoscopy goes.
Exertional dyspnea COPD/ACS
Chest q-[id number]-[id number] lungs with emphysematous changes
Outpatient follow-up with pulmonology
Intermittent rectal bleeding/weight loss concerning for radiation proctitis versus underlying GI malignancy
CT scan unremarkable
Plavix changed to asa pending EGD/colonoscopy
GI eval appreciated tentatively planned for EGD colonoscopy 01/28 Wed postponed d/t NSTEMI as above, no planned for 02/02/25
Hyponatremia
appreciate renal
Na 125 since improved with fluid restriction and Lasix. Lasix on hold as below
Essential hypertension
Symptomatic Orthostatic Hypotension
Amlodipine discontinued
Valsartan dose reduced
Coreg dose reduced
Lasix resumed as per Nephro
Renal artery bruit
renal artery Doppler with left renal artery stenosis of 60-99%, right 0-59%
conservative mgmt as per nephro
Anxiety
Ativan prn
Peripheral arterial disease
Outpatient follow-up with vascular
Mild to moderate aortic regurgitation
ECHO with decreased EF to 45% and global hypokinesis
History of thyroid mass status post thyroidectomy
Continue levothyroxine
BPH with Prostate cancer status post radiation
Continue tamsulosin
History of odynophagia/dysphagia
pureed low residue diet w/ TID Ensure supplementation as per GI, clear liquid diet for Sunday, then NPO after midnight for scope Mon as above
Reported Hx Hyperlipidemia
lipid panel wnl
low bodyweight/cachexia
statin unnecessary at this time
Right Eye pain/irritation
hx Dry eyes
-Polytrim Eye drop started for possible conjunctivitis, switched to maxitrol given persistence irritation planned for 7 days tx 01/31-02/06
-cont artificial tears prn
-cont home Xiidra patient's own med
-warm compress prn
GERD- Continue Protonix
DVT proph hep gtt
code status--Full code
I spent a total of 39 minutes with the patient or on the floor. More than 50% of this time involved counseling and coordination of care.
Anticipated Discharge: 24 - 48 hours
Subjective/Interval History
-
Date of Service: February 02, 2025
No acute distress, sitting up comfortably in bed. Reports right eye irritation persists.
Objective Data
-
Labs:
Laboratory Results
02/02/25 02/02/25
01:50 07:45
WBC 7.5
Hgb 11.3 L
Hct 35.2 L
Plt Count 158
APTT 98.2 H Pending
Sodium 132 L
Potassium 4.0
Chloride 105
Carbon Dioxide 23
BUN 24 H
Creatinine 1.1
Glucose 89
Calcium 8.3 L
Vital Signs:
Vital Signs
Temp Pulse Resp BP Pulse Ox
97.9 F 60 15 149/44 95
02/02/25 08:18 02/02/25 08:18 02/02/25 08:18 02/02/25 05:00 02/02/25 08:18
I&O
02/01/25 02/02/25 02/03/25
06:59 06:59 06:59
Intake Total 360 / 360
Balance 360 / 360
[2025-02-02] MEDS: PROTONIX 40 MG PO (08:58)
[2025-02-02] MEDS: IMDUR (EXTENDED RELEASE) 90 MG PO (08:58)
[2025-02-02] MEDS: MYLICON 120 MG PO (08:59)
[2025-02-02] MEDS: LASIX 20 MG PO (09:00)
[2025-02-02] MEDS: FLOMAX 0.4 MG PO ×2 (09:02→19:59)
[2025-02-02] MEDS: COREG 12.5 MG PO ×2 (09:02→19:58)
[2025-02-02] MEDS: MIRALAX PO (09:02)
[2025-02-02] MEDS: LOW STRENGTH ASPIRIN 81 MG PO (09:02)
[2025-02-02] MEDS: POLYTRIM OPHTHALMIC SOLUTION 1 DROP RIGHT EYE (09:03)
[2025-02-02] MEDS: NON-FORMULARY ITEM 1 UNIT PO ×2 (09:06→19:59)
[2025-02-02] MEDS: NON-FORMULARY ITEM 1 DROP BOTH EYES ×2 (09:07→22:36)
[2025-02-02] MEDS: REFRESH EYE DROPS (PF) 1 DROPS OPHTH ×2 (09:22→22:35)
[2025-02-02] MEDS: TYLENOL 1000 MG PO ×3 (09:48→22:34)
--- NOTE | 2025-02-02 10:40 | PTCARENOTE ---
patient reported a feeling of heart racing and some discomfort in chest while walking back from the bathroom which resolved on its own. Hospitalist made aware and bedside with patient. For colonoscopy/egd this early afternoon.
--- NOTE | 2025-02-02 12:17 | W.PN.CD ---
Today's Communication / Plan
-
Colonoscopy +/- EGD today.
Impression / Plan
-
Impression/Plan: 79M with CAD (PCI to LAD 2017 and mid circ PCI 2018 with chronically occluded dominant RCA), hypertension, carotid artery disease, hx TIA, suspected COPD, dyslipidemia with intolerance to statin and PCSK9I, right iliac artery
stenosis, recovered ICM, and prostate cancer with hx radiation presented with exertional chest discomfort, chronic dysphagia with weight loss, and intermittent rectal bleeding.
Primary grinding operator: Dr. Puente
#NSTEMI
-Acute on chronic. Threat to life.
-Troponin peaked at 5.960.
-Cardiac catheterization revealed moderately elevated filling pressures with diastolic dysfunction, an 80% ISR lesion in the proximal margin in the proximal LCx stent followed by a 70% lesion in the distal aspect of the proximal LCx stent, likely
the culprit. There is a 60-70% lesion in the ostial/proximal LAD leading into a pLAD stent.
-PCI is deferred in light of rectal bleeding.
-Thorough and thoughtful conversation with patient and GI yesterday regarding options, weight the risks/benefits of revascularization with bleeding/inability to biopsy on colonoscopy as well as medical management with a view towards high risk
colonoscopy to clarify bleeding source, biopsy/coagulate/dessicate if needed.
-Ultimately, the decision was made to medically manage with heparin gtt, ASA 81mg, increased beta diego, increased isosorbide mononitrate and transfusion.
-Carvedilol increased to 12.5 mg BID and isosorbide increased to 90 mg daily.
-Monitor Hgb while on heparin gtt.
-If chest pain recurs on maximum medical therapy, PCI will then be indicated and we will use transfusions as needed to bridge through an obligatory period of DAPT.
#Rectal bleeding/anemia:
-Acute.
-Patient had persistent bleeding and anemia. Denies any with bowel prep.
-DDx includes radiation proctitis, GI malignancy, diverticulosis, hemorroids, AVM's, etc.
-Colonoscopy is indicated, but is obviously high risk due to proximity to cardiovascular event.
-Colonoscopy +/- EGD today.
#Presyncope
-On 01/27, had an episode of bradycardia with associated hypotension symptomatic with lightheadedness/dizziness while working with PT.
-Likely in the setting of hypovolemia and uptitration of medical therapy.
-Valsartan reduced. Carvedilol increased to 12.5 mg BID for improved beta blockade for management of NSTEMI.
-Continue to monitor on telemetry.
#HFmrEF/Ischemic cardiomyopathy
-Acute on chronic.
-LVEF 45%.
-LVEDP = 20 mmHg with A wave to 32 mmHg, indicative of diastolic dysfunction.
-GDMT as tolerated:
-Diuretics: Furosemide 20 mg daily.
-Beta diego: Carvedilol 12.5 mg twice daily.
-TRAVON/ARB/ARNI: Valsartan 40 mg, sacubitril�losartan co-pay is $0.
-SGLT2 inhibitor: Hold with hyponatremia, can consider if okay with Nephrology, in the future co-pay is $0.
-Aldosterone agonist: Can consider as an outpatient. Not started due to titration of other blood pressure medications.
-Isosorbide/Hydralazine:� Isosorbide mononitrate 90 mg daily.
-ICD: Not currently indicated.
-Trend daily weight, I/O.
-Heart failure education.
#Hyponatremia
-Managed by nephrology.
#Mixed hyperlipidemia
-Chronic, stable.
-Statin/PCSK9i intolerant.
-Total cholesterol = 126, LDL = 64, HDL = 48, Triglycerides = 73.
-Outpatient inclisiran referral.
#PAD
-Chronic, stable.
-Managed by vascular surgery.
-Clopidogrel on hold as above.
#Prior TIA
-Remote.
-Clopidogrel on hold as above.
Subjective/Interval History:
Mild/moderate hypertension.
Labs generally stable. Hbg continues to drift....slowly.
DATA:
Transthoracic echocardiogram, 01/22/2025:
SUMMARY
1. Left ventricular ejection fraction is mildly reduced with an ejection fraction of 45 % by Travis's biplane method of discs. Global hypokinesis.
2. Right ventricular size and systolic function are within normal limits.
3. Stage I diastolic dysfunction suggestive of abnormal relaxation.
4. Mild to moderate aortic regurgitation.
5. Compared to the prior study on 03/15/2023, LVEF has decreased from 55 to 60% with apical hypokinesis to 45% with global hypokinesis.
Cardiac Catheterization, 01/28/2025:
CONCLUSIONS
1. Codominant circulation with a short, bifurcating left main with a 60-70% lesion in the proximal/ostial margin of the LAD leading into a previous LAD stent, and 80% culprit ISR lesion in the proximal margin of the proximal circumflex stent, a 70%
ISR lesion in the distal margin of the proximal circumflex stent and chronic total occlusion of the proximal RCA filled via collaterals from all 3 epicardial vessels.
2. Moderately elevated filling pressures (LVEDP = 20 mmHg at 52.2 kg) with evidence of diastolic dysfunction (A wave to 32 mmHg).
Physical Exam
Vital Signs/Labs
Vital Signs
Temp Pulse Resp BP Pulse Ox
36.6 C 56 16 150/56 95
02/02/25 11:00 02/02/25 11:00 02/02/25 11:00 02/02/25 09:00 02/02/25 11:00
02/01/25 02/02/25 02/03/25
11:59 11:59 11:59
Actual Weight 52.4 kg
02/02/25 01:50
02/02/25 01:50
APTT Cancelled 02/02/25 07:45
Magnesium 2.1 mg/dl (1.6-2.3) 02/02/25 01:50
Triglycerides 73 mg/dl (10-149) 01/27/25 04:14
LDL Cholesterol, Calc 64 mg/dl 01/27/25 04:14
VLDL Cholesterol, Calc 14 mg/dl (0-30) 01/27/25 04:14
HDL Cholesterol 48 mg/dl 01/27/25 04:14
01/21/25 01/21/25
17:35 21:19
Upv-Q-Rhfjjybimgk Pept 2600 Cancelled
Physical Exam
Constitutional: No acute distress and Comfortable
EENT: Anicteric and Moist mucous membranes
Cardiovascular: Rhythm & rate is regular, Pedal edema is absent, JVD pressure is normal, S1S2 is normal and Murmur/rub/gallop absent
Respiratory: Respiratory effort normal, Lungs clear to auscul., Wheeze Absent, Crackles Absent and Rhonchi Absent
GI: Soft, Distention absent, Flat, Non tender and Normal bowel sounds
Neuro/Psych: AO x 3
Data Reviewed
-
Date of Service: February 02, 2025
Medical Decision Making: Reviewed Test Results, Independent Historian Assessment and Test Interpretation
EKG: Tracing Personally Visualized and interpreted and Report Reviewed by me
Echo: Tracing Personally Visualized and interpreted and Report Reviewed by me
X-Ray/CT/US/MRI/NUC/PET: Image Personally Visualized and interpreted and Report Reviewed by me
Medical Tests (PFT, Pathology etc): Image Personally Visualized and interpreted and Report Reviewed by me
Labs: Labs Reviewed by me
Old Records: Reviewed
--- NOTE | 2025-02-02 14:26 | PTCARENOTE ---
received pt back from GI lab. Daughter at bedside. Educated pt on restrictions. VSS. Call bolden within reach.
--- NOTE | 2025-02-02 14:35 | CM ---
dc plans remain, dc to home when medically stable with [facility]N services
[2025-02-02] MEDS: [UNRECOGNIZED DRUG - OTHER] 1 DROP OPHTH ×3 (14:46→22:35)
[2025-02-02] MEDS: NON-FORMULARY ITEM 2 MG BUCCAL ×2 (14:46→20:19)
--- NOTE | 2025-02-02 14:55 | W.PN.UPDATE ---
Update Note
Progress Note Update
reviewed results with patient on EGD/colon. All questions answered.
[2025-02-02] MEDS: DIOVAN 40 MG PO (17:44)
[2025-02-02] MEDS: HEPARIN 25000 UNITS/250 ML IV (20:01)
[2025-02-02] MEDS: ATIVAN 0.5 MG PO (20:13)
[2025-02-02] MEDS: PREPARATION H MAX STRENGTH PAIN RELIEF CREAM 1 APPLIC RECTAL (21:37)
[2025-02-02] MEDS: PEPCID 20 MG IV (22:35)
[2025-02-02] MEDS: NSS (PRESERVATIVE FREE) 8 ML IV (22:35)
[2025-02-03] VITALS (12 sets, daily range): BP systolic 122–171; BP diastolic 55–69; PULSE 66; O2SAT 95; BMI 17.8
[2025-02-03 03:01] LABS: Hematocrit 35.1 % (39.0-52.0); Hemoglobin 11.3 g/dL (13.0-18.0); Mean Corp Hgb Conc. 32.2 g/dL (33.0-37.0); Mean Corpuscular Volume 99.7 fL (80.0-94.0); Platelet Count 155 10^3/uL (130-400); Red Cell Dist. Width 15.6 % (11.5-14.5)
--- NOTE | 2025-02-03 03:06 | PTCARENOTE ---
Pt NSR on monitor. C/o rectal pain post colonoscopy. [employer] ATTEND[employer] made aware. Tylenol PRN given, Prep H ordered. Pt ambulates with x 1 assist. Call bolden within reach
[2025-02-03 03:07] LABS: APTT 78.6 Sec (23.4-35.0)
[2025-02-03 03:22] LABS: Blood Urea Nitrogen 23 mg/dl (9-20); Calcium 8.4 mg/dl (8.4-10.2); Carbon Dioxide 23 mmol/L (22-30); Chloride 105 mmol/L (98-107); Estimated Creatinine Clearance 41 ml/min; Glucose 88 mg/dl (70-99); Magnesium 2.0 mg/dl (1.6-2.3); Potassium 4.1 mmol/L (3.5-5.1); Sodium 133 mmol/L (135-145); eGFR > 60.00
[2025-02-03] MEDS: SYNTHROID 88 MCG PO (04:35)
[2025-02-03] MEDS: TYLENOL 1000 MG PO ×4 (04:35→22:40)
[2025-02-03] MEDS: PREPARATION H MAX STRENGTH PAIN RELIEF CREAM 1 APPLIC RECTAL ×2 (04:41→11:16)
[2025-02-03] MEDS: NON-FORMULARY ITEM 2 MG BUCCAL ×4 (04:44→20:49)
--- NOTE | 2025-02-03 08:12 | W.PN.HOSP.TC ---
Today's Communication/Plan
-
ASA Plavix
NPO after midnight for PCI as per Cardio
Assessment / Plan
Assessment / Plan
Physical Exam
General: Appears Chronically Ill and Cachectic
HEENT: Normocephalic and Atraumatic; Negative Oxygen
Respiratory: Clear to Auscultation; Negative Wheezes or Rhonchi
Cardiac: Regular Rhythm and S1/S2; Negative Murmur
GI: Soft, Nontender, Nondistended and Normal Bowel Sounds
Musculoskeletal: No Clubbing, No Cyanosis and No Edema
Neuro: AOx3 conversant coherent
Psych: Calm
pt is a 79 year old male, with past medical history of coronary artery disease, history of triple-vessel disease, s/p PCI in 2016 and 2018, currently on medical therapy. Prior history of TIA managed on Plavix, likely COPD, history of statin and
PCSK9 intolerance, history of prostate cancer, s/p radiation, peripheral arterial disease presented with chest pain
Exertional chest pain in setting of chronic stable angina/anemia
Has an extensive cardiac history including triple-vessel disease, multiple MIs
initially medically managed--coreg dose increased--Imdur added
plavix held and substituted w/ asa for EGD/colonoscopy as below
Echocardiogram-left ventricular ejection fraction 45% with global hypokinesis, normal right ventricular size and function, stage I diastolic dysfunction, mild to moderate MR, left ventricular ejection fraction has decreased as compared to echo of
03/08
01/28 New onset Chest Pain w/ EKG changes Troponin elevation
NSTEMI
Cath noted multivessel dz
Cardiac surgery eval appreciated not a candidate for surgical revascularization, given his multiple co-morbidities and unknown source of bleeding
Cardio eval appreciated Hep gtt started 01/28 transfused for goal Hgb >10
Troponin trended down, no new episode chest pain, EGD/colonoscopy completed as below
cleared to resume Plavix as per GI, DAPT asa plavix 02/03 hep gtt discontinued
NPO after midnight for PCI tomorrow Wed 02/04
Exertional dyspnea COPD/ACS
Chest [id number] lungs with emphysematous changes
Outpatient follow-up with pulmonology
Intermittent rectal bleeding d/t radiation proctitis
CT scan unremarkable
GI eval appreciated EGD/colonoscopy postponed d/t NSTEMI as above, performed Sun02/02/25
EGD appreciated
- Small hiatal hernia.
- Biopsies for eosinophilic esophagitis testing.
- Non-bleeding gastric ulcers with a clean ulcer base (Yusuf
Class III).
- Biopsies for Helicobacter pylori testing.
- Protonix 40 mg BID x 8 weeks then daily
-outpt GI follow up repeat EGD 2-3 mo and outpt esophageal manometry work up dysphagia
Colonoscopy Appreciated
- Radiation proctitis treated with APC. No large masses identified, cannot rule out smaller lesions or polyps.
- Repeat colonoscopy as outpatient for screening purposes
- If recurrent rectal bleeding, carafate enemas recommended
Developed rectal pain following colonoscopy, improved with prn preparation H
Hyponatremia
appreciate renal
Na 125 since improved with fluid restriction and Lasix
Essential hypertension
Symptomatic Orthostatic Hypotension
Amlodipine discontinued
Valsartan Coreg Lasix cont w/ holding parameters
Cont Lasix
Renal artery bruit
renal artery Doppler with left renal artery stenosis of 60-99%, right 0-59%
conservative mgmt as per nephro
Anxiety
Ativan prn
Peripheral arterial disease
Outpatient follow-up with vascular
Mild to moderate aortic regurgitation
ECHO with decreased EF to 45% and global hypokinesis
History of thyroid mass status post thyroidectomy
Continue levothyroxine
BPH with Prostate cancer status post radiation
Continue tamsulosin
History of odynophagia/dysphagia
Cachexia
pureed low residue diet w/ BID Ensure Vanilla supplementation when ok for diet
Reported Hx Hyperlipidemia
lipid panel wnl
low bodyweight/cachexia
statin unnecessary at this time
Right Eye pain/irritation
hx Dry eyes
-Polytrim Eye drop started for possible conjunctivitis, switched to maxitrol given persistence irritation planned for 7 days tx 01/31-02/06
-cont artificial tears prn
-cont home [place] patient's own med
-warm compress prn
GERD- Continue Protonix
DVT proph Lovenox
code status--Full code
I spent a total of 39 minutes with the patient or on the floor. More than 50% of this time involved counseling and coordination of care.
Anticipated Discharge: 24 - 48 hours
Subjective/Interval History
-
Date of Service: February 03, 2025
No acute distress, sitting up comfortably in bed, reports rectal pain following colonoscopy, improved with prn preparation H. Right eye pain resolved at this time. Anxious regarding planned PCI tomorrow
Objective Data
-
Labs:
Laboratory Results
02/03/25 02/03/25
02:38 08:00
WBC 8.8
Hgb 11.3 L
Hct 35.1 L
Plt Count 155
APTT 78.6 H Pending
Sodium 133 L
Potassium 4.1
Chloride 105
Carbon Dioxide 23
BUN 23 H
Creatinine 1.1
Glucose 88
Calcium 8.4
Vital Signs:
Vital Signs
Temp Pulse Resp BP Pulse Ox
97.8 F 61 18 158/66 94
02/03/25 02:30 02/03/25 05:00 02/03/25 02:30 02/03/25 02:33 02/03/25 02:33
I&O
02/02/25 02/03/25 02/04/25
06:59 06:59 06:59
Intake Total 440 / 440
Balance 440 / 440
[2025-02-03] MEDS: COREG 12.5 MG PO ×2 (08:46→20:46)
[2025-02-03] MEDS: PROTONIX 40 MG PO ×2 (08:46→20:48)
[2025-02-03] MEDS: MYLICON 120 MG PO (08:46)
--- NOTE | 2025-02-03 08:46 | W.PN.GI.CBS2 ---
Addendum entered and electronically signed by RADHA Garcia 02/04/25 06:38:
Reviewed with Dr. Vidal if any persistent rectal pain would change to carafate enemas. Call if any issues. Will sign off.
Original Note:
Today's Communication / Plan
-
s/p EGD and colonoscopy as noted reviewed
pt with some rectal pain overnight s/p preparation H with improvement cont to monitor
cont pureed diet- pt declined speech intervention
cont PPI BID x 8 weeks then daily
OP follow up with Dr. Sharp 04/02 as scheduled
Pt resumed plavix today and cont ASA
ok for resume iron on discharge
peparation H PRN -- if continued bleeding or pain consider carafate enemas
reviewed results with patient and answered multiple questions
Assessment / Plan
-
Pt is a 78 y.o male with an extensive medical history including HTN, HLD, obstructive CAD (s/p prior stenting, on plavix), ischemic cardiomyopathy, PAD, carotid artery stenosis, hx of TIAs (on plavix), possible COPD, oropharyngeal dysphagia with
previous aspiration and prostate cancer (s/p XRT finished 2023 and on hormonal therapy) with rectal bleeding, wt loss, depression and weakness. He was recommended OP work up but then presented for admission and also noted with chest pain and
increased troponin. He has chronic dysphagia on pureed diet and declined speech eval during admission. CT Chest/abd/pelvis 01/22 stable. He was prepping for EGD/colon and had further rise in trop and cath completed 01/28.as noted - PCI deferred
with rectal bleeding s/p CT surg eval not candidate for revasculization. After discussion with cardiology and GI with patient he proceeded for EGD/colon 02/02.
01/22/25- Ct Chest/abd/pelvis 1. No significant abnormality identified in the chest, abdomen or pelvis to explain the patient's weight loss, as described above.
02/02/25 EGD - Small hiatal hernia.
- Biopsies were taken with a cold forceps for evaluation of
eosinophilic esophagitis.
- Many non-bleeding linear gastric ulcers with a clean ulcer base
(Yusuf Class III) were found along the entire lesser curvature of
the gastric body, raising suspicion for ischemia-induced ulcers. The
largest lesion was 3 mm in largest dimension.
- Biopsies were taken with a cold forceps for Helicobacter pylori
testing.
- Normal first portion of the duodenum and second portion of the
duodenum. Biopsied.
02/02/25 colonoscopy
- Preparation of the colon was poor.
- Stool in the entire examined colon.
- Diverticulosis in the sigmoid colon.
- Large amount of stool covering the entire cecum, unable to clear
fully to identify landmarks
- Multiple recently bleeding colonic angioectasias. Treated with
argon plasma coagulation (APC).
- No specimens collected.
-Speech evaluation 01/30-- prior workup with [facility] on 01/09/24 with severe pharyngeal dysphagia. Prior eval at [facility] in 2019 with recommendations for alternating solids and liquids and utilizing chin tuck. Recommendations from [employer] were made--
offered speech therapy and repeat VSE. Patient declined, accepting aspiration risk and does not want to address right now due to more acute issues, desires to remain on modified pureed diet
-chest pain on admission with elevated trop and concern for ACS-s/p cath 01/28
-painless rectal bleeding likely radiation proctitis as noted on colonoscopy and treated
-many non bleeding gastric ulcer on EGD along lessure curvature concern for ischemic ulcers
-prostate CA with prior XRT and hormonal therapy
-change in bowel habits
-oropharyngeal dysphagia on pureed diet
-macrocytic anemia
-wt loss - unintentional
-Presyncope
-renal artery bruit
PLAN:
s/p EGD and colonoscopy as noted reviewed
pt with some rectal pain overnight s/p preparation H with improvement cont to monitor
cont pureed diet- pt declined speech intervention
cont PPI BID x 8 weeks then daily
OP follow up with Dr. Sharp 04/02 as scheduled
Pt resumed plavix today and cont ASA
ok for resume iron on discharge
peparation H PRN -- if continued bleeding or pain consider carafate enemas
reviewed results with patient and answered multiple questions
Subjective
Subjective
Date of Service: February 03, 2025
02/01- watery stool wtih prep, c/o some rectal pain after procedure last PM with preparation H added
Objective
Data Reviewed
Laboratory Data:
Laboratory Results
02/03/25 02:38
02/03/25 02:38
Laboratory Results
APTT 78.6 Sec (23.4-35.0) H 02/03/25 02:38
Phosphorus 3.8 mg/dl (2.5-4.5) 02/03/25 02:38
Magnesium 2.0 mg/dl (1.6-2.3) 02/03/25 02:38
Total Bilirubin 0.3 mg/dl (0.2-1.3) 01/27/25 04:14
AST 22 U/L (17-59) 01/27/25 04:14
ALT 18 U/L (0-50) 01/27/25 04:14
Alkaline Phosphatase 40 U/L (38-126) 01/27/25 04:14
Vital Signs and I&O:
Vital Signs
Temp Pulse Resp BP Pulse Ox
97.8 F 61 18 158/66 94
02/03/25 02:30 02/03/25 05:00 02/03/25 02:30 02/03/25 02:33 02/03/25 02:33
I&O
02/02/25 02/03/25 02/04/25
06:59 06:59 06:59
Intake Total 440 / 440
Balance 440 / 440
Physical Exam
Physical Exam
HEENT: Anicteric and Moist mucous membranes
Cardiology: Normal Sinus Rhythm
Pulmonary: Clear
GI: Soft, Non Distended and Non Tender
Extremities: No Edema
Neuro: Non Focal
[2025-02-03] MEDS: FLOMAX 0.4 MG PO ×2 (08:47→20:48)
[2025-02-03] MEDS: LASIX 20 MG PO (08:47)
[2025-02-03] MEDS: LOW STRENGTH ASPIRIN 81 MG PO (08:47)
[2025-02-03] MEDS: [UNRECOGNIZED DRUG - OTHER] 1 DROP OPHTH ×4 (08:47→22:41)
[2025-02-03] MEDS: NON-FORMULARY ITEM 1 UNIT PO ×2 (08:49→20:49)
[2025-02-03] MEDS: NON-FORMULARY ITEM 1 DROP BOTH EYES ×2 (08:50→20:49)
[2025-02-03] MEDS: MIRALAX PO (08:50)
[2025-02-03] MEDS: IMDUR (EXTENDED RELEASE) 90 MG PO (08:54)
--- NOTE | 2025-02-03 09:03 | W.PN.CD ---
Today's Communication / Plan
-
Resume Plavix. Stop heparin.
PCI tomorrow.
Impression / Plan
-
Impression/Plan: 79M with CAD (PCI to LAD 2017 and mid circ PCI 2018 with chronically occluded dominant RCA), hypertension, carotid artery disease, hx TIA, suspected COPD, dyslipidemia with intolerance to statin and PCSK9I, right iliac artery
stenosis, recovered ICM, and prostate cancer with hx radiation presented with exertional chest discomfort, chronic dysphagia with weight loss, and intermittent rectal bleeding.
Primary learning support assistant: Dr. Puente
#NSTEMI
-Acute on chronic. Threat to life. Troponin peaked at 5.960.
-Cardiac catheterization revealed moderately elevated filling pressures with diastolic dysfunction, an 80% ISR lesion in the proximal margin in the proximal LCx stent followed by a 70% lesion in the distal aspect of the proximal LCx stent, likely
the culprit. There is a 60-70% lesion in the ostial/proximal LAD leading into a pLAD stent.
-PCI is deferred in light of rectal bleeding.
-Per GI, safe to resume Clopidogrel which we will do today. Continue ASA. Stop heparin.
-Plan for PCI tomorrow
-Continue medical therapy with carvedilol and isosorbide
#Rectal bleeding/anemia:
-Acute.
-02/02: Colonoscopy with colonic angioectasias s/p APC. EGD with nonbleeding ulcers
-GI following. As above, will resume clopidogrel.
#Presyncope
-On 01/27, had an episode of bradycardia with associated hypotension symptomatic with lightheadedness/dizziness while working with PT.
-Likely in the setting of hypovolemia and uptitration of medical therapy.
-Valsartan reduced. Carvedilol increased to 12.5 mg BID for improved beta blockade for management of NSTEMI.
-Continue to monitor on telemetry.
#HFmrEF/Ischemic cardiomyopathy
-Acute on chronic.
-LVEF 45%.
-LVEDP = 20 mmHg with A wave to 32 mmHg, indicative of diastolic dysfunction.
-GDMT as tolerated:
-Diuretics: Furosemide 20 mg daily.
-Beta diego: Carvedilol 12.5 mg twice daily.
-TRAVON/ARB/ARNI: Valsartan 40 mg, sacubitril�losartan co-pay is $0.
-SGLT2 inhibitor: Hold with hyponatremia, can consider if okay with Nephrology, in the future co-pay is $0.
-Aldosterone agonist: Can consider as an outpatient. Not started due to titration of other blood pressure medications.
-Isosorbide/Hydralazine:� Isosorbide mononitrate 90 mg daily.
-ICD: Not currently indicated.
-Trend daily weight, I/O.
-Heart failure education.
#Hyponatremia
-Managed by nephrology.
#Mixed hyperlipidemia
-Chronic, stable.
-Statin/PCSK9i intolerant.
-Total cholesterol = 126, LDL = 64, HDL = 48, Triglycerides = 73.
-Outpatient inclisiran referral.
#PAD
-Chronic, stable.
-Managed by vascular surgery.
-Antiplatelets as above
#Prior TIA
-Remote.
-Antiplatelets as above.
Subjective/Interval History:
Had an episode of mild chest pain yesterday with going to the bathroom. Not enough to require SL nitro.
Has a lot of rectal pain after procedure yesterday.
DATA:
Transthoracic echocardiogram, 01/22/2025:
SUMMARY
1. Left ventricular ejection fraction is mildly reduced with an ejection fraction of 45 % by Travis's biplane method of discs. Global hypokinesis.
2. Right ventricular size and systolic function are within normal limits.
3. Stage I diastolic dysfunction suggestive of abnormal relaxation.
4. Mild to moderate aortic regurgitation.
5. Compared to the prior study on 03/15/2023, LVEF has decreased from 55 to 60% with apical hypokinesis to 45% with global hypokinesis.
Cardiac Catheterization, 01/28/2025:
CONCLUSIONS
1. Codominant circulation with a short, bifurcating left main with a 60-70% lesion in the proximal/ostial margin of the LAD leading into a previous LAD stent, and 80% culprit ISR lesion in the proximal margin of the proximal circumflex stent, a 70%
ISR lesion in the distal margin of the proximal circumflex stent and chronic total occlusion of the proximal RCA filled via collaterals from all 3 epicardial vessels.
2. Moderately elevated filling pressures (LVEDP = 20 mmHg at 52.2 kg) with evidence of diastolic dysfunction (A wave to 32 mmHg).
Physical Exam
Vital Signs/Labs
Vital Signs
Temp Pulse Resp BP Pulse Ox
97.8 F 68 18 171/65 94
02/03/25 02:30 02/03/25 08:46 02/03/25 02:30 02/03/25 08:46 02/03/25 02:33
02/02/25 02/03/25 02/04/25
06:59 06:59 06:59
Actual Weight 116 lb 13.52 oz
02/03/25 02:38
02/03/25 02:38
APTT 78.6 Sec (23.4-35.0) H 02/03/25 02:38
Magnesium 2.0 mg/dl (1.6-2.3) 02/03/25 02:38
Triglycerides 73 mg/dl (10-149) 01/27/25 04:14
LDL Cholesterol, Calc 64 mg/dl 01/27/25 04:14
VLDL Cholesterol, Calc 14 mg/dl (0-30) 01/27/25 04:14
HDL Cholesterol 48 mg/dl 01/27/25 04:14
01/21/25 01/21/25
17:35 21:19
Jcy-M-Bcqqztbgzxm Pept 2600 Cancelled
Physical Exam
Constitutional: No acute distress and Comfortable
Cardiovascular: Rhythm & rate is regular, Pedal edema is absent, S1S2 is normal and Murmur/rub/gallop absent
Respiratory: Respiratory effort normal and Lungs clear to auscul.
Neuro/Psych: AO x 3
Data Reviewed
-
Date of Service: February 03, 2025
Medical Decision Making: Reviewed Test Results, Test Interpretation and Review of Case with other Provider
EKG: Tracing Personally Visualized and interpreted
Echo: Report Reviewed by me
Labs: Labs Reviewed by me
[2025-02-03 09:07] LABS: APTT 80.5 Sec (23.4-35.0)
[2025-02-03] MEDS: REFRESH EYE DROPS (PF) 1 DROPS OPHTH ×2 (09:29→20:56)
[2025-02-03] MEDS: PLAVIX 75 MG PO (10:34)
[2025-02-03] MEDS: DIOVAN 40 MG PO (17:41)
[2025-02-03 19:46] LABS: Urine Character Clear (Clear)
[2025-02-03] MEDS: ATIVAN 0.5 MG PO (20:56)
--- NOTE | 2025-02-03 23:59 | PTCARENOTE ---
Received pt at change of shift resting in bed. SR on tele, HR 60's-80's. pt denies any CP or SOB at this time. Right groin site intact and JAIRO. Administered Ativan per pt request for anxiety and PRN Tylenol for neck and back pain--see JUN. pt made
aware of NPO status after midnight, verbalizes understanding. Encouraged pt to call RN with any questions/concerns. Call bolden within reach.
[2025-02-04] VITALS (35 sets, daily range): BP systolic 115–158; BP diastolic 49–63; BMI 17.3
--- NOTE | 2025-02-04 02:29 | DOWNTIME ---
There was a [employer] Downtime on 02/04/2025 from 0100 to 02/04/2025 at 0215. Downtime documentation of patient's care, including medication administrations, has been reconciled in the electronic record per guidelines. Refer to the
patient's paper chart under the miscellaneous tab to see printed paper medication records and downtime forms.
[2025-02-04 04:07] LABS: Hematocrit 35.2 % (39.0-52.0); Hemoglobin 11.2 g/dL (13.0-18.0); Mean Corp Hgb Conc. 31.8 g/dL (33.0-37.0); Mean Corpuscular Volume 99.4 fL (80.0-94.0); Platelet Count 144 10^3/uL (130-400); Red Cell Dist. Width 15.4 % (11.5-14.5)
[2025-02-04 04:35] LABS: Blood Urea Nitrogen 23 mg/dl (9-20); Calcium 8.6 mg/dl (8.4-10.2); Carbon Dioxide 23 mmol/L (22-30); Chloride 104 mmol/L (98-107); Estimated Creatinine Clearance 40 ml/min; Glucose 93 mg/dl (70-99); Magnesium 2.1 mg/dl (1.6-2.3); Potassium 3.8 mmol/L (3.5-5.1); Sodium 131 mmol/L (135-145); eGFR > 60.00
[2025-02-04] MEDS: SYNTHROID 88 MCG PO (06:14)
[2025-02-04] MEDS: MYLICON PO (08:00)
[2025-02-04] MEDS: NON-FORMULARY ITEM PO (08:00)
[2025-02-04] MEDS: MIRALAX PO (08:00)
[2025-02-04] MEDS: TYLENOL 1000 MG PO ×3 (08:12→22:05)
[2025-02-04] MEDS: COREG 12.5 MG PO ×2 (08:13→20:41)
[2025-02-04] MEDS: IMDUR (EXTENDED RELEASE) 90 MG PO (08:14)
[2025-02-04] MEDS: LASIX 20 MG PO (08:14)
[2025-02-04] MEDS: PLAVIX 75 MG PO (08:14)
[2025-02-04] MEDS: FLOMAX 0.4 MG PO ×2 (08:14→20:41)
[2025-02-04] MEDS: [UNRECOGNIZED DRUG - OTHER] 1 DROP OPHTH ×3 (08:16→22:05)
[2025-02-04] MEDS: LOW STRENGTH ASPIRIN 81 MG PO (08:16)
[2025-02-04] MEDS: NON-FORMULARY ITEM 1 DROP BOTH EYES ×2 (08:16→20:45)
[2025-02-04] MEDS: PROTONIX 40 MG PO ×2 (08:17→20:41)
[2025-02-04] MEDS: FLUSH (NSS) 2 FLUSH IV (08:18)
[2025-02-04] MEDS: REFRESH EYE DROPS (PF) 1 DROPS OPHTH ×2 (09:32→20:45)
--- NOTE | 2025-02-04 10:20 | PTCARENOTE ---
Patient NPO x meds this morning for scheduled cardiac cath. Patient very negative about having procedure, states his temp is elevated for him (98.6), feels like he's 'getting a cold'. Complaining of chronic back, neck, shoulder and rectal pain and
given tylenol as ordered.
--- NOTE | 2025-02-04 10:35 | W.PN.CD ---
Today's Communication / Plan
-
LCX ISR PCI today.
Maintain DAPT.
Impression / Plan
-
Impression/Plan: 79M with CAD (PCI to LAD 2017 and mid circ PCI 2018 with chronically occluded dominant RCA), hypertension, carotid artery disease, hx TIA, suspected COPD, dyslipidemia with intolerance to statin and PCSK9I, right iliac artery
stenosis, recovered ICM, and prostate cancer with hx radiation presented with exertional chest discomfort, chronic dysphagia with weight loss, and intermittent rectal bleeding.
Primary covered buckle assembler: Dr. Puente
#NSTEMI
-Acute on chronic. Threat to life. Troponin peaked at 5.960.
-Cardiac catheterization revealed moderately elevated filling pressures with diastolic dysfunction, an 80% ISR lesion in the proximal margin in the proximal LCx stent followed by a 70% lesion in the distal aspect of the proximal LCx stent, likely
the culprit. There is a 60-70% lesion in the ostial/proximal LAD leading into a pLAD stent.
-PCI is deferred in light of rectal bleeding.
-Per GI, patient resumed DAPT with cessation of heparin yesterday.
-PCI of LCX ISR today.
#Rectal bleeding/anemia:
-Acute.
-02/02: Colonoscopy with colonic angioectasias s/p APC (consistent with radiation proctitis). EGD with nonbleeding ulcers. Ok to resume DAPT.
-H/H stable on DAPT.
-GI has signed off.
#Presyncope
-On 01/27, had an episode of bradycardia with associated hypotension symptomatic with lightheadedness/dizziness while working with PT.
-Likely in the setting of hypovolemia and uptitration of medical therapy.
-Valsartan reduced. Carvedilol increased to 12.5 mg BID for improved beta blockade for management of NSTEMI.
-Continue to monitor on telemetry.
#HFmrEF/Ischemic cardiomyopathy
-Acute on chronic.
-LVEF 45%.
-LVEDP = 20 mmHg with A wave to 32 mmHg, indicative of diastolic dysfunction.
-GDMT as tolerated:
-Diuretics: Furosemide 20 mg daily.
-Beta diego: Carvedilol 12.5 mg twice daily.
-TRAVON/ARB/ARNI: Valsartan 40 mg, sacubitril�losartan co-pay is $0.
-SGLT2 inhibitor: Hold with hyponatremia, can consider if okay with Nephrology, in the future co-pay is $0.
-Aldosterone agonist: Can consider as an outpatient. Not started due to titration of other blood pressure medications.
-Isosorbide/Hydralazine:� Isosorbide mononitrate 90 mg daily.
-ICD: Not currently indicated.
-Trend daily weight, I/O.
-Heart failure education.
#Hyponatremia
-Managed by nephrology.
#Mixed hyperlipidemia
-Chronic, stable.
-Statin/PCSK9i intolerant.
-Total cholesterol = 126, LDL = 64, HDL = 48, Triglycerides = 73.
-Outpatient inclisiran referral.
#PAD
-Chronic, stable.
-Managed by vascular surgery.
-Antiplatelets as above
#Prior TIA
-Remote.
-Antiplatelets as above.
Subjective/Interval History:
DATA:
Transthoracic echocardiogram, 01/22/2025:
SUMMARY
1. Left ventricular ejection fraction is mildly reduced with an ejection fraction of 45 % by Travis's biplane method of discs. Global hypokinesis.
2. Right ventricular size and systolic function are within normal limits.
3. Stage I diastolic dysfunction suggestive of abnormal relaxation.
4. Mild to moderate aortic regurgitation.
5. Compared to the prior study on 03/15/2023, LVEF has decreased from 55 to 60% with apical hypokinesis to 45% with global hypokinesis.
Cardiac Catheterization, 01/28/2025:
CONCLUSIONS
1. Codominant circulation with a short, bifurcating left main with a 60-70% lesion in the proximal/ostial margin of the LAD leading into a previous LAD stent, and 80% culprit ISR lesion in the proximal margin of the proximal circumflex stent, a 70%
ISR lesion in the distal margin of the proximal circumflex stent and chronic total occlusion of the proximal RCA filled via collaterals from all 3 epicardial vessels.
2. Moderately elevated filling pressures (LVEDP = 20 mmHg at 52.2 kg) with evidence of diastolic dysfunction (A wave to 32 mmHg).
Colonoscopy, 02/02/2025:
Impression:
-Preparation of the colon was poor.
-Stool in the entire examined colon.
-Diverticulosis in the sigmoid colon.
-Large amount of stool covering the entire cecum, unable to clear fully to identify landmarks
-Multiple recently bleeding colonic angioectasias. Treated with argon plasma coagulation (APC).
-No specimens collected.
EGD, 02/02/2025:
Impression:
-Small hiatal hernia.
-Biopsies were taken with a cold forceps for evaluation of eosinophilic esophagitis.
-Non-bleeding gastric ulcers with a clean ulcer base (Yusuf Class III).
-Biopsies were taken with a cold forceps for Helicobacter pylori testing.
-Normal first portion of the duodenum and second portion of the duodenum. Biopsied.
Physical Exam
Vital Signs/Labs
Vital Signs
Temp Pulse Resp BP Pulse Ox
37.0 C 69 16 146/63 94
02/04/25 08:01 02/04/25 08:13 02/04/25 08:01 02/04/25 08:13 02/04/25 08:01
02/02/25 02/03/25 02/04/25
11:59 11:59 11:59
Actual Weight 53 kg 51.5 kg
02/04/25 03:41
02/04/25 03:41
APTT 80.5 Sec (23.4-35.0) H 02/03/25 08:41
Magnesium 2.1 mg/dl (1.6-2.3) 02/04/25 03:41
Triglycerides 73 mg/dl (10-149) 01/27/25 04:14
LDL Cholesterol, Calc 64 mg/dl 01/27/25 04:14
VLDL Cholesterol, Calc 14 mg/dl (0-30) 01/27/25 04:14
HDL Cholesterol 48 mg/dl 01/27/25 04:14
01/21/25 01/21/25
17:35 21:19
Chg-E-Bwugsgcqprx Pept 2600 Cancelled
Physical Exam
Constitutional: No acute distress and Comfortable
EENT: Anicteric and Moist mucous membranes
Cardiovascular: Rhythm & rate is regular, Pedal edema is absent, JVD pressure is normal, S1S2 is normal and Murmur/rub/gallop absent
Respiratory: Respiratory effort normal, Lungs clear to auscul., Wheeze Absent, Crackles Absent and Rhonchi Absent
GI: Soft, Distention absent, Flat, Non tender and Normal bowel sounds
Neuro/Psych: AO x 3
Data Reviewed
-
Date of Service: February 04, 2025
Medical Decision Making: Reviewed Test Results, Independent Historian Assessment and Test Interpretation
EKG: Tracing Personally Visualized and interpreted and Report Reviewed by me
Echo: Tracing Personally Visualized and interpreted and Report Reviewed by me
X-Ray/CT/US/MRI/NUC/PET: Image Personally Visualized and interpreted and Report Reviewed by me
Medical Tests (PFT, Pathology etc): Image Personally Visualized and interpreted and Report Reviewed by me
Labs: Labs Reviewed by me
Old Records: Reviewed
--- NOTE | 2025-02-04 10:47 | PTCARENOTE ---
Patient taken to the airport maintenance laborer.
--- NOTE | 2025-02-04 11:40 | W.PN.HOSP.TC ---
Today's Communication/Plan
-
Continue with aspirin, Plavix and goal-directed medical therapy
Plan for catheter
Restart diet postprocedure
Monitor sodium
Trend creatinine postprocedure
Assessment / Plan
Assessment / Plan
Physical Exam
General: Appears Chronically Ill and Cachectic
HEENT: Normocephalic and Atraumatic; Negative Oxygen
Respiratory: Clear to Auscultation; Negative Wheezes or Rhonchi
Cardiac: Regular Rhythm and S1/S2; Negative Murmur
GI: Soft, Nontender, Nondistended and Normal Bowel Sounds
Musculoskeletal: No Clubbing, No Cyanosis and No Edema
Neuro: AOx3 conversant coherent
Psych: Calm
pt is a 79 year old male, with past medical history of coronary artery disease, history of triple-vessel disease, s/p PCI in 2016 and 2018, currently on medical therapy. Prior history of TIA managed on Plavix, likely COPD, history of statin and
PCSK9 intolerance, history of prostate cancer, s/p radiation, peripheral arterial disease presented with chest pain
Exertional chest pain in setting of chronic stable angina/anemia
Has an extensive cardiac history including triple-vessel disease, multiple MIs
initially medically managed--coreg dose increased--Imdur added
plavix held and substituted w/ asa for EGD/colonoscopy as below
Echocardiogram-left ventricular ejection fraction 45% with global hypokinesis, normal right ventricular size and function, stage I diastolic dysfunction, mild to moderate MR, left ventricular ejection fraction has decreased as compared to echo of
03/08
#NSTEMI
Cath noted multivessel dz
Cardiac surgery eval appreciated not a candidate for surgical revascularization, given his multiple co-morbidities and unknown source of bleeding
Cardio eval appreciated Hep gtt started 01/28 transfused for goal Hgb >10
Troponin trended down, no new episode chest pain, EGD/colonoscopy completed
cleared to resume Plavix as per GI, DAPT asa plavix 02/03 hep gtt discontinued
NPO for PCI today
#Exertional dyspnea COPD/ACS
Chest d-sfx-emorhxvqwrmkd lungs with emphysematous changes
Outpatient follow-up with pulmonology
#Intermittent rectal bleeding d/t radiation proctitis
CT scan unremarkable
GI eval appreciated EGD/colonoscopy postponed d/t NSTEMI as above, performed 02/02/25
Status post endoscopy and colonoscopy
Developed rectal pain following colonoscopy, improved with prn preparation H
If repeat episode recommend Carafate enema per GI
#Hyponatremia
appreciate renal
Na 125 since improved with fluid restriction and Lasix
Trend BMP for now
#Essential hypertension
Symptomatic Orthostatic Hypotension
Amlodipine discontinued
Valsartan Coreg Lasix cont w/ holding parameters
Cont Lasix
#Renal artery bruit
renal artery Doppler with left renal artery stenosis of 60-99%, right 0-59%
conservative mgmt as per nephro
#Anxiety
Ativan prn
#Peripheral arterial disease
Outpatient follow-up with vascular
#Mild to moderate aortic regurgitation
ECHO with decreased EF to 45% and global hypokinesis
#History of thyroid mass status post thyroidectomy
Continue levothyroxine
#BPH with Prostate cancer status post radiation
Continue tamsulosin
#History of odynophagia/dysphagia
Cachexia
pureed low residue diet w/ BID Ensure Vanilla supplementation when ok for diet
#Reported Hx Hyperlipidemia
lipid panel wnl
low bodyweight/cachexia
statin unnecessary at this time
#Right Eye pain/irritation
hx Dry eyes
-Polytrim Eye drop started for possible conjunctivitis, switched to maxitrol given persistence irritation planned for 7 days tx 01/31-02/06
-cont artificial tears prn
-cont home Xiidra patient's own med
-warm compress prn
GERD- Continue Protonix
DVT proph Lovenox
code status--Full code
Anticipated Discharge: > 48 hours
Subjective/Interval History
-
Date of Service: February 04, 2025
States had bowel movement earlier today
States some mild blood on the toilet paper.
Objective Data
-
Labs:
Laboratory Results
02/04/25
03:41
WBC 9.3
Hgb 11.2 L
Hct 35.2 L
Plt Count 144
Sodium 131 L
Potassium 3.8
Chloride 104
Carbon Dioxide 23
BUN 23 H
Creatinine 1.1
Glucose 93
Calcium 8.6
Vital Signs:
Vital Signs
Temp Pulse Resp BP Pulse Ox
98.6 F 69 16 146/63 94
02/04/25 08:01 02/04/25 08:13 02/04/25 08:01 02/04/25 08:13 02/04/25 08:01
I&O
02/03/25 02/04/25 02/05/25
06:59 06:59 06:59
Intake Total 440 / 440 360 / 360 360 / 360
Balance 440 / 440 360 / 360 360 / 360
--- NOTE | 2025-02-04 12:39 | ITS.CL.ANGIO ---
Agricultural Researcher - Angioplasty
Angioplasty
Procedure Report:
CARDIAC CATHETERIZATION REPORT
Date of Procedure: 02/04/2025
Referring: Davidson Puente M.D.
INDICATION: Non-ST elevation myocardial infarction.
PROCEDURE:
1. Left heart catheterization.
2. Left-sided coronary angiography (RCA is a known APPAREL FASHION DESIGNER).
3. Successful IVUS guided PCI of the ostial circumflex.
4. Successful IVUS guided PCI of the mid circumflex.
A total of 82 minutes of procedural/moderate sedation was utilized. An independent medical accounts receivable specialist was present to assist with and help manage the patient's level of consciousness and physiologic status.
ACCESS:
1. 7 Kinyarwanda right common femoral artery using a modified Seldinger technique with a micropuncture kit under ultrasound guidance.
CATHETERS:
1. 7 Kinyarwanda EBU 3.75 guiding catheter.
HEMODYNAMIC DATA
Weight (kg): 51.3
AO (s/d/x, mmHg): 115/37/66
LV (s/x mmHg): Not obtained.
AV gradient (x, mmHg): Not obtained.
LEFT VENTRICULOGRAPHY: Not performed.
CORONARY ANGIOGRAPHY
Dominance: Right.
Left Main: Extremely short, bifurcating vessel without obvious coronary artery disease.
LAD: Normal size vessel giving rise to several small diagonals. A patent stent is present in the proximal vessel with a 60-70% lesion in the proximal/ostial margin of the vessel leading into the stented segment.
Ramus: Congenitally absent.
Circumflex: Large size, codominant vessel giving rise to 3 obtuse marginals before terminating as the partial LPDA. Patent stents are visible in the proximal circumflex spanning the origin of the tiny first obtuse marginal as well as the
larger second obtuse marginal. There is an 80% in-stent restenosis lesion in the proximal margin of the stent. There is a 70% in-stent restenosis lesion in the distal margin of the stent that is not fully appreciated on the initial pictures. A
patent stent is present in the distal circumflex with no evidence of ISR. There is a stable, 50% lesion in the distal circumflex between the 2 stented segments. There is a 30% ostial stenosis of the second OM, less impressive than previously
believed.
RCA: Not injected. Known to be a medium size, codominant vessel that is chronically totally occluded in its proximal margin, filling via epicardial collaterals from the apical LAD as well as the distal circumflex.
INTERVENTION(S)
1. Successful IVUS guided PCI of the 80% ISR lesion in the proximal margin of the proximal circumflex stent (Xience Skypoint 3.0 x 12 SONYA, postdilated with a 3.25 NC balloon) with reduction in stenosis to 0%, maintaining MARCO-3 flow.
2. Successful IVUS guided PCI of the 70% ISR lesion in the mid circumflex beyond the origin of OM 2 (overlapping Xience Skypoint 3.0 x 8 SONYA, 3.0 x 12 SONYA, postdilated with a 3.25 NC balloon) with reduction in stenosis to 0%, maintaining MARCO-3
flow.
Narrative:
The decision was made to proceed with percutaneous coronary intervention. The 7Fr EBU 3.75 guiding catheter was advanced to the aortic root and seated in the left main coronary artery. Additional heparin was given and a Power Turn Flex wire was
advanced into the second obtuse marginal with relative ease. A BMW wire was advanced into the left main but had difficulty entering the circumflex. This wire was withdrawn and a short whisper wire was advanced. This wire was able to enter the
circumflex with relative ease. The 80% proximal circumflex stent ISR lesion was predilated with a 2.0 x 12 semi-compliant balloon to 12 collin. The semi-compliant balloon was removed.
The decision was made to perform intracoronary imaging. An IVUS catheter was advanced through the guiding catheter and into the ostium of the artery. Ring down was performed once the imaging crystal was no longer inside of the guiding catheter. The
IVUS catheter was advanced into the left main but would not advance any further.
IVUS imaging was deferred at this time.
Given the extremely short left main, combined with the severity of the lesion, the decision was made to predilate more aggressively and image using a GuideLiner. A 6 Kinyarwanda guide liner was advanced over the whisper wire and a 3.0 x 12 noncompliant
balloon was advanced. The balloon was used to assist the GuideLiner which in turn was used to help position the balloon. The 80% lesion was dilated to 16 collin. The noncompliant balloon was withdrawn.
A Xience Skypoint 3.5 x 12 drug-eluting stent was advanced. Meticulous care was taken while positioning the stent, ensuring that the origin of OM 2 was not covered by the stent but that the entire ISR lesion was. We were satisfied with our
positioning, the power turn flex wire was pulled back to avoid pinning the wire in between 2 layers of metal. The stent was deployed at 12 atmospheres. The stent balloon was removed.
We attempted to readvanced the power turn flex wire into the LAD, but the wire was preferentially biased into the circumflex. The the power turn flex wire was advanced into the distal LAD beside the whisper wire. The whisper wire was subsequently
pulled back and redirected into the LAD to serve as a marker and as protection.
A 3.0 x 12 noncompliant balloon was advanced into the stent and the stent was postdilated to 18 atmospheres. Angiography was performed in orthogonal views, confirming good stent expansion and an excellent angiographic result within the stented
segment. Unfortunately, this also revealed a radiolucency immediately distal to OM 2. It is unclear if this was residual plaque shift or dissection within the vessel. Regardless, the decision was made to treat this area. The GuideLiner was
readvanced over the 2.0 x 12 balloon. A Xience Skypoint 3.0 x 8 drug-eluting stent was advanced into the area in question. Once again, meticulous care was taken to position the stent precisely. The stent was deployed at 12 collin. The stent balloon
was withdrawn and the 3.0 x 12 noncompliant balloon was readvanced. The entire stented segment was postdilated to 14 collin. Nitroglycerin 150 mcg was given intracoronary.
Given the fact that we had the GuideLiner in place, IVUS was advanced into the circumflex and IVUS was performed in a retrograde fashion. This demonstrated significant atherosclerotic burden was then the stented segment immediately distal to the
area that had just been treated. This also showed good stent apposition throughout with some modest underexpansion. The IVUS catheter was withdrawn and a 3.25 x 12 noncompliant balloon was advanced. The entire stented segment was postdilated to
12 collin in the distal margin followed by 14 collin in the proximal margin. The noncompliant balloon was withdrawn and angiography was repeated. This showed an area of haziness immediately distal to the stented segment. The decision was made to treat
this area as well and avoid any potential stent complications. Once again, the GuideLiner was advanced into the circumflex using the 2.0 x 12 semicompliant balloon. A Xience Skypoint 3.0 x 12 drug-eluting stent was advanced into the mid circumflex
and positioned in an overlapping position with the 3.0 x 8 drug-eluting stent. In this position, the stent very clearly covered the radiolucency. The stent was deployed at 12 collin. The stent balloon was withdrawn and the 3.25 x 12 noncompliant
balloon was advanced. The stented segment was postdilated to 12 collin. The noncompliant balloon was withdrawn.
Final angiography was performed in orthogonal views demonstrating good stent expansion and apposition and an excellent angiographic result. The coronary wire was withdrawn and the guide was disengaged from the artery. The catheter was removed over
a standard J-wire.
Closure Device: Manual pressure.
Radiation (mGy): 1056.7
DAP (cm2.Gy): 53.5988
Fluoroscopy time (minutes): 20.8
CONCLUSIONS
1. Codominant circulation with a known APPAREL FASHION DESIGNER of the RCA, a 60-70% lesion in the proximal/ostial margin of the LAD leading into a previously stented segment, a patent stent in the distal circumflex, as stable 50% lesion in the distal circumflex
proximal to the stented segment and a culprit, 80% lesion in the proximal margin of the proximal circumflex stent status post successful IVUS guided PCI (Xience Skypoint 3.0 x 12 SONYA, postdilated with a 3.25 NC balloon), followed by 70% ISR lesions
in the mid circumflex that were not initially appreciated status post successful IVUS guided PCI (overlapping Xience Skypoint 3.0 x 8, 3.0 x 12 SONYA, postdilated with a 3.25 NC balloon) with reduction in the treated stenoses to 0%, maintaining MARCO-3
flow.
RECOMMENDATIONS:
1. Expectant management after cardiac catheterization via right common femoral approach.
2. Limited weight bearing for one week.
3. Dual antiplatelet therapy with aspirin and clopidogrel for at least 12 months, followed by aspirin indefinitely.
4. Aggressive secondary prevention. The patient is intolerant of statins and PCSK9 inhibitors. We will refer for inclisiran.
5. OMT/GDMT as hemodynamics will tolerate.
6. Referral to cardiac rehab.
Copy to: Davidson Puente M.D., Felix Anthony M.D., Christopher Cramer, D.O.
Logan Edgar DO, FACC, FACP
[2025-02-04] MEDS: [UNRECOGNIZED DRUG - OTHER] OPHTH (13:00)
[2025-02-04 13:35] LABS: ACT-LR - POC 182 Seconds (116-155)
--- NOTE | 2025-02-04 14:21 | PTCARENOTE ---
Received patient from the company laborer at 1300, right femoral sheath in place, dressing is dry and intact. Patient comfortable, monitoring VS per protocol which are stable. Having difficulty obtaining DP pulse in the right foot. Foot is warm, fleeting
posterior tibial pulse by doppler. Notified Melissa Moe NP who came to see the patient and was also having difficulty detecting the pulse with the doppler. ACT done which was 182. Dr. Edgar in to see the patient and ok with pulling sheath now. test lab technician
in pulling sheath, and holding manual pressure. VSS, patient tolerating well, call bolden in reach.
--- NOTE | 2025-02-04 14:48 | PTCARENOTE ---
14:10 7f rfa sheath manually pulled, hemostasis pad utilized. Pressure applied x30 min, hemostasis achieved at 14:40. vital signs stable throughout hold. sterile dressing applied to site. Dp and post. tibial pulses present by doppler. Site shown
to attending rn, pulses reassessed by attending rn. Care reassumed by Juana cabrera.
[2025-02-04] MEDS: ATIVAN 0.5 MG PO ×2 (15:11→22:05)
--- NOTE | 2025-02-04 17:11 | PTCARENOTE ---
Patient maintaining lying flat in bed, right groin dressing is dry and intact. Able to obtain a DP right foot with the doppler. Patient medicated with ativan PO as requested and tylenol for lower back, neck and rectal pain. Meds crushed in apple
sauce since he is unable to sit up. Daughter at the bedside, call bolden in reach.
[2025-02-04] MEDS: NON-FORMULARY ITEM 2 MG BUCCAL ×2 (17:31→22:06)
[2025-02-04] MEDS: LOVENOX 40 MG SC (18:21)
[2025-02-04] MEDS: NON-FORMULARY ITEM 1 UNIT PO (20:43)
[2025-02-04] MEDS: PREPARATION H MAX STRENGTH PAIN RELIEF CREAM 1 APPLIC RECTAL (22:06)
[2025-02-04] MEDS: DIOVAN PO (22:12)
[2025-02-05] VITALS (12 sets, daily range): BP systolic 92–143; BP diastolic 42–63; PULSE 74; O2SAT 94
[2025-02-05 04:22] LABS: Hematocrit 34.8 % (39.0-52.0); Hemoglobin 11.2 g/dL (13.0-18.0); Mean Corp Hgb Conc. 32.2 g/dL (33.0-37.0); Mean Corpuscular Volume 101.5 fL (80.0-94.0); Platelet Count 138 10^3/uL (130-400); Red Cell Dist. Width 15.5 % (11.5-14.5)
[2025-02-05 04:37] LABS: Blood Urea Nitrogen 24 mg/dl (9-20); Calcium 8.4 mg/dl (8.4-10.2); Carbon Dioxide 25 mmol/L (22-30); Chloride 103 mmol/L (98-107); Estimated Creatinine Clearance 37 ml/min; Glucose 88 mg/dl (70-99); Magnesium 1.9 mg/dl (1.6-2.3); Potassium 3.5 mmol/L (3.5-5.1); Sodium 131 mmol/L (135-145); eGFR > 60.00
--- NOTE | 2025-02-05 05:08 | PTCARENOTE ---
Pt NSR on monitor, VSS. Rt groin dsg CDI. Pt c/o rectum pain 10/23. PRN Tylenol and prep H given. pt ambulates with x 1 assist. Call bolden within reach
[2025-02-05] MEDS: SYNTHROID 88 MCG PO (07:18)
--- NOTE | 2025-02-05 07:53 | W.PN.CD ---
Today's Communication / Plan
-
DAPT.
PT/OT. Patient may need rehab vs. home PT.
Discharge planning.
Outpatient inclisiran.
Impression / Plan
-
Impression/Plan: 79M with CAD (PCI to LAD 2017 and mid circ PCI 2018 with chronically occluded dominant RCA), hypertension, carotid artery disease, hx TIA, suspected COPD, dyslipidemia with intolerance to statin and PCSK9I, right iliac artery
stenosis, recovered ICM, and prostate cancer with hx radiation presented with exertional chest discomfort, chronic dysphagia with weight loss, and intermittent rectal bleeding.
Primary blue split trimmer: Dr. Puente
#NSTEMI
-Acute on chronic. Threat to life. Troponin peaked at 5.960.
-Cardiac catheterization revealed moderately elevated filling pressures with diastolic dysfunction, an 80% ISR lesion in the proximal margin in the proximal LCx stent followed by a 70% lesion in the distal aspect of the proximal LCx stent, likely
the culprit. There is a 60-70% lesion in the ostial/proximal LAD leading into a pLAD stent (non-culprit).
-CT surgery evaluated. Not a surgical candidate.
-PCI initially deferred in light of rectal bleeding.
-S/P IVUS guided PCI of 80% proximal LCx ISR (Xience Skypoint 3.0 x 12 SONYA, post dilated with a 3.25 NCB), subsequent PCI of the distal ISR lesions in the mLCx (overlapping Xience Skypoint 3.0 x 8 SOYNA, 3.0 x 12 SONYA, post dilated with a 3.25 NCB)
with reduction in all treated stenoses to 0%, maintaining MARCO III flow in the LCx and the OM2.
-DAPT with aspirin and clopidogrel for at least 12 months. Given history of TIA, the patient may be instructed to hold aspirin and maintain clopidogrel, but this will be at outpatient neurology's discretion.
-The patient will need aggressive secondary prevention.
-Continue carvedilol 12.5 mg BID and isosorbide mononitrate. We can start to down titrate these medications as indicated, starting with the isosorbide. This can be done as an outpatient.
#Rectal bleeding/anemia:
-Acute, threat to life, now controlled.
-02/02: Colonoscopy with colonic angioectasias s/p APC (consistent with radiation proctitis). EGD with nonbleeding ulcers.
-H/H stable on DAPT.
-GI has signed off.
#Presyncope
-On 01/27, had an episode of bradycardia with associated hypotension symptomatic with lightheadedness/dizziness while working with PT.
-Likely in the setting of hypovolemia and uptitration of medical therapy.
-Valsartan reduced. Carvedilol increased to 12.5 mg BID for improved beta blockade for management of NSTEMI.
-Continue to monitor on telemetry.
#HFmrEF/Ischemic cardiomyopathy
-Acute on chronic.
-LVEF 45%.
-LVEDP = 20 mmHg with A wave to 32 mmHg, indicative of diastolic dysfunction.
-GDMT as tolerated:
-Diuretics: Furosemide 20 mg daily.
-Beta diego: Carvedilol 12.5 mg twice daily.
-TRAVON/ARB/ARNI: Valsartan 40 mg, sacubitril�losartan co-pay is $0.
-SGLT2 inhibitor: Hold with hyponatremia, can consider if okay with Nephrology, in the future co-pay is $0.
-Aldosterone agonist: Can consider as an outpatient. Not started due to titration of other blood pressure medications.
-Isosorbide/Hydralazine:� Isosorbide mononitrate 90 mg daily.
-ICD: Not currently indicated.
-Trend daily weight, I/O.
-Heart failure education.
#Hyponatremia
-Managed by nephrology.
#Mixed hyperlipidemia
-Chronic, stable.
-Statin/PCSK9i intolerant.
-Total cholesterol = 126, LDL = 64, HDL = 48, Triglycerides = 73.
-Outpatient inclisiran referral.
#PAD
-Chronic, stable.
-Managed by vascular surgery.
-Antiplatelets as above
#Prior TIA
-Remote.
-DAPT as above.
#Dispo
-IVU status.
-Full code.
-PT/OT recommends home health (as of 02/03/2025).
-Discharge planning.
Subjective/Interval History:
PCI of the LCx yesterday.
H/H stable overnight.
He still feels tired.
DATA:
Transthoracic echocardiogram, 01/22/2025:
SUMMARY
1. Left ventricular ejection fraction is mildly reduced with an ejection fraction of 45 % by Travis's biplane method of discs. Global hypokinesis.
2. Right ventricular size and systolic function are within normal limits.
3. Stage I diastolic dysfunction suggestive of abnormal relaxation.
4. Mild to moderate aortic regurgitation.
5. Compared to the prior study on 03/15/2023, LVEF has decreased from 55 to 60% with apical hypokinesis to 45% with global hypokinesis.
Cardiac Catheterization, 01/28/2025:
CONCLUSIONS
1. Codominant circulation with a short, bifurcating left main with a 60-70% lesion in the proximal/ostial margin of the LAD leading into a previous LAD stent, and 80% culprit ISR lesion in the proximal margin of the proximal circumflex stent, a 70%
ISR lesion in the distal margin of the proximal circumflex stent and chronic total occlusion of the proximal RCA filled via collaterals from all 3 epicardial vessels.
2. Moderately elevated filling pressures (LVEDP = 20 mmHg at 52.2 kg) with evidence of diastolic dysfunction (A wave to 32 mmHg).
Colonoscopy, 02/02/2025:
Impression:
-Preparation of the colon was poor.
-Stool in the entire examined colon.
-Diverticulosis in the sigmoid colon.
-Large amount of stool covering the entire cecum, unable to clear fully to identify landmarks
-Multiple recently bleeding colonic angioectasias. Treated with argon plasma coagulation (APC).
-No specimens collected.
EGD, 02/02/2025:
Impression:
-Small hiatal hernia.
-Biopsies were taken with a cold forceps for evaluation of eosinophilic esophagitis.
-Non-bleeding gastric ulcers with a clean ulcer base (Yusuf Class III).
-Biopsies were taken with a cold forceps for Helicobacter pylori testing.
-Normal first portion of the duodenum and second portion of the duodenum. Biopsied.
Cardiac Catheterization/PCI, 02/04/2025:
CONCLUSIONS
1. Codominant circulation with a known CHILD LIFE THERAPIST of the RCA, a 60-70% lesion in the proximal/ostial margin of the LAD leading into a previously stented segment, a patent stent in the distal circumflex, as stable 50% lesion in the distal circumflex
proximal to the stented segment and a culprit, 80% lesion in the proximal margin of the proximal circumflex stent status post successful IVUS guided PCI (Xience Skypoint 3.0 x 12 SONYA, postdilated with a 3.25 NC balloon), followed by 70% ISR lesions
in the mid circumflex that were not initially appreciated status post successful IVUS guided PCI (overlapping Xience Skypoint 3.0 x 8, 3.0 x 12 SONYA, postdilated with a 3.25 NC balloon) with reduction in the treated stenoses to 0%, maintaining MARCO-3
flow.
Physical Exam
Vital Signs/Labs
Vital Signs
Temp Pulse Resp BP Pulse Ox
36.6 C 67 18 131/63 97
02/05/25 03:29 02/05/25 06:00 02/05/25 03:29 02/05/25 03:21 02/05/25 03:29
02/03/25 02/04/25 02/05/25
11:59 11:59 11:59
Actual Weight 53 kg 51.5 kg
02/05/25 03:34
02/05/25 03:34
APTT 80.5 Sec (23.4-35.0) H 02/03/25 08:41
Magnesium 1.9 mg/dl (1.6-2.3) 02/05/25 03:34
Triglycerides 73 mg/dl (10-149) 01/27/25 04:14
LDL Cholesterol, Calc 64 mg/dl 01/27/25 04:14
VLDL Cholesterol, Calc 14 mg/dl (0-30) 01/27/25 04:14
HDL Cholesterol 48 mg/dl 01/27/25 04:14
01/21/25 01/21/25
17:35 21:19
[id number] Pept 2600 Cancelled
Physical Exam
Constitutional: No acute distress and Comfortable
EENT: Anicteric and Moist mucous membranes
Cardiovascular: Rhythm & rate is regular, Pedal edema is absent, JVD pressure is normal, S1S2 is normal and Murmur/rub/gallop absent
Respiratory: Respiratory effort normal, Lungs clear to auscul., Wheeze Absent, Crackles Absent and Rhonchi Absent
GI: Soft, Distention absent, Flat, Non tender and Normal bowel sounds
Neuro/Psych: AO x 3
Other: Cath Site (Right femoral access site is C/D/I.)
Data Reviewed
-
Date of Service: February 05, 2025
Medical Decision Making: Reviewed Test Results, Independent Historian Assessment and Test Interpretation
EKG: Tracing Personally Visualized and interpreted and Report Reviewed by me
Echo: Tracing Personally Visualized and interpreted and Report Reviewed by me
X-Ray/CT/US/MRI/NUC/PET: Image Personally Visualized and interpreted and Report Reviewed by me
Medical Tests (PFT, Pathology etc): Image Personally Visualized and interpreted, Report Reviewed by me, Discussed with Patient and Discussed with Family
Labs: Labs Reviewed by me
Old Records: Reviewed
[2025-02-05] MEDS: FLOMAX 0.4 MG PO ×2 (08:12→20:35)
[2025-02-05] MEDS: COREG 12.5 MG PO ×2 (08:12→20:35)
[2025-02-05] MEDS: PROTONIX 40 MG PO ×2 (08:13→20:36)
[2025-02-05] MEDS: PLAVIX 75 MG PO (08:13)
[2025-02-05] MEDS: LOW STRENGTH ASPIRIN 81 MG PO (08:13)
[2025-02-05] MEDS: MYLICON 120 MG PO (08:13)
[2025-02-05] MEDS: TYLENOL 1000 MG PO ×3 (08:13→21:55)
[2025-02-05] MEDS: IMDUR (EXTENDED RELEASE) 90 MG PO (08:13)
[2025-02-05] MEDS: LASIX 20 MG PO (08:14)
[2025-02-05] MEDS: [UNRECOGNIZED DRUG - OTHER] 1 DROP OPHTH (08:14)
[2025-02-05] MEDS: MIRALAX 17 GRAMS PO (08:14)
[2025-02-05] MEDS: NON-FORMULARY ITEM 1 UNIT PO ×2 (08:15→21:55)
[2025-02-05] MEDS: NON-FORMULARY ITEM 1 DROP BOTH EYES (08:15)
[2025-02-05] MEDS: PREPARATION H MAX STRENGTH PAIN RELIEF CREAM 1 APPLIC RECTAL (08:17)
[2025-02-05] MEDS: REFRESH EYE DROPS (PF) 1 DROPS OPHTH ×2 (08:28→20:36)
[2025-02-05] MEDS: NON-FORMULARY ITEM 2 MG BUCCAL ×3 (11:07→20:36)
--- NOTE | 2025-02-05 12:17 | W.PN.HOSP.TC ---
Today's Communication/Plan
-
await repeat PT/OT eval SNF vs. HH
Asa/plavix
GDMT
Assessment / Plan
Assessment / Plan
Physical Exam
General: Appears Chronically Ill and Cachectic
HEENT: Normocephalic and Atraumatic; Negative Oxygen
Respiratory: Clear to Auscultation; Negative Wheezes or Rhonchi
Cardiac: Regular Rhythm and S1/S2; Negative Murmur
GI: Soft, Nontender, Nondistended and Normal Bowel Sounds
Musculoskeletal: No Clubbing, No Cyanosis and No Edema
Neuro: AOx3 conversant coherent
Psych: Calm
pt is a 79 year old male, with past medical history of coronary artery disease, history of triple-vessel disease, s/p PCI in 2016 and 2018, currently on medical therapy. Prior history of TIA managed on Plavix, likely COPD, history of statin and
PCSK9 intolerance, history of prostate cancer, s/p radiation, peripheral arterial disease presented with chest pain
Exertional chest pain in setting of chronic stable angina/anemia
Has an extensive cardiac history including triple-vessel disease, multiple MIs
initially medically managed--coreg dose increased--Imdur added
plavix held and substituted w/ asa for EGD/colonoscopy as below
Echocardiogram-left ventricular ejection fraction 45% with global hypokinesis, normal right ventricular size and function, stage I diastolic dysfunction, mild to moderate MR, left ventricular ejection fraction has decreased as compared to echo of
03/08
#NSTEMI
Cath noted multivessel dz
Cardiac surgery eval appreciated not a candidate for surgical revascularization, given his multiple co-morbidities and unknown source of bleeding
Cardio eval appreciated Hep gtt started 01/28 transfused for goal Hgb >10
Troponin trended down, no new episode chest pain, EGD/colonoscopy completed
cleared to resume Plavix as per GI, DAPT asa plavix 02/03 hep gtt discontinued
Status post cardiac catheterization on 02/04/2025 with SONYA x 2.
#Exertional dyspnea COPD/ACS
Chest [id number] lungs with emphysematous changes
Outpatient follow-up with pulmonology
#Intermittent rectal bleeding d/t radiation proctitis
CT scan unremarkable
GI eval appreciated EGD/colonoscopy postponed d/t NSTEMI as above, performed 02/02/25
Status post endoscopy and colonoscopy
Developed rectal pain following colonoscopy, improved with prn preparation H
If repeat episode recommend Carafate enema per GI
#Hyponatremia
appreciate renal
Na 125 since improved with fluid restriction and Lasix
Trend BMP for now
#Essential hypertension
Symptomatic Orthostatic Hypotension
Amlodipine discontinued
Valsartan Coreg Lasix cont w/ holding parameters
Cont Lasix
#Renal artery bruit
renal artery Doppler with left renal artery stenosis of 60-99%, right 0-59%
conservative mgmt as per nephro
#Anxiety
Ativan prn
#Peripheral arterial disease
Outpatient follow-up with vascular
#Mild to moderate aortic regurgitation
ECHO with decreased EF to 45% and global hypokinesis
#History of thyroid mass status post thyroidectomy
Continue levothyroxine
#BPH with Prostate cancer status post radiation
Continue tamsulosin
#History of odynophagia/dysphagia
Cachexia
pureed low residue diet w/ BID Ensure Vanilla supplementation
#Reported Hx Hyperlipidemia
lipid panel wnl
low bodyweight/cachexia
not able to tolerate statin.
#Right Eye pain/irritation
hx Dry eyes
-Polytrim Eye drop started for possible conjunctivitis, switched to maxitrol given persistence irritation planned for 7 days tx 01/31-02/06-pt wanted new eyes drops to be stopped
-cont artificial tears prn
-cont home Xiidra patient's own med
-warm compress prn
GERD- Continue Protonix
DVT proph Lovenox
code status--Full code
Repeat PT/OT eval
Anticipated Discharge: Within 24 hours
Subjective/Interval History
-
Date of Service: February 05, 2025
states of feeling weak
Objective Data
-
Labs:
Laboratory Results
02/05/25
03:34
WBC 8.8
Hgb 11.2 L
Hct 34.8 L
Plt Count 138
Sodium 131 L
Potassium 3.5
Chloride 103
Carbon Dioxide 25
BUN 24 H
Creatinine 1.2
Glucose 88
Calcium 8.4
Vital Signs:
Vital Signs
Temp Pulse Resp BP Pulse Ox
97.6 F 66 15 97/48 96
02/05/25 11:16 02/05/25 11:16 02/05/25 11:16 02/05/25 11:16 02/05/25 11:16
I&O
02/04/25 02/05/25 02/06/25
06:59 06:59 06:59
Intake Total 360 / 360 1110 / 1110
Output Total 700 / 700
Balance 360 / 360 410 / 410
--- NOTE | 2025-02-05 14:26 | W.PN.UPDATE ---
Update Note
Progress Note Update
Nursing contacted me and let me know patient had reported chest pressure and shortness of breath. EKG appeared stable. By the time I got to the room his symptoms had resolved and he looked fine sitting OOB to chair. Symptoms lasted total of about 5
minutes after walking back from the bathroom. BP 103/48 (MAP 66). No further recommendations at this time. I also reviewed case with Dr. Edgar who saw patient today and did procedure yesterday as well.
[2025-02-05] MEDS: DIOVAN 40 MG PO (18:00)
[2025-02-05] MEDS: LOVENOX 40 MG SC (18:01)
--- NOTE | 2025-02-05 19:03 | PTCARENOTE ---
~9612-8733: Handoff report received from nightshift RN. Pt AOx4, [id number] on tele, SBP 120s, RA satting 96%. Patient c/o rectum pain post colonoscopy, PRN tylenol and Preparation H ointment given. Patient independent in room/ to bathroom. Patient
stated that he 'felt like his urine output was lower and his stream not as strong this morning.' Patient bladder scanned or 138cc, scheduled flomax given. R groin puncture site CDI and soft at this time. Patient seems to be withdrawn, encouragement
given to perform ADLs independently if safely able. Dr. Edgar at bedside this AM. Per Dr. Edgar, request for PT to see patient this morning to determine discharge planning. TT sent to PT. All needs met at this time, call bolden within reach.
~7300-4820: Patient worked with PT, ambulated in villarreal, tolerated.
~4540-4799: Patient OOB in chair with c/o 'chest heaviness' rating it a 4/10. Asked patient if any SOB associated with it and he responded 'yes, a little.' VSS at this time, HR 60s, SpO2 955 on RA, BP 100/45. After reclining the chair, patient
states the heaviness went away. EKG obtained. Silvia GARCIA made aware. No new orders at this time, Silvia stated she would inform Dr. Edgar.
~7885-6869: Pt c/o lower back pain/ rectal pain, PRN tylenol given. PRN nicorette given per pt request. Hospitalist also contacted to add ensure supplement to diet.
~0763-0318: Patient voided 150cc in urinal, PVR 53cc, scanned per patient request. Pt OOB to chair for dinner. Independent in room. All needs met at this time, call bolden within reach. Handoff report given to nightshift RN.
[2025-02-05] MEDS: NON-FORMULARY ITEM BOTH EYES (21:23)
[2025-02-05] MEDS: ATIVAN 0.5 MG PO (21:56)
[2025-02-06 04:56] VITALS: BP 130/62
[2025-02-06] MEDS: SYNTHROID 88 MCG PO (04:57)
--- NOTE | 2025-02-06 05:26 | PTCARENOTE ---
Pt NSR on monitor, VSS c/o chronic back/neck pain PRN Tylenol given. Pt ambulates x 1 assist. Call bolden within reach
[2025-02-06 06:00] VITALS: BMI 17.2
[2025-02-06 07:37] VITALS: BP 143/65
--- NOTE | 2025-02-06 07:39 | W.PN.CD ---
Today's Communication / Plan
-
Case managemenet consult for home healthcare.
Discharge planning.
Impression / Plan
-
Impression/Plan: 79M with CAD (PCI to LAD 2017 and mid circ PCI 2018 with chronically occluded dominant RCA), hypertension, carotid artery disease, hx TIA, suspected COPD, dyslipidemia with intolerance to statin and PCSK9I, right iliac artery
stenosis, recovered ICM, and prostate cancer with hx radiation presented with exertional chest discomfort, chronic dysphagia with weight loss, and intermittent rectal bleeding.
Primary upper inspector: Dr. Puente
#NSTEMI
-Acute on chronic. Threat to life. Troponin peaked at 5.960.
-Cardiac catheterization revealed moderately elevated filling pressures with diastolic dysfunction, an 80% ISR lesion in the proximal margin in the proximal LCx stent followed by a 70% lesion in the distal aspect of the proximal LCx stent, likely
the culprit. There is a 60-70% lesion in the ostial/proximal LAD leading into a pLAD stent (non-culprit).
-CT surgery evaluated. Not a surgical candidate.
-PCI initially deferred in light of rectal bleeding.
-S/P IVUS guided PCI of 80% proximal LCx ISR (Xience Skypoint 3.0 x 12 SONYA, post dilated with a 3.25 NCB), subsequent PCI of the distal ISR lesions in the mLCx (overlapping Xience Skypoint 3.0 x 8 SONYA, 3.0 x 12 SONYA, post dilated with a 3.25 NCB)
with reduction in all treated stenoses to 0%, maintaining MARCO III flow in the LCx and the OM2.
-DAPT with aspirin and clopidogrel for at least 12 months. Given history of TIA, the patient may be instructed to hold aspirin and maintain clopidogrel, but this will be at outpatient neurology's discretion.
-The patient will need aggressive secondary prevention.
-Continue carvedilol 12.5 mg BID and isosorbide mononitrate. We can start to down titrate these medications as indicated, starting with the isosorbide. This can be done as an outpatient.
#Rectal bleeding/anemia:
-Acute, threat to life, now controlled.
-02/02: Colonoscopy with colonic angioectasias s/p APC (consistent with radiation proctitis). EGD with nonbleeding ulcers.
-H/H stable on DAPT.
-GI has signed off.
#Presyncope
-On 01/27, had an episode of bradycardia with associated hypotension symptomatic with lightheadedness/dizziness while working with PT.
-Likely in the setting of hypovolemia and uptitration of medical therapy.
-Valsartan reduced. Carvedilol increased to 12.5 mg BID for improved beta blockade for management of NSTEMI.
-Continue to monitor on telemetry.
#HFmrEF/Ischemic cardiomyopathy
-Acute on chronic.
-LVEF 45%.
-LVEDP = 20 mmHg with A wave to 32 mmHg, indicative of diastolic dysfunction.
-GDMT as tolerated:
-Diuretics: Furosemide 20 mg daily.
-Beta diego: Carvedilol 12.5 mg twice daily.
-TRAVON/ARB/ARNI: Valsartan 40 mg, sacubitril�losartan co-pay is $0.
-SGLT2 inhibitor: Hold with hyponatremia, can consider if okay with Nephrology, in the future co-pay is $0.
-Aldosterone agonist: Can consider as an outpatient. Not started due to titration of other blood pressure medications.
-Isosorbide/Hydralazine:� Isosorbide mononitrate 90 mg daily.
-ICD: Not currently indicated.
-Trend daily weight, I/O.
-Heart failure education.
#Hyponatremia
-Managed by nephrology.
#Mixed hyperlipidemia
-Chronic, stable.
-Statin/PCSK9i intolerant.
-Total cholesterol = 126, LDL = 64, HDL = 48, Triglycerides = 73.
-Outpatient inclisiran referral.
#PAD
-Chronic, stable.
-Managed by vascular surgery.
-Antiplatelets as above
#Prior TIA
-Remote.
-DAPT as above.
#Dispo
-IVU status.
-Full code.
-PT/OT recommends home health (as of 02/03/2025).
-Discharge planning.
Subjective/Interval History:
Episode of chest pain yesterday, resolved.
PT/OT recommend home healthcare.
DATA:
Transthoracic echocardiogram, 01/22/2025:
SUMMARY
1. Left ventricular ejection fraction is mildly reduced with an ejection fraction of 45 % by Travis's biplane method of discs. Global hypokinesis.
2. Right ventricular size and systolic function are within normal limits.
3. Stage I diastolic dysfunction suggestive of abnormal relaxation.
4. Mild to moderate aortic regurgitation.
5. Compared to the prior study on 03/15/2023, LVEF has decreased from 55 to 60% with apical hypokinesis to 45% with global hypokinesis.
Cardiac Catheterization, 01/28/2025:
CONCLUSIONS
1. Codominant circulation with a short, bifurcating left main with a 60-70% lesion in the proximal/ostial margin of the LAD leading into a previous LAD stent, and 80% culprit ISR lesion in the proximal margin of the proximal circumflex stent, a 70%
ISR lesion in the distal margin of the proximal circumflex stent and chronic total occlusion of the proximal RCA filled via collaterals from all 3 epicardial vessels.
2. Moderately elevated filling pressures (LVEDP = 20 mmHg at 52.2 kg) with evidence of diastolic dysfunction (A wave to 32 mmHg).
Colonoscopy, 02/02/2025:
Impression:
-Preparation of the colon was poor.
-Stool in the entire examined colon.
-Diverticulosis in the sigmoid colon.
-Large amount of stool covering the entire cecum, unable to clear fully to identify landmarks
-Multiple recently bleeding colonic angioectasias. Treated with argon plasma coagulation (APC).
-No specimens collected.
EGD, 02/02/2025:
Impression:
-Small hiatal hernia.
-Biopsies were taken with a cold forceps for evaluation of eosinophilic esophagitis.
-Non-bleeding gastric ulcers with a clean ulcer base (Yusuf Class III).
-Biopsies were taken with a cold forceps for Helicobacter pylori testing.
-Normal first portion of the duodenum and second portion of the duodenum. Biopsied.
Cardiac Catheterization/PCI, 02/04/2025:
CONCLUSIONS
1. Codominant circulation with a known HISTOLOGIST of the RCA, a 60-70% lesion in the proximal/ostial margin of the LAD leading into a previously stented segment, a patent stent in the distal circumflex, as stable 50% lesion in the distal circumflex
proximal to the stented segment and a culprit, 80% lesion in the proximal margin of the proximal circumflex stent status post successful IVUS guided PCI (Xience Skypoint 3.0 x 12 SONYA, postdilated with a 3.25 NC balloon), followed by 70% ISR lesions
in the mid circumflex that were not initially appreciated status post successful IVUS guided PCI (overlapping Xience Skypoint 3.0 x 8, 3.0 x 12 SONYA, postdilated with a 3.25 NC balloon) with reduction in the treated stenoses to 0%, maintaining MARCO-3
flow.
Physical Exam
Vital Signs/Labs
Vital Signs
Temp Pulse Resp BP Pulse Ox
36.1 C 62 20 130/62 96
02/06/25 07:37 02/06/25 06:00 02/06/25 07:37 02/06/25 04:56 02/06/25 07:37
02/04/25 02/05/25 02/06/25
11:59 11:59 11:59
Actual Weight 51.5 kg 51.2 kg
02/05/25 03:34
02/05/25 03:34
APTT 80.5 Sec (23.4-35.0) H 02/03/25 08:41
Magnesium 1.9 mg/dl (1.6-2.3) 02/05/25 03:34
Triglycerides 73 mg/dl (10-149) 01/27/25 04:14
LDL Cholesterol, Calc 64 mg/dl 01/27/25 04:14
VLDL Cholesterol, Calc 14 mg/dl (0-30) 01/27/25 04:14
HDL Cholesterol 48 mg/dl 01/27/25 04:14
01/21/25 01/21/25
17:35 21:19
Lwq-L-Bcxwuhbfubo Pept 2600 Cancelled
Physical Exam
Constitutional: No acute distress and Comfortable
EENT: Anicteric and Moist mucous membranes
Cardiovascular: Rhythm & rate is regular, Pedal edema is absent, JVD pressure is normal, S1S2 is normal and Murmur/rub/gallop absent
Respiratory: Respiratory effort normal, Lungs clear to auscul., Wheeze Absent, Crackles Absent and Rhonchi Absent
GI: Soft, Distention absent, Flat, Non tender and Normal bowel sounds
Neuro/Psych: AO x 3
Data Reviewed
-
Date of Service: February 06, 2025
Medical Decision Making: Reviewed Test Results, Independent Historian Assessment and Test Interpretation
EKG: Tracing Personally Visualized and interpreted and Report Reviewed by me
Echo: Tracing Personally Visualized and interpreted and Report Reviewed by me
X-Ray/CT/US/MRI/NUC/PET: Image Personally Visualized and interpreted and Report Reviewed by me
Medical Tests (PFT, Pathology etc): Image Personally Visualized and interpreted and Report Reviewed by me
Labs: Labs Reviewed by me
Old Records: Reviewed
[2025-02-06] MEDS: COREG 12.5 MG PO ×2 (09:55→20:19)
[2025-02-06] MEDS: FLOMAX 0.4 MG PO ×2 (09:56→20:19)
[2025-02-06] MEDS: LASIX 20 MG PO (09:56)
[2025-02-06] MEDS: IMDUR (EXTENDED RELEASE) 90 MG PO (09:56)
[2025-02-06] MEDS: LOW STRENGTH ASPIRIN 81 MG PO (09:57)
[2025-02-06] MEDS: MYLICON 120 MG PO (09:57)
[2025-02-06] MEDS: MIRALAX PO (09:57)
[2025-02-06] MEDS: PLAVIX 75 MG PO (09:58)
[2025-02-06] MEDS: NON-FORMULARY ITEM 1 UNIT PO ×2 (09:59→20:20)
[2025-02-06] MEDS: PROTONIX 40 MG PO ×2 (09:59→20:21)
[2025-02-06] MEDS: NON-FORMULARY ITEM 1 DROP BOTH EYES ×2 (09:59→20:31)
[2025-02-06] MEDS: FLUSH (NSS) 1 FLUSH IV (10:00)
--- NOTE | 2025-02-06 10:32 | CM ---
Addendum entered by Shagufta Dutta 02/06/25 14:32:
Telephone call to Li Daughter to review [facility] with [facility]. She states she will not be able to provide transportation until tomorrow because she shares a car with her son and he will not be able to get the car to her until
tomorrow.
Original Note:
Reviewed chart. Met with Mr. Brito to review discharge plans. He states he feels about the same. We reviewed SNF/Rehab. and [facility] Services. He states he does not want to consider going to a SNF at this time because he has financial matters he has
to take of. He states prior to admission he resides alone in a two story home with one step to enter. He states he has a full flight of steps to get to bedroom/full bathroom. He states he has a powder room on the first floor. He states prior to
admission he was independent with ambulation in the home. He states his children prepare his puree food for him. He states his children provide transportation for him. He states he is agreeable to [facility]. Referral sent 01/23/25.
He states he has a prescription plan. Medial work-up in progress. The discharge plan is to return home with [facility] when medically stable.
[2025-02-06 11:23] VITALS: BP 143/56
[2025-02-06] MEDS: TYLENOL 1000 MG PO ×2 (11:30→20:30)
[2025-02-06] MEDS: NON-FORMULARY ITEM 2 MG BUCCAL ×3 (11:30→20:19)
[2025-02-06] MEDS: REFRESH EYE DROPS (PF) 1 DROPS OPHTH ×2 (11:30→20:34)
--- NOTE | 2025-02-06 11:49 | PTCARENOTE ---
Patient resting in bed, complains of chronic lower back, neck and rectal pain. Right groin dressing is dry and intact and removed, no signs of bleeding or hematoma. Patient seen by Dr. Arteaga, encouraged to consider SNF but he refuses. States he
knows he 'needs to get stronger' but can't he 'do it here'. Explained plan for discharge, he is worried about getting a ride, managing his medications and obtaining pureed foods. I encouraged him to reach out to his children and have them prepared
for his eventual return home today, director of casework services also in to speak with him.
--- NOTE | 2025-02-06 11:49 | W.PN.HOSP.TC ---
Addendum entered and electronically signed by Augustin Arteaga MD 02/06/25 13:10:
Updated patient daughter Li over the phone in detail. She was agreeable amenable to discharge planning. She was agreeable for visiting nurses.
More than 30 minutes spent in discharge including
Final examination of the patient
Summarizing hospital stay
Instructions for continuing care to all relevant caregivers
Preparation of discharge records, prescriptions, and referral forms
Total time spent (in minutes): 53
Original Note:
Today's Communication/Plan
-
asa/plavix
GDMT
further uptitration of meds outpatient per cards
Assessment / Plan
Assessment / Plan
Physical Exam
General: Appears Chronically Ill and Cachectic
HEENT: Normocephalic and Atraumatic; Negative Oxygen
Respiratory: Clear to Auscultation; Negative Wheezes or Rhonchi
Cardiac: Regular Rhythm and S1/S2; Negative Murmur
GI: Soft, Nontender, Nondistended and Normal Bowel Sounds
Musculoskeletal: No Clubbing, No Cyanosis and No Edema
Neuro: AOx3 conversant coherent
Psych: Calm
pt is a 79 year old male, with past medical history of coronary artery disease, history of triple-vessel disease, s/p PCI in 2016 and 2018, currently on medical therapy. Prior history of TIA managed on Plavix, likely COPD, history of statin and
PCSK9 intolerance, history of prostate cancer, s/p radiation, peripheral arterial disease presented with chest pain
#NSTEMI
Cath noted multivessel dz
Cardiac surgery eval appreciated not a candidate for surgical revascularization, given his multiple co-morbidities and unknown source of bleeding
Cardio eval appreciated Hep gtt started 01/28 transfused for goal Hgb >10
Troponin trended down, no new episode chest pain, EGD/colonoscopy completed
cleared to resume Plavix as per GI, DAPT asa plavix 02/03 hep gtt discontinued
Status post cardiac catheterization on 02/04/2025 with SONYA x 2.
#Exertional dyspnea COPD/ACS
Chest a-[id number]-pivclisdowkas lungs with emphysematous changes
Outpatient follow-up with pulmonology
#Intermittent rectal bleeding d/t radiation proctitis
CT scan unremarkable
GI eval appreciated EGD/colonoscopy postponed d/t NSTEMI as above, performed 02/02/25
Status post endoscopy and colonoscopy
Developed rectal pain following colonoscopy, improved with prn preparation H
If repeat episode recommend Carafate enema per GI
#Hyponatremia
appreciate renal
Na 125 since improved with fluid restriction and Lasix
Trend BMP for now
#Essential hypertension
Symptomatic Orthostatic Hypotension
Amlodipine discontinued
Valsartan Coreg Lasix cont w/ holding parameters
Cont Lasix
#Renal artery bruit
renal artery Doppler with left renal artery stenosis of 60-99%, right 0-59%
conservative mgmt as per nephro
#Anxiety
Ativan prn
#Peripheral arterial disease
Outpatient follow-up with vascular
#Mild to moderate aortic regurgitation
ECHO with decreased EF to 45% and global hypokinesis
#History of thyroid mass status post thyroidectomy
Continue levothyroxine
#BPH with Prostate cancer status post radiation
Continue tamsulosin
#History of odynophagia/dysphagia
Cachexia
pureed low residue diet w/ BID Ensure Vanilla supplementation
#Reported Hx Hyperlipidemia
lipid panel wnl
low bodyweight/cachexia
not able to tolerate statin.
#Right Eye pain/irritation
hx Dry eyes
-Polytrim Eye drop started for possible conjunctivitis, switched to maxitrol given persistence irritation planned for 7 days tx 01/31-02/06-pt wanted new eyes drops to be stopped
-cont artificial tears prn
-cont home Xiidra patient's own med
-warm compress prn
GERD- Continue Protonix
DVT proph Lovenox
code status--Full code
PT/OT rec SNF. Patient persistently refused going to SNF. States he has financial matters that he has to take care of. Case management also discussed with patient. Plan will be home with [facility]NA patient refusing SNF.
Anticipated Discharge: Today
Subjective/Interval History
-
Date of Service: February 06, 2025
feels the same
states of chronic back pain
Objective Data
-
Vital Signs:
Vital Signs
Temp Pulse Resp BP Pulse Ox
97.7 F 75 20 143/56 98
02/06/25 11:20 02/06/25 11:23 02/06/25 11:20 02/06/25 11:23 02/06/25 11:23
I&O
02/05/25 02/06/25 02/07/25
06:59 06:59 06:59
Intake Total 1110 / 1110 350 / 350
Output Total 700 / 700 150 / 150
Balance 410 / 410 200 / 200
--- NOTE | 2025-02-06 14:40 | PTCARENOTE ---
Spoke with the patient's daughter Yudi, she is unable to pick her father up today. Informed that her dad was being transferred to room 404-1, that he is stable from cardiac standpoint and ready for discharge. She states that someone will be
available tomorrow. TT to Dr. Arteaga, patient transferred to 404-1, report called to Hector.
[2025-02-06 14:45] VITALS: BP 117/55
--- NOTE | 2025-02-06 15:15 | TRANSFER ---
Received pt from [facility] approx 14:45. Pt AAOX3. Pox: 97% RA. NSR on business representative. Call bolden within reach. Plan of care ongoing.
[2025-02-06 16:38] LABS: Hematocrit 32.9 % (39.0-52.0); Hemoglobin 11.0 g/dL (13.0-18.0); Mean Corp Hgb Conc. 33.4 g/dL (33.0-37.0); Mean Corpuscular Volume 95.4 fL (80.0-94.0); Nucleated Red Blood Cells % 0 % (-); Platelet Count 170 10^3/uL (130-400); Red Cell Dist. Width 15.5 % (11.5-14.5)
[2025-02-06] MEDS: DIOVAN 40 MG PO (17:49)
[2025-02-06] MEDS: LOVENOX 40 MG SC (17:50)
[2025-02-06 19:50] VITALS: BP 119/52
[2025-02-06] MEDS: ATIVAN 0.5 MG PO (22:54)
[2025-02-06 23:08] VITALS: BP 130/57
[2025-02-07] MEDS: NON-FORMULARY ITEM 2 MG BUCCAL ×3 (00:38→20:22)
[2025-02-07] MEDS: TYLENOL 1000 MG PO ×3 (02:47→20:21)
[2025-02-07 03:39] VITALS: BP 146/59
[2025-02-07 06:00] VITALS: BMI 17.0
[2025-02-07] MEDS: SYNTHROID 88 MCG PO (06:04)
[2025-02-07 06:12] LABS: Hematocrit 34.4 % (39.0-52.0); Hemoglobin 11.1 g/dL (13.0-18.0); Mean Corp Hgb Conc. 32.3 g/dL (33.0-37.0); Mean Corpuscular Volume 97.7 fL (80.0-94.0); Nucleated Red Blood Cells % 0 % (-); Platelet Count 167 10^3/uL (130-400); Red Cell Dist. Width 15.4 % (11.5-14.5)
[2025-02-07 07:20] VITALS: BP 146/60
--- NOTE | 2025-02-07 08:52 | W.PN.CD ---
Today's Communication / Plan
-
Cont current meds
OK to d/c
Will need Inclisiran as outpt
will arrange follow up
Impression / Plan
-
Impression/Plan: 79M with CAD (PCI to LAD 2017 and mid circ PCI 2018 with chronically occluded dominant RCA), hypertension, carotid artery disease, hx TIA, suspected COPD, dyslipidemia with intolerance to statin and PCSK9I, right iliac artery
stenosis, recovered ICM, and prostate cancer with hx radiation presented with exertional chest discomfort, chronic dysphagia with weight loss, and intermittent rectal bleeding.
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
#NSTEMI
-Acute on chronic. Threat to life. Troponin peaked at 5.960.
-Cardiac catheterization revealed moderately elevated filling pressures with diastolic dysfunction, an 80% ISR lesion in the proximal margin in the proximal LCx stent followed by a 70% lesion in the distal aspect of the proximal LCx stent, likely
the culprit. There is a 60-70% lesion in the ostial/proximal LAD leading into a pLAD stent (non-culprit).
-CT surgery evaluated. Not a surgical candidate.
-PCI initially deferred in light of rectal bleeding.
-S/P IVUS guided PCI of 80% proximal LCx ISR (Xience Skypoint 3.0 x 12 SONYA, post dilated with a 3.25 NCB), subsequent PCI of the distal ISR lesions in the mLCx (overlapping Xience Skypoint 3.0 x 8 SONYA, 3.0 x 12 SONYA, post dilated with a 3.25 NCB)
with reduction in all treated stenoses to 0%, maintaining MARCO III flow in the LCx and the OM2.
-DAPT with aspirin and clopidogrel for at least 12 months. Given history of TIA, the patient may be instructed to hold aspirin and maintain clopidogrel, but this will be at outpatient neurology's discretion.
-The patient will need aggressive secondary prevention.
-Continue carvedilol 12.5 mg BID and isosorbide mononitrate. We can start to down titrate these medications as indicated, starting with the isosorbide. This can be done as an outpatient.
#Rectal bleeding/anemia:
-Acute, threat to life, now controlled.
-02/02: Colonoscopy with colonic angioectasias s/p APC (consistent with radiation proctitis). EGD with nonbleeding ulcers.
-H/H stable on DAPT.
-GI has signed off.
#Presyncope
-On 01/27, had an episode of bradycardia with associated hypotension symptomatic with lightheadedness/dizziness while working with PT.
-Likely in the setting of hypovolemia and uptitration of medical therapy.
-Valsartan reduced. Carvedilol increased to 12.5 mg BID for improved beta blockade for management of NSTEMI.
-Continue to monitor on telemetry.
#HFmrEF/Ischemic cardiomyopathy
-Acute on chronic.
-LVEF 45%.
-LVEDP = 20 mmHg with A wave to 32 mmHg, indicative of diastolic dysfunction.
-GDMT as tolerated:
-Diuretics: Furosemide 20 mg daily.
-Beta diego: Carvedilol 12.5 mg twice daily.
-TRAVON/ARB/ARNI: Valsartan 40 mg, sacubitril�losartan co-pay is $0.
-SGLT2 inhibitor: Hold with hyponatremia, can consider if okay with Nephrology, in the future co-pay is $0.
-Aldosterone agonist: Can consider as an outpatient. Not started due to titration of other blood pressure medications.
-Isosorbide/Hydralazine:� Isosorbide mononitrate 90 mg daily.
-ICD: Not currently indicated.
-Trend daily weight, I/O.
-Heart failure education.
#Hyponatremia
-Managed by nephrology.
#Mixed hyperlipidemia
-Chronic, stable.
-Statin/PCSK9i intolerant.
-Total cholesterol = 126, LDL = 64, HDL = 48, Triglycerides = 73.
-Outpatient inclisiran referral.
#PAD
-Chronic, stable.
-Managed by vascular surgery.
-Antiplatelets as above
#Prior TIA
-Remote.
-DAPT as above.
#Dispo
-IVU status.
-Full code.
-PT/OT recommends home health (as of 02/03/2025).
-Discharge planning.
Subjective/Interval History:
Episode of chest pain yesterday, resolved.
PT/OT recommend home healthcare.
DATA:
Transthoracic echocardiogram, 01/22/2025:
SUMMARY
1. Left ventricular ejection fraction is mildly reduced with an ejection fraction of 45 % by Travis's biplane method of discs. Global hypokinesis.
2. Right ventricular size and systolic function are within normal limits.
3. Stage I diastolic dysfunction suggestive of abnormal relaxation.
4. Mild to moderate aortic regurgitation.
5. Compared to the prior study on 03/15/2023, LVEF has decreased from 55 to 60% with apical hypokinesis to 45% with global hypokinesis.
Cardiac Catheterization, 01/28/2025:
CONCLUSIONS
1. Codominant circulation with a short, bifurcating left main with a 60-70% lesion in the proximal/ostial margin of the LAD leading into a previous LAD stent, and 80% culprit ISR lesion in the proximal margin of the proximal circumflex stent, a 70%
ISR lesion in the distal margin of the proximal circumflex stent and chronic total occlusion of the proximal RCA filled via collaterals from all 3 epicardial vessels.
2. Moderately elevated filling pressures (LVEDP = 20 mmHg at 52.2 kg) with evidence of diastolic dysfunction (A wave to 32 mmHg).
Colonoscopy, 02/02/2025:
Impression:
-Preparation of the colon was poor.
-Stool in the entire examined colon.
-Diverticulosis in the sigmoid colon.
-Large amount of stool covering the entire cecum, unable to clear fully to identify landmarks
-Multiple recently bleeding colonic angioectasias. Treated with argon plasma coagulation (APC).
-No specimens collected.
EGD, 02/02/2025:
Impression:
-Small hiatal hernia.
-Biopsies were taken with a cold forceps for evaluation of eosinophilic esophagitis.
-Non-bleeding gastric ulcers with a clean ulcer base (Yusuf Class III).
-Biopsies were taken with a cold forceps for Helicobacter pylori testing.
-Normal first portion of the duodenum and second portion of the duodenum. Biopsied.
Cardiac Catheterization/PCI, 02/04/2025:
CONCLUSIONS
1. Codominant circulation with a known SHROUDMAN of the RCA, a 60-70% lesion in the proximal/ostial margin of the LAD leading into a previously stented segment, a patent stent in the distal circumflex, as stable 50% lesion in the distal circumflex
proximal to the stented segment and a culprit, 80% lesion in the proximal margin of the proximal circumflex stent status post successful IVUS guided PCI (Xience Skypoint 3.0 x 12 SONYA, postdilated with a 3.25 NC balloon), followed by 70% ISR lesions
in the mid circumflex that were not initially appreciated status post successful IVUS guided PCI (overlapping Xience Skypoint 3.0 x 8, 3.0 x 12 SONYA, postdilated with a 3.25 NC balloon) with reduction in the treated stenoses to 0%, maintaining MARCO-3
flow.
Physical Exam
Vital Signs/Labs
Vital Signs
Temp Pulse Resp BP Pulse Ox
97.5 F 64 16 146/60 98
02/07/25 07:20 02/07/25 07:20 02/07/25 07:20 02/07/25 07:20 02/07/25 07:20
02/06/25 02/07/25 02/08/25
06:59 06:59 06:59
Actual Weight 112 lb 14.027 oz 111 lb 9 oz
02/07/25 05:44
02/05/25 03:34
APTT 80.5 Sec (23.4-35.0) H 02/03/25 08:41
Magnesium 1.9 mg/dl (1.6-2.3) 02/05/25 03:34
Triglycerides 73 mg/dl (10-149) 01/27/25 04:14
LDL Cholesterol, Calc 64 mg/dl 01/27/25 04:14
VLDL Cholesterol, Calc 14 mg/dl (0-30) 01/27/25 04:14
HDL Cholesterol 48 mg/dl 01/27/25 04:14
01/21/25 01/21/25
17:35 21:19
Els-V-Palbcnaugin Pept 2600 Cancelled
Physical Exam
Constitutional: No acute distress
EENT: Anicteric
Cardiovascular: Rhythm & rate is regular and Pedal edema is absent
Respiratory: Respiratory effort normal and Lungs clear to auscul.
GI: Soft
Neuro/Psych: AO x 3
Data Reviewed
-
Date of Service: February 07, 2025
Medical Decision Making: Reviewed Test Results
EKG: Tracing Personally Visualized and interpreted (sr)
Echo: Report Reviewed by me
Labs: Labs Reviewed by me
[2025-02-07] MEDS: IMDUR (EXTENDED RELEASE) 90 MG PO (09:48)
[2025-02-07] MEDS: FLOMAX 0.4 MG PO ×2 (09:48→20:11)
[2025-02-07] MEDS: LASIX 20 MG PO (09:48)
[2025-02-07] MEDS: PLAVIX 75 MG PO (09:49)
[2025-02-07] MEDS: LOW STRENGTH ASPIRIN 81 MG PO (09:49)
[2025-02-07] MEDS: MYLICON 120 MG PO (09:49)
[2025-02-07] MEDS: COREG 12.5 MG PO ×2 (09:49→20:10)
[2025-02-07] MEDS: MIRALAX 17 GRAMS PO (09:50)
[2025-02-07] MEDS: PROTONIX 40 MG PO ×2 (09:51→20:11)
[2025-02-07] MEDS: NON-FORMULARY ITEM 1 UNIT PO ×2 (09:51→20:14)
[2025-02-07] MEDS: NON-FORMULARY ITEM BOTH EYES (09:56)
[2025-02-07] MEDS: REFRESH EYE DROPS (PF) 1 DROPS OPHTH ×2 (10:54→20:13)
[2025-02-07 11:13] VITALS: BP 127/55
--- NOTE | 2025-02-07 11:42 | W.PN.HOSP.TC ---
Today's Communication/Plan
-
GI input
cbc stable
cont with GDMT (asa/plavix)ARB/Lasix
unable to tolerate statin-Op cards f/u
Assessment / Plan
Assessment / Plan
Physical Exam
General: Appears Chronically Ill and Cachectic
HEENT: Normocephalic and Atraumatic; Negative Oxygen
Respiratory: Clear to Auscultation; Negative Wheezes or Rhonchi
Cardiac: Regular Rhythm and S1/S2; Negative Murmur
GI: Soft, Nontender, Nondistended and Normal Bowel Sounds
Musculoskeletal: No Clubbing, No Cyanosis and No Edema
Neuro: AOx3 conversant coherent
Psych: Calm
pt is a 79 year old male, with past medical history of coronary artery disease, history of triple-vessel disease, s/p PCI in 2016 and 2018, currently on medical therapy. Prior history of TIA managed on Plavix, likely COPD, history of statin and
PCSK9 intolerance, history of prostate cancer, s/p radiation, peripheral arterial disease presented with chest pain
#NSTEMI
Cath noted multivessel dz
Cardiac surgery eval appreciated not a candidate for surgical revascularization, given his multiple co-morbidities and unknown source of bleeding
Cardio eval appreciated Hep gtt started 01/28 transfused for goal Hgb >10
Troponin trended down, no new episode chest pain, EGD/colonoscopy completed
cleared to resume Plavix as per GI, DAPT asa plavix 02/03 hep gtt discontinued
Status post cardiac catheterization on 02/04/2025 with SONYA x 2.
#Exertional dyspnea COPD/ACS
Chest a-vtp-akhxvdeoxucim lungs with emphysematous changes
Outpatient follow-up with pulmonology
#Intermittent rectal bleeding d/t radiation proctitis
CT scan unremarkable
GI eval appreciated EGD/colonoscopy postponed d/t NSTEMI as above, performed 02/02/25
Status post endoscopy and colonoscopy
Developed rectal pain following colonoscopy, improved with prn preparation H
If repeat episode recommend Carafate enema per GI
#Left side abd pain
Recent CT abd/pelvis with no abnormality
Recent Colonoscopy noted with radiation protcitis
could be from lovenox shot?
Patient wants to discuss with GI. TTed Dr. Restrepo for f/u.
CBC/BMP stable.
#Hyponatremia
Na 125 since improved with fluid restriction and Lasix
#Essential hypertension
Amlodipine discontinued
Valsartan Coreg Lasix cont w/ holding parameters
#Renal artery bruit
renal artery Doppler with left renal artery stenosis of 60-99%, right 0-59%
conservative mgmt as per nephro
#Anxiety
Ativan prn
#Peripheral arterial disease
Outpatient follow-up with vascular
#Mild to moderate aortic regurgitation
ECHO with decreased EF to 45% and global hypokinesis
#History of thyroid mass status post thyroidectomy
Continue levothyroxine
#BPH with Prostate cancer status post radiation
Continue tamsulosin
#History of odynophagia/dysphagia
Cachexia
pureed low residue diet w/ BID Ensure Vanilla supplementation
#Reported Hx Hyperlipidemia
lipid panel wnl
low bodyweight/cachexia
not able to tolerate statin.
#Right Eye pain/irritation
hx Dry eyes
-Polytrim Eye drop started for possible conjunctivitis, switched to maxitrol given persistence irritation planned for 7 days tx 01/31-02/06-pt wanted new eyes drops to be stopped
-cont artificial tears prn
-cont home Xiidra patient's own med
-Recommend outpatient optho f/u.
-warm compress prn
GERD- Continue Protonix
DVT proph Lovenox
code status--Full code
PT/OT rec SNF. Patient persistently refused going to SNF. States he has financial matters that he has to take care of. Case management also discussed with patient. Plan will be home with [facility] patient refusing SNF.
Anticipated Discharge: Today
Subjective/Interval History
-
Date of Service: February 07, 2025
now stay of LLQ abd pain/states of lump in LLQ
Objective Data
-
Labs:
Laboratory Results
02/07/25
05:44
WBC 7.5
Hgb 11.1 L
Hct 34.4 L
Plt Count 167
Vital Signs:
Vital Signs
Temp Pulse Resp BP Pulse Ox
97.5 F 70 18 127/55 97
02/07/25 11:13 02/07/25 11:13 02/07/25 11:13 02/07/25 11:13 02/07/25 11:13
I&O
02/06/25 02/07/25 02/08/25
06:59 06:59 06:59
Intake Total 350 / 350 840 / 840
Output Total 150 / 150
Balance 200 / 200 840 / 840
[2025-02-07 14:51] VITALS: BP 129/57
--- NOTE | 2025-02-07 15:46 | W.PN.GI.CBS2 ---
Today's Communication / Plan
-
Check US of induration in suprapubic region, possible injection site hematoma
Had recent CT chest, abdomen, pelvis 01/22 without any concerning finding seen then
Assessment / Plan
-
Pt is a 78 y.o male with an extensive medical history including HTN, HLD, obstructive CAD (s/p prior stenting, on plavix), ischemic cardiomyopathy, PAD, carotid artery stenosis, hx of TIAs (on plavix), possible COPD, oropharyngeal dysphagia with
previous aspiration and prostate cancer (s/p XRT finished 2023 and on hormonal therapy) with rectal bleeding, wt loss, depression and weakness. He was recommended OP work up but then presented for admission and also noted with chest pain and
increased troponin. He has chronic dysphagia on pureed diet and declined speech eval during admission. CT Chest/abd/pelvis 01/22 stable. He was prepping for EGD/colon and had further rise in trop and cath completed 01/28.as noted - PCI deferred
with rectal bleeding s/p CT surg eval not candidate for revasculization. After discussion with cardiology and GI with patient he proceeded for EGD/colon 02/02.
01/22/25- Ct Chest/abd/pelvis 1. No significant abnormality identified in the chest, abdomen or pelvis to explain the patient's weight loss, as described above.
02/02/25 EGD - Small hiatal hernia.
- Biopsies were taken with a cold forceps for evaluation of
eosinophilic esophagitis.
- Many non-bleeding linear gastric ulcers with a clean ulcer base
(Yusuf Class III) were found along the entire lesser curvature of
the gastric body, raising suspicion for ischemia-induced ulcers. The
largest lesion was 3 mm in largest dimension.
- Biopsies were taken with a cold forceps for Helicobacter pylori
testing.
- Normal first portion of the duodenum and second portion of the
duodenum. Biopsied.
02/02/25 colonoscopy
- Preparation of the colon was poor.
- Stool in the entire examined colon.
- Diverticulosis in the sigmoid colon.
- Large amount of stool covering the entire cecum, unable to clear
fully to identify landmarks
- Multiple recently bleeding colonic angioectasias. Treated with
argon plasma coagulation (APC).
- No specimens collected.
-Speech evaluation 01/30-- prior workup with [facility] on 01/09/24 with severe pharyngeal dysphagia. Prior eval at [facility] in 2019 with recommendations for alternating solids and liquids and utilizing chin tuck. Recommendations from [employer] were made--
offered speech therapy and repeat VSE. Patient declined, accepting aspiration risk and does not want to address right now due to more acute issues, desires to remain on modified pureed diet
Impression:
Abd pain at site of subcutaneous induration in suprapubic region, possible injection site hematoma
-chest pain on admission with elevated trop and concern for ACS-s/p cath 01/28
-painless rectal bleeding likely radiation proctitis as noted on colonoscopy and treated
-many non bleeding gastric ulcer on EGD along lessure curvature concern for ischemic ulcers
-prostate CA with prior XRT and hormonal therapy
-change in bowel habits
-oropharyngeal dysphagia on pureed diet
-macrocytic anemia
-wt loss - unintentional
-Presyncope
-renal artery bruit
Subjective
Subjective
Date of Service: February 07, 2025
Called back to see pt for lump in suprapubic region with tenderness which he noted yesterday
Objective
Data Reviewed
Laboratory Data:
Laboratory Results
02/07/25 05:44
02/05/25 03:34
Laboratory Results
APTT 80.5 Sec (23.4-35.0) H 02/03/25 08:41
Phosphorus 4.0 mg/dl (2.5-4.5) 02/05/25 03:34
Magnesium 1.9 mg/dl (1.6-2.3) 02/05/25 03:34
Total Bilirubin 0.3 mg/dl (0.2-1.3) 01/27/25 04:14
AST 22 U/L (17-59) 01/27/25 04:14
ALT 18 U/L (0-50) 01/27/25 04:14
Alkaline Phosphatase 40 U/L (38-126) 01/27/25 04:14
Vital Signs and I&O:
Vital Signs
Temp Pulse Resp BP Pulse Ox
97.5 F 75 16 129/57 97
02/07/25 14:51 02/07/25 14:51 02/07/25 14:51 02/07/25 14:51 02/07/25 14:51
I&O
02/06/25 02/07/25 02/08/25
06:59 06:59 06:59
Intake Total 350 / 350 840 / 840
Output Total 150 / 150
Balance 200 / 200 840 / 840
Physical Exam
Physical Exam
GI: Tender (mild tenderness in suprapubic region in area of subcuteneous mobile lump, possible injection site hematoma)
--- NOTE | 2025-02-07 16:13 | PTCARENOTE ---
pt AAO x3, anxious at times. BRAUN; OOB to BR, norma well, no c/o weakness/dizziness. VSS. Telemetry:NSR. On room air- pulse ox 97%, no SOB noted. Abd soft, pt c/o 'a lump' in lower abd; seen by GI- pt to have abd US. Norma IDDI 4 diet- aspiration
prec maintained. Voiding in BR without difficulty; pt has (+) stress incont. 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 Resting in bed at present. Will continue to monitor.
[2025-02-07] MEDS: DIOVAN 40 MG PO (17:50)
[2025-02-07 19:49] VITALS: BP 130/55
[2025-02-07] MEDS: NON-FORMULARY ITEM 1 DROP BOTH EYES (20:11)
[2025-02-07] MEDS: ATIVAN 0.5 MG PO (22:20)
[2025-02-07 23:53] VITALS: BP 133/56
[2025-02-08 03:23] VITALS: BP 143/62
[2025-02-08] MEDS: SYNTHROID 88 MCG PO (05:39)
[2025-02-08] MEDS: TYLENOL 1000 MG PO ×3 (05:40→22:21)
[2025-02-08 06:00] VITALS: BMI 17.1
[2025-02-08 07:16] LABS: Hematocrit 32.1 % (39.0-52.0); Hemoglobin 10.7 g/dL (13.0-18.0); Mean Corp Hgb Conc. 33.3 g/dL (33.0-37.0); Mean Corpuscular Volume 98.2 fL (80.0-94.0); Nucleated Red Blood Cells % 0 % (-); Platelet Count 175 10^3/uL (130-400); Red Cell Dist. Width 15.0 % (11.5-14.5)
[2025-02-08 07:47] VITALS: BP 134/61
[2025-02-08] MEDS: IMDUR (EXTENDED RELEASE) 90 MG PO (08:30)
[2025-02-08] MEDS: LOW STRENGTH ASPIRIN 81 MG PO (08:31)
[2025-02-08] MEDS: COREG 12.5 MG PO ×2 (08:31→20:12)
[2025-02-08] MEDS: PROTONIX 40 MG PO ×2 (08:31→20:12)
[2025-02-08] MEDS: PLAVIX 75 MG PO (08:31)
[2025-02-08] MEDS: LASIX 20 MG PO (08:31)
[2025-02-08] MEDS: MYLICON 120 MG PO (08:31)
[2025-02-08] MEDS: FLOMAX 0.4 MG PO ×2 (08:31→20:12)
[2025-02-08] MEDS: MIRALAX 17 GRAMS PO (08:32)
[2025-02-08] MEDS: NON-FORMULARY ITEM BOTH EYES (08:34)
[2025-02-08] MEDS: NON-FORMULARY ITEM 1 UNIT PO ×2 (08:35→20:30)
[2025-02-08] MEDS: REFRESH EYE DROPS (PF) 1 DROPS OPHTH ×5 (08:42→23:46)
--- NOTE | 2025-02-08 09:17 | W.PN.GI.CBS2 ---
Today's Communication / Plan
-
US suggests small hematoma in suprapubic region
It is less tender
Told pt he can use warm compress as needed
Also has some rectal pain and will use Prep H
Will sign off. Please call back if needed
Assessment / Plan
-
Summary: 78 y.o male with an extensive medical history including HTN, HLD, obstructive CAD (s/p prior stenting, on plavix), ischemic cardiomyopathy, PAD, carotid artery stenosis, hx of TIAs (on plavix), possible COPD, oropharyngeal dysphagia with
previous aspiration and prostate cancer (s/p XRT finished 2023 and on hormonal therapy) with rectal bleeding, wt loss, depression and weakness. He was recommended OP work up but then presented for admission and also noted with chest pain and
increased troponin. He has chronic dysphagia on pureed diet and declined speech eval during admission. CT Chest/abd/pelvis 01/22 stable. He was prepping for EGD/colon and had further rise in trop and cath completed 01/28.as noted - PCI deferred
with rectal bleeding s/p CT surg eval not candidate for revasculization. After discussion with cardiology and GI with patient he proceeded for EGD/colon 02/02.
01/22/25- CT chest/abd/pelvis- No significant abnormality identified in the chest, abdomen or pelvis to explain the patient's weight loss, as described above.
Speech evaluation 01/30-- prior workup with VSE on 01/09/24 with severe pharyngeal dysphagia. Prior eval at [facility] in 2019 with recommendations for alternating solids and liquids and utilizing chin tuck. Recommendations from [employer] were made--
offered speech therapy and repeat VSE. Patient declined, accepting aspiration risk and does not want to address right now due to more acute issues, desires to remain on modified pureed diet
02/02/25 EGD- Small hiatal hernia. Bx negative EoE. Many nonbleeding 3mm lesser curve raising suspicion for ischemia-induced ulcers bx negative HP. SBBx negative
02/02/25 COLON- poor prep. Diverticulosis. Large amt stool covering entire cecum, unable to clear fully to identify landmarks. Multiple recently bleeding colonic AVMs cauterized w APC
02/07/25 US ABD- Within anterior wall superficial soft tissues in suprapubic region, there is a mildly complex hypoechoic area 2.4 x 0.8 x 2.0cm without blood flow within, likely represents a small hematoma. Other etiology such as small abscess or
infected hematoma cannot be excluded
Impression:
-Abdominal wall hematoma, likely injection site
-chest pain on admission with elevated trop and concern for ACS-s/p cath 01/28
-painless rectal bleeding likely radiation proctitis as noted on colonoscopy and treated
-many non bleeding gastric ulcer on EGD along lessure curvature concern for ischemic ulcers
-prostate CA with prior XRT and hormonal therapy
-change in bowel habits
-oropharyngeal dysphagia on pureed diet
-macrocytic anemia
-wt loss - unintentional
-Presyncope
-renal artery bruit
Subjective
Subjective
Date of Service: February 08, 2025
Abd pain is a little better today
Objective
Data Reviewed
Laboratory Data:
Laboratory Results
02/08/25 06:12
02/05/25 03:34
Laboratory Results
APTT 80.5 Sec (23.4-35.0) H 02/03/25 08:41
Phosphorus 4.0 mg/dl (2.5-4.5) 02/05/25 03:34
Magnesium 1.9 mg/dl (1.6-2.3) 02/05/25 03:34
Total Bilirubin 0.3 mg/dl (0.2-1.3) 01/27/25 04:14
AST 22 U/L (17-59) 01/27/25 04:14
ALT 18 U/L (0-50) 01/27/25 04:14
Alkaline Phosphatase 40 U/L (38-126) 01/27/25 04:14
Vital Signs and I&O:
Vital Signs
Temp Pulse Resp BP Pulse Ox
97.4 F 63 16 134/61 97
02/08/25 07:47 02/08/25 08:31 02/08/25 07:47 02/08/25 08:31 02/08/25 07:47
I&O
02/07/25 02/08/25 02/09/25
06:59 06:59 06:59
Intake Total 840 / 840 540 / 540
Balance 840 / 840 540 / 540
Physical Exam
Physical Exam
GI: Soft, Non Distended and Tender (soft mobile induration in suprapubic soft tissue, minimal tender)
[2025-02-08] MEDS: NON-FORMULARY ITEM 2 MG BUCCAL ×4 (09:59→22:25)
--- NOTE | 2025-02-08 11:04 | W.PN.HOSP.TC ---
Today's Communication/Plan
-
check UA
hold lovenox sc
Cont GDMT
Assessment / Plan
Assessment / Plan
Physical Exam
General: Appears Chronically Ill and Cachectic
HEENT: Normocephalic and Atraumatic; Negative Oxygen
Respiratory: Clear to Auscultation; Negative Wheezes or Rhonchi
Cardiac: Regular Rhythm and S1/S2; Negative Murmur
GI: Soft, Nontender, Nondistended and Normal Bowel Sounds
Musculoskeletal: No Clubbing, No Cyanosis and No Edema
Neuro: AOx3 conversant coherent
Psych: Calm
pt is a 79 year old male, with past medical history of coronary artery disease, history of triple-vessel disease, s/p PCI in 2016 and 2018, currently on medical therapy. Prior history of TIA managed on Plavix, likely COPD, history of statin and
PCSK9 intolerance, history of prostate cancer, s/p radiation, peripheral arterial disease presented with chest pain
#NSTEMI
Cath noted multivessel dz
Cardiac surgery eval appreciated not a candidate for surgical revascularization, given his multiple co-morbidities and unknown source of bleeding
Cardio eval appreciated Hep gtt started 01/28 transfused for goal Hgb >10
Troponin trended down, no new episode chest pain, EGD/colonoscopy completed
cleared to resume Plavix as per GI, DAPT asa plavix 02/03 hep gtt discontinued
Status post cardiac catheterization on 02/04/2025 with SONYA x 2.
#Exertional dyspnea COPD/ACS
Chest w-gwd-znxgnesnyziug lungs with emphysematous changes
Outpatient follow-up with pulmonology
#Intermittent rectal bleeding d/t radiation proctitis
CT scan unremarkable
GI eval appreciated EGD/colonoscopy postponed d/t NSTEMI as above, performed 02/02/25
Status post endoscopy and colonoscopy
Developed rectal pain following colonoscopy, -recs Preparation H
If repeat episode recommend Carafate enema per GI
#Left side abd pain -lower quadrant.
Recent CT abd/pelvis with no abnormality
Recent Colonoscopy noted with radiation proctitis
small hematoma noted on US.
CBC/BMP stable.
#Hyponatremia
Na 125 since improved with fluid restriction and Lasix
#Essential hypertension
Amlodipine discontinued
Valsartan Coreg Lasix cont w/ holding parameters
#Renal artery bruit
renal artery Doppler with left renal artery stenosis of 60-99%, right 0-59%
conservative mgmt as per nephro
#Anxiety
Ativan prn
#Peripheral arterial disease
Outpatient follow-up with vascular
#Mild to moderate aortic regurgitation
ECHO with decreased EF to 45% and global hypokinesis
#History of thyroid mass status post thyroidectomy
Continue levothyroxine
#BPH with Prostate cancer status post radiation
#Complaints of dysuira-check UA
Continue tamsulosin
#History of odynophagia/dysphagia
Cachexia
pureed low residue diet w/ BID Ensure Vanilla supplementation
#Reported Hx Hyperlipidemia
lipid panel wnl
low bodyweight/cachexia
not able to tolerate statin.
#Right Eye pain/irritation
hx Dry eyes
-Polytrim Eye drop started for possible conjunctivitis, switched to maxitrol given persistence irritation planned for 7 days tx 01/31-02/06-pt wanted new eyes drops to be stopped
-cont artificial tears prn
-cont home Xiidra patient's own med
-Recommend outpatient optho f/u.
-warm compress prn
GERD- Continue Protonix
DVT proph scds
code status--Full code
PT/OT rec SNF. Patient persistently refused going to SNF. States he has financial matters that he has to take care of. Case management also discussed with patient. Plan will be home with [facility] patient refusing SNF.
Anticipated Discharge: Within 24 hours
Subjective/Interval History
-
Date of Service: February 08, 2025
now states of increase flatulence and rectal pain during having bm
states of dysuria to RN after initial eval
Objective Data
-
Labs:
Laboratory Results
02/08/25
06:12
WBC 7.4
Hgb 10.7 L
Hct 32.1 L
Plt Count 175
Vital Signs:
Vital Signs
Temp Pulse Resp BP Pulse Ox
97.4 F 63 16 134/61 97
02/08/25 07:47 02/08/25 08:31 02/08/25 07:47 02/08/25 08:31 02/08/25 10:28
I&O
02/07/25 02/08/25 02/09/25
06:59 06:59 06:59
Intake Total 840 / 840 540 / 540
Balance 840 / 840 540 / 540
[2025-02-08 11:28] VITALS: BP 101/40
--- NOTE | 2025-02-08 12:42 | W.PN.CD ---
Today's Communication / Plan
-
OK to discharge will arrange f/u
Impression / Plan
-
Impression/Plan: 79M with CAD (PCI to LAD 2017 and mid circ PCI 2018 with chronically occluded dominant RCA), hypertension, carotid artery disease, hx TIA, suspected COPD, dyslipidemia with intolerance to statin and PCSK9I, right iliac artery
stenosis, recovered ICM, and prostate cancer with hx radiation presented with exertional chest discomfort, chronic dysphagia with weight loss, and intermittent rectal bleeding.
Primary critical care physician: Dr. Puente
#NSTEMI
-Acute on chronic. Threat to life. Troponin peaked at 5.960.
-Cardiac catheterization revealed moderately elevated filling pressures with diastolic dysfunction, an 80% ISR lesion in the proximal margin in the proximal LCx stent followed by a 70% lesion in the distal aspect of the proximal LCx stent, likely
the culprit. There is a 60-70% lesion in the ostial/proximal LAD leading into a pLAD stent (non-culprit).
-CT surgery evaluated. Not a surgical candidate.
-PCI initially deferred in light of rectal bleeding.
-S/P IVUS guided PCI of 80% proximal LCx ISR (Xience Skypoint 3.0 x 12 SONYA, post dilated with a 3.25 NCB), subsequent PCI of the distal ISR lesions in the mLCx (overlapping Xience Skypoint 3.0 x 8 SONYA, 3.0 x 12 SONYA, post dilated with a 3.25 NCB)
with reduction in all treated stenoses to 0%, maintaining MARCO III flow in the LCx and the OM2.
-DAPT with aspirin and clopidogrel for at least 12 months. Given history of TIA, the patient may be instructed to hold aspirin and maintain clopidogrel, but this will be at outpatient neurology's discretion.
-The patient will need aggressive secondary prevention.
-Continue carvedilol 12.5 mg BID and isosorbide mononitrate. We can start to down titrate these medications as indicated, starting with the isosorbide. This can be done as an outpatient.
#Rectal bleeding/anemia:
-Acute, threat to life, now controlled.
-02/02: Colonoscopy with colonic angioectasias s/p APC (consistent with radiation proctitis). EGD with nonbleeding ulcers.
-H/H stable on DAPT.
-GI has signed off.
#Presyncope
-On 01/27, had an episode of bradycardia with associated hypotension symptomatic with lightheadedness/dizziness while working with PT.
-Likely in the setting of hypovolemia and uptitration of medical therapy.
-Valsartan reduced. Carvedilol increased to 12.5 mg BID for improved beta blockade for management of NSTEMI.
-Continue to monitor on telemetry.
#HFmrEF/Ischemic cardiomyopathy
-Acute on chronic.
-LVEF 45%.
-LVEDP = 20 mmHg with A wave to 32 mmHg, indicative of diastolic dysfunction.
-GDMT as tolerated:
-Diuretics: Furosemide 20 mg daily.
-Beta diego: Carvedilol 12.5 mg twice daily.
-TRAVON/ARB/ARNI: Valsartan 40 mg, sacubitril�losartan co-pay is $0.
-SGLT2 inhibitor: Hold with hyponatremia, can consider if okay with Nephrology, in the future co-pay is $0.
-Aldosterone agonist: Can consider as an outpatient. Not started due to titration of other blood pressure medications.
-Isosorbide/Hydralazine:� Isosorbide mononitrate 90 mg daily.
-ICD: Not currently indicated.
-Trend daily weight, I/O.
-Heart failure education.
#Hyponatremia
-Managed by nephrology.
#Mixed hyperlipidemia
-Chronic, stable.
-Statin/PCSK9i intolerant.
-Total cholesterol = 126, LDL = 64, HDL = 48, Triglycerides = 73.
-Outpatient inclisiran referral.
#PAD
-Chronic, stable.
-Managed by vascular surgery.
-Antiplatelets as above
#Prior TIA
-Remote.
-DAPT as above.
#Dispo
-IVU status.
-Full code.
-PT/OT recommends home health (as of 02/03/2025).
-Discharge planning.
Subjective/Interval History:
Episode of chest pain yesterday, resolved.
PT/OT recommend home healthcare.
DATA:
Transthoracic echocardiogram, 01/22/2025:
SUMMARY
1. Left ventricular ejection fraction is mildly reduced with an ejection fraction of 45 % by Travis's biplane method of discs. Global hypokinesis.
2. Right ventricular size and systolic function are within normal limits.
3. Stage I diastolic dysfunction suggestive of abnormal relaxation.
4. Mild to moderate aortic regurgitation.
5. Compared to the prior study on 03/15/2023, LVEF has decreased from 55 to 60% with apical hypokinesis to 45% with global hypokinesis.
Cardiac Catheterization, 01/28/2025:
CONCLUSIONS
1. Codominant circulation with a short, bifurcating left main with a 60-70% lesion in the proximal/ostial margin of the LAD leading into a previous LAD stent, and 80% culprit ISR lesion in the proximal margin of the proximal circumflex stent, a 70%
ISR lesion in the distal margin of the proximal circumflex stent and chronic total occlusion of the proximal RCA filled via collaterals from all 3 epicardial vessels.
2. Moderately elevated filling pressures (LVEDP = 20 mmHg at 52.2 kg) with evidence of diastolic dysfunction (A wave to 32 mmHg).
Colonoscopy, 02/02/2025:
Impression:
-Preparation of the colon was poor.
-Stool in the entire examined colon.
-Diverticulosis in the sigmoid colon.
-Large amount of stool covering the entire cecum, unable to clear fully to identify landmarks
-Multiple recently bleeding colonic angioectasias. Treated with argon plasma coagulation (APC).
-No specimens collected.
EGD, 02/02/2025:
Impression:
-Small hiatal hernia.
-Biopsies were taken with a cold forceps for evaluation of eosinophilic esophagitis.
-Non-bleeding gastric ulcers with a clean ulcer base (Yusuf Class III).
-Biopsies were taken with a cold forceps for Helicobacter pylori testing.
-Normal first portion of the duodenum and second portion of the duodenum. Biopsied.
Cardiac Catheterization/PCI, 02/04/2025:
CONCLUSIONS
1. Codominant circulation with a known THERAPY SITE COORDINATOR of the RCA, a 60-70% lesion in the proximal/ostial margin of the LAD leading into a previously stented segment, a patent stent in the distal circumflex, as stable 50% lesion in the distal circumflex
proximal to the stented segment and a culprit, 80% lesion in the proximal margin of the proximal circumflex stent status post successful IVUS guided PCI (Xience Skypoint 3.0 x 12 SONYA, postdilated with a 3.25 NC balloon), followed by 70% ISR lesions
in the mid circumflex that were not initially appreciated status post successful IVUS guided PCI (overlapping Xience Skypoint 3.0 x 8, 3.0 x 12 SONYA, postdilated with a 3.25 NC balloon) with reduction in the treated stenoses to 0%, maintaining MARCO-3
flow.
Physical Exam
Vital Signs/Labs
Vital Signs
Temp Pulse Resp BP Pulse Ox
97.4 F 65 17 101/40 96
02/08/25 11:28 02/08/25 11:28 02/08/25 11:28 02/08/25 11:28 02/08/25 11:28
02/07/25 02/08/25 02/09/25
06:59 06:59 06:59
Actual Weight 111 lb 9 oz 112 lb 9 oz
02/08/25 06:12
02/05/25 03:34
APTT 80.5 Sec (23.4-35.0) H 02/03/25 08:41
Magnesium 1.9 mg/dl (1.6-2.3) 02/05/25 03:34
Triglycerides 73 mg/dl (10-149) 01/27/25 04:14
LDL Cholesterol, Calc 64 mg/dl 01/27/25 04:14
VLDL Cholesterol, Calc 14 mg/dl (0-30) 01/27/25 04:14
HDL Cholesterol 48 mg/dl 01/27/25 04:14
01/21/25 01/21/25
17:35 21:19
Ocj-A-Ajepcbanvye Pept 2600 Cancelled
Physical Exam
Constitutional: No acute distress and Comfortable
EENT: Anicteric
Cardiovascular: Rhythm & rate is regular
Respiratory: Respiratory effort normal and Lungs clear to auscul.
GI: Soft
Neuro/Psych: Alert and Oriented
Data Reviewed
-
Date of Service: February 08, 2025
EKG: Tracing Personally Visualized and interpreted (sr)
Echo: Report Reviewed by me
Labs: Labs Reviewed by me
[2025-02-08 13:17] LABS: Urine Character Clear (Clear)
[2025-02-08 13:35] LABS: Urine Squamous Cell 0-2 /LPF (Few)
[2025-02-08 13:36] LABS: Urine Red Blood Cell None Seen /HPF (0-2); Urine White Cell None Seen /HPF (0-5)
[2025-02-08 15:52] VITALS: BP 112/48
[2025-02-08] MEDS: DIOVAN 40 MG PO (18:02)
[2025-02-08 19:50] VITALS: BP 124/54
[2025-02-08] MEDS: COLACE PO (20:16)
[2025-02-08] MEDS: NON-FORMULARY ITEM 1 DROP BOTH EYES (22:18)
[2025-02-08] MEDS: DESENEX/MITRAZOL/ZEASORB 1 APPLIC TOPICAL (22:18)
[2025-02-08] MEDS: ATIVAN 0.5 MG PO (22:22)
[2025-02-08] MEDS: PREPARATION H MAX STRENGTH PAIN RELIEF CREAM 1 APPLIC RECTAL (22:23)
[2025-02-08 23:19] VITALS: BP 121/52
[2025-02-09 03:26] VITALS: BP 143/58
[2025-02-09] MEDS: SYNTHROID 88 MCG PO (05:40)
[2025-02-09] MEDS: TYLENOL 1000 MG PO (05:40)
[2025-02-09] MEDS: REFRESH EYE DROPS (PF) 1 DROPS OPHTH ×2 (05:45→09:44)
[2025-02-09 06:00] VITALS: BMI 17.3
[2025-02-09] MEDS: NON-FORMULARY ITEM 2 MG BUCCAL ×2 (06:00→11:16)
[2025-02-09 07:14] LABS: Hematocrit 31.1 % (39.0-52.0); Hemoglobin 10.3 g/dL (13.0-18.0); Mean Corp Hgb Conc. 33.1 g/dL (33.0-37.0); Mean Corpuscular Volume 97.2 fL (80.0-94.0); Nucleated Red Blood Cells % 0 % (-); Platelet Count 187 10^3/uL (130-400); Red Cell Dist. Width 15.0 % (11.5-14.5)
[2025-02-09 07:30] VITALS: BP 114/43
[2025-02-09 07:33] LABS: Blood Urea Nitrogen 34 mg/dl (9-20); Calcium 8.5 mg/dl (8.4-10.2); Carbon Dioxide 25 mmol/L (22-30); Chloride 100 mmol/L (98-107); Estimated Creatinine Clearance 34 ml/min; Glucose 99 mg/dl (70-99); Potassium 4.0 mmol/L (3.5-5.1); Sodium 128 mmol/L (135-145); eGFR 56.23
--- NOTE | 2025-02-09 09:10 | W.PN.CD ---
Today's Communication / Plan
-
Consider speech eval to advance diet
rectal and urinary pain started yesterday
Consider lasix MWF
We will sign off pls call with questions
Impression / Plan
-
Impression/Plan: 79M with CAD (PCI to LAD 2017 and mid circ PCI 2018 with chronically occluded dominant RCA), hypertension, carotid artery disease, hx TIA, suspected COPD, dyslipidemia with intolerance to statin and PCSK9I, right iliac artery
stenosis, recovered ICM, and prostate cancer with hx radiation presented with exertional chest discomfort, chronic dysphagia with weight loss, and intermittent rectal bleeding.
Primary commercial real estate assistant: Dr. Puente
#NSTEMI
-Acute on chronic. Threat to life. Troponin peaked at 5.960.
-Cardiac catheterization revealed moderately elevated filling pressures with diastolic dysfunction, an 80% ISR lesion in the proximal margin in the proximal LCx stent followed by a 70% lesion in the distal aspect of the proximal LCx stent, likely
the culprit. There is a 60-70% lesion in the ostial/proximal LAD leading into a pLAD stent (non-culprit).
-CT surgery evaluated. Not a surgical candidate.
-PCI initially deferred in light of rectal bleeding.
-S/P IVUS guided PCI of 80% proximal LCx ISR (Xience Skypoint 3.0 x 12 SONYA, post dilated with a 3.25 NCB), subsequent PCI of the distal ISR lesions in the mLCx (overlapping Xience Skypoint 3.0 x 8 SONYA, 3.0 x 12 SONYA, post dilated with a 3.25 NCB)
with reduction in all treated stenoses to 0%, maintaining MARCO III flow in the LCx and the OM2.
-DAPT with aspirin and clopidogrel for at least 12 months. Given history of TIA, the patient may be instructed to hold aspirin and maintain clopidogrel, but this will be at outpatient neurology's discretion.
-The patient will need aggressive secondary prevention.
-Continue carvedilol 12.5 mg BID and isosorbide mononitrate. We can start to down titrate these medications as indicated, starting with the isosorbide. This can be done as an outpatient.
#Rectal bleeding/anemia:
-Acute, threat to life, now controlled.
-02/02: Colonoscopy with colonic angioectasias s/p APC (consistent with radiation proctitis). EGD with nonbleeding ulcers.
-H/H stable on DAPT.
-GI has signed off.
#Presyncope
-On 01/27, had an episode of bradycardia with associated hypotension symptomatic with lightheadedness/dizziness while working with PT.
-Likely in the setting of hypovolemia and uptitration of medical therapy.
-Valsartan reduced. Carvedilol increased to 12.5 mg BID for improved beta blockade for management of NSTEMI.
-Continue to monitor on telemetry.
#HFmrEF/Ischemic cardiomyopathy
-Acute on chronic.
-LVEF 45%.
-LVEDP = 20 mmHg with A wave to 32 mmHg, indicative of diastolic dysfunction.
-GDMT as tolerated:
-Diuretics: Furosemide 20 mg given limited PO intake consider MWF dosing
-Beta diego: Carvedilol 12.5 mg twice daily.
-TRAVON/ARB/ARNI: Valsartan 40 mg, sacubitril�losartan co-pay is $0.
-SGLT2 inhibitor: Hold with hyponatremia, can consider if okay with Nephrology, in the future co-pay is $0.
-Aldosterone agonist: Can consider as an outpatient. Not started due to titration of other blood pressure medications.
-Isosorbide/Hydralazine:� Isosorbide mononitrate 90 mg daily.
-ICD: Not currently indicated.
-Trend daily weight, I/O.
-Heart failure education.
#Hyponatremia
-Managed by nephrology.
#Mixed hyperlipidemia
-Chronic, stable.
-Statin/PCSK9i intolerant.
-Total cholesterol = 126, LDL = 64, HDL = 48, Triglycerides = 73.
-Outpatient inclisiran referral.
#PAD
-Chronic, stable.
-Managed by vascular surgery.
-Antiplatelets as above
#Prior TIA
-Remote.
-DAPT as above.
#Dispo
-IVU status.
-Full code.
-PT/OT recommends home health (as of 02/03/2025).
-Discharge planning.
Subjective/Interval History:
urinary complaints started yesterday
rectal pain complaints started yesterday
DATA:
Transthoracic echocardiogram, 01/22/2025:
SUMMARY
1. Left ventricular ejection fraction is mildly reduced with an ejection fraction of 45 % by Travis's biplane method of discs. Global hypokinesis.
2. Right ventricular size and systolic function are within normal limits.
3. Stage I diastolic dysfunction suggestive of abnormal relaxation.
4. Mild to moderate aortic regurgitation.
5. Compared to the prior study on 03/15/2023, LVEF has decreased from 55 to 60% with apical hypokinesis to 45% with global hypokinesis.
Cardiac Catheterization, 01/28/2025:
CONCLUSIONS
1. Codominant circulation with a short, bifurcating left main with a 60-70% lesion in the proximal/ostial margin of the LAD leading into a previous LAD stent, and 80% culprit ISR lesion in the proximal margin of the proximal circumflex stent, a 70%
ISR lesion in the distal margin of the proximal circumflex stent and chronic total occlusion of the proximal RCA filled via collaterals from all 3 epicardial vessels.
2. Moderately elevated filling pressures (LVEDP = 20 mmHg at 52.2 kg) with evidence of diastolic dysfunction (A wave to 32 mmHg).
Colonoscopy, 02/02/2025:
Impression:
-Preparation of the colon was poor.
-Stool in the entire examined colon.
-Diverticulosis in the sigmoid colon.
-Large amount of stool covering the entire cecum, unable to clear fully to identify landmarks
-Multiple recently bleeding colonic angioectasias. Treated with argon plasma coagulation (APC).
-No specimens collected.
EGD, 02/02/2025:
Impression:
-Small hiatal hernia.
-Biopsies were taken with a cold forceps for evaluation of eosinophilic esophagitis.
-Non-bleeding gastric ulcers with a clean ulcer base (Yusuf Class III).
-Biopsies were taken with a cold forceps for Helicobacter pylori testing.
-Normal first portion of the duodenum and second portion of the duodenum. Biopsied.
Cardiac Catheterization/PCI, 02/04/2025:
CONCLUSIONS
1. Codominant circulation with a known THEATRE INSTRUCTOR of the RCA, a 60-70% lesion in the proximal/ostial margin of the LAD leading into a previously stented segment, a patent stent in the distal circumflex, as stable 50% lesion in the distal circumflex
proximal to the stented segment and a culprit, 80% lesion in the proximal margin of the proximal circumflex stent status post successful IVUS guided PCI (Xience Skypoint 3.0 x 12 SONYA, postdilated with a 3.25 NC balloon), followed by 70% ISR lesions
in the mid circumflex that were not initially appreciated status post successful IVUS guided PCI (overlapping Xience Skypoint 3.0 x 8, 3.0 x 12 SONYA, postdilated with a 3.25 NC balloon) with reduction in the treated stenoses to 0%, maintaining MARCO-3
flow.
Physical Exam
Vital Signs/Labs
Vital Signs
Temp Pulse Resp BP Pulse Ox
97.4 F 62 16 114/43 98
02/09/25 07:30 02/09/25 07:30 02/09/25 07:30 02/09/25 07:30 02/09/25 07:30
02/08/25 02/09/25 02/10/25
06:59 06:59 06:59
Actual Weight 112 lb 9 oz 113 lb 7 oz
02/09/25 06:22
02/09/25 06:22
APTT 80.5 Sec (23.4-35.0) H 02/03/25 08:41
Magnesium 1.9 mg/dl (1.6-2.3) 02/05/25 03:34
Triglycerides 73 mg/dl (10-149) 01/27/25 04:14
LDL Cholesterol, Calc 64 mg/dl 01/27/25 04:14
VLDL Cholesterol, Calc 14 mg/dl (0-30) 01/27/25 04:14
HDL Cholesterol 48 mg/dl 01/27/25 04:14
01/21/25 01/21/25
17:35 21:19
Web-B-Dcdiulfopfn Pept 2600 Cancelled
Physical Exam
Constitutional: No acute distress and Comfortable
EENT: Anicteric
Cardiovascular: Rhythm & rate is regular and Pedal edema is absent
Respiratory: Respiratory effort normal and Lungs clear to auscul.
GI: Soft
Neuro/Psych: Alert and Oriented
Data Reviewed
-
Date of Service: February 09, 2025
EKG: Tracing Personally Visualized and interpreted (sr)
Echo: Report Reviewed by me
Labs: Labs Reviewed by me
[2025-02-09] MEDS: PROTONIX 40 MG PO (09:44)
[2025-02-09] MEDS: MYLICON 120 MG PO (09:44)
[2025-02-09] MEDS: COLACE 100 MG PO (09:44)
[2025-02-09] MEDS: MIRALAX 17 GRAMS PO (09:44)
[2025-02-09] MEDS: LOW STRENGTH ASPIRIN 81 MG PO (09:44)
[2025-02-09] MEDS: PLAVIX 75 MG PO (09:45)
[2025-02-09] MEDS: FLOMAX 0.4 MG PO (09:45)
[2025-02-09] MEDS: DESENEX/MITRAZOL/ZEASORB 1 APPLIC TOPICAL (09:45)
[2025-02-09] MEDS: COREG 12.5 MG PO (09:45)
[2025-02-09] MEDS: IMDUR (EXTENDED RELEASE) 90 MG PO (09:45)
[2025-02-09] MEDS: LASIX PO (09:46)
[2025-02-09] MEDS: NON-FORMULARY ITEM BOTH EYES (09:47)
[2025-02-09] MEDS: NON-FORMULARY ITEM 1 UNIT PO (09:48)
[2025-02-09 11:20] VITALS: BP 116/50
--- NOTE | 2025-02-09 11:41 | W.PN.HOSP.TC ---
Today's Communication/Plan
-
Speech evaluation
Discharge home later today
Possibility patient might appeal discharge at that point case management involvement
Continue with goal-directed medical therapy per cardiology recs
Assessment / Plan
Assessment / Plan
Physical Exam
General: Appears Chronically Ill and Cachectic
HEENT: Normocephalic and Atraumatic; Negative Oxygen
Respiratory: Clear to Auscultation; Negative Wheezes or Rhonchi
Cardiac: Regular Rhythm and S1/S2; Negative Murmur
GI: Soft, Nontender, Nondistended and Normal Bowel Sounds
Musculoskeletal: No Clubbing, No Cyanosis and No Edema
Neuro: AOx3 conversant coherent
Psych: Calm
pt is a 79 year old male, with past medical history of coronary artery disease, history of triple-vessel disease, s/p PCI in 2016 and 2018, currently on medical therapy. Prior history of TIA managed on Plavix, likely COPD, history of statin and
PCSK9 intolerance, history of prostate cancer, s/p radiation, peripheral arterial disease presented with chest pain
#NSTEMI
Cath noted multivessel dz
Cardiac surgery eval appreciated not a candidate for surgical revascularization, given his multiple co-morbidities and unknown source of bleeding
Cardio eval appreciated Hep gtt started 01/28 transfused for goal Hgb >10
Troponin trended down, no new episode chest pain, EGD/colonoscopy completed
cleared to resume Plavix as per GI, DAPT asa plavix 02/03 hep gtt discontinued
Status post cardiac catheterization on 02/04/2025 with SONYA x 2.
#Exertional dyspnea COPD/ACS
Chest h-jdj-eqhndancrjpcj lungs with emphysematous changes
Outpatient follow-up with pulmonology
#Intermittent rectal bleeding d/t radiation proctitis
CT scan unremarkable
GI eval appreciated EGD/colonoscopy postponed d/t NSTEMI as above, performed 02/02/25
Status post endoscopy and colonoscopy
Developed rectal pain following colonoscopy, -recs Preparation H
#Left side abd pain -lower quadrant.
Recent CT abd/pelvis with no abnormality
Recent Colonoscopy noted with radiation proctitis
small hematoma noted on US.
Tolerating diet
GI recommended warm compresses
#Hyponatremia
Initiate fluid restriction. Patient was to continue with Lasix daily. Outpatient follow-up.
Sodium seems to be fluctuating.
#Essential hypertension
Amlodipine discontinued
Valsartan Coreg Lasix cont w/ holding parameters
#Renal artery bruit
renal artery Doppler with left renal artery stenosis of 60-99%, right 0-59%
conservative mgmt as per nephro
#Anxiety
Ativan prn
#Peripheral arterial disease
Outpatient follow-up with vascular
#Mild to moderate aortic regurgitation
ECHO with decreased EF to 45% and global hypokinesis
#History of thyroid mass status post thyroidectomy
Continue levothyroxine
#BPH with Prostate cancer status post radiation
#Complaints of dysuira-dysuria found to be negative. Urine culture negative.
Continue tamsulosin
#History of odynophagia/dysphagia
Cachexia
pureed low residue diet w/ BID Ensure Vanilla supplementation
Repeat speech evaluation.
#Reported Hx Hyperlipidemia
lipid panel wnl
low bodyweight/cachexia
not able to tolerate statin.
#Right Eye pain/irritation
hx Dry eyes and also states has history of macular degeneration
-Polytrim Eye drop started for possible conjunctivitis, switched to maxitrol given persistence irritation planned for 7 days tx 01/31-02/06-pt wanted new eyes drops to be stopped
-cont artificial tears prn
-cont home Xiidra patient's own med
-Recommend outpatient optho f/u.
-warm compress prn
GERD- Continue Protonix
DVT proph scds
code status--Full code
PT/OT rec SNF. Patient persistently refused going to SNF which was discussed with patient on daily basis. States he has financial matters that he has to take care of. Case management also discussed with patient. Plan will be home with [facility]
patient refusing SNF.
Discussed with cardiology
Anticipated Discharge: Today
Subjective/Interval History
-
Date of Service: February 09, 2025
Complaints of rectal pain. States not having a large bowel movement
Refused docusate overnight
Tolerating pur�ed diet for 1 year
States he would like to continue with his Lasix daily and does not want to decrease to Sunday. States Lasix helps with increased urinary output.
Objective Data
-
Labs:
Laboratory Results
02/09/25
06:22
WBC 6.6
Hgb 10.3 L
Hct 31.1 L
Plt Count 187
Sodium 128 L
Potassium 4.0
Chloride 100
Carbon Dioxide 25
BUN 34 H
Creatinine 1.3
Glucose 99
Calcium 8.5
Vital Signs:
Vital Signs
Temp Pulse Resp BP Pulse Ox
97.4 F 62 16 114/43 98
02/09/25 07:30 02/09/25 09:45 02/09/25 07:30 02/09/25 09:45 02/09/25 07:30
I&O
02/08/25 02/09/25 02/10/25
06:59 06:59 06:59
Intake Total 540 / 540 600 / 600
Balance 540 / 540 600 / 600
Data Reviewed
-
Total Time Spent with Patient (in minutes): 55
[2025-02-09] MEDS: FLUZONE HIGH-DOSE 2025-26 0.5 ML IM (13:00)
--- NOTE | 2025-02-09 13:47 | PTCARENOTE ---
Pt is medically clear for discharge per medical team. I went over the discharge papers with the patient 3 times due to questions pt had. He was not satisfied with the discharge instructions as stated on paper by MD so he asked for MD to see him and
go over his discharge again. Dr Arteaga came to the pt bedside and went over the discharge himself. Pt said ok. The daughter is in the room to discuss the discharge again. The pt was given the signature page to acknowledge understanding and Jairon
said ' I dont understand, not really' I asked what he did not understand and he was unable to tell me what he did not understand. The daughter said it was fine she got it.
--- NOTE | 2025-02-09 14:00 | W.DCSUMMARY ---
Discharge Summary
Discharge Data
Date of Admission: 01/21/25
Date of Discharge: 02/09/25
-
Pending Results: No
Hospital Course
79 year old male, with past medical history of coronary artery disease, history of triple-vessel disease, s/p PCI in 2017 and 2018, currently on medical therapy. Prior history of TIA managed on Plavix, likely COPD, history of statin and PCSK9
intolerance, history of prostate cancer, s/p radiation, peripheral arterial disease presented with chest pain. Patient was found to have NSTEMI. During hospitalization patient was evaluated by cardiology, gastroenterology, nephrology. Heparin
drip was started. Troponin down trended. Patient with intermittent rectal bleeding. Patient was eval by GI and underwent endoscopy and colonoscopy. 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 Symptoms improved with Preparation H. Per GI patient can
be restarted on Plavix. Heparin drip was discontinued. Patient underwent cardiac catheterization with SONYA x 2. Patient also had hyponatremia and was also evaluated by nephrology. Patient stated he would like to continue with Lasix frequency to
daily. Nephrology also recommended fluid restriction which was added on discharge. Patient also with renal artery bruit and recommended conservative management per nephrology. Goal-directed medical therapy was titrated per cardiology. Amlodipine
was discontinued. Valsartan dose was decreased. Lasix frequency was increased to daily. Patient blood pressure stabilized. Patient was also found to have small subcutaneous hematoma which was deemed likely secondary to Lovenox injection.
Patient was eval by physical and Occupational Therapy post procedures. PT and OT recommended jail facility which patient refused. Discussed case briefly with speech therapist who stated patient is on pur�ed diet as per his previous
shallow evaluation. All patient and patient daughter question were answered on day of discharge at bedside. He only wants to go home with [facility]. Recommend to follow-up with his primary irrigation foreman, sandwich wrapper, corporate treasurer and primary
care doctor.
Discharge Plan
-
Patient Disposition: Home with Home Care
Discharge Diagnosis/Procedures: NSTEMI, s/p angioplasty and stent x3 to Left Circumflex artery
Rectal bleeding status post colonoscopy and EGD
Presyncope
Condition: Fair
Diet: Low Cholesterol, Restrict fluids to 48 oz and Other diet
Additional Diets: IDDSI Level 4 (Puree) and Thin liquids
Activity: As tolerated
Driving Restrictions: Not until seen by your Dr
Blood Work: CBC and BMP in 1 week via primary doctor.
Other Services: VN, ST and Cardiac Rehab
Activity Restrictions/Additional Instructions:
Continue with pantoprazole 40mg twice daily for 8 weeks then daily
Recommend warm compresses to left lower quadrant abdominal if needed
Recommend to follow-up with your primary irrigation foreman.
Stand Alone Forms: DC Instructions- Cath/EP Lab
Referrals:
[facility] [Outside]
Davidson Puente MD [Active, Cardiology] - in one to two weeks
Bala Sharp DO [Active, Gastroenterology] - 04/02/25 1:00 pm
Referral Note: follow up as scheduled with Dr. Sharp.
Christopher Cramer DO [Family Provider, Internal Medicine] - in less than 1 week
Additional Discharge Medication Instructions: Valsartan dose was decreased to 40 mg daily
Lasix 20 mg frequency was increased to daily
Pantoprazole 40 mg frequency was increased to twice daily
Amlodipine was discontinued
Prescriptions:
New
carvedilol [Coreg] 12.5 mg tablet
12.5 mg PO BID Qty: 60 0RF
Preparation H Maximum Strength 0.25-1 % Cream
1 applic NJ Q6HPRN PRN (Reason: rectal discomfort) Qty: 26 0RF
aspirin 81 mg Tablet,Chewable
81 mg PO DAILY Qty: 30 0RF
isosorbide mononitrate 30 mg tablet extended release 24 hr
90 mg PO DAILY 30 Days Qty: 90 0RF
Continued
Xiidra 1 EACH dropperette
1 drp BOTH EYES BID
nitroglycerin 0.4 MG tablet, sublingual
0.4 mg sublingual [id number] PRN (Reason: chest pain) Qty: 25 3RF
lorazepam 0.5 MG tablet
0.5 mg PO 2XD PRN (Reason: sleep)
Patient Comments:
04/06/2020: per pdmp last filled 04/02/2019, 60 tabs for 30 days from [facility]
levothyroxine 88 MCG tablet
88 mcg PO DAILY
cholecalciferol (vitamin D3) 1,000 UNITS tablet
2,000 units PO QPM
acetaminophen [Tylenol Arthritis] 650 MG tablet extended release
1,300 mg PO TID
tamsulosin [Flomax] 0.4 mg capsule
0.4 mg PO BID Qty: 30 0RF
ferrous sulfate 325 mg (65 mg iron) Tablet
325 mg PO DAILY
ICaps AREDS2
1 cap PO BID
simethicone 125 mg Tablet
125 mg PO DAILY
nicotine (polacrilex) [Nicorette] 2 mg Lozenge
2 mg BUCCAL Q4H PRN (Reason: To quit smoking)
clopidogrel 75 MG tablet
75 mg PO DAILY Qty: 20 0RF
Changed
valsartan [Diovan] 80 mg Tablet
40 mg PO QPM Qty: 0 0RF
pantoprazole 40 MG tablet,delayed release (DR/EC)
40 mg PO BID Qty: 60 0RF
furosemide 20 MG tablet
20 mg PO DAILY Qty: 30 0RF
Discontinued
carvedilol phosphate [Coreg CR] 20 mg Capsule, Er Multiphase 24 Hr
20 mg PO DAILY
amlodipine 2.5 mg Tablet
2.5 mg PO DAILY Qty: 30 0RF
Discharge Orders:
Discharge Patient (As Directed); Ordered 02/09/25
Ordered By: Augustin Arteaga
Care Plan Goals
Care Plan Goals:
Problem: Readiness for enhanced knowledge related to diagnosis and treatment plan
Goal: Understand your diagnosis and treatment plan needs, including medications if applicable.
Instructions: Know your diagnosis, underlying causes and treatment plan options, including medications if applicable. Consult with your health care team to learn about your diagnosis and treatment plan, including medications if applicable.
Discharge Date and Time
Discharge Date/Time: 02/09/25 13:58
Print Language: NEPALI
--- NOTE | 2025-02-09 16:09 | CM ---
MD entered order for discharge.
Sgt Deborah here to drive patient home.
Pt requested [facility] and referral made in care port.
IMM reviewed . Pt said he did not know if he was medically ready for discharge but said he did not want to stay in hospital.
He agreed with discharge with [facility] .
Dgt present and will drive him home today
PLAN Home with [facility] .
== END 2025-02-09 13:58 | disposition home health service (06) | DRG 321 ==
LOC: 4 EAST ACU 23:26
PROVIDERS: Emergency Medicine; Internal Medicine; Internal Medicine Cardiovascular Disease; Nurse Practitioner; Nurse Practitioner Adult Health; Nurse Practitioner Family; Registered Nurse; Student in an Organized Health Care Education/Training Program; ADMITTING PHYSICIAN Hospitalist; ATTENDING PHYSICIAN Hospitalist; CONSULT PHYSICIAN Internal Medicine; CONSULT PHYSICIAN Specialist; CONSULT PHYSICIAN Thoracic Surgery (Cardiothoracic Vascular Surgery); EMERGENCY PHYSICIAN Emergency Medicine; FAMILY PHYSICIAN Internal Medicine; OTHER PHYSICIAN Internal Medicine Cardiovascular Disease
PROC: 30233N1 Transfusion of Nonautologous Red Blood Cells into Peripheral Vein, Percutaneous Approach (ICD-10-PCS; 2025-01-28)
PROC: 4A023N7 Measurement of Cardiac Sampling and Pressure, Left Heart, Percutaneous Approach (ICD-10-PCS; 2025-01-28)
PROC: B2111ZZ Fluoroscopy of Multiple Coronary Arteries using Low Osmolar Contrast (ICD-10-PCS; 2025-01-28)
PROC: 0W3P8ZZ Control Bleeding in Gastrointestinal Tract, Via Natural or Artificial Opening Endoscopic (ICD-10-PCS; 2025-02-02)
PROC: 0DB38ZX Excision of Lower Esophagus, Via Natural or Artificial Opening Endoscopic, Diagnostic (ICD-10-PCS; 2025-02-02)
PROC: 0DB68ZX Excision of Stomach, Via Natural or Artificial Opening Endoscopic, Diagnostic (ICD-10-PCS; 2025-02-02)
PROC: 0DB18ZX Excision of Upper Esophagus, Via Natural or Artificial Opening Endoscopic, Diagnostic (ICD-10-PCS; 2025-02-02)
PROC: 0DB98ZX Excision of Duodenum, Via Natural or Artificial Opening Endoscopic, Diagnostic (ICD-10-PCS; 2025-02-02)
PROC: B241ZZ3 Ultrasonography of Multiple Coronary Arteries, Intravascular (ICD-10-PCS; 2025-02-04)
PROC: 027136Z Dilation of Coronary Artery, Two Arteries with Three Drug-eluting Intraluminal Devices, Percutaneous Approach (ICD-10-PCS; 2025-02-04)
PROC: 3E02340 Introduction of Influenza Vaccine into Muscle, Percutaneous Approach (ICD-10-PCS; 2025-02-09)
DX: T82.855A Stenosis of coronary artery stent, initial encounter (principal); I21.4 Non-ST elevation (NSTEMI) myocardial infarction; K55.21 Angiodysplasia of colon with hemorrhage; I50.23 Acute on chronic systolic (congestive) heart failure; E87.1 Hypo-osmolality and hyponatremia; L76.32 Postprocedural hematoma of skin and subcutaneous tissue following other procedure; R64 Cachexia; Z68.1 Body mass index [BMI] 19.9 or less, adult; I25.10 Atherosclerotic heart disease of native coronary artery without angina pectoris; E11.51 Type 2 diabetes mellitus with diabetic peripheral angiopathy without gangrene; J43.9 Emphysema, unspecified; J44.9 Chronic obstructive pulmonary disease, unspecified; E11.40 Type 2 diabetes mellitus with diabetic neuropathy, unspecified; I35.1 Nonrheumatic aortic (valve) insufficiency; D53.9 Nutritional anemia, unspecified; K62.7 Radiation proctitis; Y84.2 Radiological procedure and radiotherapy as the cause of abnormal reaction of the patient, or of later complication, without mention of misadventure at the time of the procedure; K59.00 Constipation, unspecified; I25.5 Ischemic cardiomyopathy; Y83.1 Surgical operation with implant of artificial internal device as the cause of abnormal reaction of the patient, or of later complication, without mention of misadventure at the time of the procedure; K57.30 Diverticulosis of large intestine without perforation or abscess without bleeding; K44.9 Diaphragmatic hernia without obstruction or gangrene; K25.9 Gastric ulcer, unspecified as acute or chronic, without hemorrhage or perforation; R00.1 Bradycardia, unspecified; I95.9 Hypotension, unspecified; E86.1 Hypovolemia; F41.9 Anxiety disorder, unspecified; R13.12 Dysphagia, oropharyngeal phase; R09.89 Other specified symptoms and signs involving the circulatory and respiratory systems; I70.8 Atherosclerosis of other arteries; K21.9 Gastro-esophageal reflux disease without esophagitis; E78.2 Mixed hyperlipidemia; F32.A Depression, unspecified; G47.00 Insomnia, unspecified; E89.0 Postprocedural hypothyroidism; I11.0 Hypertensive heart disease with heart failure; H10.9 Unspecified conjunctivitis; N40.0 Benign prostatic hyperplasia without lower urinary tract symptoms; Y84.8 Other medical procedures as the cause of abnormal reaction of the patient, or of later complication, without mention of misadventure at the time of the procedure; Z23 Encounter for immunization; Z85.46 Personal history of malignant neoplasm of prostate; Z92.3 Personal history of irradiation; Z87.891 Personal history of nicotine dependence; Z95.5 Presence of coronary angioplasty implant and graft; I25.2 Old myocardial infarction; Z86.73 Personal history of transient ischemic attack (TIA), and cerebral infarction without residual deficits; Z79.02 Long term (current) use of antithrombotics/antiplatelets
CPT/HCPCS: 71046; 71260; 74177; 76705; 80048; 80053; 80061; 81003; 81015; 82248; 82570; 82607; 82728; 82746; 83540; 83550; 83735; 83880; 83935; 84100; 84300; 84484; 85014; 85018; 85025; 85027; 85347; 85730; 86850; 86900; 86901; 86920; 88305; 88342; 90662; 92610; 92978; 93005; 93306; 93458; 93975; 97110; 97116; 97162; 97167; 97530; 99152; 99153; 99285; C1725; C1753; C1769; C1874; C1894; C9600; G0008; P9016; Q9967

== ENCOUNTER 2025-02-17 16:41 | Inpatient (IN) | payer OTHER, SELFPAY ==
[2025-02-14] VITALS (8 sets, daily range): BP systolic 125–164; BP diastolic 46–64; BMI 17.8
--- NOTE | 2025-02-14 17:44 | ED.GENMED ---
History of Present Illness
<Tammy Shaikh PA-C - Last Filed: 02/18/25 06:20>
General
Chief Complaint: Eye Problems
Source: patient
Exam Limitations: none
Time Seen by Provider: 02/14/25 16:27
Nursing documentation reviewed up to this point in time: agreed with
History of Present Illness
History of Present Illness:
see MDM
Past History
<MORELIA Yi Last Filed: 02/18/25 06:20>
Past History
ED Past Medical History: CAD, CVA, GERD, HTN, Hypercholesterolemia, RI, Hypothyroidism, Other (angina/pressure, prostatic hypertropy, emphysema), Other (PNA, spontaneous pneumothorax blebs, arthritis, spinal stenosis) and Other (peripheral arterial
disease in lower extremities)
ED Past Surgical History: Cardiac (stenting times 2) and Other (thyroidectomy)
Social History
Tobacco: Former smoker
Alcohol: Occasional
Drug: None
Personal:
Living: alone
Employment: Retired
Family History
Family History: Other (Skin cancer)
Review of Systems
<MORELIA Yi Last Filed: 02/18/25 06:20>
Review of Systems
Allergies reviewed?: Yes
All Other Systems: Not applicable
Phy Exam
<MORELIA Yi Last Filed: 02/18/25 06:20>
Physical Exam
Physical Exam:
GENERAL: Alert , in no apparent distress
EYE: pupils equal and reactive , VISUAL AGUIRRE INTACT
NECK: Supple
ENT: o/p clr, mmm.
CARDIAC: Regular rate and rhythm .
LUNGS: Clear breath sounds bilaterally, no acute respiratory distress, no wheezes/rales/rhonchi
ABDOMEN: Soft, without focal tenderness, no r/g, no cvat, normal bowel sounds
NEUROLOGICAL: Alert and oriented, MILD R FACIAL DROOP, elevates, CN INTACT, UE/LE STRENGTH
SKIN: Warm and dry, skin intact.
MUSCULOSKELETAL: No edema, well perfused. neg krystal's sign
PSYCH: Normal and appropriate interaction.
Course
<Tammy Shaikh PA-C - Last Filed: 02/18/25 06:20>
Orders/Labs/Results
Orders:
Orders
02/14/25 17:57
Electrocardiogram (*1) Stat
Reason for Study: Other
Other Reason for Exam: neuro symptoms
CT Head & Neck Angio W/wo IV Urgent
Comment:
Reason For Exam: vision changes, recent NSTEMI
Cardiac Monitoring- Treatment ONCE
EKG- Treatment ONCE
02/14/25 18:08
Complete Blood Count/With Diff Urgent
Comprehensive Metabolic Panel Urgent
PTT Urgent
Prothrombin Time Urgent
02/14/25 23:52
Admit/Transfer Patient As Directed
Co-Sign Provider:
Level of Care: Observation services
Assign to:: Telemetry
Physician / Group: codi
Diagnosis: vision difficulty
Reason for Telemetry: CVA/TIA
Date to Stop Telemetry: 02/17/25
Time to Stop Telemetry: 11:00
02/14/25 23:53
Code Status As Directed
Resuscitation Status: Full Code
PRN Pain Medication Management As Directed
May give lesser potent ordered pain med per pt: Yes
preference::
Protocol:: Medication orders for pain may be administered in a
manner that supports deferring to patient preference
when the pt is:
- Requesting an ordered lesser potent pain medication.
Least to most potent pain medications are defined
as: acetaminophen < NSAID < tramadol < opioids
(morphine, oxycodone, hydromorphone).
- Requesting a lesser dose of the same medication IF
ORDERED.
- Requesting a less intrusive route of administration
if both routes are prescribed by the provider (PO <
IV).
02/15/25 01:16
Activity As Directed
Activity Level: As Tolerated
Pneumatic Compression Sleeves As Directed
Type: Knee high
Vital Signs As Directed
Frequency: Per unit guidelines
DX Deep Vein Thrombosis Video Routine
02/15/25 01:16
Lorazepam [Ativan] 0.5 mg PO [id number] PRN anxiety anxiety
Phenyleph/Pramoxin/Glycr/W.pet [Preparation H Max Strength Pain Relief Cream] 1 applic RECTAL Q6HPRN PRN rectal discomfort
02/15/25 01:23
Artificial Tears (Pf) [Refresh Eye Drops (Pf)] 1 drops BOTH EYES QIDPRN PRN
02/15/25 02:00
Flush (0.9% Sodium Chloride) [Flush (Nss)] See Dose Instructions IV PER PROTOCOL
02/15/25 02:31
DIETARY IP CONSULT Routine
Reason for Consult: weight loss
Pt Screening Request from Edgardo Routine
02/15/25 04:23
Speech Screening from Edgardo Routine
02/15/25 04:24
DIETARY IP CONSULT Routine
Reason for Consult: hx stroke. now on puree. here for r/o
02/15/25 05:43
Urinalysis Reflex To Culture Urgent
Date Specimen was Collected: 02/15/25
Time Specimen was Collected: 05:41
Urine Microscopic Reflex Cult Urgent
02/15/25 06:00
Levothyroxine [Synthroid] 88 mcg PO DAILY @ 0600
02/15/25 07:07
Complete Blood Count/With Diff IN AM
Comprehensive Metabolic Panel IN AM
Ferritin Routine
Comment: ADD ON
Iron Routine
Comment: ADD ON
Serum Osmolality Routine
Comment: ADD ON
Total Iron Binding Routine
Comment: ADD ON
Vitamin B12 Routine
Comment: ADD ON
02/15/25 07:41
Request for Physical Therapy [NOTICE] Routine
02/15/25 07:49
Consult Notification Routine
Specialty to Notify: Neurology
Date consulting provider notified: 02/15/25
Time consulting provider notified: 07:47
Notified:: Provider
02/15/25 07:54
NEUROLOGY CONSULT Routine
Consulting Provider: Kye Bobby
Was physician already notified: Yes
Reason for consult: vision difficulty If pt needs MRI th use hat/ so pt can tolerate procedure
02/15/25 08:00
Acetaminophen [Tylenol] 1,000 mg PO TID
Aspirin Chewable [Low Strength Aspirin] 81 mg PO DAILY
Carvedilol [Coreg] 12.5 mg PO BID
Clopidogrel Bisulfate [Plavix] 75 mg PO DAILY
Ferrous Sulfate [Feosol] 325 mg PO DAILY
Furosemide [Lasix] 20 mg PO DAILY
Miconazole Nitrate [Desenex/Mitrazol/Zeasorb] See Dose Instructions TOPICAL BID
Pantoprazole [Protonix] 40 mg PO BID
Tamsulosin [Flomax] 0.4 mg PO BID
lifitegrast [Xiidra] See Dose Instructions BOTH EYES BID
02/15/25 08:14
Request for Speech Therapy [NOTICE] Routine
02/15/25 09:40
Add On- LAB Routine
Tests Added?: iron,tibc,ferritin,b12
02/15/25 09:41
Add On- LAB Urgent
Tests Added?: serum osm
02/15/25 09:50
DX Deep Vein Thrombosis Video Routine
02/15/25 09:53
Add On- LAB Routine
Tests Added?: iron,tibc,ferritin,b12
02/15/25 Lunch
IDDSI 4 - Pureed
At Your Request: Full Participation
Fluid Restriction: 1200 mL/day (40 oz)
Oral Supplement (If unsure of flavor order apple or vanilla): Ensure Enlive Vanilla
Supplement Frequency: TID
Comment: Ensure 350 dodie
02/15/25 12:26
Ot Eval And Treat Routine
Pt Eval And Treat Routine
Activity Level: Encourage Progressive Amb
02/15/25 13:00
ISOSORBIDE MONOnitrate ER [Imdur (Extended Release)] 90 mg PO DAILY
02/15/25 13:26
Urine Osmolality Random [Osmolality, Random Urine] Urgent
Date Specimen was Collected: 02/15/25
Time Specimen was Collected: 13:27
Urine Sodium Urgent
Date Specimen was Collected: 02/15/25
Time Specimen was Collected: 13:27
02/15/25 18:00
Cholecalciferol (Vitamin D3) [VITAMIN D3 (cholecalciferol)] 25 mcg PO QPM
Enoxaparin Sodium [Lovenox] 40 mg SC QPM
02/15/25 18:15
Valsartan [Diovan] 40 mg PO QPM
02/15/25 20:00
Non-Formulary Item See Dose Instructions PO BID
02/15/25 22:00
Anusol Hc Suppository [Anusol Hc] 25 mg RECTAL HS
02/16/25
HF Check Daily Weights Video Routine
HF Limiting Fluids Video Routine
HF Limiting Sodium Video Routine
HF Recognizing Symptoms Video Routine
HF Taking Medicines Video Routine
HF What is it? Video Routine
02/16/25 01:16
US Abdomen Limited Routine
Reason For Exam: suprapubic lump expanding
02/16/25 08:55
Patient Education As Directed
Type: Stroke education packet
02/16/25 08:58
Add On- LAB Routine
Tests Added?: folate, TSH reflex, B12,lipid panel, hbA1c
NIH Stroke Scale As Directed
Directions: Per protocol
Neurological Checks As Directed
Frequency: Per unit guidelines
02/16/25 09:38
EKG [Electrocardiogram (*1)] Stat
Reason for Study: Chest Pain
02/16/25 09:52
BMP [Basic Metabolic Panel] Urgent
Serum Osmolality Urgent
Comment: ADD ON
Troponin I Stat
02/16/25 11:30
Vascular Surgery Consult Routine
Consulting Provider: Christopher Rock III
Was physician already notified: Yes
02/16/25 11:56
US Cerebrovascular Routine
Comment:
Reason For Exam: eval carotid stenosis
02/16/25 12:09
MR Brain Without Contrast Routine
Comment: Pt asks for Art walk MRI as he is claustophobic
Reason For Exam: CVA symptoms
Recent pill cam endoscopy?: No
02/16/25 13:20
Troponin I Q3H
02/16/25 13:26
Bladder Scan As Directed
Follow Bladder Retention/Intermittent Cath Algorithm?: No
Comment: q shift times 3 to check PVR. Pls start now.
02/16/25 13:28
Add On- LAB Routine
Tests Added?: serum osm
02/16/25 13:45
0.9% Sodium Chloride 1000 ml [Nss] 1,000 ml IV 50 mls/hr
02/16/25 14:00
Dextrose 5%/0.9%Sodchl 500 ml [D5/0.9% Sodium Chloride] 500 ml IV 50 mls/hr
02/16/25 17:10
Urinalysis Routine
Date Specimen was Collected: 02/16/25
Time Specimen was Collected: 16:30
Urine Microscopic Routine
Date Specimen was Collected: 02/16/25
Time Specimen was Collected: 16:30
02/16/25 17:48
Troponin I Q3H
02/16/25 22:21
Simethicone [Mylicon] 80 mg PO NOW STA
02/17/25
Telemetry Continue As Directed
Date to Stop Telemetry: 02/18/25
Time to Stop Telemetry: 11:00
02/17/25 05:32
Basic Metabolic Panel IN AM
02/17/25 11:00
DC Protocol for Telemetry ONCE
02/17/25 12:00
Simethicone [Mylicon] 80 mg PO DAILY@1200
02/18/25 05:51
Basic Metabolic Panel IN AM
02/18/25 11:00
DC Protocol for Telemetry ONCE
Abnormal Lab Results
02/14/25 02/15/25 02/15/25
18:08 05:43 07:07
RBC 3.02 L 10^6/uL 3.05 L 10^6/uL
(4.70-6.10) (4.70-6.10)
Hgb 9.6 L g/dL 9.9 L g/dL
(13.0-18.0) (13.0-18.0)
Hct 28.9 L % 30.6 L %
(39.0-52.0) (39.0-52.0)
MCV 95.7 H fL 100.3 H fL
(80.0-94.0) (80.0-94.0)
MCH 31.8 H pg 32.5 H pg
(27.0-31.0) (27.0-31.0)
MCHC 32.4 L g/dL
(33.0-37.0)
RDW 15.3 H % 15.3 H %
(11.5-14.5) (11.5-14.5)
Plt Count 123 L 10^3/uL
(130-400)
Abs Immat Gran (auto) 0.1 H 10^3/uL 0.1 H 10^3/uL
(0-0.05) (0-0.05)
Absolute Lymphs (auto) 0.3 L 10^3/uL 0.2 L 10^3/uL
(1.2-3.4) (1.2-3.4)
Absolute Monos (auto) 0.9 H 10^3/uL 0.8 H 10^3/uL
(0.1-0.6) (0.1-0.6)
Immature Gran % 0.8 H % 0.7 H %
(0-0.5) (0-0.5)
Neutrophils % 78.5 H % 81.8 H %
(42.2-75.2) (42.2-75.2)
Lymphocytes % 4.3 L % 2.6 L %
(20.5-51.1) (20.5-51.1)
Monocytes % 11.8 H % 11.4 H %
(1.7-9.3) (1.7-9.3)
Sodium 132 L mmol/L 128 L mmol/L
(135-145) (135-145)
BUN 38 H mg/dl 33 H mg/dl
(9-20) (9-20)
Creatinine
Glucose
TIBC 229 L ug/dl
(261-462)
Total Bilirubin 1.4 H mg/dl 1.4 H mg/dl
(0.2-1.3) (0.2-1.3)
Troponin I
Total Protein 5.6 L g/dl 5.5 L g/dl
(6.3-8.2) (6.3-8.2)
Albumin 3.3 L g/dl
(3.5-5.0)
Ur Occult Blood Reflex 1+ A
(Negative)
Urine Bacteria
Urine Sodium
Urine Albumin
Urine Albumin (Reflex) 2+ A
(Neg - Trace)
02/15/25 02/16/25 02/16/25
13:26 09:52 13:20
RBC
Hgb
Hct
MCV
MCH
MCHC
RDW
Plt Count
Abs Immat Gran (auto)
Absolute Lymphs (auto)
Absolute Monos (auto)
Immature Gran %
Neutrophils %
Lymphocytes %
Monocytes %
Sodium 131 L mmol/L
(135-145)
BUN 42 H mg/dl
(9-20)
Creatinine 1.5 H mg/dL
(0.7-1.3)
Glucose 106 H mg/dl
(70-99)
TIBC
Total Bilirubin
Troponin I 0.042 H* ng/ml 0.035 H* ng/ml
Total Protein
Albumin
Ur Occult Blood Reflex
Urine Bacteria
Urine Sodium 91 H mmol/L
(30-90)
Urine Albumin
Urine Albumin (Reflex)
02/16/25 02/17/25
17:10 05:32
RBC
Hgb
Hct
MCV
MCH
MCHC
RDW
Plt Count
Abs Immat Gran (auto)
Absolute Lymphs (auto)
Absolute Monos (auto)
Immature Gran %
Neutrophils %
Lymphocytes %
Monocytes %
Sodium 130 L mmol/L
(135-145)
BUN 38 H mg/dl
(9-20)
Creatinine 1.4 H mg/dL
(0.7-1.3)
Glucose
TIBC
Total Bilirubin
Troponin I
Total Protein
Albumin
Ur Occult Blood Reflex
Urine Bacteria Moderate A
(Negative)
Urine Sodium
Urine Albumin 1+ A
(Neg - Trace)
Urine Albumin (Reflex)
02/15/25 07:07
02/17/25 05:32
Vital Signs
Initial and Last Documented VS:
Initial Vital Signs
Pulse Ox
98
02/14/25 16:00
Last Documented Vital Signs
Temp Pulse Resp BP Pulse Ox
36.4 C 69 18 139/60 96
02/18/25 02:54 02/18/25 02:54 02/18/25 02:54 02/18/25 02:54 02/18/25 02:54
<RADHA Mccullough - Last Filed: 02/14/25 23:22>
Orders/Labs/Results
Orders:
Orders
02/14/25 17:57
Electrocardiogram (*1) Stat
Reason for Study: Other
Other Reason for Exam: neuro symptoms
CT Head & Neck Angio W/wo IV Urgent
Comment:
Reason For Exam: vision changes, recent NSTEMI
Cardiac Monitoring- Treatment ONCE
EKG- Treatment ONCE
02/14/25 18:08
Complete Blood Count/With Diff Urgent
Comprehensive Metabolic Panel Urgent
PTT Urgent
Prothrombin Time Urgent
02/14/25 23:52
Admit/Transfer Patient As Directed
Co-Sign Provider:
Level of Care: Observation services
Assign to:: Telemetry
Physician / Group: codi
Diagnosis: vision difficulty
Reason for Telemetry: CVA/TIA
Date to Stop Telemetry: 02/17/25
Time to Stop Telemetry: 11:00
02/14/25 23:53
Code Status As Directed
Resuscitation Status: Full Code
PRN Pain Medication Management As Directed
May give lesser potent ordered pain med per pt: Yes
preference::
Protocol:: Medication orders for pain may be administered in a
manner that supports deferring to patient preference
when the pt is:
- Requesting an ordered lesser potent pain medication.
Least to most potent pain medications are defined
as: acetaminophen < NSAID < tramadol < opioids
(morphine, oxycodone, hydromorphone).
- Requesting a lesser dose of the same medication IF
ORDERED.
- Requesting a less intrusive route of administration
if both routes are prescribed by the provider (PO <
IV).
02/15/25 01:16
Activity As Directed
Activity Level: As Tolerated
Pneumatic Compression Sleeves As Directed
Type: Knee high
Vital Signs As Directed
Frequency: Per unit guidelines
DX Deep Vein Thrombosis Video Routine
02/15/25 01:16
Lorazepam [Ativan] 0.5 mg PO [id number] PRN anxiety anxiety
Phenyleph/Pramoxin/Glycr/W.pet [Preparation H Max Strength Pain Relief Cream] 1 applic RECTAL Q6HPRN PRN rectal discomfort
02/15/25 01:23
Artificial Tears (Pf) [Refresh Eye Drops (Pf)] 1 drops BOTH EYES QIDPRN PRN
02/15/25 02:00
Flush (0.9% Sodium Chloride) [Flush (Nss)] See Dose Instructions IV PER PROTOCOL
02/15/25 02:31
DIETARY IP CONSULT Routine
Reason for Consult: weight loss
Pt Screening Request from Edgardo Routine
02/15/25 04:23
Speech Screening from Edgardo Routine
02/15/25 04:24
DIETARY IP CONSULT Routine
Reason for Consult: hx stroke. now on puree. here for r/o
02/15/25 05:43
Urinalysis Reflex To Culture Urgent
Date Specimen was Collected: 02/15/25
Time Specimen was Collected: 05:41
Urine Microscopic Reflex Cult Urgent
02/15/25 06:00
Levothyroxine [Synthroid] 88 mcg PO DAILY @ 0600
02/15/25 07:07
Complete Blood Count/With Diff IN AM
Comprehensive Metabolic Panel IN AM
Ferritin Routine
Comment: ADD ON
Iron Routine
Comment: ADD ON
Serum Osmolality Routine
Comment: ADD ON
Total Iron Binding Routine
Comment: ADD ON
Vitamin B12 Routine
Comment: ADD ON
02/15/25 07:41
Request for Physical Therapy [NOTICE] Routine
02/15/25 07:49
Consult Notification Routine
Specialty to Notify: Neurology
Date consulting provider notified: 02/15/25
Time consulting provider notified: 07:47
Notified:: Provider
02/15/25 07:54
NEUROLOGY CONSULT Routine
Consulting Provider: Kye Bobby
Was physician already notified: Yes
Reason for consult: vision difficulty If pt needs MRI th use hat/ so pt can tolerate procedure
02/15/25 08:00
Acetaminophen [Tylenol] 1,000 mg PO TID
Aspirin Chewable [Low Strength Aspirin] 81 mg PO DAILY
Carvedilol [Coreg] 12.5 mg PO BID
Clopidogrel Bisulfate [Plavix] 75 mg PO DAILY
Ferrous Sulfate [Feosol] 325 mg PO DAILY
Furosemide [Lasix] 20 mg PO DAILY
Miconazole Nitrate [Desenex/Mitrazol/Zeasorb] See Dose Instructions TOPICAL BID
Pantoprazole [Protonix] 40 mg PO BID
Tamsulosin [Flomax] 0.4 mg PO BID
lifitegrast [Xiidra] See Dose Instructions BOTH EYES BID
02/15/25 08:14
Request for Speech Therapy [NOTICE] Routine
02/15/25 09:40
Add On- LAB Routine
Tests Added?: iron,tibc,ferritin,b12
02/15/25 09:41
Add On- LAB Urgent
Tests Added?: serum osm
02/15/25 09:50
DX Deep Vein Thrombosis Video Routine
02/15/25 09:53
Add On- LAB Routine
Tests Added?: iron,tibc,ferritin,b12
02/15/25 Lunch
IDDSI 4 - Pureed
At Your Request: Full Participation
Fluid Restriction: 1200 mL/day (40 oz)
Oral Supplement (If unsure of flavor order apple or vanilla): Ensure Enlive Vanilla
Supplement Frequency: TID
Comment: Ensure 350 dodie
02/15/25 12:26
Ot Eval And Treat Routine
Pt Eval And Treat Routine
Activity Level: Encourage Progressive Amb
02/15/25 13:00
ISOSORBIDE MONOnitrate ER [Imdur (Extended Release)] 90 mg PO DAILY
02/15/25 13:26
Urine Osmolality Random [Osmolality, Random Urine] Urgent
Date Specimen was Collected: 02/15/25
Time Specimen was Collected: 13:27
Urine Sodium Urgent
Date Specimen was Collected: 02/15/25
Time Specimen was Collected: 13:27
02/15/25 18:00
Cholecalciferol (Vitamin D3) [VITAMIN D3 (cholecalciferol)] 25 mcg PO QPM
Enoxaparin Sodium [Lovenox] 40 mg SC QPM
02/15/25 18:15
Valsartan [Diovan] 40 mg PO QPM
02/15/25 20:00
Non-Formulary Item See Dose Instructions PO BID
02/15/25 22:00
Anusol Hc Suppository [Anusol Hc] 25 mg RECTAL HS
02/16/25
HF Check Daily Weights Video Routine
HF Limiting Fluids Video Routine
HF Limiting Sodium Video Routine
HF Recognizing Symptoms Video Routine
HF Taking Medicines Video Routine
HF What is it? Video Routine
02/16/25 01:16
US Abdomen Limited Routine
Reason For Exam: suprapubic lump expanding
02/16/25 08:55
Patient Education As Directed
Type: Stroke education packet
02/16/25 08:58
Add On- LAB Routine
Tests Added?: folate, TSH reflex, B12,lipid panel, hbA1c
NIH Stroke Scale As Directed
Directions: Per protocol
Neurological Checks As Directed
Frequency: Per unit guidelines
02/16/25 09:38
EKG [Electrocardiogram (*1)] Stat
Reason for Study: Chest Pain
02/16/25 09:52
BMP [Basic Metabolic Panel] Urgent
Serum Osmolality Urgent
Comment: ADD ON
Troponin I Stat
02/16/25 11:30
Vascular Surgery Consult Routine
Consulting Provider: Christopher Rock III
Was physician already notified: Yes
02/16/25 11:56
US Cerebrovascular Routine
Comment:
Reason For Exam: eval carotid stenosis
02/16/25 12:09
MR Brain Without Contrast Routine
Comment: Pt asks for Art walk MRI as he is claustophobic
Reason For Exam: CVA symptoms
Recent pill cam endoscopy?: No
02/16/25 13:20
Troponin I Q3H
02/16/25 13:26
Bladder Scan As Directed
Follow Bladder Retention/Intermittent Cath Algorithm?: No
Comment: q shift times 3 to check PVR. Pls start now.
02/16/25 13:28
Add On- LAB Routine
Tests Added?: serum osm
02/16/25 13:45
0.9% Sodium Chloride 1000 ml [Nss] 1,000 ml IV 50 mls/hr
02/16/25 14:00
Dextrose 5%/0.9%Sodchl 500 ml [D5/0.9% Sodium Chloride] 500 ml IV 50 mls/hr
02/16/25 17:10
Urinalysis Routine
Date Specimen was Collected: 02/16/25
Time Specimen was Collected: 16:30
Urine Microscopic Routine
Date Specimen was Collected: 02/16/25
Time Specimen was Collected: 16:30
02/16/25 17:48
Troponin I Q3H
02/16/25 22:21
Simethicone [Mylicon] 80 mg PO NOW STA
02/17/25
Telemetry Continue As Directed
Date to Stop Telemetry: 02/18/25
Time to Stop Telemetry: 11:00
02/17/25 05:32
Basic Metabolic Panel IN AM
02/17/25 11:00
DC Protocol for Telemetry ONCE
02/17/25 12:00
Simethicone [Mylicon] 80 mg PO DAILY@1200
02/18/25 05:51
Basic Metabolic Panel IN AM
02/18/25 11:00
DC Protocol for Telemetry ONCE
Abnormal Lab Results
02/14/25 02/15/25 02/15/25
18:08 05:43 07:07
RBC 3.02 L 10^6/uL 3.05 L 10^6/uL
(4.70-6.10) (4.70-6.10)
Hgb 9.6 L g/dL 9.9 L g/dL
(13.0-18.0) (13.0-18.0)
Hct 28.9 L % 30.6 L %
(39.0-52.0) (39.0-52.0)
MCV 95.7 H fL 100.3 H fL
(80.0-94.0) (80.0-94.0)
MCH 31.8 H pg 32.5 H pg
(27.0-31.0) (27.0-31.0)
MCHC 32.4 L g/dL
(33.0-37.0)
RDW 15.3 H % 15.3 H %
(11.5-14.5) (11.5-14.5)
Plt Count 123 L 10^3/uL
(130-400)
Abs Immat Gran (auto) 0.1 H 10^3/uL 0.1 H 10^3/uL
(0-0.05) (0-0.05)
Absolute Lymphs (auto) 0.3 L 10^3/uL 0.2 L 10^3/uL
(1.2-3.4) (1.2-3.4)
Absolute Monos (auto) 0.9 H 10^3/uL 0.8 H 10^3/uL
(0.1-0.6) (0.1-0.6)
Immature Gran % 0.8 H % 0.7 H %
(0-0.5) (0-0.5)
Neutrophils % 78.5 H % 81.8 H %
(42.2-75.2) (42.2-75.2)
Lymphocytes % 4.3 L % 2.6 L %
(20.5-51.1) (20.5-51.1)
Monocytes % 11.8 H % 11.4 H %
(1.7-9.3) (1.7-9.3)
Sodium 132 L mmol/L 128 L mmol/L
(135-145) (135-145)
BUN 38 H mg/dl 33 H mg/dl
(9-20) (9-20)
Creatinine
Glucose
TIBC 229 L ug/dl
(261-462)
Total Bilirubin 1.4 H mg/dl 1.4 H mg/dl
(0.2-1.3) (0.2-1.3)
Troponin I
Total Protein 5.6 L g/dl 5.5 L g/dl
(6.3-8.2) (6.3-8.2)
Albumin 3.3 L g/dl
(3.5-5.0)
Ur Occult Blood Reflex 1+ A
(Negative)
Urine Bacteria
Urine Sodium
Urine Albumin
Urine Albumin (Reflex) 2+ A
(Neg - Trace)
02/15/25 02/16/25 02/16/25
13:26 09:52 13:20
RBC
Hgb
Hct
MCV
MCH
MCHC
RDW
Plt Count
Abs Immat Gran (auto)
Absolute Lymphs (auto)
Absolute Monos (auto)
Immature Gran %
Neutrophils %
Lymphocytes %
Monocytes %
Sodium 131 L mmol/L
(135-145)
BUN 42 H mg/dl
(9-20)
Creatinine 1.5 H mg/dL
(0.7-1.3)
Glucose 106 H mg/dl
(70-99)
TIBC
Total Bilirubin
Troponin I 0.042 H* ng/ml 0.035 H* ng/ml
Total Protein
Albumin
Ur Occult Blood Reflex
Urine Bacteria
Urine Sodium 91 H mmol/L
(30-90)
Urine Albumin
Urine Albumin (Reflex)
02/16/25 02/17/25
17:10 05:32
RBC
Hgb
Hct
MCV
MCH
MCHC
RDW
Plt Count
Abs Immat Gran (auto)
Absolute Lymphs (auto)
Absolute Monos (auto)
Immature Gran %
Neutrophils %
Lymphocytes %
Monocytes %
Sodium 130 L mmol/L
(135-145)
BUN 38 H mg/dl
(9-20)
Creatinine 1.4 H mg/dL
(0.7-1.3)
Glucose
TIBC
Total Bilirubin
Troponin I
Total Protein
Albumin
Ur Occult Blood Reflex
Urine Bacteria Moderate A
(Negative)
Urine Sodium
Urine Albumin 1+ A
(Neg - Trace)
Urine Albumin (Reflex)
02/15/25 07:07
02/17/25 05:32
Vital Signs
Initial and Last Documented VS:
Initial Vital Signs
Pulse Ox
98
02/14/25 16:00
Last Documented Vital Signs
Temp Pulse Resp BP Pulse Ox
36.4 C 69 18 139/60 96
02/18/25 02:54 02/18/25 02:54 02/18/25 02:54 02/18/25 02:54 02/18/25 02:54
Safety Equipment Tester consulted with Physician
Safety Equipment Tester consulted with physician?: Yes
Name of Physician Consulted: Sharda
<Tammy Shaikh PA-C - Last Filed: 02/18/25 06:20>
MDM/Problems Addressed
MDM/Problems Addressed:
Note:
CHIEF COMPLAINT(S)
- Vision changes and rectal pain post-discharge from the hospital.
HISTORY OF PRESENT ILLNESS
The patient is a 79-year-old male who was recently discharged on the after having two stents placed and experiencing gastrointestinal bleeding following a colonoscopy. The colonoscopy revealed radiation proctitis, which was treated, but left
the patient with significant rectal pain described as 'age.' Following discharge, the patient noticed a significant change in vision, particularly describing it as 'dim' when going home. An engineer internship noted possible additional retinal artery
issues different from worsening cataracts, noting suspicion of another stroke affecting the left eye.
The patient also reported experiencing blurry vision, initially blaming the symptoms on eye drops including Zydra and artificial tears, causing a film that obscured text. There was past concern about a possible infection treated with unspecified
antibiotic and corticosteroid drops to the right eye, although symptoms persisted. Vision problems have progressed, with additional issues such as difficulty seeing well despite the brightness, even worsening during transportation with the patient�s
daughter.
The patient has a history of a chronic branch retinal artery occlusion in the left eye resulting in a blind spot. Initially, the patient believed symptoms during hospitalization were due to eye irritation. The patients engineer internship recommended
further investigation of carotid and cardiac conditions, suspecting factors involved during cessation of Plavix for the procedure.
Additionally, the patient reported prior strokes with mild facial droop and mild dysphagia, confirmed by a neurologist. Previous imaging includes MRI and CT scans of the brain and neck.
PT IS NO LONGER HAVING RECTAL BLEEDING
PAST MEDICAL AND SURIGICAL HISTORY
- Coronary stent placement
- Radiation proctitis
- Chronic branch retinal artery occlusion
- Previous stroke with mild facial droop
- Cataracts
MEDICATIONS
- Plavix at 75 mg daily
- Baby aspirin
REVIEW OF SYSTEMS
- Nervous System: History of chronic branch retinal artery occlusion, changes in vision described as dimness and blurriness, suspicion of past stroke with mild facial droop and dysphagia.
- Gastrointestinal System: Rectal pain post colonoscopy.
- Respiratory System: No current chest pain or significant shortness of breath reported, except during exertion.
- Vision: Notable dimness and blurriness, need for eye drop application mentioned.
PHYSICAL EXAM
- Nursing notes reviewed and vital signs reviewed.
- Neurological: Mild facial droop observed on one side; cranial nerve examination revealed some asymmetry but no gross abnormalities in mobility or sensation.
- Musculoskeletal: Mild asymmetry in muscle strength or function, noted difficulty related to shoulder movement on the right side.
PROBLEM LIST
Acute:
- Vision changes potentially related to retinal issues or stroke
- Rectal pain post-colonoscopy
Chronic:
- Coronary artery disease
- Cataracts
- Chronic retinal artery occlusion
- History of stroke
PLAN
- Initiate a computed tomography scan of brain and carotid arteries with contrast to assess for acute changes or occlusions.
- Consult with a neurologist to determine the necessity of further evaluations or interventions (e.g., MRI, echo).
- Address patients concern about possible MRI; consider contacting facilities with accommodating equipment if MRI deemed necessary.
- Continue current dosage of Plavix and aspirin unless contraindicated according to new findings.
- Educate on potential cardiac or neurological triggers of current symptoms, including possible heart-related events.
DIFFERENTIAL DIAGNOSIS
The Differential Diagnosis includes, in no particular order and is not limited to:
1. Retinal artery occlusion
2. Cerebrovascular accident (stroke)
3. Retinal detachment
4. Catastrophic atherosclerotic disease (carotid stenosis)
5. Cataract progression
6. Ocular infection or inflammatory process
7. Ischemic optic neuropathy
8. Medication side effect
9. Acute coronary syndrome
10. Hypertensive crisis
CARE-UPDATE
02/14/25 - 21:12
Patients hemoglobin is on a gradual decline from 11 to 9.7, but not yet at transfusion levels. No active bowel bleeding reported, and stools are not black, although difficulty in bowel movements noted. Patient unsure about using stool softeners like
Colace due to prior diarrhea. Patient is currently awaiting a CT scan to assess carotid circulation, with discharge plans pending based on scan results. Patient expresses anxiety about current situation and desire to return home as soon as possible,
but agrees to wait for scan results given potential immediate intervention requirement if severe stenosis is detected. Consultation with neurology discussed, and patient is continuing dual anti-platelet therapy with Plavix and aspirin. Vision
changes noted, requiring further follow-up with engineer internship and specialist. Plan to coordinate with patients son for potential discharge logistics after test results.
<Tammy Shaikh PA-C - Last Filed: 02/18/25 06:20>
*Pulse Oximetry
SaO2: 98
Oxygen Mode of Delivery: Room air
<RADHA Mccullough - Last Filed: 02/14/25 23:22>
*Radiology
Radiology exam reviewed: radiology read reviewed
*Pulse Oximetry
Patient hypoxic: no
*Critical Care Note
Total Time (30-74mins, 75-104mins- exclusive of procedures): Not Applicable
<RADHA Mccullough - Last Filed: 02/14/25 23:22>
Update Note
Update Note:
Case is signed out to me with CTA pending at that time.
CAT scan shows mild atherosclerotic calcification of the bilateral common carotid arteries contributing to up to 50% narrowing of the left internal carotid artery small chronic dissection of the left common ICA. Atherosclerotic vascular disease of
the right carotid bifurcation extending into the proximal right internal carotid artery contributing to hemodynamically significant stenosis. There is also atherosclerotic vascular calcification of the left carotid bifurcation without
hemodynamically significant stenosis. Additional findings include the proximal right vertebral artery involving V1 and V2 are not enhancing with reconstitution in the mid V2 level although slight decreased enhancement compared to the left the right
V4 segment also does not demonstrate significant enhancement findings may be related to stenosis although dissection cannot be excluded.
I reviewed this with ED phsyician will recommend admission
ED Attending Note
<Tammy Shaikh PA-C - Last Filed: 02/18/25 06:20>
-
Portions of this chart may have been created with voice recognition software.� Occasional wrong word or��sound alike� substitutions may have occurred due to the inherent limitations of voice recognition software.
Discharge Plan
Departure
Patient Disposition: Admit
Date of Disposition: 02/14/25
Time of Disposition: 23:21
Admit to: Med/Surg
Admit to doctor: hospitaliast
Presentation/result/management discussed w/ accepting MD/DO: Hospitalist
Patient with high blood pressure during this ER visit?: Yes
Condition: Fair
Covid-19: Not Applicable
Discharge Problem:
Visual disturbance
Interventions
Interventions:
*Risk Screen - Suicide Last Done: 02/14/25 15:39
*General Assessment Last Done: 02/14/25 15:39
*Neglect/Abuse Screening Last Done: 02/14/25 21:38
*ED- Fall Risk Assessment Last Done: 02/14/25 15:39
*ED COVID-19 Vaccine History Last Done: 02/14/25 15:39
*ED Influenza Vaccine History Last Done: 02/14/25 15:39
*Nursing Disposition Last Done: 02/15/25 01:15
Discharge Date and Time
Discharge Date/Time: 02/15/25 01:16 EDT
[2025-02-14 18:15] LABS: Hematocrit 28.9 % (39.0-52.0); Hemoglobin 9.6 g/dL (13.0-18.0); Mean Corp Hgb Conc. 33.2 g/dL (33.0-37.0); Mean Corpuscular Volume 95.7 fL (80.0-94.0); Nucleated Red Blood Cells % 0 % (-); Platelet Count 136 10^3/uL (130-400); Red Cell Dist. Width 15.3 % (11.5-14.5)
[2025-02-14 18:25] LABS: INR 1.05; PT 14.0 Sec (11.4-14.6)
[2025-02-14 18:26] LABS: APTT 33.9 Sec (23.4-35.0)
[2025-02-14 18:34] LABS: ALT (SGPT) 21 U/L (0-50); AST (SGOT) 27 U/L (17-59); Albumin 3.5 g/dl (3.5-5.0); Alkaline Phosphatase 61 U/L (38-126); Blood Urea Nitrogen 38 mg/dl (9-20); Calcium 8.6 mg/dl (8.4-10.2); Carbon Dioxide 27 mmol/L (22-30); Chloride 99 mmol/L (98-107); Estimated Creatinine Clearance 35 ml/min; Glucose 95 mg/dl (70-99); Potassium 4.0 mmol/L (3.5-5.1); Sodium 132 mmol/L (135-145); Total Protein 5.6 g/dl (6.3-8.2); eGFR 56.23
--- NOTE | 2025-02-14 23:56 | HPS.HSE ---
Family Physician
-
Family Physician: Christopher Cramer
Chief Complaint
-
vision difficulty
History of Present Illness
79-year-old male past medical history of triple-vessel CAD, PAD, hypertension, benign thyroid mass status post thyroidectomy, prostate cancer status post radiation, odynophagia/dysphagia, precancerous cells in mouth in 2007, hypertension,
hyperlipidemia, COPD, former smoker, history of spontaneous pneumothorax, GERD, BPH, anxiety/depression, neuropathy, insomnia, presenting with bilateral dimming of the vision which started a week ago on the last day of hospitalization when he was
going home. The dimming was within the bilateral eyes. He has chronically diminished vision in both eyes secondary to cataract and prior retinal artery occlusion in the left eye approximately 5 years ago.
He saw his sheriffs officer today and had full examination and was sent to the emergency room to rule out CVA. He denies any headache or blurry vision. He has chronic tingling in his toes but denies any new numbness or tingling or focal weakness or
facial droop or slurred speech or gait dysfunction or vertigo.
Patient was recently admitted from 01/21 to 02/09 for chest pain. He was found to have NSTEMI. He underwent cardiac catheterization and underwent drug-eluting stent x 2.
He was also having intermittent rectal bleeding and was seen by GI and underwent endoscopy and colonoscopy. 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 He was treated with Preparation H. He continues to have rectal discomfort but denies any further
rectal bleeding. He also had hyponatremia and was seen by nephrology.
While hospitalized he was found to have a small suprapubic hematoma confirmed on ultrasound. He has noticed that the area has increased in size.
He denies smoking or alcohol use.
Medical History
Past Medical History
Past Medical History: Reports Other ( triple-vessel CAD, PAD, hypertension, benign thyroid mass status post thyroidectomy, prostate cancer status post radiation, odynophagia/dysphagia, precancerous cells in mouth in 2007, hypertension,
hyperlipidemia, COPD, former smoker, history of spontaneous pneumothorax, GERD, BPH, anxiety/depressi)
Past Surgical History: Reports Other (thyroidectomy)
Social History
Tobacco: Non-smoker
Alcohol: None
Drug: None
Family History
Family History: Not pertinent
Allergies / Home Medications
Allergies reflects when Allergies were last updated in [email or web address].
Home Medications with original date entered in [email or web address]
Allergy/Medication List:
Allergies
Allergy/AdvReac Type Severity Reaction Status Date / Time
lorazepam (From Ativan) Allergy 'MAKES ME Verified 02/14/25 15:39
GO CRAZY'
simvastatin (From Zocor) Allergy muscle Verified 02/14/25 15:39
cramps
triamcinolone (From Kenalog) Allergy palpitation Verified 02/14/25 15:39
s
Home Medications
lifitegrast 5 % eye drops in a dropperette (Xiidra) 1 drp BOTH EYES BID Eye condition 09/26/16
lorazepam 0.5 mg tablet 0.5 mg PO 2XD PRN sleep 02/09/17
levothyroxine 88 mcg tablet 88 mcg PO DAILY Thyroid 03/27/17
cholecalciferol (vitamin D3) 25 mcg (1,000 unit) tablet 2,000 units PO QPM Supplement 08/15/17
acetaminophen 650 mg tablet,extended release (Tylenol Arthritis) 1,300 mg PO TID Pain 03/22/20
tamsulosin 0.4 mg capsule (Flomax) 0.4 mg PO BID #30 caps 09/23/23
ICaps AREDS2 1 cap PO BID Eye Condition 01/06/24
ferrous sulfate 325 mg (65 mg iron) tablet 325 mg PO DAILY Supplement 01/06/24
aspirin 81 mg chewable tablet 81 mg PO DAILY #30 tabs 02/06/25
carvedilol 12.5 mg tablet (Coreg) 12.5 mg PO BID #60 tabs 02/06/25
clopidogrel 75 mg tablet 75 mg PO DAILY #20 tabs 02/06/25
furosemide 20 mg tablet 20 mg PO DAILY Fluid retention/Swelling #30 tabs 02/06/25
pantoprazole 40 mg tablet,delayed release 40 mg PO BID Gastrointestinal issue #60 tabs 02/06/25
phenylephrine 0.25 %-pramoxine 1 %-glycerin-wh.petrolatum rectal cream (Preparation H Maximum Strength) 1 applic NE Q6HPRN PRN rectal discomfort #26 grams 02/06/25
Review of Systems
-
History Source: Patient
A 12 point ROS was completed and negative except as noted: Yes
Constitutional: Reports No Symptoms
EENT: Reports No Symptoms
Respiratory: Reports No Symptoms
Cardiac: Reports No Symptoms
Abdomen/GI: Reports No Symptoms
: Reports No Symptoms
Musculoskeletal: Reports No Symptoms
Skin: Reports No Symptoms
Neurological: Reports No Symptoms
Endocrine: Reports No Symptoms
Hematologic/Lymphatic: Reports No Symptoms
Psych: Reports No Symptoms
Physical Exam
Vital Signs
Vital Signs
Temp Pulse Resp BP Pulse Ox
98.5 F 68 16 164/55 97
02/14/25 21:50 02/14/25 23:00 02/14/25 23:00 02/14/25 23:00 02/14/25 21:00
Physical Exam
General: Well Developed, Well Nourished and No Apparent Distress
HEENT: NormoCephalic, Moist mucous membranes and Atraumatic
Respiratory: Clear
Cardiac: S1/S2 and Regular Rhythm; No Murmur or Rub
GI: Soft, Non Tender, Non Distended and Normal Bowel Sounds; No Organomegaly
Rectal: Deferred by Provider
Musculoskeletal: No Clubbing, No Cyanosis and No Edema
Skin: No Rash
Neuro: Nonfocal/grossly intact
Laboratory Results
-
02/14/25 18:08
02/14/25 18:08
Laboratory Results
PT 14.0 Sec (11.4-14.6) 02/14/25 18:08
INR 1.05 02/14/25 18:08
APTT 33.9 Sec (23.4-35.0) 02/14/25 18:08
Total Bilirubin 1.4 mg/dl (0.2-1.3) H 02/14/25 18:08
AST 27 U/L (17-59) 02/14/25 18:08
ALT 21 U/L (0-50) 02/14/25 18:08
Alkaline Phosphatase 61 U/L (38-126) 02/14/25 18:08
Data Reviewed
-
Lab Data: Labs Reviewed by me
Old Records: Reviewed
Impression/Plan
-
IMPRESSION:
PLAN:
# Diminished vision of eyes particular the left concerning for acute CVA
# History of bilateral cataracts/macular degeneration
# History of bilateral carotid artery stenosis
- Had full ophthalmologic examination and was sent in to rule out CVA
- CTA head and neck by vision radiology notes showed mild atherosclerotic calcification of the bilateral common carotid arteries contributive to 50% narrowing of the left internal carotid artery, small chronic dissection of the left common internal
carotid artery
- There is atherosclerotic vascular disease of the right carotid bifurcation extending into the proximal right internal carotid artery contributed to hemodynamically significant stenosis, atherosclerotic vascular calcification of the left carotid
bifurcation extending to the proximal internal and external carotid arteries
- Continue aspirin and Plavix
-Patient very claustrophobic regarding MRI brain
- Neurology consulted
- He sees Dr. Rock for bilateral carotid artery stenosis
Prior retinal artery occlusion of left eye/CVA approximately 5 years ago with diminished vision
History of macular degeneration
#Recent subcutaneous hematoma secondary to Lovenox
- Enlarging in size
- Recheck ultrasound
History of TIA
Triple-vessel CAD status post SONYA x 2 last month, PCI in 2017/2018
- Continue aspirin and Plavix
- Continue course
- Continue Lasix
Mild to moderate aortic regurgitation
Ischemic cardiomyopathy
-EF of 45% with global hypokinesis
- Continue Lasix
History of intermittent rectal bleeding secondary to radiation proctitis/colonic AVM
-Chronic AVMs were cauterized
- Status post EGD and colonoscopy and Preparation H recommended
- Continuing to have rectal discomfort but no further bleeding
History of hyponatremia
Renal artery bruit
Likely COPD
Intermittent rectal bleeding
Peripheral arterial disease
Mild to moderate aortic regurgitation
Chronic macrocytic anemia
Essential hypertension
History of thyroid mass status post thyroidectomy
- Continue levothyroxine
Prostate cancer status post radiation
BPH
- Continue tamsulosin
History of odynophagia/dysphagia
-pureed low residue diet w/ BID Ensure Vanilla supplementation
History of precancerous cells in mouth in 2007
Hyperlipidemia
Former smoker
History of spontaneous pneumothorax
GERD
- Continue Protonix
Anxiety/depression
- Continue Lexapro
- Continue Ativan
Neuropathy
Insomnia
Full code
DVT prophylaxis�SCDs
Pureed diet
[2025-02-15] VITALS (8 sets, daily range): BP systolic 119–158; BP diastolic 43–68; BMI 17.6
--- NOTE | 2025-02-15 05:17 | PTCARENOTE ---
Addendum entered by Marilynn Leyva RN 02/15/25 06:10:
-urine sent. bladder scan for 144ml.
- Pedal pulses faint but present w/ Doppler -
Original Note:
pt is aaox3. pt w/ hx cva w/ residual left eye decrease vision; however pt states vision is worst than baseline. pt also has a slight garbled speech and right sided facial droop. NIH=3. pt has a hx of decrease ROM to RUE, but was able to hold arm
up and demonstrate b/l equal strength.
1. pt reports a hx dysphagia post stroke and has a puree diet and ensure. - obtained order
2. pt is claustrophobic and anxious about mri - states he only want s an open MRI or one with a special mirror that [facility].
3. pt has weak tibial artery.
4. pt has a lump on lower abdomen (suprapubic hematoma), abd tender w/ bruising to groin and scrotum.
5. pt states he had rectal cancer w/ radiation and proctitis and continues to have a sore/painful rectum. pt wants an enema like he had before to help with the pain. pt does not know the name. bottom red- Desenex and Calazime cream obtained.
7. pt wants eye drops, order, nicotine lozenges, puree diet and ensure.
6. pt reports painful urination, but denies frequency and urgency.
S/w Michael Myers - see Orders
review plan of care w/ patient. call bolden in reach.
[2025-02-15 05:58] LABS: Urine Character Clear (Clear)
[2025-02-15] MEDS: TYLENOL 1000 MG PO ×3 (06:16→21:42)
[2025-02-15] MEDS: SYNTHROID 88 MCG PO (06:16)
[2025-02-15 06:56] LABS: Urine Red Blood Cell 0-2 /HPF (0-2); Urine Squamous Cell 0-2 /LPF (Few); Urine White Cell 0-2 /HPF (0-5)
[2025-02-15 07:47] LABS: Hematocrit 30.6 % (39.0-52.0); Hemoglobin 9.9 g/dL (13.0-18.0); Mean Corp Hgb Conc. 32.4 g/dL (33.0-37.0); Mean Corpuscular Volume 100.3 fL (80.0-94.0); Nucleated Red Blood Cells % 0 % (-); Platelet Count 123 10^3/uL (130-400); Red Cell Dist. Width 15.3 % (11.5-14.5)
--- NOTE | 2025-02-15 07:51 | PTCARENOTE ---
If pt needs an MRI please order order the MRI that has the View finder/hat so pt can norma procedure. He states Ativan doesnt work and wont do it otherwise.
[2025-02-15 08:10] LABS: ALT (SGPT) 22 U/L (0-50); AST (SGOT) 25 U/L (17-59); Albumin 3.3 g/dl (3.5-5.0); Alkaline Phosphatase 61 U/L (38-126); Blood Urea Nitrogen 33 mg/dl (9-20); Calcium 8.5 mg/dl (8.4-10.2); Carbon Dioxide 25 mmol/L (22-30); Chloride 100 mmol/L (98-107); Estimated Creatinine Clearance 38 ml/min; Glucose 91 mg/dl (70-99); Potassium 3.9 mmol/L (3.5-5.1); Sodium 128 mmol/L (135-145); Total Protein 5.5 g/dl (6.3-8.2); eGFR > 60.00
--- NOTE | 2025-02-15 08:15 | CON.NEURO4 ---
Consultation - Neurology 4
-
CONSULTING PHYSICIAN: Dr. Kye Bobby
REFERRING PHYSICIAN: Dr. Yuli Arreaga
DICTATED BY: Dr. Kye Bobby
DATE/TIME OF REQUEST: 02/15/2025
DATE/TIME OF CONSULTATION: 02/15/2025
Reason for Consultation: Visual disturbance
ASSESSMENT AND PLAN:
79-year-old male who presented with bilateral dimming of the vision which started a week ago on the last day of hospitalization when he was going home. The dimming was within the bilateral eyes. He has chronically diminished vision in both eyes
secondary to cataract and prior retinal artery occlusion in the left eye approximately 5 years ago.
He saw his animal impersonator and had full examination and was sent to the emergency room to rule out CVA. He denies any headache or blurry vision. He has chronic tingling in his toes but denies any new numbness or tingling, focal weakness, facial
droop, slurred speech,gait dysfunction or vertigo.
CTA head and neck:
Measured diameter reduction of the right proximal internal carotid artery of 62%, likely hemodynamically significant.
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
Small focal moderate stenosis involving the distal M1 portion of the right middle cerebral artery.
Focal mild to moderate narrowing involving the proximal P2 portions of the right posterior cerebral artery.
. The patient does not appear to have had an acute stroke, however, the plan is to keep the patient a stroke pathway for for now as he appears to have a significant intracranial atherosclerotic disease. Will get MRI of the brain without contrast
and echocardiogram. Also the patient will be started on aspirin 81 mg daily and atorvastatin 40 mg daily. 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 The
hemoglobin today was 9.9 and this was the reason why he was not started on Plavix along with aspirin.
History of Present Illness:
79-year-old male past medical history of triple-vessel CAD, PAD, hypertension, benign thyroid mass status post thyroidectomy, prostate cancer status post radiation, odynophagia/dysphagia, precancerous cells in mouth in 2007, hypertension,
hyperlipidemia, COPD, former smoker, history of spontaneous pneumothorax, GERD, BPH, anxiety/depression, neuropathy, insomnia, presenting with bilateral dimming of the vision which started a week ago on the last day of hospitalization when he was
going home. The dimming was within the bilateral eyes. He has chronically diminished vision in both eyes secondary to cataract and prior retinal artery occlusion in the left eye approximately 5 years ago.
He saw his animal impersonator and had full examination and was sent to the emergency room to rule out CVA. He denies any headache or blurry vision. He has chronic tingling in his toes but denies any new numbness or tingling, focal weakness, facial
droop, slurred speech,gait dysfunction or vertigo.
Review of Systems:
The patient denies headache, dizziness, chest pain, shortness of breath, fever, chills, nausea and vomiting.
Neurologic Examination:
The patient is alert and oriented x 3,
Speech is clear,
The cranial nerves II to XII are grossly intact. The visual beltran are full to confrontation,
The motor strength is grossly 5/5 bilaterally in the upper and lower extremities,
The sensations are grossly intact,
The cerebellar examination does not show limb ataxia.
Vital Signs and Labs
-
Vital Signs and Labs:
Vital Signs
Temp Pulse Resp BP Pulse Ox
36.9 C 75 16 158/68 94
02/15/25 12:43 02/15/25 12:43 02/15/25 12:43 02/15/25 12:43 02/15/25 12:43
Lab Results
02/15/25 07:07
02/15/25 07:07
PT 14.0 Sec (11.4-14.6) 02/14/25 18:08
INR 1.05 02/14/25 18:08
APTT 33.9 Sec (23.4-35.0) 02/14/25 18:08
Sodium 128 mmol/L (135-145) L 02/15/25 07:07
Potassium 3.9 mmol/L (3.5-5.1) 02/15/25 07:07
BUN 33 mg/dl (9-20) H 02/15/25 07:07
Glucose 91 mg/dl (70-99) 02/15/25 07:07
Calcium 8.5 mg/dl (8.4-10.2) 02/15/25 07:07
Vitamin B12 613 pg/ml (239-931) 02/15/25 07:07
Medications
-
Active Medications
Generic Name Dose Route Start Last Admin
Trade Name Freq PRN Reason Stop Dose Admin
Acetaminophen 1,000 mg 02/15/25 08:00 02/15/25 06:16
Acetaminophen 500 Mg Tablet PO 03/15/25 07:59 1,000 mg
TID DERRELL Administration
Artificial Tears 1 drops 02/15/25 01:23 EST 02/15/25 09:27
Artificial Tears Pf (Refresh) 10 Drop Droperette BOTH EYES 03/15/25 01:22 1 drops
QIDPRN PRN Administration
dry eyes
Aspirin 81 mg 02/15/25 08:00 02/15/25 09:21
Aspirin 81 Mg Chewable Tablet PO 03/15/25 07:59 81 mg
DAILY DERRELL Administration
Carvedilol 12.5 mg 02/15/25 08:00 02/15/25 09:21
Carvedilol 12.5 Mg Tablet PO 03/15/25 07:59 12.5 mg
BID DERRELL Administration
Cholecalciferol 25 mcg 02/15/25 18:00
Cholecalciferol (Vitamin D3) 25 Mcg Tablet (1,000 Units) PO 03/15/25 17:59
QPM DERRELL
Clopidogrel Bisulfate 75 mg 02/15/25 08:00 02/15/25 09:21
Clopidogrel 75 Mg Tablet PO 03/15/25 07:59 75 mg
DAILY DERRELL Administration
Enoxaparin Sodium 40 mg 02/15/25 18:00
Enoxaparin Sodium 40 Mg/0.4 Ml Syringe SC 03/15/25 17:59
QPM DERRELL
Ferrous Sulfate 325 mg 02/15/25 08:00 02/15/25 09:21
Ferrous Sulfate 325 Mg Tablet PO 03/15/25 07:59 325 mg
DAILY DERRELL Administration
Furosemide 20 mg 02/15/25 08:00 02/15/25 09:21
Furosemide 20 Mg Tablet PO 03/15/25 07:59 20 mg
DAILY DERRELL Administration
Hydrocortisone Acetate 25 mg 02/15/25 22:00
Anusol Hc 25 Mg Rectal Suppository RECTAL 03/15/25 21:59
HS DERRELL
Isosorbide Mononitrate 90 mg 02/15/25 13:00 02/15/25 14:20
Isosorbide Mononitrate 30 Mg Extended Release Tablet PO 03/15/25 12:59 90 mg
DAILY DERRELL Administration
Levothyroxine Sodium 88 mcg 02/15/25 06:00 02/15/25 06:16
Levothyroxine 88 Mcg Tablet PO 03/15/25 05:59 88 mcg
DAILY @ 0600 DERRELL Administration
Lorazepam 0.5 mg 02/15/25 01:16 EST
Lorazepam 0.5 Mg Tablet PO 03/15/25 01:15
A32DFCO PRN
sleep
Miconazole Nitrate 0 applic 02/15/25 08:00 02/15/25 09:30
Miconazole Powder Bottle TOPICAL 03/15/25 07:59 1 applic
BID DERRELL Administration
Lifitegrast [Xiidra] 0 drop 02/15/25 08:00 02/15/25 09:22
1 Each Dropperette BOTH EYES 03/15/25 07:59 1 drop
- 1 Drop Twice A Day BID DERRELL Administration
In Both Eyes
Pantoprazole Sodium 40 mg 02/15/25 08:00 02/15/25 09:21
Pantoprazole 40 Mg Delayed Release Tablet PO 03/15/25 07:59 40 mg
BID DERRELL Administration
Sodium Chloride 0 flush 02/15/25 02:00
Sodium Chloride 0.9% (Flush) Syringe IV 03/15/25 01:59
PER PROTOCOL DERRELL
Tamsulosin HCl 0.4 mg 02/15/25 08:00 02/15/25 09:21
Tamsulosin 0.4 Mg Capsule PO 03/15/25 07:59 0.4 mg
BID DERRELL Administration
Wh Kong/Min Oil/Pramoxine/Phenyleph 1 applic 02/15/25 01:16 EST 02/15/25 09:22
Preparation H Max Strength Pain Relief Cream RECTAL 03/15/25 01:15 1 applic
Q6HPRN PRN Administration
rectal discomfort
Home Medications
�Medication �Instructions �Recorded
lifitegrast 5 % eye drops in a 1 drp BOTH EYES BID Eye condition 09/26/16
dropperette (Xiidra)
lorazepam 0.5 mg tablet 0.5 mg PO 2XD PRN sleep 02/09/17
levothyroxine 88 mcg tablet 88 mcg PO DAILY Thyroid 03/27/17
cholecalciferol (vitamin D3) 25 2,000 units PO QPM Supplement 08/15/17
mcg (1,000 unit) tablet
acetaminophen 650 mg 1,300 mg PO TID Pain 03/22/20
tablet,extended release (Tylenol
Arthritis)
tamsulosin 0.4 mg capsule (Flomax) 0.4 mg PO BID #30 caps 09/23/23
ICaps AREDS2 1 cap PO BID Eye Condition 01/06/24
ferrous sulfate 325 mg (65 mg 325 mg PO DAILY Supplement 01/06/24
iron) tablet
aspirin 81 mg chewable tablet 81 mg PO DAILY #30 tabs 02/06/25
carvedilol 12.5 mg tablet (Coreg) 12.5 mg PO BID #60 tabs 02/06/25
clopidogrel 75 mg tablet 75 mg PO DAILY #20 tabs 02/06/25
furosemide 20 mg tablet 20 mg PO DAILY Fluid 02/06/25
retention/Swelling #30 tabs
pantoprazole 40 mg tablet,delayed 40 mg PO BID Gastrointestinal 02/06/25
release issue #60 tabs
phenylephrine 0.25 %-pramoxine 1 1 applic MO Q6HPRN PRN rectal 02/06/25
%-glycerin-wh.petrolatum rectal discomfort #26 grams
cream (Preparation H Maximum
Strength)
Imdur 90 PO DAILY 02/15/25
[2025-02-15] MEDS: FLOMAX 0.4 MG PO ×2 (09:21→21:42)
[2025-02-15] MEDS: FEOSOL 325 MG PO (09:21)
[2025-02-15] MEDS: PROTONIX 40 MG PO ×2 (09:21→21:42)
[2025-02-15] MEDS: PLAVIX 75 MG PO (09:21)
[2025-02-15] MEDS: LASIX 20 MG PO (09:21)
[2025-02-15] MEDS: LOW STRENGTH ASPIRIN 81 MG PO (09:21)
[2025-02-15] MEDS: COREG 12.5 MG PO ×2 (09:21→21:41)
[2025-02-15] MEDS: PREPARATION H MAX STRENGTH PAIN RELIEF CREAM 1 APPLIC RECTAL ×2 (09:22→21:43)
[2025-02-15] MEDS: NON-FORMULARY ITEM 1 DROP BOTH EYES ×2 (09:22→21:42)
[2025-02-15] MEDS: REFRESH EYE DROPS (PF) 1 DROPS BOTH EYES ×2 (09:27→22:04)
[2025-02-15] MEDS: DESENEX/MITRAZOL/ZEASORB 1 APPLIC TOPICAL ×2 (09:30→21:44)
--- NOTE | 2025-02-15 09:43 | PTCARENOTE ---
This pt takes tylenl 1300mg tid, however our computer doesnt allow for this so how can you adjust this for him maybe tylenol aroung the clock. He uses this for pain for his neck and back and rad pain for prostate. Also please order his home eye
med [facility]. Its NF here so he needs to bring from home which he was told to do so just order.Also can you adjust his Ativan schedule. He takes Ativan 0.5mg at 14:00 and at 22:00
[2025-02-15 10:39] LABS: Iron 64 ug/dl (49-181)
[2025-02-15 10:48] LABS: Total Iron Binding Capacity 229 ug/dl (261-462)
[2025-02-15 11:07] LABS: Ferritin 353.0 ng/ml (17.9-464.0)
[2025-02-15 11:21] LABS: Vitamin B12 613 pg/ml (239-931)
--- NOTE | 2025-02-15 11:39 | CM ---
I.A: Completed By ADOLFO Penny.
Patient is independent of ADLS, lives alone in a 2 Story House with 1 step o enter, No DME, No Inpatient Rehab, but recently sent home with VN- Re- referral made.
PCP: Dr. Christopher Cramer
Pharmacy: [facility]
Patient has transportation home. Patient was told that he is OBS so letter signed, copy given, patient concerned about copays. PLAN: Home with VN.
--- NOTE | 2025-02-15 12:25 | W.PN.HOSP.TC ---
Today's Communication/Plan
-
BRAIN MRI
Assessment / Plan
Assessment / Plan
79-year-old man with visual difficulty saw warp doffer who referred him to the ED to rule out CVA. Patient has chronic tingling in his toes but no other medical problems. Patient was admitted here from 01/22/2020 7- 20 send 25 for non-STEMI
had cardiac cath and stents placed. 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 Atherosclerotic vascular disease of the right carotid bifurcation extending
into the proximal right ICA contributed to hemodynamically significant stenosis. Atherosclerotic vascular calcification of the left carotid bifurcation extending into the proximal internal and external carotid arteries.
EKG-sinus rhythm cannot rule out anterior infarct
Cardiac Catheterization/PCI, 02/04/2025:Codominant circulation with a known EGG WORKER of the RCA, a 60-70% lesion in the proximal/ostial margin of the LAD leading into a previously stented segment, a patent stent in the distal circumflex, as stable 50%
lesion in the distal circumflex proximal to the stented segment and a culprit, 80% lesion in the proximal margin of the proximal circumflex stent status post successful IVUS guided PCI (Xience Skypoint 3.0 x 12 SONYA, postdilated with a 3.25 NC
balloon), followed by 70% ISR lesions in the mid circumflex that were not initially appreciated status post successful IVUS guided PCI (overlapping Xience Skypoint 3.0 x 8, 3.0 x 12 SONYA, postdilated with a 3.25 NC balloon) with reduction in the
treated stenoses to 0%, maintaining MARCO-3 flow.
CVS: S1-S2 normal
Chest: CTA B/L
Abdomen: Soft, NT / Bowel sounds present
Extremities: No edema, normal pulses
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 Patient states that he has numbness of the toes when he dorsi flexes his feet but could not elicit on my exam
# Visual abnormality left side concerning for CVA
Bilateral cataracts and macular decompression
Bilateral carotid artery stenosis
Hide for ophthalmology evaluation and sent in to rule out CVA
Continue aspirin and Plavix
Patient claustrophobic-but would benefit from MRI
Patient normally follows up with Dr. Rock for carotid artery stenosis also
Get MRI Brain-patient states that he would be better with the MRI in the art walk
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
# Recent subcutaneous hematoma abdominal wall from Lovenox-ultrasound ordered
# Hyponatremia-check serum and urine osmolality and urine sodium. Fluid restriction
# Anemia-check iron studies
# History of TIA
# Triple-vessel disease with drug-eluting stents in January 2025 History of PCI in 1998/2009/ 2016 and 2018-continue aspirin, Plavix. Statin intolerant
Patient was not felt to be a candidate for surgery after CT surgery evaluation
# Mild to moderate aortic regurgitation
# Ischemic cardiomyopathy/chronic HFmrEF-currently on Coreg. Does not seem to be on valsartan. SGLT2 inhibitor was not started secondary to hyponatremia
# Hyperlipidemia-statin and PCSK9 inhibitor intolerant. Plan was for outpatient inclisiran referral
# History of intermittent rectal bleeding secondary to radiation proctitis/colonic AVM-EGD and colonoscopy January 2025
# Peripheral artery disease. Left renal artery stenosis
# Chronic anemia- Check Iron studies
# Hypertension-continue Coreg
# History of thyroid mass status post thyroidectomy-continue levothyroxine
# History of prostate cancer status postradiation-continue tamsulosin
# History of odynophagia/dysphagia-on pur�ed diet with Ensure supplementation
# History of spontaneous pneumothorax
# Spinal stenosis/arthritis/DJD
# Emphysema
# GERD-continue PPI
# Ex-smoker
# Anxiety , depression and insomnia-continue Ativan
# DVT prophylaxis-Lovenox
# Full code
D/W RN
Time spent over 50 min
Part of this note was created using voice recognition system. Occasional wrong word or��sound alike� substitutions may have inadvertently occurred due to the inherent limitations of voice recognition software. If noted kindly bring it to my
attention for correction.
Anticipated Discharge: Within 24 hours
Subjective/Interval History
-
Date of Service: February 15, 2025
Objective Data
-
Labs:
Laboratory Results
02/15/25
07:07
WBC 7.4
Hgb 9.9 L
Hct 30.6 L
Plt Count 123 L
Sodium 128 L
Potassium 3.9
Chloride 100
Carbon Dioxide 25
BUN 33 H
Creatinine 1.2
Glucose 91
Calcium 8.5
Total Bilirubin 1.4 H
AST 25
ALT 22
Alkaline Phosphatase 61
Vital Signs:
Vital Signs
Temp Pulse Resp BP Pulse Ox
98.4 F 66 16 136/57 96
02/15/25 07:40 02/15/25 07:40 02/15/25 07:40 02/15/25 07:40 02/15/25 07:40
[2025-02-15] MEDS: IMDUR (EXTENDED RELEASE) 90 MG PO (14:20)
[2025-02-15] MEDS: LOVENOX 40 MG SC (16:26)
[2025-02-15] MEDS: VITAMIN D3 (cholecalciferol) 25 MCG PO (16:27)
[2025-02-15] MEDS: ATIVAN 0.5 MG PO (16:27)
[2025-02-15] MEDS: DIOVAN 40 MG PO (21:41)
[2025-02-15] MEDS: ANUSOL HC RECTAL ×2 (21:44→22:11)
[2025-02-15] MEDS: NON-FORMULARY ITEM 1 UNIT PO (21:47)
[2025-02-16] VITALS (7 sets, daily range): BP systolic 118–134; BP diastolic 45–56; PULSE 62; O2SAT 96; BMI 17.3
[2025-02-16] MEDS: SYNTHROID 88 MCG PO (05:56)
[2025-02-16] MEDS: TYLENOL 1000 MG PO ×3 (05:58→22:45)
--- NOTE | 2025-02-16 07:20 | W.PN.HOSP.TC ---
Addendum entered and electronically signed by Yuli Arreaga MD 02/16/25 13:36:
79-year-old man with visual difficulty saw icu nurse who referred him to the ED to rule out CVA. Patient has chronic tingling in his toes but no other medical problems. Patient was admitted here from 01/22/2020- for non-STEMI
had cardiac cath and stents placed. 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 Atherosclerotic vascular disease of the right carotid bifurcation extending
into the proximal right ICA contributed to hemodynamically significant stenosis. Atherosclerotic vascular calcification of the left carotid bifurcation extending into the proximal internal and external carotid arteries.
EKG-sinus rhythm cannot rule out anterior infarct
Cardiac Catheterization/PCI, 02/04/2025:Codominant circulation with a known LAWYER of the RCA, a 60-70% lesion in the proximal/ostial margin of the LAD leading into a previously stented segment, a patent stent in the distal circumflex, as stable 50%
lesion in the distal circumflex proximal to the stented segment and a culprit, 80% lesion in the proximal margin of the proximal circumflex stent status post successful IVUS guided PCI (Xience Skypoint 3.0 x 12 SONYA, postdilated with a 3.25 NC
balloon), followed by 70% ISR lesions in the mid circumflex that were not initially appreciated status post successful IVUS guided PCI (overlapping Xience Skypoint 3.0 x 8, 3.0 x 12 SONYA, postdilated with a 3.25 NC balloon) with reduction in the
treated stenoses to 0%, maintaining MARCO-3 flow.
CVS: S1-S2 normal
Chest: CTA B/L
Abdomen: Soft, NT / Bowel sounds present
Extremities: No edema, normal pulses
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 Patient states that he has numbness of the toes when he dorsi flexes his feet but could not elicit on my exam
# Visual abnormality left side concerning for CVA
Bilateral cataracts and macular decompression
Bilateral carotid artery stenosis
Hide for ophthalmology evaluation and sent in to rule out CVA
Continue aspirin and Plavix
Patient claustrophobic-but would benefit from MRI
Patient normally follows up with Dr. Rock for carotid artery stenosis also
Get MRI Brain-patient states that he would be better with the MRI in the art walk
Vascular surgery evaluation
# Patient felt palpitations-no arrhythmias on the monitor. Check EKG and troponins
# BERNARDO-likely contrast-induced nephropathy. Gentle hydration. Hold Lasix. Hold valsartan. Follow creat. Bladder scan
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
# Recent subcutaneous hematoma abdominal wall from Lovenox-ultrasound ordered
# Hyponatremia-check serum and urine osmolality and urine sodium. Fluid restriction
# History of TIA
# Triple-vessel disease with drug-eluting stents in January 2025 History of PCI in 1998/2009/ 2016 and 2018-continue aspirin, Plavix. Statin intolerant
Patient was not felt to be a candidate for surgery after CT surgery evaluation
# Mild to moderate aortic regurgitation
# Ischemic cardiomyopathy/chronic HFmrEF-currently on Coreg. Does not seem to be on valsartan. SGLT2 inhibitor was not started secondary to hyponatremia
# Hyperlipidemia-statin and PCSK9 inhibitor intolerant. Plan was for outpatient inclisiran referral
# History of intermittent rectal bleeding secondary to radiation proctitis/colonic AVM-EGD and colonoscopy January 2025
# Peripheral artery disease. Left renal artery stenosis
# Chronic anemia-
# Hypertension-continue Coreg
# History of thyroid mass status post thyroidectomy-continue levothyroxine
# History of prostate cancer status postradiation-continue tamsulosin
# History of odynophagia/dysphagia-on pur�ed diet with Ensure supplementation
# History of spontaneous pneumothorax
# Spinal stenosis/arthritis/DJD
# Emphysema
# GERD-continue PPI
# Ex-smoker
# Anxiety , depression and insomnia-continue Ativan
# DVT prophylaxis-Lovenox
# Full code
D/W RN
Original Note:
Today's Communication/Plan
-
Brain MRI
vascular consult
ekg
trops
Assessment / Plan
Assessment / Plan
79-year-old man with visual difficulty saw icu nurse who referred him to the ED to rule out CVA. Patient has chronic tingling in his toes but no other medical problems. Patient was admitted here from 01/22/202010-23 for non-STEMI
had cardiac cath and stents placed. 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 Atherosclerotic vascular disease of the right carotid bifurcation extending
into the proximal right ICA contributed to hemodynamically significant stenosis. Atherosclerotic vascular calcification of the left carotid bifurcation extending into the proximal internal and external carotid arteries.
EKG-sinus rhythm cannot rule out anterior infarct
Cardiac Catheterization/PCI, 02/04/2025:Codominant circulation with a known LAWYER of the RCA, a 60-70% lesion in the proximal/ostial margin of the LAD leading into a previously stented segment, a patent stent in the distal circumflex, as stable 50%
lesion in the distal circumflex proximal to the stented segment and a culprit, 80% lesion in the proximal margin of the proximal circumflex stent status post successful IVUS guided PCI (Xience Skypoint 3.0 x 12 SONYA, postdilated with a 3.25 NC
balloon), followed by 70% ISR lesions in the mid circumflex that were not initially appreciated status post successful IVUS guided PCI (overlapping Xience Skypoint 3.0 x 8, 3.0 x 12 SONYA, postdilated with a 3.25 NC balloon) with reduction in the
treated stenoses to 0%, maintaining MARCO-3 flow.
# Visual abnormality left side concerning for CVA
Bilateral cataracts and macular decompression
Bilateral carotid artery stenosis
Hide for ophthalmology evaluation and sent in to rule out CVA
Continue aspirin and Plavix
Brain MRI
Patient normally follows up with Dr. Rock for carotid artery stenosis also; requested to discuss his current symptoms and CT finding with vascular
ekg
trops
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
# Recent subcutaneous hematoma abdominal wall from Lovenox-ultrasound ordered
# Hyponatremia- Fluid restriction. improved
# Anemia-
# History of TIA
# Triple-vessel disease with drug-eluting stents in January 2025 History of PCI in 1998/2009/ 2016 and 2018-continue aspirin, Plavix. Statin intolerant
Patient was not felt to be a candidate for surgery after CT surgery evaluation
# Mild to moderate aortic regurgitation
# Ischemic cardiomyopathy/chronic HFmrEF-currently on Coreg. Does not seem to be on valsartan. SGLT2 inhibitor was not started secondary to hyponatremia
# Hyperlipidemia-statin and PCSK9 inhibitor intolerant. Plan was for outpatient inclisiran referral
# History of intermittent rectal bleeding secondary to radiation proctitis/colonic AVM-EGD and colonoscopy January 2025
# Peripheral artery disease. Left renal artery stenosis
# Chronic anemia- Check Iron studies
# Hypertension-continue Coreg
# History of thyroid mass status post thyroidectomy-continue levothyroxine
# History of prostate cancer status postradiation-continue tamsulosin
# History of odynophagia/dysphagia-on pur�ed diet with Ensure supplementation
# History of spontaneous pneumothorax
# Spinal stenosis/arthritis/DJD
# Emphysema
# GERD-continue PPI
# Ex-smoker
# Anxiety , depression and insomnia-continue Ativan
# DVT prophylaxis-Lovenox
# Full code
D/W RN
Anticipated Discharge: Within 24 hours
Subjective/Interval History
-
Date of Service: February 16, 2025
Afebrile. VSS. Patient's states that he feels somewhat dizzy. States that it is not a chest pain or shortness of breath and he cannot describe it. Continues to have blurry vision.
Objective Data
-
Vital Signs:
Vital Signs
Temp Pulse Resp BP Pulse Ox
97.8 F 68 18 122/46 96
02/16/25 03:00 02/16/25 03:00 02/16/25 03:00 02/16/25 03:00 02/16/25 03:00
I&O
02/15/25 02/16/25 02/17/25
05:59 06:59 06:59
Intake Total 600 / 600
Balance 600 / 600
Review of Systems
-
History Source: Patient
Constitutional: Reports Other (Feeling not well)
Respiratory: Denies Trouble Breathing
Cardiac: Denies Chest Pain
Abdomen/GI: Denies Abdominal Pain
Neuro: Denies Headache, Weakness or Numbness
Physical Exam
-
General: No Apparent Distress
HEENT: Normocephalic
Respiratory: Clear to Auscultation and Non Labored Respirations
Cardiac: Regular Rhythm and S1/S2
GI: Soft
Skin: Warm
Neuro: Awake, Alert and Oriented
Psych: Calm
Data Reviewed
-
Labs: Labs Reviewed by me, Discussed with Physician and Discussed with Patient
--- NOTE | 2025-02-16 08:46 | VNURNOTE ---
Addendum entered by Jyotsna Ortega RN 02/17/25 12:41:
Liaison met with patient at bedside. Confirmed that he would like to resume [facility] services. He is aware that resumption visit will be within a few days up to a week after DC. VN will call him before visits. Resumption referral accepted in
[facility].
Original Note:
Chart reviewed. Patient is current with [facility]. Will continue to follow hospital course and DC plans.
--- NOTE | 2025-02-16 10:03 | CM ---
F/U: Patient is not ready yet, thus far, no indication from PT/OT what the needs are, but anticipate discharge with [facility]. ADOLFO Penny waiting to see if will be inpatient LOC. PLAN: Anticipate DC home with [facility] vs. SNF.
[2025-02-16] MEDS: LASIX 20 MG PO (10:15)
[2025-02-16] MEDS: NON-FORMULARY ITEM 1 DROP BOTH EYES ×2 (10:17→20:11)
[2025-02-16] MEDS: PROTONIX 40 MG PO ×2 (10:19→20:13)
[2025-02-16] MEDS: IMDUR (EXTENDED RELEASE) 90 MG PO (10:19)
[2025-02-16] MEDS: PLAVIX 75 MG PO (10:19)
[2025-02-16] MEDS: LOW STRENGTH ASPIRIN 81 MG PO (10:19)
[2025-02-16] MEDS: COREG 12.5 MG PO ×2 (10:20→20:11)
[2025-02-16] MEDS: FLOMAX 0.4 MG PO ×2 (10:20→20:11)
[2025-02-16] MEDS: FEOSOL 325 MG PO (10:20)
[2025-02-16] MEDS: DESENEX/MITRAZOL/ZEASORB 1 APPLIC TOPICAL ×2 (10:22→20:12)
[2025-02-16 10:24] LABS: Blood Urea Nitrogen 42 mg/dl (9-20); Calcium 8.4 mg/dl (8.4-10.2); Carbon Dioxide 26 mmol/L (22-30); Chloride 100 mmol/L (98-107); Estimated Creatinine Clearance 29 ml/min; Glucose 106 mg/dl (70-99); Potassium 3.9 mmol/L (3.5-5.1); Sodium 131 mmol/L (135-145); eGFR 47.06
[2025-02-16] MEDS: REFRESH EYE DROPS (PF) 1 DROPS BOTH EYES ×3 (10:26→20:12)
[2025-02-16] MEDS: NON-FORMULARY ITEM 1 UNIT PO ×2 (10:27→20:13)
[2025-02-16 10:40] LABS: Troponin I 0.042 ng/ml
--- NOTE | 2025-02-16 10:43 | PTOTSP ---
pt currently requires no assistance to complete simple ADLs, functional transfers, ambulation. pt reports decreased brightness in vision, though demonstrates full field of vision, ability to navigate environment and complete functional tasks. no
acute OT needs identified at this time, will sign off.
--- NOTE | 2025-02-16 13:21 | CON.VAS ---
Addendum entered and electronically signed by Christopher Rock III, MD 02/16/25 15:19:
This patient was seen and examined in collaboration with RADHA Hayden. I agree with the history and physical exam as well as the assessment and plan. I have the following additions:
80-year-old male with multiple medical comorbidities
Known to me from office surveillance of lower extremity PAD
Admitted with bilateral visual symptoms described as 'visual dimming in both eyes'
Denies lateralizing symptoms. Denies amaurosis. No upper extremity or lower extremity symptoms. Denies slurred speech, denies facial droop.
On exam he is frail appearing
Alert/oriented
Sister at bedside
Grossly non focal neuro
CTA personally reviewed. Report reviewed. Centerline reconstructions performed.
By my direct centerline interpretation (see images below) there is a 90% stenosis focally in the proximal internal carotid artery with calcified plaque. No significant stenosis is identified on the left.
I also personally reviewed the carotid duplex images. By velocity criteria there is a greater than 70% stenosis in the proximal internal carotid artery on the right, consistent with the CT angiogram findings. On the left the velocity profile is
consistent with a 50 to 69% internal carotid artery stenosis.
A/P: High-grade right carotid artery stenosis by cross-sectional imaging. Symptoms are bilateral vision 'dimming'. I am not certain that this represents a symptomatic stenosis. Will await MRI results and neurology follow-up. If labeled as
asymptomatic I can see him in the office and discuss carotid intervention with him on a more elective basis.
Signed:
Christopher Rock III, MD
Vascular Surgery
[facility]
Original Note:
Consultation
Consultation Request
Date/Time Consultation Performed: 02/16/2025 1245
Requesting Provider: Hospitalist
Performing Provider: Katalina Hassan DIVING FISHER-C for Christopher Rock III, MD
Reason for Consultation: Carotid stenosis in setting of bilateral vision changes
Medical History
-
Chief Complaint: Bilateral vision changes
History of Present Illness:
This is a 80-year-old male with significant past medical history for coronary artery disease, peripheral arterial disease, hypertension, benign thyroid mass, prostate cancer, dysphagia, hypertension, hyperlipidemia, COPD, former smoker, GERD, BPH,
anxiety/depression, neuropathy, insomnia, and radiation proctitis who presented to [facility] ED on 02/14/2025 per recommendation of his sales development specialist. Of note patient was recently admitted here at [facility]
from 01/21/2025 to 02/09/2025 for management of NSTEMI, he ultimately received 2 drug-eluting stents and also was noted to have anemia which led to diagnosis of radiation proctitis following colonoscopy by GI. He notes on his last day of admission
(02/09/2025) he was experiencing bilateral eye 'dimmed' vision. However, at the time he chalked it up to his chronic diminished vision in both eyes secondary to cataract surgery and prior retinal artery occlusion in his left eye that occurred
roughly 5 years ago. With the dimmed vision continued he sought evaluation by his sales development specialist, who recommended he seek ED evaluation for stroke workup. As part of stroke workup patient had CT head and neck, which demonstrated right proximal
internal carotid artery stenosis of possibly 62% and no evidence for hemodynamically significant stenosis of the left carotid bulb or proximal left ICA. Did note short segment of chronic dissection involving the left common carotid artery. Patient
denies any accompanying unilateral symptomatology with bilateral eye dimmed vision. He denies unilateral weakness, dysarthria, aphasia, vision loss, and headache. He does note dysphagia but this is chronic. He follows in the outpatient setting
with Dr. Rock for management of his peripheral arterial disease.
Past Medical History
Past Medical History: CAD, Cancer (Prostate cancer), COPD, GERD, HTN and Other (TIA, peripheral arterial disease, thyroid mass, odynophagia/dysphagia, anxiety/depression, BPH, hyperlipidemia, insomnia, left eye retinal artery occlusion)
Past Surgical History: Cardiac (Cardiac catheterization with PCI) and Other (Thyroidectomy, cataract surgery)
Social History
Tobacco: Former Smoker
Allergies / Home Medications
Allergy/AdvReac Type Severity Reaction Status Date / Time
lorazepam (From Ativan) Allergy 'MAKES ME Verified 02/14/25 15:39
GO CRAZY'
simvastatin (From Zocor) Allergy muscle Verified 02/14/25 15:39
cramps
triamcinolone (From Kenalog) Allergy palpitation Verified 02/14/25 15:39
s
�Medication �Instructions �Recorded �Confirmed �Type
lifitegrast 5 % eye drops in a 1 drp BOTH EYES BID Eye condition 09/26/16 02/15/25 History
dropperette (Xiidra)
lorazepam 0.5 mg tablet 1 mg PO HS PRN sleep 02/09/17 02/15/25 History
levothyroxine 88 mcg tablet 88 mcg PO DAILY Thyroid 03/27/17 02/15/25 History
cholecalciferol (vitamin D3) 25 2,000 units PO QPM Supplement 08/15/17 02/15/25 History
mcg (1,000 unit) tablet
acetaminophen 650 mg 1,300 mg PO TID Pain 03/22/20 02/15/25 History
tablet,extended release (Tylenol
Arthritis)
tamsulosin 0.4 mg capsule (Flomax) 0.4 mg PO BID #30 caps 09/23/23 02/14/25 Rx
ICaps AREDS2 1 cap PO BID Eye Condition 01/06/24 02/15/25 History
ferrous sulfate 325 mg (65 mg 325 mg PO DAILY Supplement 01/06/24 02/15/25 History
iron) tablet
aspirin 81 mg chewable tablet 81 mg PO DAILY #30 tabs 02/06/25 02/15/25 Rx
carvedilol 12.5 mg tablet (Coreg) 12.5 mg PO BID #60 tabs 02/06/25 02/15/25 Rx
clopidogrel 75 mg tablet 75 mg PO DAILY #20 tabs 02/06/25 02/15/25 Rx
furosemide 20 mg tablet 20 mg PO DAILY Fluid 02/06/25 02/15/25 Rx
retention/Swelling #30 tabs
pantoprazole 40 mg tablet,delayed 40 mg PO BID Gastrointestinal 02/06/25 02/15/25 Rx
release issue #60 tabs
phenylephrine 0.25 %-pramoxine 1 1 applic MO Q6HPRN PRN rectal 02/06/25 02/15/25 Rx
%-glycerin-wh.petrolatum rectal discomfort #26 grams
cream (Preparation H Maximum
Strength)
Imdur 90 mg PO DAILY 02/15/25 02/15/25 History
artificial tears ointment 1 % BOTH EYES PRN PRN dry eye 02/15/25 02/15/25 History
hydrocortisone 2.5 % topical cream 1 applic topical BID PRN eczema 02/15/25 02/15/25 History
nicotine (polacrilex) 2 mg buccal 2 mg buccal Q4H PRN nicotine 02/15/25 02/15/25 History
lozenge (Nicorette) craving
nitroglycerin 0.4 mg sublingual 0.4 mg sublingual [id number] PRN 02/15/25 02/15/25 History
tablet chest pain
simethicone 125 mg tablet 125 mg PO NOON 02/15/25 02/15/25 History
valsartan 40 mg tablet (Diovan) 40 mg PO 1800 02/15/25 02/15/25 History
Review of Systems
-
History Source: Patient
Constitutional: Reports No Symptoms
EENT: Reports No Symptoms and Other (Bilateral vision alterations described as dimming in bilateral eyes)
Respiratory: Reports No Symptoms
Cardiac: Reports No Symptoms
Abdomen/GI: Reports No Symptoms
: Reports No Symptoms
Musculoskeletal: Reports No Symptoms
Skin: Reports No Symptoms
Neurological: Reports No Symptoms
Endocrine: Reports No Symptoms
Physical Exam
Vital Signs
Temp Pulse Resp BP Pulse Ox
97.6 F 65 18 124/52 95
02/16/25 11:58 02/16/25 11:58 02/16/25 11:58 02/16/25 11:58 02/16/25 11:58
Lab Results
02/15/25 07:07
02/16/25 09:52
Troponin I 0.042 ng/ml H* 02/16/25 09:52
Physical Exam
General: No Apparent Distress
HEENT: Normocephalic, Anicteric and Atraumatic
Respiratory: Non Labored Respirations
Cardiac: Negative JVD
GI: Non Tender
Musculoskeletal: No Edema
Skin: Warm
Neuro: AO x 3, No Motor Deficits and Nonfocal/Grossly Intact
Assessment / Plan
-
Assessment: 80-year-old male with bilateral eye vision that is described as dim, admitted for stroke workup
Plan:
Will obtain carotid ultrasound for better identification of possible stenosis at right carotid artery
MRI of brain pending
Appreciate neurology recommendations following MRI if there is any indication that bilateral eye vision dimming is attributed to the right carotid artery stenosis
Patient seen and examined at bedside with Dr. Christopher Rock III, above plan reviewed with attending.
[2025-02-16 14:12] LABS: Troponin I 0.035 ng/ml
[2025-02-16] MEDS: D5/0.9% SODIUM CHLORIDE 500 IV (14:33)
[2025-02-16 17:27] LABS: Urine Character Clear (Clear)
[2025-02-16 17:33] LABS: Urine Red Blood Cell 0-2 /HPF (0-2); Urine Squamous Cell 0-2 /LPF (Few); Urine White Cell 0-2 /HPF (0-5)
[2025-02-16] MEDS: VITAMIN D3 (cholecalciferol) 25 MCG PO (17:53)
[2025-02-16] MEDS: LOVENOX 40 MG SC (17:54)
[2025-02-16 18:22] LABS: Troponin I 0.031 ng/ml
[2025-02-16] MEDS: MYLICON 80 MG PO (22:45)
[2025-02-16] MEDS: ANUSOL HC 25 MG RECTAL (22:45)
[2025-02-16] MEDS: ATIVAN 0.5 MG PO (22:49)
[2025-02-17 04:10] VITALS: BP 133/53; BMI 17.3
[2025-02-17 07:01] LABS: Blood Urea Nitrogen 38 mg/dl (9-20); Calcium 8.4 mg/dl (8.4-10.2); Carbon Dioxide 27 mmol/L (22-30); Chloride 100 mmol/L (98-107); Estimated Creatinine Clearance 31 ml/min; Glucose 97 mg/dl (70-99); Potassium 3.6 mmol/L (3.5-5.1); Sodium 130 mmol/L (135-145); eGFR 51.13
[2025-02-17] MEDS: SYNTHROID 88 MCG PO (07:18)
[2025-02-17 07:23] VITALS: BP 150/56
[2025-02-17] MEDS: IMDUR (EXTENDED RELEASE) 90 MG PO (09:28)
[2025-02-17] MEDS: PROTONIX 40 MG PO ×2 (09:28→20:14)
[2025-02-17] MEDS: COREG 12.5 MG PO ×2 (09:29→20:14)
[2025-02-17] MEDS: FLOMAX 0.4 MG PO ×2 (09:29→20:14)
[2025-02-17] MEDS: LOW STRENGTH ASPIRIN 81 MG PO (09:29)
[2025-02-17] MEDS: PLAVIX 75 MG PO (09:29)
[2025-02-17] MEDS: FEOSOL 325 MG PO (09:29)
[2025-02-17] MEDS: TYLENOL PO ×2 (09:30→09:33)
[2025-02-17] MEDS: NON-FORMULARY ITEM 1 DROP BOTH EYES ×2 (09:30→20:15)
[2025-02-17] MEDS: NON-FORMULARY ITEM 1 UNIT PO ×2 (09:30→20:16)
[2025-02-17] MEDS: DESENEX/MITRAZOL/ZEASORB 1 APPLIC TOPICAL ×2 (09:33→20:14)
--- NOTE | 2025-02-17 11:23 | W.PN.HOSP.TC ---
Today's Communication/Plan
-
await vascular surgery follow-up today
Assessment / Plan
Assessment / Plan
79-year-old man with visual difficulty saw retail associate manager bilingual who referred him to the ED to rule out CVA. Patient has chronic tingling in his toes but no other medical problems. Patient was admitted here from 01/22/2020 7- 25 for non-STEMI
had cardiac cath and stents placed. 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 Atherosclerotic vascular disease of the right carotid bifurcation extending
into the proximal right ICA contributed to hemodynamically significant stenosis. Atherosclerotic vascular calcification of the left carotid bifurcation extending into the proximal internal and external carotid arteries.
EKG-sinus rhythm cannot rule out anterior infarct
Cardiac Catheterization/PCI, 02/04/2025:Codominant circulation with a known TOASTER ELEMENT REPAIRER of the RCA, a 60-70% lesion in the proximal/ostial margin of the LAD leading into a previously stented segment, a patent stent in the distal circumflex, as stable 50%
lesion in the distal circumflex proximal to the stented segment and a culprit, 80% lesion in the proximal margin of the proximal circumflex stent status post successful IVUS guided PCI (Xience Skypoint 3.0 x 12 SONYA, postdilated with a 3.25 NC
balloon), followed by 70% ISR lesions in the mid circumflex that were not initially appreciated status post successful IVUS guided PCI (overlapping Xience Skypoint 3.0 x 8, 3.0 x 12 SONYA, postdilated with a 3.25 NC balloon) with reduction in the
treated stenoses to 0%, maintaining MARCO-3 flow.
CVS: S1-S2 normal
Chest: CTA B/L
Abdomen: Soft, NT / Bowel sounds present
Extremities: No edema, normal pulses
CYBER SECURITY CONSULTANT: No visual field deficit, no cranial nerve deficits noted, no sensory or motor deficits noted on my exam.
# Visual abnormality -blurry vision no CVA on MRI
Bilateral cataracts and macular decompression
Bilateral carotid artery stenosis
Had OP ophthalmology evaluation and sent in to rule out CVA
Continue aspirin and Plavix
MRI as above
Vascular surgery evaluation appreciated.
# Chronic hyponatremia
# Patient felt palpitations-no arrhythmias on the monitor or EKG. Pt is anxious. Trop borderline trended down since last admission
# BERNARDO-likely contrast-induced nephropathy. Hold Lasix. Hold valsartan. Follow creat. Bladder scan no retention.
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
# Recent subcutaneous hematoma abdominal wall from Lovenox-ultrasound stable.
# History of TIA
# Triple-vessel disease with drug-eluting stents in January 2025 History of PCI in 1998/2009/ 2016 and 2017-continue aspirin, Plavix. Statin intolerant
Patient was not felt to be a candidate for surgery after CT surgery evaluation
# Mild to moderate aortic regurgitation
# Ischemic cardiomyopathy/chronic HFmrEF-currently on Coreg. Does not seem to be on valsartan. SGLT2 inhibitor was not started secondary to hyponatremia
# Hyperlipidemia-statin and PCSK9 inhibitor intolerant. Plan was for outpatient inclisiran referral
# History of intermittent rectal bleeding secondary to radiation proctitis/colonic AVM-EGD and colonoscopy January 2025
# Peripheral artery disease. Left renal artery stenosis
# Chronic anemia-
# Hypertension-continue Coreg
# History of thyroid mass status post thyroidectomy-continue levothyroxine
# History of prostate cancer status postradiation-continue tamsulosin
# History of odynophagia/dysphagia-on pur�ed diet with Ensure supplementation
# History of spontaneous pneumothorax
# Spinal stenosis/arthritis/DJD
# Emphysema
# GERD-continue PPI
# Ex-smoker
# Anxiety , depression and insomnia-continue Ativan
# DVT prophylaxis-Lovenox
# Full code
D/W RN
Anticipated Discharge: Within 24 hours
Subjective/Interval History
-
Date of Service: February 17, 2025
Objective Data
-
Labs:
Laboratory Results
02/17/25
05:32
Sodium 130 L
Potassium 3.6
Chloride 100
Carbon Dioxide 27
BUN 38 H
Creatinine 1.4 H
Glucose 97
Calcium 8.4
Vital Signs:
Vital Signs
Temp Pulse Resp BP Pulse Ox
97.9 F 63 16 150/56 96
02/17/25 07:23 02/17/25 09:29 02/17/25 07:23 02/17/25 09:29 02/17/25 07:23
I&O
02/16/25 02/17/25 02/18/25
06:59 06:59 06:59
Intake Total 600 / 600 2109
Balance 600 / 600 2109
[2025-02-17 11:43] VITALS: BP 120/51
[2025-02-17] MEDS: MYLICON 80 MG PO (11:55)
[2025-02-17] MEDS: REFRESH EYE DROPS (PF) 1 DROPS BOTH EYES ×2 (11:58→20:14)
[2025-02-17] MEDS: TYLENOL 1000 MG PO ×2 (15:00→22:03)
[2025-02-17 15:32] VITALS: BP 127/47
[2025-02-17] MEDS: VITAMIN D3 (cholecalciferol) 25 MCG PO (17:00)
[2025-02-17] MEDS: LOVENOX 40 MG SC (17:00)
[2025-02-17] MEDS: DIOVAN 40 MG PO (17:06)
[2025-02-17 19:00] VITALS: BP 137/54
[2025-02-17] MEDS: ATIVAN 0.5 MG PO (22:02)
[2025-02-17] MEDS: ANUSOL HC 25 MG RECTAL (22:03)
[2025-02-17 23:00] VITALS: BP 128/48
[2025-02-18 02:54] VITALS: BP 139/60
--- NOTE | 2025-02-18 03:11 | PTCARENOTE ---
Patient has had 3 small bowl movements with bright red blood on tissue and toilet bowl. Vital signs stable. Patient declines weakness, shortness of breath, and dizziness. Messaged COAL INSPECTOR. CBC added to AM labs.
[2025-02-18] MEDS: SYNTHROID 88 MCG PO (05:31)
[2025-02-18 06:00] VITALS: BMI 17.2
[2025-02-18 06:19] LABS: Hematocrit 27.6 % (39.0-52.0); Hemoglobin 9.2 g/dL (13.0-18.0); Mean Corp Hgb Conc. 33.3 g/dL (33.0-37.0); Mean Corpuscular Volume 95.8 fL (80.0-94.0); Platelet Count 123 10^3/uL (130-400); Red Cell Dist. Width 15.7 % (11.5-14.5)
[2025-02-18 06:33] LABS: Blood Urea Nitrogen 36 mg/dl (9-20); Calcium 8.7 mg/dl (8.4-10.2); Carbon Dioxide 29 mmol/L (22-30); Chloride 100 mmol/L (98-107); Estimated Creatinine Clearance 36 ml/min; Glucose 99 mg/dl (70-99); Potassium 4.1 mmol/L (3.5-5.1); Sodium 132 mmol/L (135-145); eGFR > 60.00
--- NOTE | 2025-02-18 07:51 | W.PN.HOSP.TC ---
Addendum entered and electronically signed by Yuli Arreaga MD 02/18/25 13:44:
Seen and examined the patient. Agree with the residents assessment and plan.
Patient was complaining of skipped beats try to explain that these are PVCs
Exam is otherwise unremarkable
Patient is insisting on seeing a molder floor
He is also complaining of rectal bleeding and insist on talking to GI doctor even though he had endoscopy and colonoscopy and was found to have proctitis. Patient states that he was given prescription for an enema he does not know the name of it.
We have ordered Anusol suppositories here
GI consulted
D/W RN
Original Note:
Today's Communication/Plan
-
GI consult
cardio consult
pending neuro fu eval
anusol suppository
h&h at 2
Assessment / Plan
Assessment / Plan
79-year-old man with visual difficulty saw building service worker who referred him to the ED to rule out CVA. Patient has chronic tingling in his toes but no other medical problems. Patient was admitted here from 01/22/202010-23 for non-STEMI
had cardiac cath and stents placed. 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 Atherosclerotic vascular disease of the right carotid bifurcation extending
into the proximal right ICA contributed to hemodynamically significant stenosis. Atherosclerotic vascular calcification of the left carotid bifurcation extending into the proximal internal and external carotid arteries.
EKG-sinus rhythm cannot rule out anterior infarct
Cardiac Catheterization/PCI, 02/04/2025:Codominant circulation with a known MANAGER FINANCIAL REPORTING of the RCA, a 60-70% lesion in the proximal/ostial margin of the LAD leading into a previously stented segment, a patent stent in the distal circumflex, as stable 50%
lesion in the distal circumflex proximal to the stented segment and a culprit, 80% lesion in the proximal margin of the proximal circumflex stent status post successful IVUS guided PCI (Xience Skypoint 3.0 x 12 SONYA, postdilated with a 3.25 NC
balloon), followed by 70% ISR lesions in the mid circumflex that were not initially appreciated status post successful IVUS guided PCI (overlapping Xience Skypoint 3.0 x 8, 3.0 x 12 SONYA, postdilated with a 3.25 NC balloon) with reduction in the
treated stenoses to 0%, maintaining MARCO-3 flow.
# Visual abnormality -blurry vision no CVA on MRI
Bilateral cataracts and macular decompression
Bilateral carotid artery stenosis
Had OP ophthalmology evaluation and sent in to rule out CVA
Continue aspirin and Plavix
MRI as above
Vascular surgery evaluation appreciated.
# Chronic hyponatremia
- improved
# rectal bleeding
-recent endo and colono reviewed.
-GI consult
# Patient felt palpitations-no arrhythmias on the monitor or EKG. Pt is anxious. Trop borderline trended down since last admission. He is adamant to see a molder floor
# BERNARDO-likely contrast-induced nephropathy.
resolved
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
# Recent subcutaneous hematoma abdominal wall from Lovenox-ultrasound stable.
# History of TIA
# Triple-vessel disease with drug-eluting stents in January 2025 History of PCI in 1998/2009/ 2016 and 2018-continue aspirin, Plavix. Statin intolerant
Patient was not felt to be a candidate for surgery after CT surgery evaluation
# Mild to moderate aortic regurgitation
# Ischemic cardiomyopathy/chronic HFmrEF-currently on Coreg. Does not seem to be on valsartan. SGLT2 inhibitor was not started secondary to hyponatremia
# Hyperlipidemia-statin and PCSK9 inhibitor intolerant. Plan was for outpatient inclisiran referral
# History of intermittent rectal bleeding secondary to radiation proctitis/colonic AVM-EGD and colonoscopy January 2025
# Peripheral artery disease. Left renal artery stenosis
# Chronic anemia-
# Hypertension-continue Coreg
# History of thyroid mass status post thyroidectomy-continue levothyroxine
# History of prostate cancer status postradiation-continue tamsulosin
# History of odynophagia/dysphagia-on pur�ed diet with Ensure supplementation
# History of spontaneous pneumothorax
# Spinal stenosis/arthritis/DJD
# Emphysema
# GERD-continue PPI
# Ex-smoker
# Anxiety , depression and insomnia-continue Ativan
# DVT prophylaxis-Lovenox
# Full code
Anticipated Discharge: Within 24 hours
Subjective/Interval History
-
Date of Service: February 18, 2025
Afebrile. States that he had 3 episodes of bright red blood with stools last night. Had 2 rectal bleeding episode in the morning.
Objective Data
-
Labs:
Laboratory Results
02/18/25
05:51
WBC 7.4
Hgb 9.2 L
Hct 27.6 L
Plt Count 123 L
Sodium 132 L
Potassium 4.1
Chloride 100
Carbon Dioxide 29
BUN 36 H
Creatinine 1.2
Glucose 99
Calcium 8.7
Vital Signs:
Vital Signs
Temp Pulse Resp BP Pulse Ox
97.6 F 69 18 139/60 96
02/18/25 02:54 02/18/25 02:54 02/18/25 02:54 02/18/25 02:54 02/18/25 02:54
I&O
02/17/25 02/18/25 02/19/25
06:59 06:59 06:59
Intake Total 2109 720 / 720
Balance 2109 720 / 720
Review of Systems
-
History Source: Patient
Constitutional: Reports Other (Feeling not well)
Respiratory: Denies Trouble Breathing
Cardiac: Denies Chest Pain
Abdomen/GI: Reports Bloody Stools; Denies Abdominal Pain
Neuro: Denies Headache, Weakness or Numbness
Physical Exam
-
General: No Apparent Distress
HEENT: Normocephalic
Respiratory: Clear to Auscultation and Non Labored Respirations
Cardiac: Regular Rhythm and S1/S2
GI: Soft, Nontender and Nondistended
Skin: Warm
Neuro: Awake, Alert and Oriented
Psych: Calm
Data Reviewed
-
Labs: Labs Reviewed by me, Discussed with Physician and Discussed with Patient
[2025-02-18 07:55] VITALS: BP 157/61
[2025-02-18] MEDS: NON-FORMULARY ITEM 1 DROP BOTH EYES ×2 (08:50→20:12)
[2025-02-18] MEDS: NON-FORMULARY ITEM 1 UNIT PO ×2 (08:51→20:11)
[2025-02-18] MEDS: REFRESH EYE DROPS (PF) 1 DROPS BOTH EYES ×3 (08:51→20:14)
[2025-02-18] MEDS: COREG 12.5 MG PO ×2 (08:52→20:10)
[2025-02-18] MEDS: PLAVIX 75 MG PO (08:53)
[2025-02-18] MEDS: PROTONIX 40 MG PO ×2 (08:53→20:10)
[2025-02-18] MEDS: FEOSOL 325 MG PO (08:53)
[2025-02-18] MEDS: TYLENOL 1000 MG PO ×3 (08:53→21:50)
[2025-02-18] MEDS: FLOMAX 0.4 MG PO ×2 (08:53→20:10)
[2025-02-18] MEDS: IMDUR (EXTENDED RELEASE) 90 MG PO (08:53)
[2025-02-18] MEDS: LOW STRENGTH ASPIRIN 81 MG PO (08:53)
[2025-02-18] MEDS: DESENEX/MITRAZOL/ZEASORB 1 APPLIC TOPICAL ×2 (08:53→20:11)
[2025-02-18] MEDS: LASIX 20 MG PO (08:55)
[2025-02-18] MEDS: ATIVAN 0.5 MG PO ×2 (10:07→21:50)
[2025-02-18] MEDS: ANUSOL HC 25 MG RECTAL (10:07)
--- NOTE | 2025-02-18 10:56 | CON.CAR ---
Addendum entered and electronically signed by Yobany Munoz MD 02/18/25 13:14:
I saw and examined the patient independently, and performed majority of MDM.
The resident's note was reviewed and I agree with the note with changes/additions below.
Comment: 80 yo male with PMH of CAD, recent NSTEMI and complex PCI 02/04/25, ICM EF 45% is admitted with visual disturbance for CVA evaluation. We are consulted for symptomatic PVC's. He feels palps when they occur. No chest pain. Exam with RRR, no
murmurs, no edema. Tele: occasional PVC's and bigeminy.
Symptomatic PVC's. Periods of bigeminy. Occasional. Continue coreg 12.5mg bid. If increase in frequency, will increase coreg to 18.75mg bid.
ICM EF 45%. Chronic HFmEF. Stable appears euvolemic. Continue PO lasix.
Please call us back with additional questions.
Original Note:
Consultation
Consultation Request
Date/Time Consultation Requested: 02/18/2025; 10:04
Date/Time Consultation Performed: 02/18/2025; 10:58
Requesting Provider: Dr. Taras Sharp
Performing Provider: Dr. Yobany Munoz; Dr. Usman Childs
Reason for Consultation: PVCs
Medical History
-
Chief Complaint: PVCs
History of Present Illness:
80 yo M PMH triple-vessel CAD, NSTEMI, PAD, HTN, HLD, COPD, benign thyroid mass s/p thyroidectomy, prostate cancer s/p radiation, GERD, BPH, anxiety/depression, neuropathy, insomnia, radiation proctitis.
He initially presented to the ED with bilateral dimming of the vision starting approximately 1 week ago when he was discharged. He was recently admitted for NSTEMI with catheterization SONYA x2 (discharged on 02/09/2025).
He was seen by opthalmologist and was advised to present to ED to rule out CVA.
CTA head/neck showed atherosclerotic calcification of bilateral common carotid arteries.
EKG: NORMAL SINUS RHYTHM, ANTERIOR INFARCT (initial).
Brain MRI showed no acute intracranial abnormality
Cardiology has been consulted for PVCs because the patient reports palpitations. Per documentation, no arrhythmias were reported on telemtery or EKG.
During my interivew, the patient reports that he has had palpitations 3-4 years ago that have been on/off over the years. However, most recently, he reports that he experienced palpitations during the brain MRI this admission. And, then again, this
morning around 10am. Reconciliation with the personnel monitor showed ventricular bigeminy at approximately 09:00. HR has been within normal limits throughout.
He reports no clear trigger, the palpitations resolves on its own.
He denies chest pain, endorses dyspnea, headache, focal neurologic deficits, abdominal pain.
Past Medical History
Past Medical History: CAD, Cancer, COPD, GERD, HTN and Hypercholesterolemia
Past Surgical History: Cardiac (cardiac catheterization) and Other (thyroidectomy)
Social History
Tobacco: Former Smoker
Alcohol: None
Drug: None
Allergies / Home Medications
Allergy/AdvReac Type Severity Reaction Status Date / Time
lorazepam (From Ativan) Allergy 'MAKES ME Verified 02/14/25 15:39
GO CRAZY'
simvastatin (From Zocor) Allergy muscle Verified 02/14/25 15:39
cramps
triamcinolone (From Kenalog) Allergy palpitation Verified 02/14/25 15:39
s
�Medication �Instructions �Recorded �Confirmed �Type
lifitegrast 5 % eye drops in a 1 drp BOTH EYES BID Eye condition 09/26/16 02/15/25 History
dropperette (Xiidra)
lorazepam 0.5 mg tablet 1 mg PO HS PRN sleep 02/09/17 02/15/25 History
levothyroxine 88 mcg tablet 88 mcg PO DAILY Thyroid 03/27/17 02/15/25 History
cholecalciferol (vitamin D3) 25 2,000 units PO QPM Supplement 08/15/17 02/15/25 History
mcg (1,000 unit) tablet
acetaminophen 650 mg 1,300 mg PO TID Pain 03/22/20 02/15/25 History
tablet,extended release (Tylenol
Arthritis)
tamsulosin 0.4 mg capsule (Flomax) 0.4 mg PO BID #30 caps 09/23/23 02/14/25 Rx
ICaps AREDS2 1 cap PO BID Eye Condition 01/06/24 02/15/25 History
ferrous sulfate 325 mg (65 mg 325 mg PO DAILY Supplement 01/06/24 02/15/25 History
iron) tablet
aspirin 81 mg chewable tablet 81 mg PO DAILY #30 tabs 02/06/25 02/15/25 Rx
carvedilol 12.5 mg tablet (Coreg) 12.5 mg PO BID #60 tabs 02/06/25 02/15/25 Rx
clopidogrel 75 mg tablet 75 mg PO DAILY #20 tabs 02/06/25 02/15/25 Rx
furosemide 20 mg tablet 20 mg PO DAILY Fluid 02/06/25 02/15/25 Rx
retention/Swelling #30 tabs
pantoprazole 40 mg tablet,delayed 40 mg PO BID Gastrointestinal 02/06/25 02/15/25 Rx
release issue #60 tabs
phenylephrine 0.25 %-pramoxine 1 1 applic AR Q6HPRN PRN rectal 02/06/25 02/15/25 Rx
%-glycerin-wh.petrolatum rectal discomfort #26 grams
cream (Preparation H Maximum
Strength)
Imdur 90 mg PO DAILY 02/15/25 02/15/25 History
artificial tears ointment 1 % BOTH EYES PRN PRN dry eye 02/15/25 02/15/25 History
hydrocortisone 2.5 % topical cream 1 applic topical BID PRN eczema 02/15/25 02/15/25 History
nicotine (polacrilex) 2 mg buccal 2 mg buccal Q4H PRN nicotine 02/15/25 02/15/25 History
lozenge (Nicorette) craving
nitroglycerin 0.4 mg sublingual 0.4 mg sublingual [id number] PRN 02/15/25 02/15/25 History
tablet chest pain
simethicone 125 mg tablet 125 mg PO NOON 02/15/25 02/15/25 History
valsartan 40 mg tablet (Diovan) 40 mg PO 1800 02/15/25 02/15/25 History
Review of Systems
-
Constitutional: No Symptoms
EENT: No Symptoms
Respiratory: Trouble Breathing
Cardiac: Palpitations
Abdomen/GI: No Symptoms
Musculoskeletal: No Symptoms
Neurological: No Symptoms
Physical Exam
Vital Signs
Temp Pulse Resp BP Pulse Ox
97.6 F 64 18 157/61 99
02/18/25 07:55 02/18/25 08:55 02/18/25 07:55 02/18/25 08:55 02/18/25 07:55
Lab Results
02/18/25 05:51
Troponin I 0.031 ng/ml 02/16/25 17:48
troponin 0.042 -> 0.035 -> 0.031
EKG 02/16/2025
Vent. Rate : 60 BPM Atrial Rate : 60 BPM
P-R Int : 182 ms QRS Dur : 92 ms
QT Int : 412 ms P-R-T Axes : 86 51 74 degrees
QTcB Int : 412 ms
NORMAL SINUS RHYTHM
ANTERIOR INFARCT
Brain MRI 02/16/2025
IMPRESSION:
No evidence of acute intracranial abnormality.
Focus of susceptibility blooming in the right parieto-occipital region, probably within the parietal lobe, stable from MRI of the brain of March 05, 2023. This could either represent an area of old hemorrhage or a vascular malformation.
Carotid Duplex US 02/16/2025
IMPRESSION:
RIGHT: Mixed-type plaque is identified in the carotid bulb and internal carotid artery. Carotid velocity measurements are consistent with greater than 70% internal carotid artery stenosis. Vertebral artery flow is antegrade.
LEFT: Calcified plaque is identified in the carotid bulb. Carotid velocity measurements are consistent with a 50-69% internal carotid artery stenosis. Vertebral artery flow is antegrade.
CTA Head Neck 02/14/2025
IMPRESSION:
Significant calcific atherosclerotic disease.
Measured diameter reduction of the right proximal internal carotid artery of 62%, likely hemodynamically significant.
No evidence for hemodynamically significant stenosis of the left carotid bulb or proximal left ICA.
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
Small focal moderate stenosis involving the distal M1 portion of the right middle cerebral artery.
Dominant left vertebral artery. Right vertebral artery terminates as the posterior inferior cerebellar artery.
Focal mild to moderate narrowing involving the proximal P2 portions of the right posterior cerebral artery.
2 mm protrusion from the anterior cavernous portion of the left ICA, suggesting a tiny aneurysm. Metallurgical Laboratory Assistant images of this probable aneurysm has been sent to the PACS system.
Cardiac Catheterization/PCI, 02/04/2025:
Codominant circulation with a known SURGICAL INSTRUMENTS INSPECTOR of the RCA, a 60-70% lesion in the proximal/ostial margin of the LAD leading into a previously stented segment, a patent stent in the distal circumflex, as stable 50% lesion in the distal circumflex proximal
to the stented segment and a culprit, 80% lesion in the proximal margin of the proximal circumflex stent status post successful IVUS guided PCI (Xience Skypoint 3.0 x 12 SONYA, postdilated with a 3.25 NC balloon), followed by 70% ISR lesions in the
mid circumflex that were not initially appreciated status post successful IVUS guided PCI (overlapping Xience Skypoint 3.0 x 8, 3.0 x 12 SONYA, postdilated with a 3.25 NC balloon) with reduction in the treated stenoses to 0%, maintaining MARCO-3 flow.
Physical Exam
General: No Apparent Distress
HEENT: Normocephalic
Respiratory: Clear
Cardiac: Other (no murmurs on my exam)
GI: Soft
Musculoskeletal: No Edema
Skin: Warm
Neuro: AO x 3, No Motor Deficits and Nonfocal/Grossly Intact
Psych: Calm
Impression / Plan
-
In summary, 79 yo M PMH triple-vessel CAD, PAD, HTN, HLD, COPD, benign thyroid mass s/p thyroidectomy, prostate cancer s/p radiation, GERD, BPH, anxiety/depression, neuropathy, insomnia, radiation proctitis who experienced palpitations prompting
consultation to cardiology.
Palpitations
- telemetry read of ventricular bigeminy at approximately the time that he described feeling palpitations
- no evidence of other arrhythmias (eg vtach)
- electrolytes are largely within normal limits (Cr 1.2, Na+ 132)
- he reports good adherence to his medications
- normal troponin (0.031); that has trended down
- EKG nonischemic
Plan:
- no evidence of trigger with electrolyte or concern for ACS (given recent NSTEMI)
- reassured patient, if PVCs recur/or worsen, can consider increasing carvedilol
- However, at this point in time, continue carvedilol 12.5mg bid
- continue monitor on telemetry
- Recommendations are not final until discussed with Dr. Munoz, cardiology attg
NSTEMI
- continue aspirin
- continue carvedilol
- continue clopidogrel
- continue isosorbide mononitrate
Chronic HFmrEF/Ischemic cardiomyopathy
- continue valsartan
- continue furosemide
- continue carvedilol
- continue isosorbide mononitrate
HTN
- continue carvedilol
HLD
- patient is intolerant of statins and PCSK9 inhibitors
- per prior cardiology documentation, plans are in the works for outpatient inclisiran
[2025-02-18 11:49] VITALS: BP 116/49
[2025-02-18] MEDS: MYLICON 80 MG PO (12:18)
--- NOTE | 2025-02-18 13:02 | CON.GI ---
Consultation
-
Date/Time Consultation Requested: 02/18/2025, 09:47
Date/Time Consultation Performed: 02/18/2025, 01:02 PM
Requesting Provider: Taras Sharp
Performing Provider: Bala Sharp
Reason for Consultation: Rectal Bleeding, hx of radiation proctitis
Medical History
Chief Complaint / HPI
Chief Complaint: Vision difficulty
History of Present Illness:
Mr. Brito is a 80 y.o male with an extensive past medical history including HTN, HLD, obstructive CAD (s/p prior stenting, on plavix), ischemic cardiomyopathy, PAD, carotid artery stenosis, hx of TIAs (on plavix), possible COPD, oropharyngeal
dysphagia, prostate cancer (s/p prior XRT in 2023) and recent hospitalization on 01/2024 with rectal bleeding 2/2 radiation proctitis (s/p APC 02/02/25), gastric ulcers (felt 2/2 ischemia) and recent NSTEMI (s/p DESx2 01/2025) who presented to ED
with vision difficulty concerning for possible CVA. GI has been consulted for further evaluation due to concern for intermittent rectal bleeding.
Patient initially presented to the ED with bilateral dimming of the vision starting approximately 1 week ago when he was discharged. He was recently admitted for NSTEMI with catheterization SONYA x2 (discharged on 02/09/2025 on plavix) and underwent
an EGD/Colon on 02/02/25 for further evaluation of weight loss and rectal bleeding where he was found to have a multiple non-bleeding gastric ulcers (c/f ischemia) and radiation proctitis which was treated with APC. He was advised to follow-up with
GI as an outpatient for consideration of a repeat EGD as well as a colonoscopy given his suboptimal prep as the cecum could not be fully cleared due to stool. He was seen by opthalmologist and was advised to present to ED to rule out CVA. A few
days after discharge, he began having rectal discomfort/pressure but denied any further bleeding. He was advised to use Carafate enemas for both his radiation proctitis as well as his discomfort which was felt to be from his prior APC. He most
recently saw his tier truck driver and given the concern for his visual changes he presented to the ED to rule out CVA. Currently, he still notes ongoing visual changes but denies any further rectal bleeding or rectal pressure. Still notes occasional
rectal discomfort but improved from prior. He had a small episode of bright red blood with wiping last evening and has been feeling constipated as well. Past firmer, harder stool brown stool last evening and subsequent small-volume rectal
bleeding. Denies any melena or large volume hematochezia or passage of blood clots. Denied any further recent rectal bleeding since his prior colonoscopy up until now. Denies any further rectal bleeding as of this AM. No other abdominal pain,
nausea/vomiting, or other concerning symptoms from a GI standpoint. He does note taking his Carafate enemas (total of 1) prior to his presentation which seemed to help his previous discomfort. Denies any palpable hemorrhoids. He is currently
ordered for Anusol suppositories during this admission. He remains on plavix due to his recent NSTEMI. No other NSAIDs.
Labs on admission with Hgb 9.6 -> 9.9 and recent Hgb 9.2 (near baseline 9-10s) as of today on 02/18/25.
Pertinent Prior GI Records / Data Review:
02/02/25 EGD- Small hiatal hernia. Bx negative EoE. Many nonbleeding 3mm lesser curve raising suspicion for ischemia-induced ulcers bx negative HP. SBBx negative
02/02/25 COLON- poor prep. Diverticulosis. Large amt stool covering entire cecum, unable to clear fully to identify landmarks. Multiple recently bleeding colonic AVMs cauterized w APC
Past Medical History
Past Medical History: Other ( ( triple-vessel CAD, PAD, hypertension, benign thyroid mass status post thyroidectomy, prostate cancer status post radiation, odynophagia/dysphagia, precancerous cells in mouth in 2007, hypertension, hyperlipidemia,
COPD, former smoker, history of spontaneous pneumothorax, GERD, BPH, anxiety/depres)
Past Surgical History: Other (thyroidectomy))
Social History
Tobacco: Non-Smoker
Alcohol: None
Drug: None
Family History
Family History: Reviewed & Not Pertinent
Allergies / Home Medications
Allergy/AdvReac Type Severity Reaction Status Date / Time
lorazepam (From Ativan) Allergy 'MAKES ME Verified 02/14/25 15:39
GO CRAZY'
simvastatin (From Zocor) Allergy muscle Verified 02/14/25 15:39
cramps
triamcinolone (From Kenalog) Allergy palpitation Verified 02/14/25 15:39
s
�Medication �Instructions �Recorded
lifitegrast 5 % eye drops in a 1 drp BOTH EYES BID Eye condition 09/26/16
dropperette (Xiidra)
lorazepam 0.5 mg tablet 1 mg PO HS PRN sleep 02/09/17
levothyroxine 88 mcg tablet 88 mcg PO DAILY Thyroid 03/27/17
cholecalciferol (vitamin D3) 25 2,000 units PO QPM Supplement 08/15/17
mcg (1,000 unit) tablet
acetaminophen 650 mg 1,300 mg PO TID Pain 03/22/20
tablet,extended release (Tylenol
Arthritis)
tamsulosin 0.4 mg capsule (Flomax) 0.4 mg PO BID #30 caps 09/23/23
ICaps AREDS2 1 cap PO BID Eye Condition 01/06/24
ferrous sulfate 325 mg (65 mg 325 mg PO DAILY Supplement 01/06/24
iron) tablet
aspirin 81 mg chewable tablet 81 mg PO DAILY #30 tabs 02/06/25
carvedilol 12.5 mg tablet (Coreg) 12.5 mg PO BID #60 tabs 02/06/25
clopidogrel 75 mg tablet 75 mg PO DAILY #20 tabs 02/06/25
furosemide 20 mg tablet 20 mg PO DAILY Fluid 02/06/25
retention/Swelling #30 tabs
pantoprazole 40 mg tablet,delayed 40 mg PO BID Gastrointestinal 02/06/25
release issue #60 tabs
phenylephrine 0.25 %-pramoxine 1 1 applic MA Q6HPRN PRN rectal 02/06/25
%-glycerin-wh.petrolatum rectal discomfort #26 grams
cream (Preparation H Maximum
Strength)
Imdur 90 mg PO DAILY 02/15/25
artificial tears ointment 1 % BOTH EYES PRN PRN dry eye 02/15/25
hydrocortisone 2.5 % topical cream 1 applic topical BID PRN eczema 02/15/25
nicotine (polacrilex) 2 mg buccal 2 mg buccal Q4H PRN nicotine 02/15/25
lozenge (Nicorette) craving
nitroglycerin 0.4 mg sublingual 0.4 mg sublingual [id number] PRN 02/15/25
tablet chest pain
simethicone 125 mg tablet 125 mg PO NOON 02/15/25
valsartan 40 mg tablet (Diovan) 40 mg PO 1800 02/15/25
Review of Systems
-
All other systems: A 12 pt ROS was Negative except as stated above in HPI
Vital Signs
Temp Pulse Resp BP Pulse Ox
97.6 F 67 18 116/49 97
02/18/25 11:49 02/18/25 11:49 02/18/25 11:49 02/18/25 11:49 02/18/25 11:49
Physical Exam
Exam
General: Other (Thin, chronically-ill appearing elderly male)
HEENT: Anicteric
Respiratory: Other (Normal WOB on room air)
GI: Soft, Non Tender and Non Distended
Rectal: Other (No external hemorrhoids, induration or erythema, normal perianal exam. Rectal exam deferred given recent treatment with APC)
Skin: Warm
Neuro: Nonfocal/Grossly Intact
Psych: Calm
Results
WBC 7.4 10^3/uL (4.8-10.8) 02/18/25 05:51
Hgb 9.2 g/dL (13.0-18.0) L 11/05/25 05:51
Hct 27.6 % (39.0-52.0) L 02/18/25 05:51
MCV 95.8 fL (80.0-94.0) H 02/18/25 05:51
Plt Count 123 10^3/uL (130-400) L 02/18/25 05:51
Absolute Neuts (auto) 6.0 10^3/uL (1.4-6.5) 02/15/25 07:07
PT 14.0 Sec (11.4-14.6) 02/14/25 18:08
INR 1.05 02/14/25 18:08
APTT 33.9 Sec (23.4-35.0) 02/14/25 18:08
Sodium 132 mmol/L (135-145) L 02/18/25 05:51
Potassium 4.1 mmol/L (3.5-5.1) 02/18/25 05:51
Chloride 100 mmol/L (98-107) 02/18/25 05:51
Carbon Dioxide 29 mmol/L (22-30) 02/18/25 05:51
BUN 36 mg/dl (9-20) H 02/18/25 05:51
Creatinine 1.2 mg/dL (0.7-1.3) 02/18/25 05:51
Calcium 8.7 mg/dl (8.4-10.2) 02/18/25 05:51
Total Bilirubin 1.4 mg/dl (0.2-1.3) H 02/15/25 07:07
AST 25 U/L (17-59) 02/15/25 07:07
ALT 22 U/L (0-50) 02/15/25 07:07
Alkaline Phosphatase 61 U/L (38-126) 02/15/25 07:07
Diagnostic Image Results: As above
Assessment / Plan
-
Mr. Brito is a 80 y.o male with an extensive past medical history including HTN, HLD, obstructive CAD (s/p prior stenting, on plavix), ischemic cardiomyopathy, PAD, carotid artery stenosis, hx of TIAs (on plavix), possible COPD, oropharyngeal
dysphagia, prostate cancer (s/p prior XRT in 2023) and recent hospitalization on 01/2024 with rectal bleeding 2/2 radiation proctitis (s/p APC 02/02/25), gastric ulcers (felt 2/2 ischemia) and recent NSTEMI (s/p DESx2 01/2025) who presented to ED
with vision difficulty concerning for possible CVA. GI has been consulted for further evaluation due to concern for intermittent rectal bleeding.
#Chronic, Intermittent Rectal Bleeding 2/2
#Radiation Proctitis (s/p APC 01/2025)
#Rectal Pressure
#Constipation
#Hx of Gastric Ulcers (felt 2/2 Ischemia)
#Recent NSTEMI (01/2025, on plavix)
#Visual Disturbances
Impression: Patient presenting with visual disturbances concerning for possible CVA on 02/15/25 and now with one episode of small volume rectal bleeding and ongoing intermittent rectal pressure/discomfort. Patient recently underwent a colonoscopy on
02/02/2025 for further evaluation of his rectal bleeding and unintentional weight loss where he was found to have radiation proctitis treated successfully with APC. The colonoscopy was also limited due to the amount of stool within the colon/cecum.
Since prior treatment with APC, he has done fairly well without any further recent recurrent rectal bleeding although did develop rectal discomfort/pressure likely secondary to his prior treatment with APC. He was advised to start Carafate which
would further help both treat his radiation proctitis as well as post-treatment related changes from APC for further treatment. Currently, he is without any further significant bleeding and his hemoglobin appears stable from baseline (Hgb 9-10s).
He denies any further rectal bleeding as of today and perianal exam without any hemorrhoids on exam. Thus, would stop hydrocortisone suppositories and would continue Carafate enemas while in house. Given his recent NSTEMI and need for
uninterrupted plavix given his recent SONYA would defer any plans for a repeat flex-sig as unable to perform cautery on antiplatelet therapy. Favor ongoing medical therapy with Carafate enemas. For now, would continue close monitoring of his serial
hemoglobin while he remains on Plavix and would continue Carafate enemas twice daily.
Recommendations:
- Trend Hgb with serial CBC while on plavix, transfuse for goal Hgb > 8.0 given recent NSTEMI
- No plans for any repeat flex-sig at this time given his most recent treatment with APC
- Stop hydrocortisone suppositories, start Carafate enemas twice daily (every 12 hours) for 2 week course. If not on formularly, can bring in from home
- Start Miralax 17 gm BiD to keep stool soft and prevention of constipation
- Would continue pantoprazole twice daily given his recent gastric ulcers found during his prior EGD
- Recommend avoidance of NSAIDs
- He will follow-up with me in about 3-4 weeks as an outpatient
- Please notify GI if Hgb were continue to drop and/or concern for brisk hematochezia
- Rest of care as per primary team
Discussed plan with both patient and primary internal medicine team. GI team will sign off. Please recontact with any questions or concerns.
Data Reviewed
-
Old Records: Requested
-
-
Thank you for consultation and allowing me to participate in the patient's care. Please call the numerical control drill press operator GI physician during the after hours with any questions or concerns.
[2025-02-18 14:06] LABS: Hematocrit 26.6 % (39.0-52.0); Hemoglobin 9.0 g/dL (13.0-18.0)
--- NOTE | 2025-02-18 14:21 | CM ---
Per UR CM, pt is upgraded to inpatient level of care.
IMM reviewed, placed on chart, pt has a copy.
[2025-02-18 15:52] VITALS: BP 125/49
[2025-02-18] MEDS: LOVENOX 40 MG SC (17:28)
[2025-02-18] MEDS: VITAMIN D3 (cholecalciferol) 25 MCG PO (17:28)
[2025-02-18] MEDS: DIOVAN 40 MG PO (17:28)
[2025-02-18 19:00] VITALS: BP 132/50
[2025-02-18] MEDS: MIRALAX 17 GRAMS PO (20:10)
[2025-02-18] MEDS: COMPOUND MEDICATION 1 UNIT RECTAL (20:10)
[2025-02-18 23:00] VITALS: BP 136/55
[2025-02-19 03:00] VITALS: BP 141/58
[2025-02-19] MEDS: SYNTHROID 88 MCG PO (05:42)
[2025-02-19 06:00] VITALS: BMI 17.2
--- NOTE | 2025-02-19 07:12 | W.PN.HOSP.TC ---
Addendum entered and electronically signed by Yuli Arreaga MD 03/02/25 11:37:
severe protein calorie malnutrition
Addendum entered and electronically signed by Yuli Arreaga MD 02/19/25 10:49:
Seen and examined the patient. Agree with the plan formulated by the resident. Discussed.
No more bleeding noted. Patient's family brought in the Carafate enema from home but with no label therefore it was sent to back.
Her pharmacy formulated an enema which patient did not like the Nozoil he felt that it was hard.
Hemoglobin is stable
Renal function and sodium is also stable.
Exam is unremarkable cardiovascular system S1-S2 appreciated
Chest clear to auscultation
Abdomen soft and nontender
No pedal edema
Overall he has improved no further bleeding. Patient will need to continue with his own enema from the compounding pharmacy at home.
He is back on all his medicines. Called patient's daughter Kandis [phone]. Updated about patient's condition. Discussed about the plan to follow-up with Dr. Rock as outpatient to further discuss about vascular intervention.
Also discussed about avoiding constipation continuing with MiraLAX twice daily
Plan was for outpatient inclisiran referral, this needs to be looked into at discharge.
He was seen by PT who recommended home care
Patient expressed wishes to talk to neurology-nursing to notify neurology about his request prior to discharge.
More than 30 minutes spent in discharge including
Final examination of the patient
Summarizing hospital stay
Instructions for continuing care to all relevant caregivers
Preparation of discharge records, prescriptions, and referral forms
Original Note:
Today's Communication/Plan
-
OP fu with GI, ophthalmo, cardio and pcp
Assessment / Plan
Assessment / Plan
79-year-old man with visual difficulty saw rod buster helper who referred him to the ED to rule out CVA. Patient has chronic tingling in his toes but no other medical problems. Patient was admitted here from 01/22/2020 7-10 20 send 25 for non-STEMI
had cardiac cath and stents placed. 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 Atherosclerotic vascular disease of the right carotid bifurcation extending
into the proximal right ICA contributed to hemodynamically significant stenosis. Atherosclerotic vascular calcification of the left carotid bifurcation extending into the proximal internal and external carotid arteries.
EKG-sinus rhythm cannot rule out anterior infarct
Cardiac Catheterization/PCI, 02/04/2025:Codominant circulation with a known EXPANDING MACHINE OPERATOR of the RCA, a 60-70% lesion in the proximal/ostial margin of the LAD leading into a previously stented segment, a patent stent in the distal circumflex, as stable 50%
lesion in the distal circumflex proximal to the stented segment and a culprit, 80% lesion in the proximal margin of the proximal circumflex stent status post successful IVUS guided PCI (Xience Skypoint 3.0 x 12 SONYA, postdilated with a 3.25 NC
balloon), followed by 70% ISR lesions in the mid circumflex that were not initially appreciated status post successful IVUS guided PCI (overlapping Xience Skypoint 3.0 x 8, 3.0 x 12 SONYA, postdilated with a 3.25 NC balloon) with reduction in the
treated stenoses to 0%, maintaining MARCO-3 flow.
# Visual abnormality -blurry vision no CVA on MRI
Bilateral cataracts and macular decompression
Bilateral carotid artery stenosis
Had OP ophthalmology evaluation and sent in to rule out CVA
Continue aspirin and Plavix
MRI as above
Vascular surgery evaluation appreciated.
# Chronic hyponatremia
- improved
# rectal bleeding
-recent endo and colono reviewed.
-GI recs OP fu
# Patient felt palpitations-no arrhythmias on the monitor or EKG. Pt is anxious. Trop borderline trended down since last admission. cardio recs continue coreg
# BERNARDO-likely contrast-induced nephropathy.
resolved
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
# Recent subcutaneous hematoma abdominal wall from Lovenox-ultrasound stable.
# History of TIA
# Triple-vessel disease with drug-eluting stents in January 2025 History of PCI in / 2016 and 2018-continue aspirin, Plavix. Statin intolerant
Patient was not felt to be a candidate for surgery after CT surgery evaluation
# Mild to moderate aortic regurgitation
# Ischemic cardiomyopathy/chronic HFmrEF-currently on Coreg. Does not seem to be on valsartan. SGLT2 inhibitor was not started secondary to hyponatremia
# Hyperlipidemia-statin and PCSK9 inhibitor intolerant. Plan was for outpatient inclisiran referral
# History of intermittent rectal bleeding secondary to radiation proctitis/colonic AVM-EGD and colonoscopy January 2025
# Peripheral artery disease. Left renal artery stenosis
# Chronic anemia-
# Hypertension-continue Coreg
# History of thyroid mass status post thyroidectomy-continue levothyroxine
# History of prostate cancer status postradiation-continue tamsulosin
# History of odynophagia/dysphagia-on pur�ed diet with Ensure supplementation
# History of spontaneous pneumothorax
# Spinal stenosis/arthritis/DJD
# Emphysema
# GERD-continue PPI
# Ex-smoker
# Anxiety , depression and insomnia-continue Ativan
# DVT prophylaxis-Lovenox
# Full code
Anticipated Discharge: Today
Subjective/Interval History
-
Date of Service: February 19, 2025
AFVSS. states that 'everything is bothering me' specifically denies abd pain, chest pain, sob, headache, lightheadedness
Objective Data
-
Labs:
Laboratory Results
02/19/25
07:01
WBC Pending
Hgb Pending
Hct Pending
Plt Count Pending
Sodium Pending
Potassium Pending
Chloride Pending
Carbon Dioxide Pending
BUN Pending
Creatinine Pending
Glucose Pending
Calcium Pending
Vital Signs:
Vital Signs
Temp Pulse Resp BP Pulse Ox
98.4 F 63 18 141/58 97
02/19/25 03:00 02/19/25 03:00 02/19/25 03:00 02/19/25 03:00 02/19/25 03:00
I&O
02/18/25 02/19/25 02/20/25
06:59 06:59 06:59
Intake Total 720 / 720 960 / 960
Balance 720 / 720 960 / 960
Review of Systems
-
History Source: Patient
Constitutional: Reports Other (Feeling not well)
Respiratory: Denies Trouble Breathing
Cardiac: Denies Chest Pain
Abdomen/GI: Denies Abdominal Pain or Bloody Stools
Genitourinary: Denies Dysuria
Neuro: Denies Headache, Weakness or Numbness
Physical Exam
-
General: No Apparent Distress
HEENT: Normocephalic
Respiratory: Clear to Auscultation and Non Labored Respirations
Cardiac: Regular Rhythm and S1/S2
GI: Soft, Nontender and Nondistended
Skin: Warm
Neuro: Awake, Alert and Oriented
Psych: Calm
Data Reviewed
-
Labs: Labs Reviewed by me, Discussed with Physician, Discussed with Nurse and Discussed with Patient
[2025-02-19 07:27] VITALS: BP 140/55
[2025-02-19 07:29] LABS: Hematocrit 27.9 % (39.0-52.0); Hemoglobin 9.3 g/dL (13.0-18.0); Mean Corp Hgb Conc. 33.3 g/dL (33.0-37.0); Mean Corpuscular Volume 94.3 fL (80.0-94.0); Platelet Count 134 10^3/uL (130-400); Red Cell Dist. Width 15.7 % (11.5-14.5)
[2025-02-19 08:00] LABS: Blood Urea Nitrogen 32 mg/dl (9-20); Calcium 8.5 mg/dl (8.4-10.2); Carbon Dioxide 27 mmol/L (22-30); Chloride 102 mmol/L (98-107); Estimated Creatinine Clearance 39 ml/min; Glucose 95 mg/dl (70-99); Potassium 3.9 mmol/L (3.5-5.1); Sodium 134 mmol/L (135-145); eGFR > 60.00
[2025-02-19] MEDS: COMPOUND MEDICATION 2 UNIT RECTAL (09:05)
[2025-02-19] MEDS: TYLENOL 1000 MG PO (09:06)
[2025-02-19] MEDS: PROTONIX 40 MG PO (09:06)
[2025-02-19] MEDS: LOW STRENGTH ASPIRIN 81 MG PO (09:06)
[2025-02-19] MEDS: IMDUR (EXTENDED RELEASE) 90 MG PO (09:06)
[2025-02-19] MEDS: MIRALAX 17 GRAMS PO (09:06)
[2025-02-19] MEDS: NON-FORMULARY ITEM 1 UNIT PO (09:07)
[2025-02-19] MEDS: COREG 12.5 MG PO (09:07)
[2025-02-19] MEDS: FEOSOL 325 MG PO (09:07)
[2025-02-19] MEDS: FLOMAX 0.4 MG PO (09:07)
[2025-02-19] MEDS: PLAVIX 75 MG PO (09:07)
[2025-02-19] MEDS: LASIX 20 MG PO (09:07)
[2025-02-19] MEDS: DESENEX/MITRAZOL/ZEASORB 1 APPLIC TOPICAL (09:09)
[2025-02-19] MEDS: NON-FORMULARY ITEM BOTH EYES (09:11)
[2025-02-19] MEDS: REFRESH EYE DROPS (PF) 1 DROPS BOTH EYES (09:12)
--- NOTE | 2025-02-19 09:31 | PN.CDI ---
CDI
- -
CDI:
Physician Documentation Request
Admit Date: 02/17/25 16:41
Dear Doctor,
Patient admitted for stroke.
02/18 Drop Wire Operator Assessment: 'During visit today RD able to observe appearance of fat/muscle loss (severe) on orbital, temperal, clavicle, rib cage with pt in bed. Pt meeting criteria for severe protein/calorie malnutrition as per NFPE
(ASPEN/AND guidelines, chronic illness).'
Based on the above information and your assessment, which of the following most accurately represents the patient's nutritional status?
Severe protein calorie malnutrition
Other
[place] Criteria ([facility] Hospitalist 2017)
2 or more criteria must be present for either
non severe or severe malnutrition
Note that the criteria differs related to the
presence of an acute or chronic illness
Acute Illness Chronic Illness
Energy Intake Non Severe: <75% for >7 days Non Severe: <75% for >1 month
Severe: <50% for >5 days Severe: <75% for >1 month
Weight Loss Non Severe: 1-2% over 1 week Non Severe: 5% over 1 month
5% over 1 month 7.5% over 3 months
7.5% over 3 months 10% over 6 months
1 year N/A 20% over 1 year
Severe: >2% over 1 week Severe: >5% over 1 month
>5% over 1 month >7.5% over 3 months
>7.5% over 3 months >10% over 6 months
1 year N/A >20% over 1 year
Body Fat Non Severe: Mild Decrease Non Severe: Mild Loss
Severe: Moderate Decrease Severe: Severe Loss
Muscle Mass Non Severe: Mild Decrease Non Severe: Mild Loss
Severe: Moderate Decrease Severe: Severe Loss
Fluid Accumulation Non Severe: Mild Accumulation Non Severe: Mild Accumulation
Severe: Moderate to severe Severe: Moderate to severe
accumulation accumulation
Reduced Group Insurance Specialist Strength Non Severe: N/A Non Severe: N/A
Severe: Measurably reduced Severe: Measurably reduced
Additional criteria that can be used to Determine if Mild or Moderate Malnutrition (Merck Manual 2018)
Mild Moderate Severe
Albumin gm/dl <3.0 gm/dl <2.5 gm/dl <2.0 gm/dl
Pre Albumin mg/dl <15 gm/dl <10 mg/dl <5.0 mg/dl
BMI <18.5 <17 <16
Use of terms such as suspected, likely, concern for, or probable (associated with a specific diagnosis that is being evaluated, monitored, or treated as if it exists) are acceptable and can be coded in the inpatient setting, when documented at the
time of discharge.
Thank you,
Bobbi Aldridge RN, BSN
CDI Specialist
Available via [place] text
Please use your independent medical judgment in providing your response.
--- NOTE | 2025-02-19 12:03 | CM ---
CM following re: discharge planning.
Reviewed pt's chart, met with pt and pt's sister at bedside.
Discharge order noted. Both pt and his sister are aware. Pt expressed some concerns regarding going home. Pt's sister offered support at home and pt's daughter confirmed she will take the pt home and will support at home.
PT and OT continue recommending home PT/OT. [facility] liaison following.
IMM reviewed yesterday
Please fax discharge instructions to [facility] at [phone]
D/C plan: home with [facility] and family support. Daughter to transport.
[2025-02-19] MEDS: MYLICON 80 MG PO (12:29)
[2025-02-19] MEDS: ATIVAN 0.5 MG PO (14:21)
[2025-02-19 15:12] VITALS: BP 131/51
--- NOTE | 2025-02-19 17:20 | W.DCSUMMARY ---
Addendum entered and electronically signed by Yuli Arreaga MD 03/02/25 17:11:
Read, reviewed, and agree. See same day progress note for additional details.
Original Note:
Documented by User: Taras Sharp MD, Resident 02/19/25 17:55
Discharge Summary
Discharge Data
Date of Admission: 02/17/25
Date of Discharge: 02/19/25
-
Pending Results: No
Hospital Course
Discharging Physician : Taras Sharp MD ; Yuli Arreaga MD
Disposition : Home with VN
Primary care physician : Christopher Cramer
Principal Discharge diagnosis : Visual abnormality -blurry vision no CVA on MRI, BERNARDO
Chronic Discharge diagnosis : Chronic hyponatremia,
Mild to moderate aortic regurgitation
Ischemic cardiomyopathy/chronic HFrEF
Hyperlipidemia
History of intermittent rectal bleeding
PAD
Chronic anemia
Hypertension,
History of prostate cancer,
Spinal stenosis,
Emphysema
Dysphagia
GERD
Anxiety
Insomnia
Hospital Course : 79-year-old male past medical history of triple-vessel CAD, PAD, hypertension, benign thyroid mass status post thyroidectomy, prostate cancer status post radiation, odynophagia/dysphagia, precancerous cells in mouth in 2007,
hypertension, hyperlipidemia, COPD, former smoker, history of spontaneous pneumothorax, GERD, BPH, anxiety/depression, neuropathy, insomnia, presented with bilateral dimming of the vision which started a week ago on the last day of hospitalization
when he was going home. The dimming was within the bilateral eyes. He has chronically diminished vision in both eyes secondary to cataract and prior retinal artery occlusion in the left eye approximately 5 years ago.
He saw his weatherization coordinator on 02/14/25 and had full examination and was sent to the emergency room to rule out CVA. He denied any headache or blurry vision.
Patient was recently admitted from 01/21 to 02/09 for chest pain. He was found to have NSTEMI. He underwent cardiac catheterization and underwent drug-eluting stent x 2.
He was also having intermittent rectal bleeding and was seen by GI and underwent endoscopy and colonoscopy on last admission. 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
Given there was a concern for CVA neurology service was consulted. CT a head and neck was performed results as below. MRI was also done results as below.
He insisted to see vascular as well as cardiology. They saw the patient during hospitalization and recommend outpatient follow-up.
For his subcutaneous hematoma secondary to Lovenox repeat ultrasound was done with Josselin as below.
Per neurology the patient did not appear to have had an acute stroke.
On routine labs he was found to have an BERNARDO with serum creatinine 1.5 likely secondary to the contrast for imaging studies. Periodic labs showed significant improvement and on the day of discharge his serum creatinine was back to his baseline.
He also complained of rectal bleeding in the hospital. Per his request GI service was consulted. They recommended starting MiraLAX twice daily to avoid constipation also pantoprazole twice daily. Recommended outpatient follow-up in 3 to 4 weeks.
Additional information attached to the discharge papers. He was monitored continuously on telemetry and there were some PVCs and periods of bigeminy noted however they were occasional. Cardiology recommended continuing the Coreg 12.5 mg twice
daily for now
PT evaluated and recommended home health. surgery manager was notified and helped arranging this.
On the day of discharge patient was stable with normal vital signs and afebrile. Daughter was updated on the phone call prior to discharge.
Important imaging findings : CT Head & Neck Angio W/wo IV
Significant calcific atherosclerotic disease.
Measured diameter reduction of the right proximal internal carotid artery of 62%, likely hemodynamically significant.
No evidence for hemodynamically significant stenosis of the left carotid bulb or proximal left ICA.
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
Small focal moderate stenosis involving the distal M1 portion of the right middle cerebral artery.
Dominant left vertebral artery. Right vertebral artery terminates as the posterior inferior cerebellar artery.
Focal mild to moderate narrowing involving the proximal P2 portions of the right posterior cerebral artery.
2 mm protrusion from the anterior cavernous portion of the left ICA, suggesting a tiny aneurysm. Boat Rigger images of this probable aneurysm has been sent to the PACS system.
Percent stenosis is calculated using NASCET criteria.
If the patient has emphysema, patient should be assessed for an annual low dose lung cancer CT program, as pulmonary emphysema is an independent risk factor for lung cancer.
MR Brain Without Contrast
No evidence of acute intracranial abnormality.
Focus of susceptibility blooming in the right parieto-occipital region, probably within the parietal lobe, stable from MRI of the brain of March 05, 2023. This could either represent an area of old hemorrhage or a vascular malformation.
Procedure findings : US Abdomen Limited
Hypoechoic nodule with some mild through transmission within the subcutaneous soft tissues of the left lower anterior abdominal wall again identified. This measures 2.6 x 0.5 x 2.1 cm, previously 2.4 x 0.8 x 2.1 cm. Therefore minimal interval
increase of the craniocaudad diameter and decrease of the anteroposterior diameter. There is some color Doppler flow along the nodule. If this does represent collection, may represent flow along septations. No abnormality is identified within the
abdominal wall on CT abdomen and pelvis 01/22/2025. Therefore most likely to represent small collection such as hematoma. Exact etiology is indeterminate at sonography.
US Cerebrovascular
RIGHT: Mixed-type plaque is identified in the carotid bulb and internal carotid artery. Carotid velocity measurements are consistent with greater than 70% internal carotid artery stenosis. Vertebral artery flow is antegrade.
LEFT: Calcified plaque is identified in the carotid bulb. Carotid velocity measurements are consistent with a 50-69% internal carotid artery stenosis. Vertebral artery flow is antegrade
Discharge Plan
-
Patient Disposition: Home with Home Care
Discharge Diagnosis/Procedures: Visual abnormality -blurry vision no CVA on MRI,
Chronic hyponatremia,
Mild to moderate aortic regurgitation
Ischemic cardiomyopathy/chronic HFrEF
Hyperlipidemia
History of intermittent rectal bleeding
PAD
Chronic anemia
Hypertension,
History of prostate cancer,
Spinal stenosis,
Emphysema
Dysphagia
GERD
Anxiety
Insomnia
Condition: Fair
Diet: Restrict fluids to 48 oz
Additional Diets: IDDSI Level 4 (Puree) and Thin liquids
Activity: No restrictions and As tolerated
Driving Restrictions: Not until seen by your Dr
Bathing Restrictions: None
Other Services: VN
Specialty Instructions: Weigh Daily- Call MD for wt gain/loss 3 lbs overnight/5 lbs in 1 week
Activity Restrictions/Additional Instructions:
It is important that you follow-up with your primary physician to get on cholesterol lowering medicines. Probably look into inclisiran
Avoid constipation.
Referrals:
Christopher Rock III, MD [Active, Vascular Surgery] - 03/04/25 11:30 am
Kye Bobby MD [Active, Neurology] - in one week
Davidson Puente MD [Active, Cardiology] - in one to two weeks
Bala Sharp DO [Active, Gastroenterology] - in three to four weeks
Christopher Cramer DO [Family Provider, Internal Medicine] - in less than 1 week
Additional Discharge Medication Instructions: Take miralax 1 packet twice daily
you may continue compounded Carafate enemas twice daily which you have it at home.
Prescriptions:
New
polyethylene glycol 3350 17 gram Powder In Packet
17 g PO BID Qty: 14 0RF
Continued
Xiidra 1 EACH dropperette
1 drp BOTH EYES BID
Rx Instructions:
Xiidra 5%
lorazepam 0.5 MG tablet
1 mg PO HS PRN (Reason: sleep)
Patient Comments:
04/06/2020: per pdmp last filled 04/02/2019, 60 tabs for 30 days from [facility]
Rx Instructions:
SO PATIENT STATES THAT PRESCRIPTION IS FOR 1MG AT HS but that he takes it 0.5mg at noon and 0.5mg at bedtine.
levothyroxine 88 MCG tablet
88 mcg PO DAILY
cholecalciferol (vitamin D3) 1,000 UNITS tablet
2,000 units PO QPM
Rx Instructions:
dinner
tamsulosin [Flomax] 0.4 mg capsule
0.4 mg PO BID Qty: 30 0RF
Rx Instructions:
am and hs
ferrous sulfate 325 mg (65 mg iron) Tablet
325 mg PO DAILY
ICaps AREDS2
1 cap PO BID
Rx Instructions:
am and dinner
carvedilol [Coreg] 12.5 mg tablet
12.5 mg PO BID Qty: 60 0RF
Rx Instructions:
am and dinner
aspirin 81 mg Tablet,Chewable
81 mg PO DAILY Qty: 30 0RF
pantoprazole 40 MG tablet,delayed release (DR/EC)
40 mg PO BID Qty: 60 0RF
Rx Instructions:
takes at noon and bedtime
furosemide 20 MG tablet
20 mg PO DAILY Qty: 30 0RF
clopidogrel 75 MG tablet
75 mg PO DAILY Qty: 20 0RF
Imdur 30 mg tablet
90 mg PO DAILY
nitroglycerin 0.4 mg Tablet, Sublingual
0.4 mg sublingual [id number] PRN (Reason: chest pain )
simethicone 125 mg Tablet
125 mg PO NOON
valsartan [Diovan] 40 mg Tablet
40 mg PO 1800
Rx Instructions:
TAKES AT DINNER TIME
nicotine (polacrilex) [Nicorette] 2 mg Lozenge
2 mg buccal Q4H PRN (Reason: nicotine craving)
artificial tears ointment
1 % BOTH EYES PRN PRN (Reason: dry eye)
hydrocortisone 2.5 % Cream
1 applic TOPICAL BID PRN (Reason: eczema)
Discontinued
acetaminophen [Tylenol Arthritis] 650 MG tablet extended release
1,300 mg PO TID
Preparation H Maximum Strength 0.25-1 % Cream
1 applic NE Q6HPRN PRN (Reason: rectal discomfort) Qty: 26 0RF
Discharge Orders:
Discharge Patient (As Directed); Ordered 02/19/25
Ordered By: Taras Sharp
Discharge Date and Time
Discharge Date/Time: 02/19/25 17:36
Print Language: AFGHAN

Documented by User: Yuli Arreaga MD 03/02/25 17:11
Discharge Summary
Discharge Data
Date of Admission: 02/17/25
Date of Discharge: 03/02/25
Discharge Plan
-
Patient Disposition: Home with Home Care
Discharge Diagnosis/Procedures: Visual abnormality -blurry vision no CVA on MRI,
Chronic hyponatremia,
Mild to moderate aortic regurgitation
Ischemic cardiomyopathy/chronic HFrEF
Hyperlipidemia
History of intermittent rectal bleeding
PAD
Chronic anemia
Hypertension,
History of prostate cancer,
Spinal stenosis,
Emphysema
Dysphagia
GERD
Anxiety
Insomnia
Condition: Fair
Diet: Restrict fluids to 48 oz
Additional Diets: IDDSI Level 4 (Puree) and Thin liquids
Activity: No restrictions and As tolerated
Driving Restrictions: Not until seen by your Dr
Bathing Restrictions: None
Other Services: VN
Specialty Instructions: Weigh Daily- Call MD for wt gain/loss 3 lbs overnight/5 lbs in 1 week
Activity Restrictions/Additional Instructions:
It is important that you follow-up with your primary physician to get on cholesterol lowering medicines. Probably look into inclisiran
Avoid constipation.
Referrals:
Christopher Rock III, MD [Active, Vascular Surgery] - 03/04/25 11:30 am
Kye Bobby MD [Active, Neurology] - in one week
Davidson Puente MD [Active, Cardiology] - in one to two weeks
Bala Sharp DO [Active, Gastroenterology] - in three to four weeks
Christopher Cramer DO [Family Provider, Internal Medicine] - in less than 1 week
Additional Discharge Medication Instructions: Take miralax 1 packet twice daily
you may continue compounded Carafate enemas twice daily which you have it at home.
Prescriptions:
New
polyethylene glycol 3350 17 gram Powder In Packet
17 g PO BID Qty: 14 0RF
Continued
Xiidra 1 EACH dropperette
1 drp BOTH EYES BID
Rx Instructions:
Xiidra 5%
lorazepam 0.5 MG tablet
1 mg PO HS PRN (Reason: sleep)
Patient Comments:
04/06/2020: per pdmp last filled 04/02/2019, 60 tabs for 30 days from [facility]
Rx Instructions:
SO PATIENT STATES THAT PRESCRIPTION IS FOR 1MG AT HS but that he takes it 0.5mg at noon and 0.5mg at bedtine.
levothyroxine 88 MCG tablet
88 mcg PO DAILY
cholecalciferol (vitamin D3) 1,000 UNITS tablet
2,000 units PO QPM
Rx Instructions:
dinner
tamsulosin [Flomax] 0.4 mg capsule
0.4 mg PO BID Qty: 30 0RF
Rx Instructions:
am and hs
ferrous sulfate 325 mg (65 mg iron) Tablet
325 mg PO DAILY
ICaps AREDS2
1 cap PO BID
Rx Instructions:
am and dinner
carvedilol [Coreg] 12.5 mg tablet
12.5 mg PO BID Qty: 60 0RF
Rx Instructions:
am and dinner
aspirin 81 mg Tablet,Chewable
81 mg PO DAILY Qty: 30 0RF
pantoprazole 40 MG tablet,delayed release (DR/EC)
40 mg PO BID Qty: 60 0RF
Rx Instructions:
takes at noon and bedtime
furosemide 20 MG tablet
20 mg PO DAILY Qty: 30 0RF
clopidogrel 75 MG tablet
75 mg PO DAILY Qty: 20 0RF
Imdur 30 mg tablet
90 mg PO DAILY
nitroglycerin 0.4 mg Tablet, Sublingual
0.4 mg sublingual [id number] PRN (Reason: chest pain )
simethicone 125 mg Tablet
125 mg PO NOON
valsartan [Diovan] 40 mg Tablet
40 mg PO 1800
Rx Instructions:
TAKES AT DINNER TIME
nicotine (polacrilex) [Nicorette] 2 mg Lozenge
2 mg buccal Q4H PRN (Reason: nicotine craving)
artificial tears ointment
1 % BOTH EYES PRN PRN (Reason: dry eye)
hydrocortisone 2.5 % Cream
1 applic TOPICAL BID PRN (Reason: eczema)
Discontinued
acetaminophen [Tylenol Arthritis] 650 MG tablet extended release
1,300 mg PO TID
Preparation H Maximum Strength 0.25-1 % Cream
1 applic NE Q6HPRN PRN (Reason: rectal discomfort) Qty: 26 0RF
Discharge Orders:
Discharge Patient (As Directed); Ordered 02/19/25
Ordered By: Taras Sharp
Discharge Date and Time
Discharge Date/Time: 02/19/25 17:36
Print Language: AFGHAN
== END 2025-02-19 17:36 | disposition home health service (06) | DRG 67 ==
LOC: 2 NORTH 16:41
PROVIDERS: Nurse Practitioner Family; Physician Assistant; ADMITTING PHYSICIAN Hospitalist; ATTENDING PHYSICIAN Hospitalist; CONSULT PHYSICIAN Internal Medicine; CONSULT PHYSICIAN Psychiatry & Neurology Neurology; CONSULT PHYSICIAN Surgery Vascular Surgery; EMERGENCY PHYSICIAN Emergency Medicine; FAMILY PHYSICIAN Internal Medicine; OTHER PHYSICIAN Student in an Organized Health Care Education/Training Program
DX: I65.23 Occlusion and stenosis of bilateral carotid arteries (principal); E43 Unspecified severe protein-calorie malnutrition; I21.4 Non-ST elevation (NSTEMI) myocardial infarction; E87.1 Hypo-osmolality and hyponatremia; N17.9 Acute kidney failure, unspecified; Z68.1 Body mass index [BMI] 19.9 or less, adult; I50.22 Chronic systolic (congestive) heart failure; H35.30 Unspecified macular degeneration; H26.9 Unspecified cataract; I11.0 Hypertensive heart disease with heart failure; I73.9 Peripheral vascular disease, unspecified; Z87.891 Personal history of nicotine dependence; I25.5 Ischemic cardiomyopathy; H53.8 Other visual disturbances; K62.7 Radiation proctitis; F40.240 Claustrophobia; F32.A Depression, unspecified; G47.00 Insomnia, unspecified; I35.1 Nonrheumatic aortic (valve) insufficiency; Z79.02 Long term (current) use of antithrombotics/antiplatelets; Z79.82 Long term (current) use of aspirin; Z79.899 Other long term (current) drug therapy
CPT/HCPCS: 70496; 70498; 70551; 76705; 80048; 80053; 81003; 81015; 82607; 82728; 83540; 83550; 83930; 83935; 84300; 84484; 85014; 85018; 85025; 85027; 85610; 85730; 93005; 93880; 97116; 97162; 97167; 99285; Q9967